=== PATIENT | female | born 1955 | race Caucasian/White ===

== ENCOUNTER → 2016-08-08 | Outpatient (CLI) | payer OTHER ==
[~2016-08-08] MED LIST: /ATOR40TA PO; /IPRAINH IN; /PANT40TA OR; ALBU17IN INH; ALBUTEROL INH; ALLE180T33 PO; AMBI10TA OR; AMLO10TA PO; AMLO10TA2 PO; ARNU1INH3 INH; ATOR40TA PO; ATRO0.063 IN; BACT800T OR; CETI10TA PO; CIPR500S PO; CIPR500T89 PO; CLAR10CA3 PO; CLAR5CHW OR; COMBAER6 INH; CYMB1CAP5 PO; CYMB60CA3 PO; DEPA500T2 OR; DIAZ10TA2 PO; DIOV320T PO; DIOV40TA PO; DIOV80TA3 PO; DITR5TAB PO; DULO1CAP2 PO; DULO1CAP3 PO; DULO20CA OR; DUO PO; ESTR1TD TD; FENO145T PO; FLAG500T PO; FLUT22IN INH; FOLI1TAB2 PO; FURO40TA2 PO; GABA300C3 PO; GABA600T PO; GABA600T3 OR; GABA800T PO; GEMF600T PO; GEOD40CA OR; HALO05TA PO; HYDR50TA8 OR; IBUP600T26 PO; INVA1INJ IV; IPRAINH INH; IPRASOL4 INH; LASI20TA PO; LASI40TA OR; LIDO5TD TD; LIPI20TA OR; LIPI20TA PO; LISI-538 PO; LISI40TAB PO; METO50TA2 PO; NEUR300C PO; NICO14DI20 TD; OMEP40CA2 PO; PAXI40TA OR; PRIL40CA PO; PROT1TAB2 PO; ROBA500T PO; TEARGEN OU; THIA100T PO; TOPI200T OR; TRAM50TA2 OR; TRAM50TA2 PO; TRAZ100T OR; TRAZ100T2 PO; TRAZ100T4 PO; ULTR37.52 PO; ULTR50TA PO; VALS80CA OR; VITA100037 PO; VITA100041 PO; VITA100066 PO; VITA100T86 PO; VITA400C2 PO; VITA50003 PO; VITAD1000T PO; VITAMIN D50000 UNT OR; ZOMI5TAB OR; [UNRECOGNIZED DRUG - CODE] PO; [UNRECOGNIZED DRUG - REMARK] PO
--- NOTE | 2016-08-08 08:23 | REP ---
Clinical: Cholelithiasis with upper abdominal pain. Technique: Real time perez scale ultrasound examination using curved array transducer. Findings: Liver and visualized pancreas are normal in contour, size, and echogenicity without focal hepatic or pancreatic lesions identified. Gallbladder demonstrates multiple gallstones along with sonographic Swan's sign, but no wall thickening or pericholecystic fluid. No biliary ductal dilatation is appreciated and the common bile duct measures 3.9 mm diameter. The right kidney is normal in reniform shape without hydronephrosis and measures 10.5 x 5.7 x 5.1 cm. Impression: Cholelithiasis with right upper quadrant pain cannot exclude acute cholecystitis versus biliary colic . Signed by Gerardo Rowe MD 08/08/2016 08:15 A
== END ==
LOC: M RAD 06:58
PROVIDERS: ATTEND Physician Assistant Medical
DX: R10.10 Upper abdominal pain, unspecified (principal); R11.2 Nausea with vomiting, unspecified; K80.80 Other cholelithiasis without obstruction

== ENCOUNTER → 2016-08-09 | Outpatient (CLI) | payer OTHER ==
[~2016-08-09] MED LIST changes: +E-Z-GAS II EFFERVESCENT PACKET (SODIUM BICARB./CITRIC ACID/SIMETHICONE) As Ordered ONE; +E-Z-HD 98% w/w 340GM SUSP BTL As Ordered ONE; +E-Z-PAQUE 96% w/w SUSP 176GM BTL As Ordered ONE
--- NOTE | 2016-08-09 16:59 | REP ---
UPPER GI AIR CONTRAST AND SMALL BOWEL FOLLOW-THROUGH: The procedure was performed under the direct supervision of Dr. Trevino. The images were reviewed with Dr. Trevino. The campus interviews intern film shows no organomegaly or pathological masses. The intestinal gas pattern is nonspecific. There are degenerative changes of the spine. Liquid barium and gas producing granules were given in the erect position as well as liquid barium in the prone oblique position in order to perform a double contrast upper GI examination. Additionally liquid barium was given at the end of the examination in order to perform a small bowel follow-through. The oral and pharyngeal stages of deglutition are unremarkable. During esophageal transport there are tertiary waves demonstrated. There is no esophagitis, stricture, mucosal ring, or hiatal hernia. Gastroesophageal reflux is not demonstrated on this examination. The stomach gaytan are normally outlined. The rugal folds are smooth and regular. There is no gastritis, neoplasm or ulcer disease. Within the third portion of the duodenum there are two large diverticula identified. The duodenum is otherwise unremarkable. The visualized portion of the proximal small bowel appears normal in course and caliber. The barium column was followed through the small bowel to the level of the terminal ileum. Small bowel transit time was approximately 1 hour. During fluoroscopy gentle palpation shows all loops are freely movable and pliable. There are no fixed or angulated loops. The small bowel mucosal pattern is normal in course and caliber. There is no transition to suggest a partial small bowel obstruction. Spot filming of terminal ileum shows it to be unremarkable. IMPRESSION: 1. Esophageal dysmotility. 2. There are two large diverticula seen in the third portion of the duodenum. 5 minutes and 37 seconds of fluoroscopy time was utilized for this procedure. Reviewed by JOEL Li 08/10/2016 08:30 AEdited and Signed by Asad Trevino MD 08/10/2016 02:56 P
== END ==
LOC: M RAD 08:12
PROVIDERS: ATTEND Physician Assistant Medical
DX: R10.10 Upper abdominal pain, unspecified (principal); R11.2 Nausea with vomiting, unspecified

== ENCOUNTER → 2016-08-22 | Outpatient (CLI) | payer OTHER ==
[~2016-08-22] MED LIST changes: -E-Z-GAS II EFFERVESCENT PACKET (SODIUM BICARB./CITRIC ACID/SIMETHICONE) As Ordered ONE; -E-Z-HD 98% w/w 340GM SUSP BTL As Ordered ONE; -E-Z-PAQUE 96% w/w SUSP 176GM BTL As Ordered ONE; +SUDA1TAB3 PO; -[UNRECOGNIZED DRUG - CODE] PO
[2016-08-22 11:31] LABS: ALBUMIN 3.6 GM/DL (3.2-5.2); ALBUMIN/GLOBULIN RATIO 1.03 (1.00-1.93); BILIRUBIN,TOTAL 0.6 MG/DL (0.2-1.0); CALCIUM LEVEL 9.2 MG/DL (8.5-10.1); CREATININE FOR GFR 1.92 MG/DL (0.55-1.02); GLOMERULAR FILTRATION RATE 28.5 (>51); MAGNESIUM LEVEL 1.8 MG/DL (1.8-2.4); PHOSPHORUS LEVEL 3.4 MG/DL (2.5-4.9); POTASSIUM SERUM 4.4 MEQ/L (3.5-5.1); TOTAL PROTEIN 7.1 GM/DL (6.4-8.2)
== END ==
LOC: M LAB 10:40
PROVIDERS: ATTEND Physician Assistant Medical
DX: E87.1 Hypo-osmolality and hyponatremia (principal)

== ENCOUNTER → 2016-08-25 | Outpatient (CLI) | payer OTHER ==
--- NOTE | 2016-08-25 12:48 | REP ---
Urinary tract sonogram: History: Kidney failure. Comparison: Comparison CT study July 13, 2015. Findings: Scanning at the level of the urinary bladder shows no abnormality. Renal cortical echogenicity pattern is normal bilaterally and contours are smooth. There is no evidence of hydronephrosis, cyst, mass, or calculus in either kidney. The right kidney measures 11.1 x 5.0 x 4.6 cm. Left renal dimensions are 11.6 x 3.8 x 4.9 cm. Impression: Normal urinary tract sonography. Signed by Asad Trevino MD 08/25/2016 12:38 P
== END ==
LOC: M RAD 10:32
PROVIDERS: ATTEND Physician Assistant Medical
DX: N19 Unspecified kidney failure (principal)

== ENCOUNTER 2016-12-20 05:44 | Day surgery (SDC) | payer OTHER ==
[~2016-12-20] VITALS: Ht 160 cm; Wt 65.8 kg
[2016-12-20] VITALS (7 sets, daily range): BP systolic 94–115; BP diastolic 52–63; O2SAT 96
[~2016-12-20 05:44] MED LIST changes: +GABA-282 PO; -GABA300C3 PO; +LAMI1CRE TOP
[2016-12-20] MEDS ORDERED: LR 1,000 ML IV SCH ×2 (06:00→12:00)
[2016-12-20] MEDS ORDERED: ROCURONIUM BROMIDE 50 MG/5 ML VIAL As Ordered ONE (07:11)
[2016-12-20] MEDS ORDERED: PROPOFOL 200 MG/20 ML VIAL As Ordered ONE (07:11)
[2016-12-20] MEDS ORDERED: fentaNYL 250 MCG/5 ML INJECTION (J3010) As Ordered ONE (07:11)
[2016-12-20] MEDS ORDERED: MIDAZOLAM INJ 2 MG/2 ML VIAL (J2250) As Ordered ONE (07:11)
[2016-12-20] MEDS ORDERED: LIDOCAINE 2% INJ 100 MG/5 ML SDV (FOR ANES.) As Ordered ONE (07:11)
[2016-12-20] MEDS ORDERED: BUPIVACAINE/EPIN 0.25% 30 ML VIAL As Ordered ONE (07:19)
--- NOTE | 2016-12-20 08:30 | ECGEPIP ---
Stationary ECG Study [facility] Test Date: 2016-12-20 Pat Name: KALA SOLIS Department: [facility] [place] Room: - Gender: F Contact Center Assistant: JACEK : 1955 Requested By: Duncan Garcia Order Number: [id number] Reading MD: Buddy Pickens Measurements Intervals [place] Rate: 76 P: 66 MO: 181 QRS: 64 QRSD: 86 T: 39 QT: 394 QTc: 444 Interpretive Statements Normal sinus rhythm P pulmonale Low voltages with somewhat prominent R wave in V2 and persistent S waves in V5 and V6 in keeping with body habitus versus pulmonary disease. Nonspecific ST/T-wave abnormalities more marked than 07/12/15 Clinical correlation advised Electronically Signed On 12-20-2016 8:29:37 EDT by Buddy Pickens
[2016-12-20] MEDS ORDERED: PHENYLephrine HCL 500 MCG/5 ML (100MCG/ML) SYRINGE (J2370) As Ordered ONE (10:33)
[2016-12-20] MEDS ORDERED: ePHEDrine SULFATE 25 MG/5 ML(5MG/ML) SYRINGE As Ordered ONE (10:33)
[2016-12-20] MEDS ORDERED: GLYCOPYRROLATE INJ 0.2 MG/ML 2 ML VIAL As Ordered ONE (10:52)
[2016-12-20] MEDS ORDERED: ONDANSETRON 4MG/2ML VIAL (J2405) As Ordered ONE (10:52)
[2016-12-20] MEDS ORDERED: NEOSTIGMINE 1MG/ML 5 ML SYRINGE (J2710) As Ordered ONE (10:52)
[2016-12-20] MEDS ORDERED: fentaNYL 100 MCG/2 ML INJECTION (J3010) As Ordered ONE (11:39)
[2016-12-20] MEDS: fentaNYL 100 MCG/2 ML INJECTION (J3010) IV PRN ×3 (11:40→12:08)
--- NOTE | 2016-12-20 11:43 | RO ---
DATE OF PROCEDURE: 12/20/2016 PREPROCEDURE DIAGNOSIS: Symptomatic gallstones with history of cholecystitis. POSTPROCEDURE DIAGNOSIS: Symptomatic gallstones with history of cholecystitis. PROCEDURE: Laparoscopic cholecystectomy. SURGEON: Duncan Carmona MD ANESTHESIA: General endotracheal anesthesia. ESTIMATED BLOOD LOSS: Minimal. FLUIDS: Crystalloid. PROCEDURE SUMMARY: The patient was brought to the operating room and was given general anesthesia. After adequate anesthesia was established, the patient was prepped and draped in the usual sterile fashion. Next, a supraumbilical incision was made with skin knife. Blunt dissection was carried down to fascia. Fascia was grasped with Ryan clamps, elevated and a Veress needle placed into the abdominal cavity and insufflated to 15 mm of pressure. A dilating 10 mm trocar was placed at this time and under direct visualization an epigastric, as well as two lateral trocars were placed. The gallbladder was seen and had numerous adhesions of the gallbladder to the omentum, which were taken down by hook cautery. There was some edema in the gallbladder wall as well and eventually the gallbladder was grasped, retracted superiorly. What was interesting was the neck of the gallbladder was rotated to the right so that the cystic artery was located directly anteriorly. After adequate retraction and the peritoneum was taken off laterally, as well as medially, a very large window behind the neck of the gallbladder was created. The gallbladder was relatively thin walled and kept on bulging down but eventually I was able to dissect this free so that the two structures were appreciated coming down and appeared to be the cystic artery, as well as cystic duct. At this point, what was apparent as well was a very large hepatic artery that was coming up to the gallbladder underneath where the cystic artery was coming off and this was pulsatile. My concern at this point was that there was some minimal oozing of the dissection of this area and I was concerned that any further dissection might avulse the artery and may require ligation/clipping of this major artery, which probably is the right hepatic. In any case, after getting the two structures as delicately moved as possible, the anterior at the 12 o'clock structure going up to the gallbladder appeared to be the cystic duct, although it is hard to tell because it went up higher on the gallbladder itself and this most likely was the cystic artery and this was clipped proximally, distally and transected. At this point, the area on the gallbladder itself and the artery was better visualized and was tight up against the posterior gallbladder with approximately 5-6 mm of separation from this up to the gallbladder wall. I clipped this proximally and distally and then transected this. The gallbladder then was removed from the gallbladder bed with electrocautery. Next, the gallbladder was placed in an EndoCatch bag. The right upper quadrant was copiously irrigated until clear. All of the trocars removed under direct visualization. #0 Vicryl was used to close the fascia at the umbilicus and all incisions were closed with #4-0 Vicryl. Steri-Strips and dry sterile dressing was applied. The patient was awakened, extubated, brought to recovery room awake, alert, hemodynamically stable. Sponge and needle counts correct times two.
[2016-12-20] MEDS ORDERED: MORPHINE 2 MG/ML 1ML SYRINGE IV PRN (12:00)
[2016-12-20] MEDS: LR 1,000 ML IV SCH ×2 (12:00→18:40)
[2016-12-20] MEDS ORDERED: ONDANSETRON 4MG/2ML VIAL (J2405) IV PRN ×2 (12:00)
[2016-12-20] MEDS: NORCO, ANEXSIA 5/325MG TABLET (HYDROcodone/ACETAMINOPHEN) PO PRN ×4 (12:37→23:09)
[2016-12-20] MEDS: METOPROLOL TART 50 MG TAB PO SCH (21:00)
[2016-12-20] MEDS ORDERED: diazePAM 10 MG TAB PO SCH (21:00)
[2016-12-20] MEDS ORDERED: ATORVASTATIN 20 MG TAB PO SCH (21:00)
[2016-12-20] MEDS: GABAPENTIN 300 MG CAP PO SCH (23:09)
[2016-12-20] MEDS: OMEPRAZOLE 20 MG CAP PO SCH (23:09)
[2016-12-21] MEDS: LR 1,000 ML IV SCH ×2 (01:05→08:00)
[2016-12-21 02:00] VITALS: BP 110/62
[2016-12-21] MEDS: NORCO, ANEXSIA 5/325MG TABLET (HYDROcodone/ACETAMINOPHEN) PO PRN ×2 (05:09→14:37)
[2016-12-21 06:00] VITALS: BP 128/59
[2016-12-21] MEDS: GABAPENTIN 300 MG CAP PO SCH (08:37)
[2016-12-21 08:38] VITALS: BP 107/62
[2016-12-21] MEDS: METOPROLOL TART 50 MG TAB PO SCH (08:38)
[2016-12-21] MEDS: OMEPRAZOLE 20 MG CAP PO SCH (08:39)
[2016-12-21] MEDS ORDERED: amLODIPine 10 MG TAB PO SCH (09:00)
[2016-12-21] MEDS ORDERED: DULoxetine 30 MG CAP (CYMBALTA) PO SCH (09:00)
[2016-12-21] MEDS ORDERED: FUROSEMIDE 20 MG TAB PO SCH (09:00)
[2016-12-21] MEDS ORDERED: LORATADINE 10 MG TAB PO SCH (09:00)
[2016-12-21] MEDS ORDERED: oxyBUTYnin *DITROPAN XL* 5 MG TABCR PO SCH (09:00)
[2016-12-21 11:04] VITALS: O2SAT 89
== END 2016-12-21 14:45 | disposition home or self-care (01) ==
LOC: M SDC 05:44 → M MS5PR 18:00 → M SDC 12-21 14:45
PROVIDERS: ATTEND Surgery
DX: K80.10 Calculus of gallbladder with chronic cholecystitis without obstruction (principal); M54.5 Low back pain; G89.29 Other chronic pain; N95.1 Menopausal and female climacteric states; N60.19 Diffuse cystic mastopathy of unspecified breast; I12.9 Hypertensive chronic kidney disease with stage 1 through stage 4 chronic kidney disease, or unspecified chronic kidney disease; K58.8 Other irritable bowel syndrome; E78.00 Pure hypercholesterolemia, unspecified; K57.32 Diverticulitis of large intestine without perforation or abscess without bleeding; K44.9 Diaphragmatic hernia without obstruction or gangrene; K63.5 Polyp of colon; F41.9 Anxiety disorder, unspecified; F32.9 Major depressive disorder, single episode, unspecified; F43.10 Post-traumatic stress disorder, unspecified; J43.8 Other emphysema; J45.909 Unspecified asthma, uncomplicated; K21.9 Gastro-esophageal reflux disease without esophagitis; R51 Headache; B95.62 Methicillin resistant Staphylococcus aureus infection as the cause of diseases classified elsewhere; R29.898 Other symptoms and signs involving the musculoskeletal system; M17.0 Bilateral primary osteoarthritis of knee; Z87.311 Personal history of (healed) other pathological fracture; B37.2 Candidiasis of skin and nail; N18.3 Chronic kidney disease, stage 3 (moderate); F17.290 Nicotine dependence, other tobacco product, uncomplicated; F12.90 Cannabis use, unspecified, uncomplicated; Z88.0 Allergy status to penicillin; Z88.1 Allergy status to other antibiotic agents; Z88.4 Allergy status to anesthetic agent; Z88.5 Allergy status to narcotic agent; Z88.6 Allergy status to analgesic agent; Z88.8 Allergy status to other drugs, medicaments and biological substances; Z79.899 Other long term (current) drug therapy; Z80.3 Family history of malignant neoplasm of breast; Z86.2 Personal history of diseases of the blood and blood-forming organs and certain disorders involving the immune mechanism; Z90.710 Acquired absence of both cervix and uterus

== ENCOUNTER → 2017-02-21 | Outpatient (CLI) | payer OTHER ==
[~2017-02-21] MED LIST changes: -ATOR40TA PO; +ATOR40TA75 PO; +CIPR-249 PO; -CIPR500T89 PO; +CRES40TA PO; +FENO48TA2 PO; -FOLI1TAB2 PO; +FOLI1TAB4 PO; +IBUP-1022 PO; -IBUP600T26 PO; -METO50TA2 PO; +METO50TA7 PO; +OXYB5TAB10 PO; +PRED10TA2 PO; -THIA100T PO; +THIA100T6 PO; +TRAZ-136 PO; -TRAZ100T4 PO; -ULTR37.52 PO; +ULTR37.54 PO; +VITA-182 PO; -VITA100037 PO; -VITA100041 PO; +VITA100067 PO; +VITA1CAP40 PO; -VITA400C2 PO; +VITA400C7 PO; -VITA50003 PO
[2017-02-21 12:38] LABS: BASO # 0.1 K/mm3 (0.0-0.2); BASO % 1.1 % (0.0-1.0); EOS # 0.2 K/mm3 (0.0-0.50); EOS % 2.5 % (0.0-3.0); LYMPH # 3.1 K/mm3 (1.5-4.5); LYMPH % 32.9 % (24.0-44.0); MEAN CORPUSCULAR HEMOGLOBIN 30.7 pg (27.0-33.0); MEAN CORPUSCULAR HGB CONC 32.9 g/dl (32.0-36.5); MEAN CORPUSCULAR VOLUME 93.3 fl (80.0-96.0); MONO # 0.7 K/mm3 (0.0-0.8); NEUTROPHILS # 5.1 K/mm3 (1.8-7.7); NEUTROPHILS % 55.3 % (36.0-66.0); RED CELL DISTRIBUTION WIDTH 13.2 % (11.5-14.5); WHITE BLOOD COUNT 9.2 K/mm3 (4.0-10.0)
[2017-02-21 13:21] LABS: ALBUMIN 3.6 GM/DL (3.2-5.2); ALBUMIN/GLOBULIN RATIO 0.97 (1.00-1.93); ALKALINE PHOSPHATASE 67 U/L (45-117); ALT/SGPT 16 U/L (12-78); ANION GAP 8 MEQ/L (8-16); AST/SGOT 11 U/L (15-37); BILIRUBIN,TOTAL 0.4 MG/DL (0.2-1.0); BLOOD UREA NITROGEN 12 MG/DL (7-18); CALCIUM LEVEL 9.3 MG/DL (8.8-10.2); CARBON DIOXIDE LEVEL 28 MEQ/L (21-32); CHLORIDE LEVEL 105 MEQ/L (98-107); CHOLESTEROL LEVEL 251 MG/DL (<200); CREATININE FOR GFR 0.94 MG/DL (0.55-1.02); GLOMERULAR FILTRATION RATE > 60.0 (>45); GLUCOSE, FASTING 102 MG/DL (80-110); POTASSIUM SERUM 4.1 MEQ/L (3.5-5.1); SODIUM LEVEL 141 MEQ/L (136-145); TOTAL PROTEIN 7.3 GM/DL (6.4-8.2); TRIGLYCERIDES LEVEL 251 MG/DL (<150)
== END ==
LOC: M LAB 11:58
PROVIDERS: ATTEND Physician Assistant Medical
DX: E78.2 Mixed hyperlipidemia (principal); R63.4 Abnormal weight loss; E55.9 Vitamin D deficiency, unspecified

== ENCOUNTER 2017-05-18 16:52 | Inpatient (IN) | payer OTHER ==
[~2017-05-18] VITALS: Ht 160 cm; Wt 62.0 kg
[~2017-05-18 16:52] MED LIST changes: -CRES40TA PO; -FENO48TA2 PO; -OXYB5TAB10 PO; -PRED10TA2 PO
[2017-05-18] MEDS ORDERED: NS 1,000 ML IV ONE (17:45)
[2017-05-18] MEDS ORDERED: CRES40TA PO (18:28)
[2017-05-18] MEDS ORDERED: PROT1TAB2 PO (18:28)
[2017-05-18] MEDS ORDERED: FENO48TA2 PO (18:28)
[2017-05-18] MEDS ORDERED: GABA-282 PO ×2 (18:28)
[2017-05-18] MEDS ORDERED: OXYB5TAB10 PO (18:28)
[2017-05-18 18:50] LABS: BASO % 0.2 % (0.0-1.0); EOS # 0.1 10^3/uL (0.0-0.50); EOS % 0.7 % (0.0-3.0); IMMATURE GRANULOCYTE % 1.4 % (0-0); LYMPH % 34.9 % (24.0-44.0); MEAN CORPUSCULAR HEMOGLOBIN 29.5 pg (27.0-33.0); MEAN CORPUSCULAR HGB CONC 33.2 g/dl (32.0-36.5); MEAN CORPUSCULAR VOLUME 88.9 fl (80.0-96.0); MONO # 1.2 10^3/uL (0.0-0.8); MONO % 14.1 % (0.0-5.0); NEUTROPHILS # 4.2 10^3/uL (1.8-7.7); NEUTROPHILS % 48.7 % (36.0-66.0); PLATELET COUNT, AUTOMATED 278 10^3/uL (150-450); RED CELL DISTRIBUTION WIDTH 13.2 % (11.5-14.5); VENOUS BASE EXCESS 0.1 (-2.0-2.0); VENOUS O2 SATURATION 75.8 % (60.0-80.0); VENOUS PARTIAL PRESSURE CO2 49.8 mmHg (38.0-50.0); VENOUS PARTIAL PRESSURE O2 41.4 mmHg (30.0-50.0); VENOUS STANDARD HCO3 24.1 MEQ/L; VENOUS TOTAL CO2 27.9 MEQ/L (24.0-28.0); WHITE BLOOD COUNT 8.7 10^3/uL (4.0-10.0)
[2017-05-18 18:52] LABS: INR 1.01
--- NOTE | 2017-05-18 18:55 | REP ---
CHEST, PA AND LATERAL: 05/18/2017. Comparison: 07/12/2015, 04/04/2015. Clinical history: Dyspnea. Findings: Lungs are well inflated without pleural effusion, lateral pleural thickening or definite infiltrate. Some minor basilar fibrotic changes are seen. The heart is not enlarged. Pulmonary arteries are mildly prominent centrally suggesting some degree of pulmonary artery hypertension. There is no pulmonary venous hypertension or edema. The aorta is mildly tortuous, but normal for age. Airway intact. Bony thorax shows no acute compression deformity with some old minor wedging lower thoracic vertebral body at about T12, similar to that seen on a rib series 07/14/2015. This is not acute. No free air under the diaphragm. Impression: 1. Some minor basilar fibrotic change with hyperinflation, COPD and pulmonary artery hypertension. No infiltrate, effusion, cardiomegaly or edema. Signed by Keenan Ascencio MD 05/18/2017 08:15 P
[2017-05-18 19:02] LABS: ALBUMIN 2.6 GM/DL (3.2-5.2); ALBUMIN/GLOBULIN RATIO 0.76 (1.00-1.93); ALKALINE PHOSPHATASE 70 U/L (45-117); ALT/SGPT 14 U/L (12-78); ANION GAP 8 MEQ/L (8-16); AST/SGOT 11 U/L (15-37); BILIRUBIN,DIRECT 0.2 MG/DL (0.0-0.2); BILIRUBIN,TOTAL 0.3 MG/DL (0.2-1.0); BLOOD UREA NITROGEN 5 MG/DL (7-18); CALCIUM LEVEL 7.6 MG/DL (8.8-10.2); CARBON DIOXIDE LEVEL 28 MEQ/L (21-32); CHLORIDE LEVEL 99 MEQ/L (98-107); CREATININE FOR GFR 0.81 MG/DL (0.55-1.02); GLOMERULAR FILTRATION RATE > 60.0 (>45); GLUCOSE, FASTING 111 MG/DL (80-110); POTASSIUM SERUM 3.5 MEQ/L (3.5-5.1); SODIUM LEVEL 135 MEQ/L (136-145)
[2017-05-18 20:34] LABS: T UPTAKE 34 % (30-39); THYROXINE (T4) 8.7 UG/DL (4.5-12.0)
[2017-05-18] MEDS: METOPROLOL TART 50 MG TAB PO SCH (21:00)
[2017-05-18] MEDS ORDERED: NS 1,500 ML IV SCH (21:53)
[2017-05-18] MEDS ORDERED: IPRATROPIUM 0.5MG/ALBUTEROL 2.5MG INH SOL UD 3ML (DUONEB)(J7620) INH PRN (22:00)
[2017-05-18] MEDS ORDERED: ONDANSETRON 4MG/2ML VIAL (J2405) IV PRN (22:00)
[2017-05-18 22:46] LABS: REASON FOR REVIEW COMPREHENSIVE REVIEW
[2017-05-18 22:51] LABS: PERCENT SATURATION 8.6 % (13.2-45.0)
[2017-05-18 23:12] LABS: ERYTHROCYTE SEDIMENTATION RATE 52 mm/hr (0-30)
--- NOTE | 2017-05-18 23:20 | REPUSA ---
CT of the chest without contrast Clinical statement: Shortness of breath. Technique: Multiple axial CT images were obtained with 5 mm cuts through the chest without administra tion of contrast. No comparison is available. Findings: There is no thoracic lymphadenopathy. The visualized portions of the thyroid gland is unrem arkable. There are no pericardial or pleural effusions. There is mild diffuse emphysematous changes. Small focal areas of infiltrate are seen in the right upper and left lower lobes. Limited imaging of the upper abdomen does not demonstrate any acute abnormalities. There are no suspicious osseous lesio ns. Impression: 1. No discrete infiltrate or fusion. Minimal interstitial changes in the right upper and left lower l obes likely represents scarring or atelectasis. 2. Mild emphysema.
--- NOTE | 2017-05-18 23:58 | HPEPDOC ---
General Date of Admission May 18, 2017 at 21:53 Other Providers PCP: Keisha Hill Attending Physician: RANDALL RIDER MD Chief Complaint The patient is a 62-year-old female admitted with a reason for visit of Weakness Generalized. Source: Patient History of Present Illness 62-year-old female with past medical history of hypertension, dyslipidemia, COPD , anxiety/depression, GERD, gastric ulcer disease, and irritable bowel syndrome presented to the ER with a chief complaint of progressive weakness and lethargy over the last 3 weeks. She states that her symptoms began with cold/flu like symptoms involving a cough productive of yellowish sputum, subjective fevers and chills. She also notes that her roommate at the time was also having similar symptoms. However, the patient states that her symptoms have not improved since. At baseline, the patient states that she walks with a rolling walker and cane. However, over the last few weeks the patient has had increased difficulty even transferring to a commode. Of note, the patient does state that she has had a 10 pound weight loss over the last 1 month. She also notices continued productive cough, which sometimes has a bloody production. She states that she continues to smoke 1 pack of tobacco per day which she has done for the past 30+ years. The patient also denies starting any new medications recently. She denies any other acute complaints of chest pain, palpitations, abdominal pain, dark colored stools, or any nausea/vomiting/diarrhea. Home Medications Scheduled Amlodipine Besylate (Norvasc) 10 Mg Tab, 10 MG PO DAILY, (Reported) Diazepam (Diazepam) 10 Mg Tab, 20 MG PO QHS, (Reported) Duloxetine Hcl (Cymbalta) 60 Mg Cap, 60 MG PO DAILY, (Reported) Duloxetine Hcl (Duloxetine HCl) 30 Mg Cap, 30 MG PO DAILY, (Reported) Ergocalciferol (Vitamin D) 50,000 Unit Cap, 50,000 UNIT PO QWEEK, (Reported) MONDAY Fenofibrate (Fenofibrate) 48 Mg Tab, 48 MG PO QHS, (Reported) Gabapentin (Gabapentin) 300 Mg Cap, 300 MG PO QAM, (Reported) Gabapentin (Gabapentin) 300 Mg Cap, 600 MG PO QHS, (Reported) Loratadine (Claritin) 10 Mg Cap, 10 MG PO QHS, (Reported) Metoprolol Tartrate (Metoprolol Tartrate) 50 Mg Tab, 50 MG PO BID, (Reported) Oxybutynin Chloride (Oxybutynin Chloride) 5 Mg Tab, 5 MG PO DAILY, (Reported) Pantoprazole Sodium Sesquihydr (Protonix) 40 Mg Tab, 40 MG PO BID, (Reported) Rosuvastatin Calcium (Crestor) 40 Mg Tab, 40 MG PO QHS, (Reported) Trazodone HCl (Trazodone HCl) 100 Mg Tab, 200 MG PO QHS, (Reported) Scheduled PRN Albuterol/Ipratropium (Combivent Respimat 20-100 Mcg/Act) 1 Aer Aer, 2 PUFF INH TIDP PRN for SHORTNESS OF BREATH, (Reported) Allergies Coded Allergies: Azithromycin (Verified Allergy, Intermediate, HIVES, 12/13/16) Nefazodone (Verified Allergy, Intermediate, HIVES, 08/29/16) Tuberculin Purified Protein Derivat (Verified Allergy, Intermediate, PT STATES EXTENSIVE ARM SWELLING AND REFUSES PPD, 10/29/12) Aspirin (Verified Adverse Reaction, Intermediate, HIVES, 10/29/12) Fluticasone (Unverified Adverse Reaction, Intermediate, 08/29/16) pt states she ended up severely sick and was hospitalized after taking it Salmeterol (Unverified Adverse Reaction, Intermediate, 08/29/16) pt states she ended up severely sick and was hospitalized after taking it Cephalosporins (Verified Adverse Reaction, Mild, VOMITING, 08/29/16) Codeine (Verified Adverse Reaction, Mild, N/V, 08/29/16) Penicillins (Verified Adverse Reaction, Mild, NAUSEA w/AUGMENTIN, 10/29/12) Penicillins Cross Reactors (Verified Adverse Reaction, Mild, NAUSEA w/ AUGMENTIN, 10/29/12) Propoxyphene (Verified Adverse Reaction, Mild, N/V, 08/29/16) Past Medical History Medical History As noted in HPI. Surgical History Hysterectomy, left knee surgery, cholecystectomy Family History Significant Family History: No pertinent family hx Social History * Smoker: other (smokes one pack of tobacco per day. For the last 30 years) Alcohol: Denies Drugs: denies Lives with a roommate. Ambulates with a rolling walker or cane. Is dependent on her roommate for activities of daily living. Review of Symptoms Other systems 10 point review of systems negative unless otherwise specified in HPI. Physical Examination General Exam: Positive: Alert, Cooperative, No Acute Distress ENT Exam: Positive: Atraumatic, Mucous membr. moist/pink Neck Exam: Negative: JVD Chest Exam: Positive: Clear to auscultation, Normal air movement Heart Exam: Positive: Rate Normal, Normal S1, Normal S2 Abdomen Exam: Positive: Soft, Negative: Tenderness Extremity Exam: Negative: Tenderness, Swelling Psych Exam: Positive: Oriented x 3 Vital Signs Vital Signs Date Time Temp Pulse Resp B/P (MAP) Pulse Ox O2 Delivery O2 Flow Rate FiO2 05/18/17 22:54 74 101/64 (76) 92 05/18/17 20:54 2.0 05/18/17 19:09 18 Room Air 05/18/17 17:13 99.9 Laboratory Data Labs 24H Laboratory Tests 2 05/18/17 17:37: Ethyl Alcohol Level < 0.003 05/18/17 17:39: Immature Granulocyte % (Auto) 1.4H, White Blood Count 8.7, Red Blood Count 3.86L , Hemoglobin 11.4L, Hematocrit 34.3L, Mean Corpuscular Volume 88.9, Mean Corpuscular Hemoglobin 29.5, Mean Corpuscular Hemoglobin Concent 33.2, Red Cell Distribution Width 13.2, Platelet Count 278, Neutrophils (%) (Auto) 48.7, Lymphocytes (%) (Auto) 34.9, Monocytes (%) (Auto) 14.1H, Eosinophils (%) (Auto) 0.7, Basophils (%) (Auto) 0.2, Neutrophils # (Auto) 4.2, Lymphocytes # (Auto) 3.0, Monocytes # (Auto) 1.2H, Eosinophils # (Auto) 0.1, Basophils # (Auto) 0.0, Immature Granulocyte # (Auto) 0.1H, Nucleated Red Blood Cells % (auto) 0.0, Prothrombin Time 13.4, Prothromb Time International Ratio 1.01, Activated Partial Thromboplast Time 32.7, Blood Gas Bicarbonate Standard 24.1, Venous Blood pH 7.342, Venous Blood Partial Pressure CO2 49.8, Venous Blood Partial Pressure O2 41.4, Venous Blood Total Carbon Dioxide 27.9, Venous Blood HCO3 26.4 , Venous Blood Oxygen Saturation 75.8, Venous Blood Base Excess 0.1, Anion Gap 8 , Glomerular Filtration Rate > 60.0, Estimated Mean Plasma Glucose 117H, Hemoglobin A1c 5.7, Lactic Acid Level 1.0, Calcium Level 7.6L, Aspartate Amino Transf (AST/SGOT) 11L, Alanine Aminotransferase (ALT/SGPT) 14, Alkaline Phosphatase 70, Total Bilirubin 0.3, Direct Bilirubin 0.2, Total Creatine Kinase 36, Creatine Kinase MB 1.0, Creatine Kinase MB Relative Index 2.77, Troponin I < 0.02, Total Protein 6.0L, Albumin 2.6L, Albumin/Globulin Ratio 0.76L, Lipase 129, Thyroid Stimulating Hormone (TSH) 0.784, Free Thyroxine Index 3.0, Thyroxine (T4) 8.7, Triiodothyronine (T3) Uptake 34 05/18/17 17:43: Differential Slide Review Report, Differential Pathologist's Review COMPREHENSIVE REVIEW, Peripheral Blood Smear Path Consult PERIPHERAL SMEAR, Erythrocyte Sedimentation Rate 52H 05/18/17 19:25: Urine Appearance CLEAR, Urine Color STRAW, Urine pH 7.0, Urine Specific [place] 1.001L, Urine Protein NEGATIVE, Urine Glucose (UA) NEGATIVE, Urine Ketones NEGATIVE, Urine Urobilinogen 0.2, Urine Bilirubin NEGATIVE, Urine Leukocyte Esterase NEGATIVE, Urine Blood NEGATIVE, Urine Nitrite NEGATIVE, Urine WBC (Auto ) 0, Urine RBC (Auto) 1, Urine Hyaline Casts (Auto) 0, Urine Bacteria (Auto) NEGATIVE, Urine Squamous Epithelial Cells 0, Urine Sperm (Auto) 05/18/17 22:33: Iron Level 16L, Total Iron Binding Capacity 185L, Transferrin % Saturation 8.6L , Ferritin 270H, C-Reactive Protein, Quantitative 1.81H CBC/BMP Laboratory Tests 05/18/17 17:39 Red Blood Count 3.86 L, Mean Corpuscular Volume 88.9, Mean Corpuscular Hemoglobin 29.5, Mean Corpuscular Hemoglobin Concent 33.2, Red Cell Distribution Width 13.2, Neutrophils (%) (Auto) 48.7, Lymphocytes (%) (Auto) 34.9, Monocytes (%) (Auto) 14.1 H, Eosinophils (%) (Auto) 0.7, Basophils (%) ( Auto) 0.2, Neutrophils # (Auto) 4.2, Lymphocytes # (Auto) 3.0, Monocytes # (Auto ) 1.2 H, Eosinophils # (Auto) 0.1, Basophils # (Auto) 0.0 Microbiology Microbiology 05/18/17 Blood Culture, Received Pending 05/18/17 Blood Culture, Received Pending Plan / VTE VTE Prophylaxis Ordered?: Yes Plan Plan Generalized Weakness/Fatigue No overt source of infectious etiology appreciated White blood cell count within normal limits, the patient has been afebrile here Chest x-ray with no infiltrate or effusions noted UA not suggestive of underlying UTI Blood cultures ordered We have ordered a respiratory panel given the patient's history of cold/flu like symptoms In addition, I have held the patient's sedative type of medications TSH, Ammonia levels wnl Physical therapy, occupational therapy ordered for functional optimization Decreased Appetite with 10lb Weight Loss over the last 1 month We will order a CT scan of the chest given the patient's clinical presentation, and history of tobacco use with concern for possible underlying malignancy Of note the patient has had a screening colonoscopy done in February 2015 which was only significant for hyperplastic polyps, diverticular disease, and small internal hemorrhoids. An EGD from December 2015 was also reviewed and did not reveal any acute findings. Screening mammogram from October 2015 negative Normocytic anemia The patient has had a hemoglobin drop--Hgb here is 11.4 (Baseline 13-15 during previous admissions) Iron studies ordered Peripheral smear ordered The patient denies any overt source of blood loss Stool occult for blood ordered We will continue to monitor the patient's H&H levels Hypertension, stable Continue Norvasc, metoprolol COPD, stable Continue albuterol when necessary Dyslipidemia Continue statin, fenofibrate GERD Continue PPI Anxiety/depression, stable Continue Cymbalta History of irritable bowel syndrome, stable Follows with Dr. Payton as an outpatient DVT prophylaxis Lovenox subcutaneous The patient will be admitted under the service of Dr. Rider, who will begin to follow the patient on 05/19/17 at 7am. SHELLY COOL MD May 18, 2017 23:58
[2017-05-19] VITALS: BP 121/68
[2017-05-19] MEDS: PANTOPRAZOLE 40MG TAB (PROTONIX) PO SCH ×3 (01:13→21:03)
[2017-05-19] MEDS: FENOFIBRATE 48 MG TAB (TRICOR) PO SCH ×2 (01:14→21:03)
[2017-05-19] MEDS: ROSUVASTATIN 10 MG TAB (CRESTOR) PO SCH ×2 (01:14→21:02)
--- NOTE | 2017-05-19 07:12 | ECGEPIP ---
Stationary ECG Study [facility] - ED Test Date: 2017-05-18 Pat Name: KALA SOLIS Department: Room: [place] [address] Gender: F Research Hydrologist: alexia : 1955 Requested By: LD Roldan Order Number: [id number] Reading MD: Carlos Lee Measurements Intervals [place] Rate: 69 P: 60 AL: 181 QRS: 52 QRSD: 76 T: 39 QT: 389 QTc: 417 Interpretive Statements SINUS RHYTHM NONSPECIFIC T-WAVE ABNORMALITY SIMILAR TO 12/20/16 Electronically Signed On 05-19-2017 7:11:51 EDT by Carlos Lee
[2017-05-19 08:00] VITALS: BP 108/50
[2017-05-19] MEDS: amLODIPine 10 MG TAB PO SCH (08:39)
[2017-05-19] MEDS: DULoxetine 30 MG CAP (CYMBALTA) PO SCH (08:58)
[2017-05-19] MEDS: FERROUS SULFATE 325MG TAB PO SCH ×2 (08:58→21:04)
[2017-05-19] MEDS: oxyBUTYnin 5 MG TAB PO SCH (08:59)
[2017-05-19] MEDS: ENOXAPARIN 30 MG/0.3 ML SYR (J1650) SC SCH (08:59)
[2017-05-19] MEDS: METOPROLOL TART 50 MG TAB PO SCH ×2 (08:59→21:05)
[2017-05-19] MEDS ORDERED: DULoxetine 30 MG CAP (CYMBALTA) PO SCH (09:00)
[2017-05-19] MEDS: methylPREDNISolone INJ 125 MG/2 ML VIAL (J2930) IV SCH ×2 (09:06→17:40)
[2017-05-19] MEDS: IPRATROPIUM 0.5MG/ALBUTEROL 2.5MG INH SOL UD 3ML (DUONEB)(J7620) NEB SCH ×3 (09:19→19:36)
[2017-05-19 09:37] LABS: ALBUMIN 2.6 GM/DL (3.2-5.2); ALBUMIN/GLOBULIN RATIO 0.74 (1.00-1.93); ALKALINE PHOSPHATASE 74 U/L (45-117); ALT/SGPT 15 U/L (12-78); ANION GAP 7 MEQ/L (8-16); AST/SGOT 12 U/L (15-37); BILIRUBIN,TOTAL 0.3 MG/DL (0.2-1.0); BLOOD UREA NITROGEN 3 MG/DL (7-18); CALCIUM LEVEL 8.2 MG/DL (8.8-10.2); CARBON DIOXIDE LEVEL 28 MEQ/L (21-32); CHLORIDE LEVEL 107 MEQ/L (98-107); CREATININE FOR GFR 0.59 MG/DL (0.55-1.02); GLOMERULAR FILTRATION RATE > 60.0 (>45); GLUCOSE, FASTING 97 MG/DL (80-110); MAGNESIUM LEVEL 1.6 MG/DL (1.8-2.4); POTASSIUM SERUM 3.3 MEQ/L (3.5-5.1); SODIUM LEVEL 142 MEQ/L (136-145); TOTAL PROTEIN 6.1 GM/DL (6.4-8.2)
[2017-05-19] MEDS: GABAPENTIN 300 MG CAP PO SCH ×2 (10:54→21:02)
[2017-05-19] MEDS: MULTIVITAMINS/MINERALS THERAP 1 TAB PO SCH (10:54)
[2017-05-19] MEDS: THIAMINE 100 MG TAB PO SCH (10:54)
[2017-05-19] MEDS: FOLIC ACID 1 MG TAB PO SCH (10:54)
[2017-05-19] MEDS ORDERED: POTASSIUM CHLORIDE 10 MEQ SR TABLET PO ONE (11:00)
[2017-05-19] MEDS ORDERED: MAG SULF 1GM/100ML (MAG RUN) 1 GM in APPROPRIATE DILUENT 1 EA IV ONE (11:00)
[2017-05-19 11:55] LABS: FOLATE 18.8 NG/ML (>5.4)
--- NOTE | 2017-05-19 13:41 | IPN ---
DATE: 05/19/2017 The patient is seen and examined. No acute events. Was admitted overnight with coughing, generalized weakness, with upper respiratory infection symptoms for the past 2 weeks that is progressively worsening. Cough is productive of yellowish sputum. Subjective fever. The patient continued to have a cough with generalized weakness. Denies any chest pain, pressure or discomfort. VITAL SIGNS: Temperature 98.4, pulse 75, respirations 16, blood pressure 108/50, pulse oximetry 92% on 1 liter nasal cannula. LABORATORY DATA: WBC 8.7, hemoglobin and hematocrit 11.4/34.3, platelets 278. Chemistry: Sodium 142, potassium 3.3, chloride 107, bicarbonate 28, BUN 3, creatinine 0.59. Magnesium 1.6. C-reactive protein 2.67. Respiratory panel positive for parainfluenza. PHYSICAL EXAMINATION : GENERAL: The patient is alert, follows command in no acute distress. HEENT: Normocephalic, atraumatic. PULMONARY: Bilateral expiratory wheeze. CARDIAC: Regular rate and rhythm. Normal S1, S2. ABDOMEN: Soft, nontender. Positive bowel sounds. EXTREMITIES: No clubbing, cyanosis or edema. ASSESSMENT AND PLAN: This is a 62-year-old female patient with underlying medical history of hypertension, dyslipidemia, chronic obstructive pulmonary disease (COPD), anxiety, depression, gastroesophageal reflux disease (GERD), gastric ulcer, irritable bowel syndrome, with recent upper respiratory infection. Admitted to [facility] with generalized fatigue and weakness and coughing. 1. Generalized fatigue and weakness secondary to viral infection. Supportive care. Continue to monitor. IV fluids have been given. 2. Acute COPD exacerbation secondary to parainfluenza virus. Solu-Medrol, nebulizer treatments, supportive care. Taper steroids as tolerated. 3. Decrease in appetite with weight loss, 10 pounds over the last month. CT scan of the chest appreciated. Colonoscopy done February 2015 and was significant for hyperplastic polyps and diverticular disease. EGD was done in December 2015. Mammogram was done in October 2015, which was negative. 4. Normocytic anemia. Followup hemoglobin and hematocrit. Baseline hemoglobin 13. Iron studies, iron supplementation, and aspirin ordered. 5. Peripheral smear. Followup as an outpatient. 6. Hypertension. Continue metoprolol and Norvasc. 7. Dyslipidemia. Continue home medications. 8. GERD, continue proton pump inhibitor. 9. Anxiety and depression. Continue current medications. 10. History of irritable bowel syndrome. The patient sees Dr. Payton as an outpatient. 11. Deep vein thrombosis (DVT) prophylaxis. Lovenox subcutaneously. DISPOSITION: Pending clinical improvement, supportive care.
[2017-05-19] MEDS: diazePAM 10 MG TAB PO SCH (21:03)
[2017-05-19] MEDS: traZODone 100 MG TAB PO SCH (21:03)
[2017-05-19] MEDS: LORATADINE 10 MG TAB PO SCH (21:03)
[2017-05-19] MEDS: ACETAMINOPHEN TAB 650MG DOSE (2X325MG) PO PRN (21:06)
[2017-05-19 22:00] VITALS: BP 122/72
[2017-05-20] MEDS: IPRATROPIUM 0.5MG/ALBUTEROL 2.5MG INH SOL UD 3ML (DUONEB)(J7620) NEB SCH ×4 (00:28→20:00)
[2017-05-20] MEDS: methylPREDNISolone INJ 125 MG/2 ML VIAL (J2930) IV SCH ×2 (01:59→09:58)
[2017-05-20 06:00] VITALS: BP 126/64
[2017-05-20 07:03] LABS: ALBUMIN 2.5 GM/DL (3.2-5.2); ALBUMIN/GLOBULIN RATIO 0.57 (1.00-1.93); ALKALINE PHOSPHATASE 77 U/L (45-117); ALT/SGPT 14 U/L (12-78); ANION GAP 5 MEQ/L (8-16); AST/SGOT 8 U/L (15-37); BILIRUBIN,TOTAL 0.2 MG/DL (0.2-1.0); BLOOD UREA NITROGEN 10 MG/DL (7-18); CALCIUM LEVEL 8.6 MG/DL (8.8-10.2); CARBON DIOXIDE LEVEL 29 MEQ/L (21-32); CHLORIDE LEVEL 106 MEQ/L (98-107); CREATININE FOR GFR 0.67 MG/DL (0.55-1.02); GLOMERULAR FILTRATION RATE > 60.0 (>45); GLUCOSE, FASTING 158 MG/DL (80-110); MAGNESIUM LEVEL 2.1 MG/DL (1.8-2.4); POTASSIUM SERUM 4.1 MEQ/L (3.5-5.1); SODIUM LEVEL 140 MEQ/L (136-145); TOTAL PROTEIN 6.9 GM/DL (6.4-8.2)
[2017-05-20] MEDS: DULoxetine 30 MG CAP (CYMBALTA) PO SCH (09:58)
[2017-05-20] MEDS: ENOXAPARIN 30 MG/0.3 ML SYR (J1650) SC SCH (09:58)
[2017-05-20] MEDS: MULTIVITAMINS/MINERALS THERAP 1 TAB PO SCH (09:58)
[2017-05-20] MEDS: amLODIPine 10 MG TAB PO SCH (09:59)
[2017-05-20] MEDS: METOPROLOL TART 50 MG TAB PO SCH ×2 (09:59→21:01)
[2017-05-20] MEDS: THIAMINE 100 MG TAB PO SCH (09:59)
[2017-05-20] MEDS: oxyBUTYnin 5 MG TAB PO SCH (09:59)
[2017-05-20] MEDS: GABAPENTIN 300 MG CAP PO SCH ×2 (09:59→21:00)
[2017-05-20] MEDS: FERROUS SULFATE 325MG TAB PO SCH ×2 (09:59→20:59)
[2017-05-20] MEDS: FOLIC ACID 1 MG TAB PO SCH (09:59)
[2017-05-20] MEDS: PANTOPRAZOLE 40MG TAB (PROTONIX) PO SCH ×2 (09:59→20:59)
[2017-05-20 14:00] VITALS: BP 118/58
--- NOTE | 2017-05-20 14:19 | IPN ---
DATE OF SERVICE: 05/20/2017 Patient continues to have cough, but seems to be feeling much better. Denies any chest pain, pressure, or discomfort, fevers or chills. VITAL SIGNS: Temperature 97.2, pulse 60, respirations 20, blood pressure 126/64, pulse oximetry 95% on 1 liter nasal cannula. LABORATORY: WBC 8.7, hemoglobin and hematocrit 11.4/34.3, platelets 278. Chemistry: Sodium 140, potassium 4.1, chloride 106, bicarbonate 29, BUN 10, creatinine 0.6. C-reactive protein 2.23. PHYSICAL EXAM: GENERAL: Patient alert, comfortable, in no acute distress. HEENT: Normocephalic, atraumatic. PULMONARY: Bilateral expiratory wheeze. CARDIAC: Regular rate and rhythm. Normal S1, S2. ABDOMEN: Soft, nontender. Positive bowel sounds. EXTREMITIES: No clubbing, cyanosis, or edema. ASSESSMENT AND PLAN: This is a 62-year-old female patient with underlying medical history of hypertension, dyslipidemia, chronic obstructive pulmonary disease (COPD), anxiety, depression, gastroesophageal reflux disease (GERD), gastric ulcer, irritable bowel syndrome, with recent upper respiratory tract infection, admitted to [facility] with generalized fatigue and weakness and coughing. PROBLEMS: 1. Generalized fatigue, weakness secondary to viral infection, parainfluenza virus. Supportive care. Continue to monitor. IV fluids have already been given. 2. Acute COPD exacerbation secondary to parainfluenza virus. Solu-Medrol, taper as tolerated. Supportive care. Nebulizer treatment. 3. Decreased oral intake and weight loss, 10 pounds over the last month. CT scan of the chest appreciated. Colonoscopy was done 02/2015 that was significant for hyperplastic polyps and diverticular disease. Esophagogastroduodenoscopy (EGD) was done 12/2015. Mammogram was done 10/2015 as well, which was negative. 4. Normocytic anemia. Followup hemoglobin and hematocrit. Baseline hemoglobin of 13. Iron studies and iron supplementation have been ordered. Followup peripheral smear. 5. Hypertension. Continue metoprolol and Norvasc. 6. Dyslipidemia. Continue home medication. 7. GERD. Continue proton pump inhibitor (PPI). 8. Anxiety/depression. Continue current medications. 9. History of irritable bowel syndrome. Patient sees Dr. Payton as outpatient. 10. Deep venous thrombosis (DVT) prophylaxis. Lovenox subcutaneously. 11. History of alcohol use. Vitamins as ordered. Monitor for withdrawal. DISPOSITION: Pending clinical improvement, supportive care, physical therapy.
[2017-05-20] MEDS: methylPREDNISolone INJ 40 MG/1 ML VIAL (J2920) IV SCH (17:32)
[2017-05-20 18:00] VITALS: BP 136/75
[2017-05-20] MEDS: ACETAMINOPHEN TAB 650MG DOSE (2X325MG) PO PRN (18:22)
[2017-05-20] MEDS: tiZANidine 4 MG TAB PO PRN (18:58)
[2017-05-20] MEDS: traZODone 100 MG TAB PO SCH (20:59)
[2017-05-20] MEDS: FENOFIBRATE 48 MG TAB (TRICOR) PO SCH (21:00)
[2017-05-20] MEDS: ROSUVASTATIN 10 MG TAB (CRESTOR) PO SCH (21:00)
[2017-05-20] MEDS: diazePAM 10 MG TAB PO SCH (21:00)
[2017-05-20] MEDS: LORATADINE 10 MG TAB PO SCH (21:00)
[2017-05-20 22:00] VITALS: BP 122/66
[2017-05-21] MEDS: methylPREDNISolone INJ 40 MG/1 ML VIAL (J2920) IV SCH (01:10)
[2017-05-21] MEDS: IPRATROPIUM 0.5MG/ALBUTEROL 2.5MG INH SOL UD 3ML (DUONEB)(J7620) NEB SCH ×4 (01:50→19:54)
[2017-05-21 06:00] VITALS: BP 120/56
[2017-05-21 06:30] LABS: MEAN CORPUSCULAR HEMOGLOBIN 29.2 pg (27.0-33.0); MEAN CORPUSCULAR HGB CONC 32.4 g/dl (32.0-36.5); MEAN CORPUSCULAR VOLUME 90.3 fl (80.0-96.0); PLATELET COUNT, AUTOMATED 354 10^3/uL (150-450); RED CELL DISTRIBUTION WIDTH 13.4 % (11.5-14.5); WHITE BLOOD COUNT 23.2 10^3/uL (4.0-10.0)
[2017-05-21 06:52] LABS: ALBUMIN 2.6 GM/DL (3.2-5.2); ALBUMIN/GLOBULIN RATIO 0.68 (1.00-1.93); ALKALINE PHOSPHATASE 83 U/L (45-117); ALT/SGPT 17 U/L (12-78); ANION GAP 6 MEQ/L (8-16); AST/SGOT 7 U/L (15-37); BILIRUBIN,TOTAL 0.1 MG/DL (0.2-1.0); BLOOD UREA NITROGEN 14 MG/DL (7-18); CARBON DIOXIDE LEVEL 28 MEQ/L (21-32); CHLORIDE LEVEL 110 MEQ/L (98-107); CREATININE FOR GFR 0.75 MG/DL (0.55-1.02); GLOMERULAR FILTRATION RATE > 60.0 (>45); GLUCOSE, FASTING 119 MG/DL (80-110); MAGNESIUM LEVEL 2.1 MG/DL (1.8-2.4); POTASSIUM SERUM 4.8 MEQ/L (3.5-5.1); SODIUM LEVEL 144 MEQ/L (136-145); TOTAL PROTEIN 6.4 GM/DL (6.4-8.2)
[2017-05-21 07:03] LABS: ERYTHROCYTE SEDIMENTATION RATE 41 mm/hr (0-30)
[2017-05-21] MEDS: ACETAMINOPHEN TAB 650MG DOSE (2X325MG) PO PRN (10:12)
[2017-05-21] MEDS: ENOXAPARIN 30 MG/0.3 ML SYR (J1650) SC SCH (10:12)
[2017-05-21] MEDS: amLODIPine 10 MG TAB PO SCH (10:13)
[2017-05-21] MEDS: MULTIVITAMINS/MINERALS THERAP 1 TAB PO SCH (10:13)
[2017-05-21] MEDS: FERROUS SULFATE 325MG TAB PO SCH ×2 (10:13→20:31)
[2017-05-21] MEDS: PANTOPRAZOLE 40MG TAB (PROTONIX) PO SCH ×2 (10:13→20:31)
[2017-05-21] MEDS: oxyBUTYnin 5 MG TAB PO SCH (10:13)
[2017-05-21] MEDS: GABAPENTIN 300 MG CAP PO SCH ×2 (10:13→20:30)
[2017-05-21] MEDS: DULoxetine 30 MG CAP (CYMBALTA) PO SCH (10:14)
[2017-05-21] MEDS: predniSONE 20 MG TAB PO SCH ×2 (10:14→20:30)
[2017-05-21] MEDS: FOLIC ACID 1 MG TAB PO SCH (10:15)
[2017-05-21] MEDS: METOPROLOL TART 50 MG TAB PO SCH ×2 (10:15→20:32)
[2017-05-21] MEDS: THIAMINE 100 MG TAB PO SCH (10:15)
--- NOTE | 2017-05-21 11:46 | IPNPDOC ---
Text Note Date of Service The patient was seen on 05/21/17. NOTE Subjective: Patient is a 62 year old female with a PMHx of HTN, DLP, COPD, IBS, Anxiety / Depression and Hx of Gastric Ulcers / GERD who presented to the ER with complaints of weakness and lethargy for 3 weeks. She noted SOB, productive cough, subjective fevers and chills. She was found to have a viral illness and a COPD exacerbation. Patient was seen and examined at the bedside. Currently she notes that her breathing has improved. She does note a cough that is still on going. Objective: Vitals (See below) General: Lying in bed, no acute distress, comfortable, AAOx3 HEENT: NC, AT CVS: RRR, +S1S2 Lungs: Fair air entry b/l, no significant wheezing appreciated Abdomen: Soft, ND, NT Extremities: - Edema, - Calf tenderness Assessment and plan: Generalized fatigue / weakness - likely 2/2 Acute viral illness - Clinically improving symptoms - CRP trending down - Has cleared physical therapy; back to home, safe in previous situation Acute COPD exacerbation - likely 2/2 acute viral illness - 2/2 Parainfluenza - Reports breathing has improved, cough persists - Physical does not reveal any signifcant wheezing - Will start Prednisone, Stop Methylprednisolone - c/w Duoneb Weight loss with decreased oral intake - Colonoscopy 02/2015; hyperplastic polyps and diverticular disease - EGD 12/2015 - Mammogram 10/2015; no reported abnormalities - CT chest 05/18: No lymphadenopathy, no nodules reported Normocytic anemia - Hg stable - Hx of WILLIAN; c/w Ferrous sulfate Leukocytosis - likely 2/2 corticosteroids - No fevers reported - Remains off antibiotics HTN - c/w Metoprolol and Amlodipine DLP - c/w Rosuvastatin and Fenofibrate Anxiety / Depression - c/w Tizanidine, Trazodone, Gabapentin and Duloxetine - c/w Diazepam QHS Hx of IBS - Follows with Dr. Payton as an outpatient Hx of Alcohol abuse - c/w MVI, Thiamine and Folate GERD - c/w Protonix DVT prophylaxis - c/w Lovenox VS,Fishbone, I+O VS, Fishbone, I+O Laboratory Tests 05/21/17 05:37 Red Blood Count 4.24, Mean Corpuscular Volume 90.3, Mean Corpuscular Hemoglobin 29.2, Mean Corpuscular Hemoglobin Concent 32.4, Red Cell Distribution Width 13.4 , Calcium Level 9.0, Aspartate Amino Transf (AST/SGOT) 7 L, Alanine Aminotransferase (ALT/SGPT) 17, Alkaline Phosphatase 83, Total Bilirubin 0.1 L, Total Protein 6.4, Albumin 2.6 L Vital Signs Date Time Temp Pulse Resp B/P (MAP) Pulse Ox O2 Delivery O2 Flow Rate FiO2 05/21/17 10:15 60 120/56 05/21/17 06:00 97.2 20 95 Nasal Cannula 1.0 ISIS HERNANDEZ MD May 21, 2017 11:44
[2017-05-21 14:00] VITALS: BP 105/57
[2017-05-21] MEDS: ROSUVASTATIN 10 MG TAB (CRESTOR) PO SCH (20:29)
[2017-05-21] MEDS: diazePAM 10 MG TAB PO SCH (20:30)
[2017-05-21] MEDS: traZODone 100 MG TAB PO SCH (20:30)
[2017-05-21] MEDS: FENOFIBRATE 48 MG TAB (TRICOR) PO SCH (20:31)
[2017-05-21] MEDS: tiZANidine 4 MG TAB PO PRN (20:31)
[2017-05-21] MEDS: LORATADINE 10 MG TAB PO SCH (20:31)
[2017-05-21 22:00] VITALS: BP 103/59
[2017-05-22] MEDS: IPRATROPIUM 0.5MG/ALBUTEROL 2.5MG INH SOL UD 3ML (DUONEB)(J7620) NEB SCH ×3 (02:00→13:47)
[2017-05-22 06:00] VITALS: BP 139/77
[2017-05-22 07:22] LABS: MEAN CORPUSCULAR HEMOGLOBIN 29.3 pg (27.0-33.0); MEAN CORPUSCULAR HGB CONC 32.9 g/dl (32.0-36.5); MEAN CORPUSCULAR VOLUME 89.1 fl (80.0-96.0); PLATELET COUNT, AUTOMATED 380 10^3/uL (150-450); RED CELL DISTRIBUTION WIDTH 13.2 % (11.5-14.5); WHITE BLOOD COUNT 17.7 10^3/uL (4.0-10.0)
[2017-05-22 07:38] LABS: ALBUMIN 2.7 GM/DL (3.2-5.2); ALBUMIN/GLOBULIN RATIO 0.68 (1.00-1.93); ALKALINE PHOSPHATASE 68 U/L (45-117); ALT/SGPT 17 U/L (12-78); ANION GAP 6 MEQ/L (8-16); AST/SGOT 7 U/L (15-37); BILIRUBIN,TOTAL 0.2 MG/DL (0.2-1.0); BLOOD UREA NITROGEN 16 MG/DL (7-18); CALCIUM LEVEL 9.2 MG/DL (8.8-10.2); CARBON DIOXIDE LEVEL 31 MEQ/L (21-32); CHLORIDE LEVEL 104 MEQ/L (98-107); CREATININE FOR GFR 0.75 MG/DL (0.55-1.02); GLOMERULAR FILTRATION RATE > 60.0 (>45); GLUCOSE, FASTING 132 MG/DL (80-110); MAGNESIUM LEVEL 2.1 MG/DL (1.8-2.4); POTASSIUM SERUM 4.1 MEQ/L (3.5-5.1); SODIUM LEVEL 141 MEQ/L (136-145); TOTAL PROTEIN 6.7 GM/DL (6.4-8.2)
[2017-05-22] MEDS: GABAPENTIN 300 MG CAP PO SCH (08:21)
[2017-05-22] MEDS: DULoxetine 30 MG CAP (CYMBALTA) PO SCH (08:21)
[2017-05-22] MEDS: amLODIPine 10 MG TAB PO SCH (08:22)
[2017-05-22] MEDS: MULTIVITAMINS/MINERALS THERAP 1 TAB PO SCH (08:22)
[2017-05-22] MEDS: predniSONE 20 MG TAB PO SCH (08:22)
[2017-05-22] MEDS: PANTOPRAZOLE 40MG TAB (PROTONIX) PO SCH (08:22)
[2017-05-22] MEDS: THIAMINE 100 MG TAB PO SCH (08:22)
[2017-05-22] MEDS: oxyBUTYnin 5 MG TAB PO SCH (08:22)
[2017-05-22] MEDS: ACETAMINOPHEN TAB 650MG DOSE (2X325MG) PO PRN (08:23)
[2017-05-22] MEDS: FERROUS SULFATE 325MG TAB PO SCH (08:23)
[2017-05-22] MEDS: FOLIC ACID 1 MG TAB PO SCH (08:23)
[2017-05-22] MEDS: ENOXAPARIN 30 MG/0.3 ML SYR (J1650) SC SCH (08:25)
[2017-05-22 08:28] VITALS: BP 139/77
[2017-05-22] MEDS: METOPROLOL TART 50 MG TAB PO SCH (08:28)
[2017-05-22] MEDS ORDERED: PRED10TA2 PO (10:50)
[2017-05-22] MEDS: tiZANidine 4 MG TAB PO PRN (11:54)
[2017-05-22 13:15] VITALS: BP 133/79
--- NOTE | 2017-05-22 16:59 | DSES ---
DATE OF ADMISSION: 05/18/2017 DATE OF DISCHARGE: 05/22/2017 ATTENDING PHYSICIAN: Bell Stewart MD and Holly Neves MD PRIMARY CARE PHYSICIAN: Keisha Hill REFERRING PHYSICIAN: None. CONSULTING PHYSICIAN: None. LATHE SCALPER OPERATOR: Sina Bright DO CONDITION ON DISCHARGE: Stable. FINAL DIAGNOSIS: Acute chronic obstructive pulmonary disease (COPD) exacerbation. PROCEDURES: None. HISTORY OF PRESENT ILLNESS: The patient is a 62-year-old female with a past medical history of hypertension, dyslipidemia, COPD, irritable bowel syndrome, anxiety, depression, and history of gastric ulcer/gastroesophageal reflux disease (GERD), who presented to the emergency room (ER) with complaints of weakness and lethargy for 3 weeks duration. She noted shortness of breath and productive cough as well as subjective fevers and chills. She was found to have a viral illness and a COPD exacerbation. HOSPITAL COURSE: 1. Generalized fatigue/weakness secondary to acute viral illness. Clinically improved throughout the hospital course. CRP has been trending down. She has cleared physical therapy and was safe for discharge home back to her previous situation. 2. Acute COPD exacerbation, likely secondary to acute viral illness secondary to parainfluenza. Reports breathing has improved. Cough has improved throughout the hospital course and resolved. Physical did not reveal any wheezing upon discharge. The patient was put on Solu-Medrol initially and was transitioned to prednisone orally and she has been given prednisone upon discharge on a tapering basis. 3. Weight loss and decreased oral intake. Colonoscopy on 02/2013, hyperplastic polyps and diverticular disease. EGD on 12/2015. Mammogram on 10/2015 with no reported abnormalities. CT chest on 05/18/2017, of this year revealed no lymphadenopathy, no nodules were reported. 4. Normocytic anemia. Hemoglobin remains stable. History of iron deficiency anemia on ferrous sulfate. 5. Leukocytosis likely secondary to corticosteroids. No fevers reported. Remains off antibiotics. 6. Hypertension. Continue with metoprolol and amlodipine. 7. Dyslipidemia. Continue with rosuvastatin and fenofibrate. 8. Anxiety and depression. Continue with tizanidine, trazodone, gabapentin, and duloxetine. Continue with diazepam nightly. 9. History of irritable bowel syndrome. Follows with Dr. Payton as an outpatient. 10. History of alcohol abuse. Continue with multivitamins, thiamine, and folate. 11. GERD. Continue with Protonix. 12. Deep venous thrombosis (DVT) prophylaxis. Continue with Lovenox. DISCHARGE MEDICATIONS: The patient has been discharged home with the following medication list: - prednisone to be taken on a tapering basis - Combivent two puffs inhaled three times a day as needed for shortness of breath - amlodipine 10 mg by mouth daily - diazepam 20 mg by mouth nightly - duloxetine 60 mg by mouth daily - duloxetine 30 mg by mouth daily - ergocalciferol 50,000 units by mouth weekly - fenofibrate 48 mg by mouth nightly - gabapentin 300 mg by mouth every morning - gabapentin 600 mg by mouth nightly - loratadine 10 mg by mouth nightly - metoprolol tartrate 50 mg by mouth twice a day - oxybutynin 5 mg by mouth daily - Protonix 40 mg by mouth twice a day - rosuvastatin 40 mg by mouth nightly - trazodone 200 mg by mouth nightly DISCHARGE INSTRUCTIONS: Patient has been advised to followup with her primary care provider within the next 7 days. She has been advised to followup with pulmonary within the next 2 weeks. She has been advised to remain complaint with treatment plan and medications and to return to the emergency room if she experiences any problems. TIME SPENT ON DISCHARGE: Greater than 35 minutes.
== END 2017-05-22 15:00 | disposition home or self-care (01) | DRG 723 ==
LOC: M ED 16:52 → M ED INP 21:53 → M MS5PR 05-19 13:45
PROVIDERS: ADMIT Internal Medicine; ATTEND Hospitalist
DX: B34.8 Other viral infections of unspecified site (principal); J44.1 Chronic obstructive pulmonary disease with (acute) exacerbation; I10 Essential (primary) hypertension; J06.9 Acute upper respiratory infection, unspecified; E78.5 Hyperlipidemia, unspecified; F41.9 Anxiety disorder, unspecified; F32.9 Major depressive disorder, single episode, unspecified; K21.9 Gastro-esophageal reflux disease without esophagitis; D64.9 Anemia, unspecified; F17.210 Nicotine dependence, cigarettes, uncomplicated; Z79.899 Other long term (current) drug therapy; Z88.1 Allergy status to other antibiotic agents; Z88.8 Allergy status to other drugs, medicaments and biological substances; Z88.6 Allergy status to analgesic agent; Z88.5 Allergy status to narcotic agent; Z88.0 Allergy status to penicillin; Z88.7 Allergy status to serum and vaccine; Z90.710 Acquired absence of both cervix and uterus; Z90.49 Acquired absence of other specified parts of digestive tract

== ENCOUNTER 2017-07-04 09:17 | Inpatient (IN) | payer OTHER ==
[~2017-07-04] VITALS: Ht 160 cm; Wt 59.1 kg
[~2017-07-04 09:17] MED LIST changes: +CRES40TA PO; +FENO48TA2 PO; +OXYB5TAB10 PO; +PRED10TA2 PO
[2017-07-04 10:00] LABS: BASO # 0.1 10^3/uL (0.0-0.2); BASO % 0.3 % (0.0-1.0); IMMATURE GRANULOCYTE % 1.3 % (0-0); LYMPH # 2.2 10^3/uL (1.5-4.5); MEAN CORPUSCULAR HEMOGLOBIN 28.8 pg (27.0-33.0); MEAN CORPUSCULAR HGB CONC 33.9 g/dl (32.0-36.5); MEAN CORPUSCULAR VOLUME 84.7 fl (80.0-96.0); MONO % 13.3 % (0.0-5.0); NEUTROPHILS # 18.3 10^3/uL (1.8-7.7); NEUTROPHILS % 76.1 % (36.0-66.0); PLATELET COUNT, AUTOMATED 373 10^3/uL (150-450); RED CELL DISTRIBUTION WIDTH 15.2 % (11.5-14.5)
--- NOTE | 2017-07-04 10:19 | REP ---
Chest two views HISTORY: Cough Comparison: 05/18/2017 Patchy density is present in the right lower lobe consistent with an infiltrate. A minimal increase in interstitial markings is present in the lower lobes consistent with chronic interstitial fibrosis. The heart is normal in size. The pulmonary vasculature is normal in appearance. There is an old compression fracture of a lower thoracic vertebral body. IMPRESSION: 1. Right lower lobe infiltrate. 2. Chronic interstitial fibrosis. Signed by Jack Chow MD 07/04/2017 10:11 A
[2017-07-04 10:21] LABS: ALBUMIN 2.7 GM/DL (3.2-5.2); ALBUMIN/GLOBULIN RATIO 0.61 (1.00-1.93); BILIRUBIN,DIRECT 0.6 MG/DL (0.0-0.2); BILIRUBIN,TOTAL 0.9 MG/DL (0.2-1.0); TOTAL PROTEIN 7.1 GM/DL (6.4-8.2)
[2017-07-04 10:35] LABS: MONO # 3.2 10^3/uL (0.0-0.8); POSITIVE DIFF POS FLAG
[2017-07-04] MEDS ORDERED: ACETAMINOPHEN 325 MG TAB PO ONE (11:45)
[2017-07-04] MEDS ORDERED: LevoFLOXacin IV 500 MG in APPROPRIATE DILUENT 1 EA IV ONE (12:00)
[2017-07-04 12:11] LABS: CREATININE FOR GFR 1.18 MG/DL (0.55-1.02); GLOMERULAR FILTRATION RATE 49.7 (>45); POTASSIUM SERUM 2.9 MEQ/L (3.5-5.1)
[2017-07-04 12:12] LABS: CALCIUM LEVEL 8.8 MG/DL (8.8-10.2)
--- NOTE | 2017-07-04 12:29 | HPEPDOC ---
[facility] Medical History & Physical Date of Admission Jul 04, 2017 History and Physical ATTENDING: PCP: Yuli MANLEY CC: SOB HPI: 62yoF with a past medical history significant for COPD, tobacco use who states she has had a 1 week h/o SOB and cough productive of yellow sputum. Temp up to 102 at home. Feeling weak and fatigued. Some nausea, no vomiting. decreased appetite. Drinking fluids. Rt sided posterior chest pain. Pt states her roommate has been ill also. Denies any MULLINS, palpitations, abdominal pain, V/D or changes in bowel or bladder habits. Upon presentation to the hospital the patient was found to have CAP, thus the hospitalist team was consulted. PMHx: HTN HLD COPD COPD exacerbation 05/16 anxiety depression GERD PUD IBS Tobacco use h/o anemia, peripheral smear 05/16 c/w anemia of chronic disease. OAB allergic rhinitis PSHX: hysterectomy knee surgery cholecystectomy SOCHX: Resides in: Lives with roommate Tobacco use: 1 ppd x 30 years ETOH:denies Illicit Drugs: Denies Advanced directives: none FAMHX: Mother: Lung Ca Father: renal failure Siblings: 1 brother bone Ca. 1 brother lung Ca. Children: 2 Alive, well Unexpected deaths due to medical reasons: None. ROS: As noted in HPI, otherwise 11pt ROS of systems reviewed and unremarkable. PE: GEN: 62yoF, appears stated age. Well-nourished, well developed. No acute distress. Alert and oriented x 3. Pleasant, interactive. HEENT: Normocephalic, atraumatic. Pupils are equal, round, and reactive to light. Extraocular movements are intact. No nystagmus appreciated. Sclera are nonicteric. Conjunctiva without injection. Nose midline. Nasal turbinates without bogginess. EACs both patent BL. TMs both visualized and perez with good cone of light, no bulging or erythema. No facial asymmetry. Moist mucous membranes. Dentition fair. Pharynx pink and moist, no cobblestoning. Neck supple , trachea midline. No lymphadenopathy or thyromegaly appreciated. CHEST: Regular rate and rhythm, +S1, +S2 LUNGS: Clear to auscultation bilaterally. No wheezes, rales, or rhonchi. Breathing appears symmetric and easy. Patient is speaking in full sentences. No accessory muscle use. ABD: Round, soft, non-tender, non-distended. +Bowel sounds throughout. No rebound or guarding. No costovertebral angle tenderness. EXT: Pulses 2+ bilaterally dorsalis pedis and radial. No lower extremity edema appreciated. SKIN: Oliver, dry, warm. Capillary refill <2sec. No rashes. NEURO: Alert and oriented x 3. Cranial nerves III-XII are intact. No focal deficits appreciated. CXR: 1. Right lower lobe infiltrate. 2. Chronic interstitial fibrosis EKG: SR, NSST abn, 93 bpm. BLOOD CULTURES: x 2 pending ABG Item Value Date Time Blood Gas Bicarbonate Standard 24.1 MEQ/L 05/18/171738 Venous Blood pH 7.342 UNITS 05/18/171738 Venous Blood Partial Pressure CO2 49.8 mmHg 05/18/171738 Venous Blood Partial Pressure O2 41.4 mmHg 05/18/171738 Venous Blood HCO3 26.4 MEQ/L 05/18/171738 Venous Blood Total Carbon Dioxide 27.9 MEQ/L 05/18/171738 Venous Blood Oxygen Saturation 75.8 % 05/18/171738 Venous Blood Base Excess 0.1 05/18/171738 A&P: 62yoF with a past medical history significant for COPD, tobacco use who states she has had a 1 week h/o SOB and cough productive of yellow sputum. Temp up to 102 at home. Feeling weak and fatigued. Some nausea, no vomiting. decreased appetite. Drinking fluids. Rt sided posterior chest pain. Pt states her roommate has been ill also. 1. The patient will be admitted to /S for at least [address] Collins's service. Pt is discussed with Dr Acosta. 2. CAP/Acute on chronic respiratory failure. BC x 2 pending. Sputum cx pending. Respiratory panel pending. Supplemental O2 as needed, Duonebs, IV Levaquin renally dosed currently. Adjust further pending labs. Recheck LA at 4 pm. 3. COPD. Duonebs. 4. HTN. BP 98/57 Metoprolol with hold parameters. Hold Norvasc. S/P 1 liter IVF in ED, cont at 75cc/hr. 5. HLD. Cont Crestor/Tricor. 6. Anxiety/depression. Cont Cymbalta. 7. OAB. Oxybutinin. 8. allergic rhinitis. Claritin. 9. GERD. Protonix. 10. Hypokalemia/Hyponatremia. S/P po supplement in ED, recheck BMP at 4 PM. 11. Nausea. IV Zofran prn. 12. H/O Anemia of chronic disease. Monitor CBC. DVT prophylaxis. Lovenox renally dosed. The patient is a Full code Attending Note: I have independently examined this patient and all aspects of the exam and treatment decisions have been discussed. A member of the hospitalist staff will continue to follow this patient through discharge. Vital Signs Vital Signs Date Time Temp Pulse Resp B/P (MAP) Pulse Ox O2 Delivery O2 Flow Rate FiO2 07/04/17 11:56 86 07/04/17 11:41 115/76 (89) 91 07/04/17 09:50 Venturi Mask 12.0 35 07/04/17 09:30 101.2 22 Laboratory Data Labs 24H Laboratory Tests 2 07/04/17 09:51: Immature Granulocyte % (Auto) 1.3H, White Blood Count 24.0H, Red Blood Count 3.93L, Hemoglobin 11.3L, Hematocrit 33.3L, Mean Corpuscular Volume 84.7, Mean Corpuscular Hemoglobin 28.8, Mean Corpuscular Hemoglobin Concent 33.9, Red Cell Distribution Width 15.2H, Platelet Count 373, Neutrophils (%) (Auto) 76.1H, Lymphocytes (%) (Auto) 9.0L, Monocytes (%) (Auto) 13.3H, Eosinophils (%) (Auto) 0.0, Basophils (%) (Auto) 0.3, Neutrophils # (Auto) 18.3H, Lymphocytes # (Auto) 2.2, Monocytes # (Auto) 3.2H, Eosinophils # (Auto) 0.0, Basophils # (Auto) 0.1, Immature Granulocyte # (Auto) 0.3H, Nucleated Red Blood Cells % (auto) 0.0, Anion Gap 10, Glomerular Filtration Rate 49.7, Lactic Acid Level 3.0*H, Blood Urea Nitrogen 7, Creatinine 1.18H, Sodium Level 133L, Potassium Level 2.9*L, Chloride Level 97L, Carbon Dioxide Level 26, Calcium Level 8.8, Aspartate Amino Transf (AST/SGOT) 29, Alanine Aminotransferase (ALT/SGPT) 28, Alkaline Phosphatase 100, Total Bilirubin 0.9, Direct Bilirubin 0.6H, IL-Byk-J-Type Natriuretic Peptide 255H, Total Protein 7.1, Albumin 2.7L, Albumin/Globulin Ratio 0.61L CBC/BMP Laboratory Tests 07/04/17 09:51 Red Blood Count 3.93 L, Mean Corpuscular Volume 84.7, Mean Corpuscular Hemoglobin 28.8, Mean Corpuscular Hemoglobin Concent 33.9, Red Cell Distribution Width 15.2 H, Neutrophils (%) (Auto) 76.1 H, Lymphocytes (%) (Auto ) 9.0 L, Monocytes (%) (Auto) 13.3 H, Eosinophils (%) (Auto) 0.0, Basophils (%) (Auto) 0.3, Neutrophils # (Auto) 18.3 H, Lymphocytes # (Auto) 2.2, Monocytes # ( Auto) 3.2 H, Eosinophils # (Auto) 0.0, Basophils # (Auto) 0.1, Calcium Level 8.8 Microbiology Microbiology 07/04/17 Blood Culture, Received Pending 07/04/17 Blood Culture, Received Pending Home Medications Scheduled (Arnuity Ellipta) 100 Mcg/Act Inh, 100 MCG INH DAILY Amlodipine Besylate (Norvasc) 10 Mg Tab, 10 MG PO DAILY Diazepam (Diazepam) 10 Mg Tab, 20 MG PO QHS Duloxetine Hcl (Cymbalta) 60 Mg Cap, 60 MG PO DAILY Duloxetine Hcl (Duloxetine HCl) 30 Mg Cap, 30 MG PO DAILY Ergocalciferol (Vitamin D) 50,000 Unit Cap, 50,000 UNIT PO QWEEK MONDAY Fenofibrate (Fenofibrate) 48 Mg Tab, 48 MG PO QHS Gabapentin (Gabapentin) 300 Mg Cap, 300 MG PO QAM Gabapentin (Gabapentin) 300 Mg Cap, 600 MG PO QHS Loratadine (Claritin) 10 Mg Cap, 10 MG PO QHS Metoprolol Tartrate (Metoprolol Tartrate) 50 Mg Tab, 50 MG PO BID Oxybutynin Chloride (Oxybutynin Chloride) 5 Mg Tab, 5 MG PO DAILY Pantoprazole Sodium Sesquihydr (Protonix) 40 Mg Tab, 40 MG PO BID Rosuvastatin Calcium (Crestor) 40 Mg Tab, 40 MG PO QHS Trazodone HCl (Trazodone HCl) 100 Mg Tab, 200 MG PO QHS Scheduled PRN Albuterol Sulfate (Albuterol Sulfate) 2.5 Mg/3 Ml Nebu, 2.5 MG INH Q4H PRN for SHORTNESS OF BREATH Albuterol Sulfate (Ventolin Hfa) 108 Mcg/Act Aer, 2 PUFFS INH QID PRN for SHORTNESS OF BREATH Allergies Coded Allergies: Aspirin (Verified Allergy, Intermediate, HIVES, 07/06/17) Azithromycin (Verified Allergy, Intermediate, HIVES, 07/04/17) Nefazodone (Verified Allergy, Intermediate, HIVES, 07/04/17) Tuberculin Purified Protein Derivat (Verified Allergy, Intermediate, PT STATES EXTENSIVE ARM SWELLING AND REFUSES PPD, 07/04/17) Fluticasone (Verified Adverse Reaction, Intermediate, pt states she ended up severely sick and was hospitalized, 07/04/17) Salmeterol (Verified Adverse Reaction, Intermediate, pt states she ended up severely sick and was hospitalized, 07/04/17) Cephalosporins (Verified Adverse Reaction, Mild, VOMITING, 07/04/17) Codeine (Verified Adverse Reaction, Mild, N/V, 07/04/17) Penicillins (Verified Adverse Reaction, Mild, NAUSEA w/AUGMENTIN, 07/04/17) Penicillins Cross Reactors (Verified Adverse Reaction, Mild, NAUSEA w/ AUGMENTIN, 07/04/17) Propoxyphene (Verified Adverse Reaction, Mild, N/V, 07/04/17) Luz Valles Jul 04, 2017 12:29 HI ACOSTA DO Jul 07, 2017 15:32
[2017-07-04] MEDS ORDERED: POTASSIUM CHLORIDE 10 MEQ SR TABLET PO ONE (12:30)
--- NOTE | 2017-07-04 12:34 | ECGEPIP ---
Stationary ECG Study [facility] - ED Test Date: 2017-07-04 Pat Name: KALA SOLIS Department: Room: - Gender: F Director Patient Financial Services: kim : 1955 Requested By: ALEXANDER Santana Order Number: [id number] Reading MD: Harika Riley Measurements Intervals [place] Rate: 93 P: 66 FL: 162 QRS: 63 QRSD: 87 T: 64 QT: 358 QTc: 447 Interpretive Statements SINUS RHYTHM NONSPECIFIC T-WAVE ABNORMALITY INCREASED RATE 05/18/17 Electronically Signed On 07-04-2017 12:34:32 EST by Harika Riley
[2017-07-04] MEDS ORDERED: VENTAER INH (12:42)
[2017-07-04] MEDS ORDERED: ALBU83IN INH (12:42)
[2017-07-04] MEDS ORDERED: ARNU1INH INH (12:42)
[2017-07-04] MEDS ORDERED: ONDANSETRON 4MG/2ML VIAL (J2405) IV PRN (13:15)
[2017-07-04] MEDS ORDERED: IPRATROPIUM 0.5MG/ALBUTEROL 2.5MG INH SOL UD 3ML (DUONEB)(J7620) NEB PRN (13:30)
[2017-07-04] MEDS ORDERED: NS 1,000 ML IV ONE (13:30)
[2017-07-04] MEDS: IPRATROPIUM 0.5MG/ALBUTEROL 2.5MG INH SOL UD 3ML (DUONEB)(J7620) NEB SCH ×2 (13:37→19:21)
[2017-07-04 13:48] LABS: ABG BASE EXCESS 1.6 (-2.0-2.0); ABG HCO3 25.5 MEQ/L (22.0-26.0); ABG PARTIAL PRESSURE CO2 37.4 mmHg (35.0-45.0); ABG PARTIAL PRESSURE O2 63.4 mmHg (75.0-100.0); ABG STANDARD HCO3 25.8 MEQ/L (22.0-26.0); ABG TOTAL CO2 26.7 MEQ/L (23.0-31.0); ABG pH (ARTERIAL) 7.452 UNITS (7.350-7.450)
[2017-07-04] MEDS: NS 1,000 ML IV SCH (14:31)
[2017-07-04 16:38] LABS: ANION GAP 10 MEQ/L (8-16); BLOOD UREA NITROGEN 8 MG/DL (7-18); CALCIUM LEVEL 7.9 MG/DL (8.8-10.2); CARBON DIOXIDE LEVEL 27 MEQ/L (21-32); CHLORIDE LEVEL 100 MEQ/L (98-107); CREATININE FOR GFR 0.97 MG/DL (0.55-1.02); GLOMERULAR FILTRATION RATE > 60.0 (>45); GLUCOSE, FASTING 153 MG/DL (80-110); POTASSIUM SERUM 3.2 MEQ/L (3.5-5.1); SODIUM LEVEL 137 MEQ/L (136-145)
[2017-07-04] MEDS: ENOXAPARIN 30 MG/0.3 ML SYR (J1650) SC SCH (18:17)
[2017-07-04 19:21] VITALS: O2SAT 93
[2017-07-04] MEDS: METOPROLOL TART 50 MG TAB PO SCH (21:00)
[2017-07-04] MEDS: GABAPENTIN 300 MG CAP PO SCH (21:39)
[2017-07-04] MEDS: LORATADINE 10 MG TAB PO SCH (21:40)
[2017-07-04] MEDS: PANTOPRAZOLE 40MG TAB (PROTONIX) PO SCH (21:40)
[2017-07-04] MEDS: FENOFIBRATE 48 MG TAB (TRICOR) PO SCH (21:41)
[2017-07-04] MEDS: ROSUVASTATIN 10 MG TAB (CRESTOR) PO SCH (21:41)
[2017-07-05] MEDS: IPRATROPIUM 0.5MG/ALBUTEROL 2.5MG INH SOL UD 3ML (DUONEB)(J7620) NEB SCH ×4 (01:01→20:56)
[2017-07-05] MEDS: NS 1,000 ML IV SCH (02:26)
[2017-07-05 07:25] LABS: BASO # 0.1 10^3/uL (0.0-0.2); BASO % 0.3 % (0.0-1.0); EOS % 0.2 % (0.0-3.0); IMMATURE GRANULOCYTE % 1.8 % (0-0); LYMPH # 1.9 10^3/uL (1.5-4.5); LYMPH % 11.7 % (24.0-44.0); MEAN CORPUSCULAR HEMOGLOBIN 28.4 pg (27.0-33.0); MEAN CORPUSCULAR HGB CONC 32.7 g/dl (32.0-36.5); MEAN CORPUSCULAR VOLUME 86.9 fl (80.0-96.0); MONO # 1.9 10^3/uL (0.0-0.8); MONO % 11.4 % (0.0-5.0); NEUTROPHILS # 12.4 10^3/uL (1.8-7.7); NEUTROPHILS % 74.6 % (36.0-66.0); PLATELET COUNT, AUTOMATED 326 10^3/uL (150-450); WHITE BLOOD COUNT 16.6 10^3/uL (4.0-10.0)
[2017-07-05 07:33] LABS: ALBUMIN/GLOBULIN RATIO 0.47 (1.00-1.93); ALKALINE PHOSPHATASE 99 U/L (45-117); ALT/SGPT 20 U/L (12-78); ANION GAP 8 MEQ/L (8-16); AST/SGOT 25 U/L (7-37); BILIRUBIN,TOTAL 0.3 MG/DL (0.2-1.0); BLOOD UREA NITROGEN 8 MG/DL (7-18); CALCIUM LEVEL 8.4 MG/DL (8.8-10.2); CARBON DIOXIDE LEVEL 26 MEQ/L (21-32); CHLORIDE LEVEL 106 MEQ/L (98-107); CREATININE FOR GFR 0.78 MG/DL (0.55-1.02); GLOMERULAR FILTRATION RATE > 60.0 (>45); GLUCOSE, FASTING 140 MG/DL (80-110); POTASSIUM SERUM 3.1 MEQ/L (3.5-5.1); SODIUM LEVEL 140 MEQ/L (136-145); TOTAL PROTEIN 6.3 GM/DL (6.4-8.2)
[2017-07-05] MEDS: ACETAMINOPHEN TAB 650MG DOSE (2X325MG) PO PRN (08:50)
[2017-07-05] MEDS: GABAPENTIN 300 MG CAP PO SCH ×2 (08:50→20:32)
[2017-07-05] MEDS: METOPROLOL TART 50 MG TAB PO SCH (08:50)
[2017-07-05] MEDS: PANTOPRAZOLE 40MG TAB (PROTONIX) PO SCH ×2 (08:51→20:32)
[2017-07-05] MEDS: DULoxetine 30 MG CAP (CYMBALTA) PO SCH (08:51)
[2017-07-05] MEDS ORDERED: DULoxetine 30 MG CAP (CYMBALTA) PO SCH (09:00)
[2017-07-05] MEDS: oxyBUTYnin 5 MG TAB PO SCH (10:21)
[2017-07-05] MEDS ORDERED: ALBUTEROL SULFATE 2.5 MG/0.5 ML INH NEB SOLN NEB PRN (12:15)
--- NOTE | 2017-07-05 12:37 | IPNPDOC ---
Subjective Date Seen The patient was seen on 07/05/17. Subjective Chief Complaint/HPI The patient is a 62-year-old female admitted with a reason for visit of Acute And Chronic Respiratory Failure With Hypoxia. Events since last encounter Continues to feel unwell, continues to have SOB and cough with sputum production. Had low grade fever this am. No nausea or vomiting or abdominal pain Objective Physical Examination General Exam: Positive: Alert, Cooperative, No Acute Distress Eye Exam: Positive: PERRLA, Conjunctiva & lids normal, EOMI, Negative: Sclera icteric ENT Exam: Positive: Atraumatic, Mucous membr. moist/pink, Pharynx Normal Neck Exam: Positive: Supple, Negative: JVD, thyromegaly Chest Exam: Positive: Normal air movement, Rales Heart Exam: Positive: Rate Normal, Regular Rhythm, Normal S1, Normal S2, Negative: Murmurs, Rubs Abdomen Exam: Positive: Normal bowel sounds, Soft, Negative: Tenderness, Hepatospenomegaly Extremity Exam: Positive: Normal pulses, Negative: Clubbing, Cyanosis, Edema Skin Exam: Positive: Nl turgor and temperature, Negative: Rash, Breakdown Assessment /Plan Problems (1) Pneumonia Status: Acute Problem Text: will continue with levofloxacin (2) Sepsis Status: Acute Problem Text: due to pneumonia (3) Acute respiratory failure with hypoxia Status: Acute Problem Text: Due to pneumonia and possibly also has COPD exacerbation. will continue with oxygen supplementation (4) Hypertension Status: Chronic Problem Text: At present with soft bps. due to sepsis was hypotensive on admission. Metoprolol dose reduced and will put hold parameters. (5) COPD (chronic obstructive pulmonary disease) Status: Chronic Problem Text: With acute exacerbation due to pneumonia. will continue with nebulizations with albuterol, ipratropium and budesonide. (6) Hyperlipidemia Status: Chronic (7) Restless leg Status: Chronic (8) Depression Status: Chronic Problem Text: Anxiety and depression will continue with valium (9) IBS (irritable bowel syndrome) Status: Chronic Plan/VTE VTE Prophylaxis Ordered?: Yes VS, I&O, 24H, Fishbone Vital Signs/I&O Vital Signs Date Time Temp Pulse Resp B/P (MAP) Pulse Ox O2 Delivery O2 Flow Rate FiO2 07/05/17 09:30 98.3 07/05/17 08:50 100 07/05/17 08:40 16 07/05/17 08:16 94 Nasal Cannula 4.0 07/04/17 09:50 35 Laboratory Data 24H LABS Laboratory Tests 2 07/04/17 13:35: Blood Gas Bicarbonate Standard 25.8, Arterial Blood pH 7.452H, Arterial Blood Partial Pressure CO2 37.4, Arterial Blood Partial Pressure O2 63.4L, Arterial Blood Total CO2 26.7, Arterial Blood HCO3 25.5, Arterial Blood Base Excess 1.6, Arterial Blood Oxygen Saturation 92.4L 07/04/17 16:13: Anion Gap 10, Glomerular Filtration Rate > 60.0, Lactic Acid Level 1.8, Blood Urea Nitrogen 8, Creatinine 0.97, Sodium Level 137, Potassium Level 3.2L, Chloride Level 100, Carbon Dioxide Level 27, Calcium Level 7.9L 07/05/17 06:52: Anion Gap 8, Glomerular Filtration Rate > 60.0, Blood Urea Nitrogen 8, Creatinine 0.78, Sodium Level 140, Potassium Level 3.1L, Chloride Level 106, Carbon Dioxide Level 26, Calcium Level 8.4L, Immature Granulocyte % (Auto) 1.8H , White Blood Count 16.6H, Red Blood Count 3.52L, Hemoglobin 10.0L, Hematocrit 30.6L, Mean Corpuscular Volume 86.9, Mean Corpuscular Hemoglobin 28.4, Mean Corpuscular Hemoglobin Concent 32.7, Red Cell Distribution Width 16.0H, Platelet Count 326, Neutrophils (%) (Auto) 74.6H, Lymphocytes (%) (Auto) 11.7L, Monocytes (%) (Auto) 11.4H, Eosinophils (%) (Auto) 0.2, Basophils (%) (Auto) 0.3 , Neutrophils # (Auto) 12.4H, Lymphocytes # (Auto) 1.9, Monocytes # (Auto) 1.9H , Eosinophils # (Auto) 0.0, Basophils # (Auto) 0.1, Immature Granulocyte # (Auto ) 0.3H, Nucleated Red Blood Cells % (auto) 0.0, Aspartate Amino Transf (AST/SGOT ) 25, Alanine Aminotransferase (ALT/SGPT) 20, Alkaline Phosphatase 99, Total Bilirubin 0.3#, Total Protein 6.3L, Albumin 2.0#L, Albumin/Globulin Ratio 0.47L CBC/BMP Laboratory Tests 07/04/17 16:13 Calcium Level 7.9 L 07/05/17 06:52 Calcium Level 8.4 L, Red Blood Count 3.52 L, Mean Corpuscular Volume 86.9, Mean Corpuscular Hemoglobin 28.4, Mean Corpuscular Hemoglobin Concent 32.7, Red Cell Distribution Width 16.0 H, Neutrophils (%) (Auto) 74.6 H, Lymphocytes (%) (Auto ) 11.7 L, Monocytes (%) (Auto) 11.4 H, Eosinophils (%) (Auto) 0.2, Basophils (% ) (Auto) 0.3, Neutrophils # (Auto) 12.4 H, Lymphocytes # (Auto) 1.9, Monocytes # (Auto) 1.9 H, Eosinophils # (Auto) 0.0, Basophils # (Auto) 0.1, Aspartate Amino Transf (AST/SGOT) 25, Alanine Aminotransferase (ALT/SGPT) 20, Alkaline Phosphatase 99, Total Bilirubin 0.3 #, Total Protein 6.3 L, Albumin 2.0 #L Microbiology Microbiology 07/04/17 Blood Culture - Preliminary, Resulted No growth after 24 hours . All specim... 07/04/17 Blood Culture - Preliminary, Resulted No growth after 24 hours . All specim... 07/04/17 Gram Stain - Final, Resulted 07/04/17 Sputum Culture, Resulted Pending 07/04/17 Respiratory Virus Panel (PCR) (EFRAIN) - Final, Complete SOL WILSON MD Jul 05, 2017 12:36
[2017-07-05 16:35] VITALS: BP 129/62
[2017-07-05] MEDS: ENOXAPARIN 30 MG/0.3 ML SYR (J1650) SC SCH (17:43)
[2017-07-05] MEDS: ROSUVASTATIN 10 MG TAB (CRESTOR) PO SCH (20:31)
[2017-07-05] MEDS: METOPROLOL TART 25 MG TABLET PO SCH (20:33)
[2017-07-05] MEDS: LORATADINE 10 MG TAB PO SCH (20:42)
[2017-07-05] MEDS: diazePAM 10 MG TAB PO SCH (20:42)
[2017-07-05] MEDS: FENOFIBRATE 48 MG TAB (TRICOR) PO SCH (20:42)
[2017-07-05] MEDS: BUDESONIDE 0.5 MG/2 ML INHALATION SUSPENSION INH SCH (20:56)
[2017-07-05 22:00] VITALS: BP 106/52
[2017-07-06] MEDS: IPRATROPIUM 0.5MG/ALBUTEROL 2.5MG INH SOL UD 3ML (DUONEB)(J7620) NEB SCH ×4 (02:00→21:13)
[2017-07-06 06:00] VITALS: BP 105/58
[2017-07-06 07:35] LABS: BASO % 0.3 % (0.0-1.0); EOS # 0.1 10^3/uL (0.0-0.50); EOS % 0.6 % (0.0-3.0); IMMATURE GRANULOCYTE % 3.3 % (0-0); LYMPH # 1.9 10^3/uL (1.5-4.5); MEAN CORPUSCULAR HEMOGLOBIN 28.7 pg (27.0-33.0); MEAN CORPUSCULAR HGB CONC 33.9 g/dl (32.0-36.5); MEAN CORPUSCULAR VOLUME 84.5 fl (80.0-96.0); MONO # 1.8 10^3/uL (0.0-0.8); MONO % 14.6 % (0.0-5.0); NEUTROPHILS # 7.8 10^3/uL (1.8-7.7); NEUTROPHILS % 65.2 % (36.0-66.0); PLATELET COUNT, AUTOMATED 336 10^3/uL (150-450); RED CELL DISTRIBUTION WIDTH 16.1 % (11.5-14.5)
[2017-07-06] MEDS: BUDESONIDE 0.5 MG/2 ML INHALATION SUSPENSION INH SCH ×2 (07:46→21:13)
[2017-07-06 08:14] LABS: ALBUMIN 1.8 GM/DL (3.2-5.2); ALBUMIN/GLOBULIN RATIO 0.42 (1.00-1.93); ALKALINE PHOSPHATASE 83 U/L (45-117); ALT/SGPT 21 U/L (12-78); ANION GAP 9 MEQ/L (8-16); AST/SGOT 21 U/L (7-37); BILIRUBIN,TOTAL 0.4 MG/DL (0.2-1.0); BLOOD UREA NITROGEN 5 MG/DL (7-18); CALCIUM LEVEL 8.5 MG/DL (8.8-10.2); CARBON DIOXIDE LEVEL 28 MEQ/L (21-32); CHLORIDE LEVEL 104 MEQ/L (98-107); CREATININE FOR GFR 0.66 MG/DL (0.55-1.02); GLOMERULAR FILTRATION RATE > 60.0 (>45); GLUCOSE, FASTING 92 MG/DL (80-110); POTASSIUM SERUM 3.3 MEQ/L (3.5-5.1); SODIUM LEVEL 141 MEQ/L (136-145); TOTAL PROTEIN 6.1 GM/DL (6.4-8.2)
[2017-07-06] MEDS: DULoxetine 30 MG CAP (CYMBALTA) PO SCH (09:29)
[2017-07-06] MEDS: oxyBUTYnin 5 MG TAB PO SCH (09:30)
[2017-07-06] MEDS: PANTOPRAZOLE 40MG TAB (PROTONIX) PO SCH ×2 (09:30→20:22)
[2017-07-06] MEDS: METOPROLOL TART 25 MG TABLET PO SCH ×2 (09:30→20:23)
[2017-07-06] MEDS: GABAPENTIN 300 MG CAP PO SCH ×2 (09:30→20:23)
[2017-07-06] MEDS ORDERED: LevoFLOXacin IV 750 MG in APPROPRIATE DILUENT 1 EA IV SCH (12:00)
--- NOTE | 2017-07-06 12:31 | IPNPDOC ---
Subjective Date Seen The patient was seen on 07/06/17. Subjective Chief Complaint/HPI The patient is a 62-year-old female admitted with a reason for visit of Acute And Chronic Respiratory Failure With Hypoxia. Events since last encounter Says does not feel good yet, continues to have chest pain while coughing at the right lower chest on the back , still with large amounts of phlegm production. No fever or chills, no nausea or vomiting or diarrhea, no abdominal pain. Objective Physical Examination General Exam: Positive: Alert, Cooperative, No Acute Distress Eye Exam: Positive: PERRLA, Conjunctiva & lids normal, EOMI, Negative: Sclera icteric ENT Exam: Positive: Atraumatic, Mucous membr. moist/pink, Pharynx Normal Neck Exam: Positive: Supple, Negative: JVD, thyromegaly Chest Exam: Positive: Normal air movement, Rales (at the right base) Heart Exam: Positive: Rate Normal, Regular Rhythm, Normal S1, Normal S2, Negative: Murmurs, Rubs Abdomen Exam: Positive: Normal bowel sounds, Soft, Negative: Tenderness, Hepatospenomegaly Extremity Exam: Positive: Normal pulses, Negative: Clubbing, Cyanosis, Edema Skin Exam: Positive: Nl turgor and temperature, Negative: Rash, Breakdown Assessment /Plan Problems (1) Pneumonia Status: Acute Problem Text: will continue with levofloxacin (2) Sepsis Status: Acute Problem Text: due to pneumonia (3) Acute respiratory failure with hypoxia Status: Acute Problem Text: Due to pneumonia and possibly also has COPD exacerbation. will continue with oxygen supplementation (4) Hypertension Status: Chronic Problem Text: At present with soft bps. due to sepsis was hypotensive on admission. Metoprolol dose reduced and will put hold parameters. (5) COPD (chronic obstructive pulmonary disease) Status: Chronic Problem Text: With acute exacerbation due to pneumonia. will continue with nebulizations with albuterol, ipratropium and budesonide. (6) Hyperlipidemia Status: Chronic (7) Restless leg Status: Chronic (8) Depression Status: Chronic Problem Text: Anxiety and depression will continue with valium (9) IBS (irritable bowel syndrome) Status: Chronic Plan/VTE VTE Prophylaxis Ordered?: Yes VS, I&O, 24H, Fishbone Vital Signs/I&O Vital Signs Date Time Temp Pulse Resp B/P (MAP) Pulse Ox O2 Delivery O2 Flow Rate FiO2 12/7/17 09:30 65 100/58 07/06/17 06:00 98.9 20 92 Nasal Cannula 4.0 07/04/17 09:50 35 I&O- Last 24 Hours up to 6 AM 07/07/17 06:00 Intake Total 150 ml Balance 150 ml Laboratory Data 24H LABS Laboratory Tests 2 07/06/17 07:19: Immature Granulocyte % (Auto) 3.3H, White Blood Count 12.0H, Red Blood Count 3.35L, Hemoglobin 9.6L, Hematocrit 28.3L, Mean Corpuscular Volume 84.5, Mean Corpuscular Hemoglobin 28.7, Mean Corpuscular Hemoglobin Concent 33.9, Red Cell Distribution Width 16.1H, Platelet Count 336, Neutrophils (%) (Auto) 65.2, Lymphocytes (%) (Auto) 16.0L, Monocytes (%) (Auto) 14.6H, Eosinophils (%) (Auto ) 0.6, Basophils (%) (Auto) 0.3, Neutrophils # (Auto) 7.8H, Lymphocytes # (Auto ) 1.9, Monocytes # (Auto) 1.8H, Eosinophils # (Auto) 0.1, Basophils # (Auto) 0.0 , Immature Granulocyte # (Auto) 0.4H, Nucleated Red Blood Cells % (auto) 0.0, Anion Gap 9, Glomerular Filtration Rate > 60.0, Blood Urea Nitrogen 5L, Creatinine 0.66, Sodium Level 141, Potassium Level 3.3L, Chloride Level 104, Carbon Dioxide Level 28, Calcium Level 8.5L, Aspartate Amino Transf (AST/SGOT) 21, Alanine Aminotransferase (ALT/SGPT) 21, Alkaline Phosphatase 83, Total Bilirubin 0.4, Total Protein 6.1L, Albumin 1.8L, Albumin/Globulin Ratio 0.42L CBC/BMP Laboratory Tests 07/06/17 07:19 Red Blood Count 3.35 L, Mean Corpuscular Volume 84.5, Mean Corpuscular Hemoglobin 28.7, Mean Corpuscular Hemoglobin Concent 33.9, Red Cell Distribution Width 16.1 H, Neutrophils (%) (Auto) 65.2, Lymphocytes (%) (Auto) 16.0 L, Monocytes (%) (Auto) 14.6 H, Eosinophils (%) (Auto) 0.6, Basophils (%) ( Auto) 0.3, Neutrophils # (Auto) 7.8 H, Lymphocytes # (Auto) 1.9, Monocytes # ( Auto) 1.8 H, Eosinophils # (Auto) 0.1, Basophils # (Auto) 0.0, Calcium Level 8.5 L, Aspartate Amino Transf (AST/SGOT) 21, Alanine Aminotransferase (ALT/SGPT ) 21, Alkaline Phosphatase 83, Total Bilirubin 0.4, Total Protein 6.1 L, Albumin 1.8 L Microbiology Microbiology 07/04/17 Blood Culture - Preliminary, Resulted No Growth after 48 hours. All Specime... 07/04/17 Blood Culture - Preliminary, Resulted No Growth after 48 hours. All Specime... 07/04/17 Gram Stain - Final, Resulted 07/04/17 Sputum Culture, Resulted Pending 07/04/17 Respiratory Virus Panel (PCR) ([facility]) - Final, Complete SOL WILSON MD Jul 06, 2017 12:31
[2017-07-06 14:00] VITALS: BP 121/59
[2017-07-06] MEDS: POTASSIUM CHLORIDE 10 MEQ SR TABLET PO SCH (14:20)
[2017-07-06] MEDS: KETOROLAC 30 MG/ML VIAL (J1885) IV PRN (14:50)
--- NOTE | 2017-07-06 16:20 | REP ---
LEFT UPPER EXTREMITY DOPPLER VENOUS ULTRASOUND: 07/06/2017. Clinical history: IV associated phlebitis upper extremity. Evaluate for DVT. Findings: Deep venous system from the base of the neck to the antecubital fossa was studied. Color flow, duplex Doppler interrogation, augmentation techniques and compression where able are performed. The left subclavian and jugular veins show color filling their entire course. There is respiratory variation and augmented flow noted. The axillary vein also is fully compressible has color filling in limited respiration and augmented flow. The brachial veins in the upper arm were also without thrombus and show full compressibility. Basilic vein was unremarkable and the mid and proximal cephalic vein intact, however, the distal cephalic vein shows nonocclusive clot just above the IV site. Impression: 1. There is superficial thrombophlebitis in the cephalic vein just above the level of IV insertion. This is part of the superficial system and not a DVT therefore representing superficial thrombophlebitis. 2. No evidence of deep venous thrombosis in the left upper extremity. Signed by Keenan Ascencio MD 07/06/2017 08:44 P
[2017-07-06] MEDS: ENOXAPARIN 30 MG/0.3 ML SYR (J1650) SC SCH (17:11)
[2017-07-06] MEDS: ROSUVASTATIN 10 MG TAB (CRESTOR) PO SCH (20:22)
[2017-07-06] MEDS: LORATADINE 10 MG TAB PO SCH (20:23)
[2017-07-06] MEDS: diazePAM 10 MG TAB PO SCH (21:00)
[2017-07-06] MEDS: FENOFIBRATE 48 MG TAB (TRICOR) PO SCH (21:00)
[2017-07-06 22:00] VITALS: BP 109/56
[2017-07-07] MEDS: IPRATROPIUM 0.5MG/ALBUTEROL 2.5MG INH SOL UD 3ML (DUONEB)(J7620) NEB SCH ×4 (01:27→19:36)
[2017-07-07 05:54] LABS: BASO # 0.1 10^3/uL (0.0-0.2); BASO % 0.3 % (0.0-1.0); EOS # 0.2 10^3/uL (0.0-0.50); EOS % 1.3 % (0.0-3.0); IMMATURE GRANULOCYTE % 4.3 % (0-0); LYMPH # 3.6 10^3/uL (1.5-4.5); LYMPH % 24.6 % (24.0-44.0); MEAN CORPUSCULAR HEMOGLOBIN 28.7 pg (27.0-33.0); MEAN CORPUSCULAR HGB CONC 33.9 g/dl (32.0-36.5); MEAN CORPUSCULAR VOLUME 84.6 fl (80.0-96.0); MONO # 1.9 10^3/uL (0.0-0.8); MONO % 12.8 % (0.0-5.0); NEUTROPHILS # 8.3 10^3/uL (1.8-7.7); NEUTROPHILS % 56.7 % (36.0-66.0); PLATELET COUNT, AUTOMATED 411 10^3/uL (150-450); RED CELL DISTRIBUTION WIDTH 16.1 % (11.5-14.5); WHITE BLOOD COUNT 14.6 10^3/uL (4.0-10.0)
[2017-07-07 06:00] VITALS: BP 122/61
[2017-07-07 06:23] LABS: ALBUMIN 1.9 GM/DL (3.2-5.2); ALBUMIN/GLOBULIN RATIO 0.41 (1.00-1.93); ALKALINE PHOSPHATASE 81 U/L (45-117); ALT/SGPT 26 U/L (12-78); ANION GAP 5 MEQ/L (8-16); AST/SGOT 34 U/L (7-37); BILIRUBIN,TOTAL 0.5 MG/DL (0.2-1.0); BLOOD UREA NITROGEN 7 MG/DL (7-18); CALCIUM LEVEL 9.1 MG/DL (8.8-10.2); CARBON DIOXIDE LEVEL 30 MEQ/L (21-32); CHLORIDE LEVEL 101 MEQ/L (98-107); CREATININE FOR GFR 0.74 MG/DL (0.55-1.02); GLOMERULAR FILTRATION RATE > 60.0 (>45); GLUCOSE, FASTING 90 MG/DL (80-110); POTASSIUM SERUM 3.8 MEQ/L (3.5-5.1); SODIUM LEVEL 136 MEQ/L (136-145); TOTAL PROTEIN 6.5 GM/DL (6.4-8.2)
[2017-07-07] MEDS: POTASSIUM CHLORIDE 10 MEQ SR TABLET PO SCH (08:13)
[2017-07-07] MEDS: DULoxetine 30 MG CAP (CYMBALTA) PO SCH (08:14)
[2017-07-07] MEDS: PANTOPRAZOLE 40MG TAB (PROTONIX) PO SCH ×2 (08:14→21:41)
[2017-07-07] MEDS: GABAPENTIN 300 MG CAP PO SCH ×2 (08:14→21:40)
[2017-07-07] MEDS: oxyBUTYnin 5 MG TAB PO SCH (08:14)
[2017-07-07] MEDS: METOPROLOL TART 25 MG TABLET PO SCH ×2 (08:16→21:40)
[2017-07-07] MEDS: BUDESONIDE 0.5 MG/2 ML INHALATION SUSPENSION INH SCH ×2 (08:43→19:36)
[2017-07-07] MEDS: LevoFLOXacin 500 MG TABLET PO SCH (10:03)
[2017-07-07] MEDS: KETOROLAC 30 MG/ML VIAL (J1885) IV PRN (11:06)
--- NOTE | 2017-07-07 11:25 | IPNPDOC ---
Subjective Date Seen The patient was seen on 07/07/17. Subjective Chief Complaint/HPI The patient is a 62-year-old female admitted with a reason for visit of Acute And Chronic Respiratory Failure With Hypoxia. Events since last encounter Feeling much better, chest pain much better, cough is much better. SOb is also much better. Patient was off oxygen in the afternoon yesterday however had desaturated overnight so had to be put back on oxygen. No nausea or vomiting or diarrhea. Objective Physical Examination General Exam: Positive: Alert, Cooperative, No Acute Distress Eye Exam: Positive: PERRLA, Conjunctiva & lids normal, EOMI, Negative: Sclera icteric ENT Exam: Positive: Atraumatic, Mucous membr. moist/pink, Pharynx Normal Neck Exam: Positive: Supple, Negative: JVD, thyromegaly Chest Exam: Positive: Normal air movement, Rales (at the right base) Heart Exam: Positive: Rate Normal, Regular Rhythm, Normal S1, Normal S2, Negative: Murmurs, Rubs Abdomen Exam: Positive: Normal bowel sounds, Soft, Negative: Tenderness, Hepatospenomegaly Extremity Exam: Positive: Normal pulses, Negative: Clubbing, Cyanosis, Edema Skin Exam: Positive: Nl turgor and temperature, Negative: Rash, Breakdown Assessment /Plan Problems (1) Pneumonia Status: Acute Problem Text: will continue with levofloxacin (2) Sepsis Status: Resolved Problem Text: due to pneumonia (3) Acute respiratory failure with hypoxia Status: Acute Response to Treatment: Improving Problem Text: Due to pneumonia and possibly also has COPD exacerbation. will continue with oxygen supplementation (4) Hypertension Status: Chronic Problem Text: At present with soft bps. due to sepsis was hypotensive on admission. Metoprolol dose reduced and will put hold parameters. (5) COPD (chronic obstructive pulmonary disease) Status: Chronic Problem Text: With acute exacerbation due to pneumonia. will continue with nebulizations with albuterol, ipratropium and budesonide. (6) Hyperlipidemia Status: Chronic (7) Restless leg Status: Chronic (8) Depression Status: Chronic Problem Text: Anxiety and depression will continue with valium (9) IBS (irritable bowel syndrome) Status: Chronic Plan/VTE VTE Prophylaxis Ordered?: Yes VS, I&O, 24H, Fishbone Vital Signs/I&O Vital Signs Date Time Temp Pulse Resp B/P (MAP) Pulse Ox O2 Delivery O2 Flow Rate FiO2 07/07/17 08:44 Nasal Cannula 4.0 07/07/17 08:16 94 140/76 07/07/17 06:00 98.7 20 97 07/04/17 09:50 35 Laboratory Data 24H LABS Laboratory Tests 2 07/07/17 05:47: Immature Granulocyte % (Auto) 4.3H, White Blood Count 14.6H, Red Blood Count 3.38L, Hemoglobin 9.7L, Hematocrit 28.6L, Mean Corpuscular Volume 84.6, Mean Corpuscular Hemoglobin 28.7, Mean Corpuscular Hemoglobin Concent 33.9, Red Cell Distribution Width 16.1H, Platelet Count 411, Neutrophils (%) (Auto) 56.7, Lymphocytes (%) (Auto) 24.6, Monocytes (%) (Auto) 12.8H, Eosinophils (%) (Auto) 1.3, Basophils (%) (Auto) 0.3, Neutrophils # (Auto) 8.3H, Lymphocytes # (Auto) 3.6, Monocytes # (Auto) 1.9H, Eosinophils # (Auto) 0.2, Basophils # (Auto) 0.1, Immature Granulocyte # (Auto) 0.6H, Nucleated Red Blood Cells % (auto) 0.0, Anion Gap 5L, Glomerular Filtration Rate > 60.0, Blood Urea Nitrogen 7, Creatinine 0.74, Sodium Level 136, Potassium Level 3.8, Chloride Level 101, Carbon Dioxide Level 30, Calcium Level 9.1, Aspartate Amino Transf (AST/SGOT) 34 , Alanine Aminotransferase (ALT/SGPT) 26, Alkaline Phosphatase 81, Total Bilirubin 0.5, Total Protein 6.5, Albumin 1.9L, Albumin/Globulin Ratio 0.41L CBC/BMP Laboratory Tests 07/07/17 05:47 Red Blood Count 3.38 L, Mean Corpuscular Volume 84.6, Mean Corpuscular Hemoglobin 28.7, Mean Corpuscular Hemoglobin Concent 33.9, Red Cell Distribution Width 16.1 H, Neutrophils (%) (Auto) 56.7, Lymphocytes (%) (Auto) 24.6, Monocytes (%) (Auto) 12.8 H, Eosinophils (%) (Auto) 1.3, Basophils (%) ( Auto) 0.3, Neutrophils # (Auto) 8.3 H, Lymphocytes # (Auto) 3.6, Monocytes # ( Auto) 1.9 H, Eosinophils # (Auto) 0.2, Basophils # (Auto) 0.1, Calcium Level 9.1 , Aspartate Amino Transf (AST/SGOT) 34, Alanine Aminotransferase (ALT/SGPT) 26, Alkaline Phosphatase 81, Total Bilirubin 0.5, Total Protein 6.5, Albumin 1.9 L Microbiology Microbiology 07/04/17 Blood Culture - Preliminary, Resulted No Growth after 48 hours. All Specime... 07/04/17 Blood Culture - Preliminary, Resulted No Growth after 72 hours. All specime... 07/04/17 Gram Stain - Final, Resulted 07/04/17 Sputum Culture, Resulted Pending 07/04/17 Respiratory Virus Panel (PCR) ([facility]) - Final, Complete SOL WILSON MD Jul 07, 2017 11:25
[2017-07-07 14:00] VITALS: BP 107/64
[2017-07-07] MEDS: ACETAMINOPHEN TAB 650MG DOSE (2X325MG) PO PRN (16:23)
[2017-07-07] MEDS: ENOXAPARIN 30 MG/0.3 ML SYR (J1650) SC SCH (17:54)
[2017-07-07] MEDS: diazePAM 10 MG TAB PO SCH (21:39)
[2017-07-07] MEDS: ROSUVASTATIN 10 MG TAB (CRESTOR) PO SCH (21:40)
[2017-07-07] MEDS: FENOFIBRATE 48 MG TAB (TRICOR) PO SCH (21:41)
[2017-07-07] MEDS: LORATADINE 10 MG TAB PO SCH (21:41)
[2017-07-07 22:00] VITALS: BP 125/66
[2017-07-08] MEDS: IPRATROPIUM 0.5MG/ALBUTEROL 2.5MG INH SOL UD 3ML (DUONEB)(J7620) NEB SCH ×2 (01:25→08:17)
[2017-07-08] MEDS: LevoFLOXacin 500 MG TABLET PO SCH (05:30)
[2017-07-08 06:00] VITALS: BP 134/73
[2017-07-08 06:01] LABS: MEAN CORPUSCULAR HEMOGLOBIN 28.5 pg (27.0-33.0); MEAN CORPUSCULAR VOLUME 83.8 fl (80.0-96.0); PLATELET COUNT, AUTOMATED 440 10^3/uL (150-450); RED CELL DISTRIBUTION WIDTH 16.1 % (11.5-14.5); WHITE BLOOD COUNT 12.4 10^3/uL (4.0-10.0)
[2017-07-08 06:02] LABS: ADD MANUAL DIFFER YES; DIFF SLIDE NUMBER 22; POS COUNT POS FLAG; POSITIVE MORPH POS FLAG
[2017-07-08 06:24] LABS: ALBUMIN/GLOBULIN RATIO 0.43 (1.00-1.93); ALKALINE PHOSPHATASE 89 U/L (45-117); ALT/SGPT 29 U/L (12-78); ANION GAP 9 MEQ/L (8-16); AST/SGOT 33 U/L (7-37); BILIRUBIN,TOTAL 0.3 MG/DL (0.2-1.0); BLOOD UREA NITROGEN 9 MG/DL (7-18); CALCIUM LEVEL 9.1 MG/DL (8.8-10.2); CARBON DIOXIDE LEVEL 25 MEQ/L (21-32); CHLORIDE LEVEL 101 MEQ/L (98-107); CREATININE FOR GFR 0.78 MG/DL (0.55-1.02); GLOMERULAR FILTRATION RATE > 60.0 (>45); GLUCOSE, FASTING 109 MG/DL (80-110); POTASSIUM SERUM 4.2 MEQ/L (3.5-5.1); SODIUM LEVEL 135 MEQ/L (136-145); TOTAL PROTEIN 6.7 GM/DL (6.4-8.2)
[2017-07-08 06:31] LABS: EOSINOPHILS 4 % (0-5)
[2017-07-08 06:34] LABS: ANISOCYTOSIS 1+; TOXIC GRANULATION 1+
[2017-07-08] MEDS: BUDESONIDE 0.5 MG/2 ML INHALATION SUSPENSION INH SCH (08:17)
[2017-07-08] MEDS ORDERED: LEVA1TAB2 PO (08:25)
[2017-07-08] MEDS: GABAPENTIN 300 MG CAP PO SCH (08:42)
[2017-07-08] MEDS: PANTOPRAZOLE 40MG TAB (PROTONIX) PO SCH (08:42)
[2017-07-08 08:43] VITALS: BP 134/73
[2017-07-08] MEDS: DULoxetine 30 MG CAP (CYMBALTA) PO SCH (08:43)
[2017-07-08] MEDS: POTASSIUM CHLORIDE 10 MEQ SR TABLET PO SCH (08:43)
[2017-07-08] MEDS: METOPROLOL TART 25 MG TABLET PO SCH (08:43)
[2017-07-08] MEDS: oxyBUTYnin 5 MG TAB PO SCH (08:43)
--- NOTE | 2017-07-19 12:19 | DSES ---
DATE OF ADMISSION: 07/04/2017 DATE OF DISCHARGE: 07/08/2017 PRIMARY CARE PROVIDER: Keisha Hill NP DISCHARGE DIAGNOSES: Community acquire pneumonia. Sepsis due to pneumonia, resolved. Acute respiratory failure with hypoxia. Chronic obstructive pulmonary disease (COPD) exacerbation. Hypertension. Hyperlipidemia. Restless leg syndrome. Depression. Irritable bowel syndrome. Allergic rhinitis. Chronic anemia. Gastroesophageal reflux disease. History of peptic ulcer disease. Chronic back pain. History of alcohol abuse. History multiple compression fracture and old rib fractures. DISCHARGE MEDICATIONS: - levofloxacin 500 mg daily for 5 days - albuterol sulfate 2.5 mg nebulized solution, 1 every 4 hours as needed shortness of breath - albuterol sulfate MDI two puff inhalation four times a day as needed shortness of breath - Arnuity Ellipta 100 mcg inhalation daily - diazepam 20 mg at bedtime - Cymbalta 90 mg by mouth daily - alfacalcidol 50,000 units per week - fenofibrate 48 mg by mouth at bedtime - gabapentin 300 mg by mouth in the morning and 600 mg at bedtime. -loratadine 10 mg at bedtime - metoprolol tartrate 50 mg by mouth twice a day - oxybutynin 5 mg by mouth daily - pantoprazole 40 mg by mouth twice a day - Crestor 40 mg at bedtime. - trazodone 200 mg at bedtime HOSPITAL COURSE: This is a 62-year-old female presented to the hospital with complaints of increasing shortness of breath with increasing cough productive of yellow sputum, worsening over the past 1 week. The patient also had a spike of fever 102 at home. Was very weak and fatigued. Presently the patient is a smoker as well as he has a history of alcohol abuse. The patient was found to have right-sided lower lobe pneumonia. There was positive sick contact. The patient was diagnosed with community acquired pneumonia and started on levofloxacin. The patient responded well to treatment. Initially, the patient was hypoxic requiring oxygen supplementation as well as patient had mild COPD exacerbation. With antibiotics and aggressive management of his COPD the patient's symptoms improved. The patient was successfully weaned off oxygen. The patient's sepsis resolved on the day of discharge. She did not have any complaints. Her vitals were stable, was not requiring any oxygen. She was functionally at her baseline. PHYSICAL EXAMINATION: VITAL SIGNS: Temperature 98.5, pulse 84, respiratory rate 18, blood pressure 134/73, pulse oximetry 90% in room air. GENERAL: The patient is awake, alert, oriented times three, sitting up in bed in no acute distress. HEENT: Normocephalic, atraumatic. Moist mucous membranes. Anicteric eyes. CHEST: Mild diffuse crackles on the right. Otherwise, clear to auscultation. CARDIAC: S1, S2 regular. No rub, murmur, or gallop. ABDOMEN: Soft, nontender. Bowel sounds present. EXTREMITIES: No edema. LABORATORY DATA: WBC 12.4, hemoglobin 10, platelet 414. Sodium 135, potassium 4.2, chloride 101, bicarbonate 25, BUN 9, creatinine 0.7. Liver function tests are normal. Calcium 9.1, glucose 109. DISPOSITION: The patient is discharged home in stable condition. DISCHARGE INSTRUCTIONS: The patient to followup with primary provider in 1-2 weeks' time. Activity as tolerated. Diet as tolerated. The patient instructed to hold her amlodipine till seen by primary care provider as well as instructed to hold her trazodone while she is on the antibiotics.
== END 2017-07-08 09:26 | disposition home or self-care (01) | DRG 720 ==
LOC: M ED 09:17 → EDBD 09:17 → M ED INP 12:25 → M MSPAV 07-05 16:30
PROVIDERS: ADMIT Hospitalist; ATTEND Internal Medicine Nephrology
DX: A41.9 Sepsis, unspecified organism (principal); J96.21 Acute and chronic respiratory failure with hypoxia; J18.9 Pneumonia, unspecified organism; J84.10 Pulmonary fibrosis, unspecified; J44.1 Chronic obstructive pulmonary disease with (acute) exacerbation; E87.1 Hypo-osmolality and hyponatremia; K21.9 Gastro-esophageal reflux disease without esophagitis; D64.9 Anemia, unspecified; F32.9 Major depressive disorder, single episode, unspecified; E78.5 Hyperlipidemia, unspecified; I10 Essential (primary) hypertension; G25.81 Restless legs syndrome; K58.9 Irritable bowel syndrome, unspecified; M54.5 Low back pain; F10.10 Alcohol abuse, uncomplicated; Z79.899 Other long term (current) drug therapy; F41.9 Anxiety disorder, unspecified; E87.6 Hypokalemia; R65.20 Severe sepsis without septic shock

== ENCOUNTER 2017-08-25 08:52 | Day surgery (SDC) | payer OTHER ==
[2017-08-25] MEDS ORDERED: NS 1,000 ML IV (09:30)
[2017-08-25] MEDS ORDERED: fentaNYL 100 MCG/2 ML INJECTION (J3010) As Ordered (10:44)
[2017-08-25] MEDS ORDERED: PROPOFOL 200 MG/20 ML VIAL As Ordered (10:47)
[2017-08-25] MEDS ORDERED: LIDOCAINE 2% INJ 100 MG/5 ML SDV (FOR ANES.) As Ordered (10:47)
== END 2017-08-25 11:45 | disposition home or self-care (01) ==
LOC: M OPP 08:52
DX: R10.13 Epigastric pain (principal); I12.9 Hypertensive chronic kidney disease with stage 1 through stage 4 chronic kidney disease, or unspecified chronic kidney disease; E78.5 Hyperlipidemia, unspecified; K58.9 Irritable bowel syndrome, unspecified; K57.30 Diverticulosis of large intestine without perforation or abscess without bleeding; K44.9 Diaphragmatic hernia without obstruction or gangrene; K21.9 Gastro-esophageal reflux disease without esophagitis; F17.210 Nicotine dependence, cigarettes, uncomplicated; F41.9 Anxiety disorder, unspecified; F32.9 Major depressive disorder, single episode, unspecified; G43.909 Migraine, unspecified, not intractable, without status migrainosus; N18.3 Chronic kidney disease, stage 3 (moderate); F43.12 Post-traumatic stress disorder, chronic; M17.9 Osteoarthritis of knee, unspecified; R06.83 Snoring; Z79.82 Long term (current) use of aspirin; Z79.899 Other long term (current) drug therapy; Z88.1 Allergy status to other antibiotic agents; Z88.0 Allergy status to penicillin; Z88.5 Allergy status to narcotic agent; Z88.8 Allergy status to other drugs, medicaments and biological substances; Z86.2 Personal history of diseases of the blood and blood-forming organs and certain disorders involving the immune mechanism; Z86.14 Personal history of Methicillin resistant Staphylococcus aureus infection; Z90.722 Acquired absence of ovaries, bilateral; Z90.49 Acquired absence of other specified parts of digestive tract; Z80.9 Family history of malignant neoplasm, unspecified
CPT/HCPCS: 43249

== ENCOUNTER 2017-12-07 22:34 | Observation (INO) | payer OTHER ==
[2017-12-07] MEDS ORDERED: IPRATROPIUM 0.5MG/ALBUTEROL 2.5MG INH SOL UD 3ML (DUONEB)(J7620) NEB (23:00)
[2017-12-07 23:07] LABS: HEMATOCRIT 41.7 % (36.0-47.0); HEMOGLOBIN 13.8 g/dl (12.0-15.5); MEAN CORPUSCULAR HEMOGLOBIN 29.3 pg (27.0-33.0); MEAN CORPUSCULAR HGB CONC 33.1 g/dl (32.0-36.5); MEAN CORPUSCULAR VOLUME 88.5 fl (80.0-96.0); PLATELET COUNT, AUTOMATED 325 10^3/uL (150-450); RED BLOOD COUNT 4.71 10^6/uL (4.00-5.40); RED CELL DISTRIBUTION WIDTH 14.7 % (11.5-14.5)
[2017-12-07] MEDS: methylPREDNISolone INJ 125 MG/2 ML VIAL (J2930) IV (23:08)
[2017-12-07 23:18] LABS: ABG HCO3 26.7 MEQ/L (22.0-26.0); ABG O2 SATURATION 93.4 % (95.0-99.0); ABG PARTIAL PRESSURE CO2 51.6 mmHg (35.0-45.0); ABG STANDARD HCO3 24.4 MEQ/L (22.0-26.0); ABG TOTAL CO2 28.2 MEQ/L (23.0-31.0); ABG pH (ARTERIAL) 7.331 UNITS (7.350-7.450)
[2017-12-07 23:19] LABS: WHITE BLOOD COUNT 12.7 10^3/uL (4.0-10.0)
[2017-12-07 23:20] LABS: ADD MANUAL DIFFER YES; DIFF SLIDE NUMBER 356; POSITIVE DIFF POS FLAG; POSITIVE MORPH POS FLAG
[2017-12-07 23:31] LABS: ANION GAP 7 MEQ/L (8-16); BLOOD UREA NITROGEN 12 MG/DL (7-18); CALCIUM LEVEL 8.8 MG/DL (8.8-10.2); CARBON DIOXIDE LEVEL 29 MEQ/L (21-32); CHLORIDE LEVEL 109 MEQ/L (98-107); CPK CREATINE PHOSPHOKINASE 53 U/L (26-192); CREATININE FOR GFR 0.75 MG/DL (0.55-1.30); ETHYL ALCOHOL (ETHANOL) 0.142 % (0.000-0.010); GLOMERULAR FILTRATION RATE > 60.0 (>45); GLUCOSE, FASTING 90 MG/DL (70-100); SODIUM LEVEL 145 MEQ/L (136-145); TROPONIN I < 0.02 NG/ML (< 0.10)
[2017-12-07 23:36] LABS: ATYPICAL LYMPH 7 % (0-5); EOSINOPHILS 2 % (0-5); LYMPHOCYTES 44 % (16-52); MONOCYTES 6 % (0-8); NEUTROPHILS 41 % (35-75)
[2017-12-07 23:37] LABS: CK-MB VALUE MASS < 1.0 NG/ML (<3.6); MB/CK RELATIVE INDEX 1.88 (< OR =4); NT-PRO BNP 79 PG/ML (<125); PLATELET ESTIMATE NORMAL (NORMAL)
[2017-12-08] MEDS ORDERED: ISOVUE-370 76% 100ML VIAL (Q9967) As Ordered (00:29)
[2017-12-08] MEDS ORDERED: IPRATROPIUM 0.5MG/ALBUTEROL 2.5MG INH SOL UD 3ML (DUONEB)(J7620) NEB (02:15)
[2017-12-08] MEDS: ACETAMINOPHEN TAB 650MG DOSE (2X325MG) PO ×3 (05:41→20:31)
[2017-12-08 06:19] LABS: HEMATOCRIT 42.9 % (36.0-47.0); HEMOGLOBIN 14.1 g/dl (12.0-15.5); MEAN CORPUSCULAR HEMOGLOBIN 29.3 pg (27.0-33.0); MEAN CORPUSCULAR HGB CONC 32.9 g/dl (32.0-36.5); MEAN CORPUSCULAR VOLUME 89.2 fl (80.0-96.0); PLATELET COUNT, AUTOMATED 295 10^3/uL (150-450); RED BLOOD COUNT 4.81 10^6/uL (4.00-5.40); RED CELL DISTRIBUTION WIDTH 14.6 % (11.5-14.5); WHITE BLOOD COUNT 8.6 10^3/uL (4.0-10.0)
[2017-12-08 06:36] LABS: ANION GAP 6 MEQ/L (8-16); BLOOD UREA NITROGEN 12 MG/DL (7-18); CALCIUM LEVEL 8.7 MG/DL (8.8-10.2); CARBON DIOXIDE LEVEL 27 MEQ/L (21-32); CHLORIDE LEVEL 108 MEQ/L (98-107); CREATININE FOR GFR 0.74 MG/DL (0.55-1.30); GLOMERULAR FILTRATION RATE > 60.0 (>45); GLUCOSE, FASTING 149 MG/DL (70-100); POTASSIUM SERUM 3.9 MEQ/L (3.5-5.1); SODIUM LEVEL 141 MEQ/L (136-145)
[2017-12-08] MEDS: IPRATROPIUM 0.5MG/ALBUTEROL 2.5MG INH SOL UD 3ML (DUONEB)(J7620) NEB ×3 (07:24→19:17)
[2017-12-08] MEDS: methylPREDNISolone INJ 125 MG/2 ML VIAL (J2930) IV (09:13)
[2017-12-08] MEDS: ENOXAPARIN 40 MG/0.4 ML SYRINGE (J1650) SC (09:13)
[2017-12-08] MEDS: predniSONE 20 MG TAB PO (11:36)
[2017-12-09 00:18] LABS: KETONE, URINE AUTO RFX NEGATIVE (NEGATIVE); LEUKOCYTE ESTERASE UR AUTO RFX NEGATIVE (NEGATIVE); NITRITE, URINE AUTO RFX NEGATIVE (NEGATIVE); RBC, URINE AUTO RFX 1 /HPF (0-3); SPECIFIC GRAVITY UR AUTO RFX 1.012 (1.002-1.035); SQUAM EPITHELIAL CELL UR AURFX 1 /HPF (0-6); WBC, URINE AUTO RFX 1 /HPF (0-3)
[2017-12-09] MEDS: IPRATROPIUM 0.5MG/ALBUTEROL 2.5MG INH SOL UD 3ML (DUONEB)(J7620) NEB ×2 (02:00→07:41)
[2017-12-09 06:23] LABS: HEMATOCRIT 40.1 % (36.0-47.0); HEMOGLOBIN 13.4 g/dl (12.0-15.5); MEAN CORPUSCULAR HEMOGLOBIN 29.1 pg (27.0-33.0); MEAN CORPUSCULAR HGB CONC 33.4 g/dl (32.0-36.5); PLATELET COUNT, AUTOMATED 349 10^3/uL (150-450); RED BLOOD COUNT 4.61 10^6/uL (4.00-5.40); RED CELL DISTRIBUTION WIDTH 14.8 % (11.5-14.5); WHITE BLOOD COUNT 24.5 10^3/uL (4.0-10.0)
[2017-12-09 06:40] LABS: ANION GAP 9 MEQ/L (8-16); BLOOD UREA NITROGEN 14 MG/DL (7-18); CALCIUM LEVEL 8.9 MG/DL (8.8-10.2); CARBON DIOXIDE LEVEL 25 MEQ/L (21-32); CHLORIDE LEVEL 109 MEQ/L (98-107); GLOMERULAR FILTRATION RATE > 60.0 (>45); GLUCOSE, FASTING 115 MG/DL (70-100); POTASSIUM SERUM 3.9 MEQ/L (3.5-5.1); SODIUM LEVEL 143 MEQ/L (136-145)
[2017-12-09] MEDS: ENOXAPARIN 40 MG/0.4 ML SYRINGE (J1650) SC (08:49)
[2017-12-09] MEDS: DULoxetine 30 MG CAP (CYMBALTA) PO ×3 (09:00→12:58)
[2017-12-09] MEDS: oxyBUTYnin *DITROPAN XL* 5 MG TABCR PO (09:00)
[2017-12-09] MEDS: GABAPENTIN 300 MG CAP PO (12:58)
[2017-12-09] MEDS: PANTOPRAZOLE 40MG TAB (PROTONIX) PO (12:59)
[2017-12-09] MEDS: oxyBUTYnin 5 MG TAB PO (12:59)
== END 2017-12-09 14:27 | disposition home or self-care (01) ==
LOC: M ED 22:34 → M ED INP 22:35 → M MSPAV 12-08 04:48
DX: J44.1 Chronic obstructive pulmonary disease with (acute) exacerbation (principal); D72.829 Elevated white blood cell count, unspecified; F10.120 Alcohol abuse with intoxication, uncomplicated; S22.080A Wedge compression fracture of T11-T12 vertebra, initial encounter for closed fracture; X58.XXXA Exposure to other specified factors, initial encounter; Y92.89 Other specified places as the place of occurrence of the external cause; I10 Essential (primary) hypertension; E78.5 Hyperlipidemia, unspecified; F41.9 Anxiety disorder, unspecified; F32.9 Major depressive disorder, single episode, unspecified; K21.9 Gastro-esophageal reflux disease without esophagitis; K27.9 Peptic ulcer, site unspecified, unspecified as acute or chronic, without hemorrhage or perforation; K58.9 Irritable bowel syndrome, unspecified; F17.210 Nicotine dependence, cigarettes, uncomplicated; N32.81 Overactive bladder; J30.9 Allergic rhinitis, unspecified; Z79.899 Other long term (current) drug therapy; Z79.52 Long term (current) use of systemic steroids; Z88.0 Allergy status to penicillin; Z88.6 Allergy status to analgesic agent; Z88.1 Allergy status to other antibiotic agents; Z88.7 Allergy status to serum and vaccine; Z88.5 Allergy status to narcotic agent; Z88.8 Allergy status to other drugs, medicaments and biological substances
CPT/HCPCS: Q9967

== ENCOUNTER → 2018-02-27 | Outpatient (REF) | payer OTHER ==
[2018-02-27 15:30] LABS: HEMATOCRIT 49.9 % (36.0-47.0); HEMOGLOBIN 16.2 g/dl (12.0-15.5); MEAN CORPUSCULAR HEMOGLOBIN 29.9 pg (27.0-33.0); MEAN CORPUSCULAR HGB CONC 32.5 g/dl (32.0-36.5); MEAN CORPUSCULAR VOLUME 92.1 fl (80.0-96.0); PLATELET COUNT, AUTOMATED 417 10^3/uL (150-450); RED BLOOD COUNT 5.42 10^6/uL (4.00-5.40); RED CELL DISTRIBUTION WIDTH 13.8 % (11.5-14.5)
[2018-02-27 15:36] LABS: ADD MANUAL DIFFER YES; DIFF SLIDE NUMBER 270; POSITIVE DIFF POS FLAG; WHITE BLOOD COUNT 13.2 10^3/uL (4.0-10.0)
[2018-02-27 15:51] LABS: ALBUMIN 4.2 GM/DL (3.2-5.2); ALBUMIN/GLOBULIN RATIO 1.17 (1.00-1.93); ALKALINE PHOSPHATASE 55 U/L (45-117); ALT/SGPT 18 U/L (12-78); ANION GAP 11 MEQ/L (8-16); AST/SGOT 14 U/L (7-37); BILIRUBIN,TOTAL 0.4 MG/DL (0.2-1.0); BLOOD UREA NITROGEN 14 MG/DL (7-18); CARBON DIOXIDE LEVEL 27 MEQ/L (21-32); CHLORIDE LEVEL 104 MEQ/L (98-107); CREATININE FOR GFR 1.05 MG/DL (0.55-1.30); GLOMERULAR FILTRATION RATE 56.7 (>45); GLUCOSE, FASTING 82 MG/DL (70-100); MAGNESIUM LEVEL 1.5 MG/DL (1.8-2.4); POTASSIUM SERUM 3.7 MEQ/L (3.5-5.1); SODIUM LEVEL 142 MEQ/L (136-145); TOTAL PROTEIN 7.8 GM/DL (6.4-8.2)
[2018-02-27 15:57] LABS: TOTAL 25(OH) VITAMIN D 132.4 NG/ML (30.0-100.0)
[2018-02-27 16:11] LABS: BANDS 1 % (< 11); LYMPHOCYTES 47 % (16-52); MONOCYTES 9 % (0-8); NEUTROPHILS 43 % (35-75)
[2018-02-27 16:18] LABS: PLATELET ESTIMATE NORMAL (NORMAL)
== END ==
LOC: M SFHCPLAZ 14:25
DX: I10 Essential (primary) hypertension (principal); S22.000A Wedge compression fracture of unspecified thoracic vertebra, initial encounter for closed fracture; W18.30XA Fall on same level, unspecified, initial encounter; Y92.009 Unspecified place in unspecified non-institutional (private) residence as the place of occurrence of the external cause
CPT/HCPCS: 83735

== ENCOUNTER → 2018-03-12 | Outpatient (CLI) | payer OTHER | LOC: M WHC 08:57 | DX: S22.000A Wedge compression fracture of unspecified thoracic vertebra, initial encounter for closed fracture (principal); Y92.89 Other specified places as the place of occurrence of the external cause; Y93.89 Activity, other specified; Y99.8 Other external cause status; X58.XXXA Exposure to other specified factors, initial encounter | CPT/HCPCS: 77080 ==

== ENCOUNTER → 2018-03-21 | Outpatient (CLI) | payer OTHER | LOC: M RAD 12:40 | DX: I10 Essential (primary) hypertension (principal) | CPT/HCPCS: 71046 ==

== ENCOUNTER → 2018-03-23 | Outpatient (REF) | payer OTHER, MEDICAID ==
[2018-03-23 13:35] LABS: APPEARANCE, URINE CLEAR (CLEAR); BACTERIA, URINE AUTO NEGATIVE (NEGATIVE); BILIRUBIN, URINE AUTO NEGATIVE (NEGATIVE); BLOOD, URINE BLOOD NEGATIVE (NEGATIVE); COLOR, URINE YELLOW (YELLOW); GLUCOSE, URINE (UA) AUTO NEGATIVE (NEGATIVE); KETONE, URINE AUTO NEGATIVE (NEGATIVE); LEUKOCYTE ESTERASE, URINE AUTO NEGATIVE (NEGATIVE); MUCUS, URINE SMALL (NEGATIVE); NITRITE, URINE AUTO NEGATIVE (NEGATIVE); PROTEIN, URINE AUTO NEGATIVE (NEGATIVE); RBC, URINE AUTO 2 /HPF (0-3); SPECIFIC GRAVITY URINE AUTO 1.012 (1.002-1.035); SQUAMOUS EPITHELIAL CELL UR AU 1 /HPF (0-6); UROBILINOGEN, URINE AUTO 0.2 mg/dL (0.0-2.0); WBC, URINE AUTO 2 /HPF (0-3)
== END ==
LOC: M SFHCPLAZ 11:58
DX: N39.44 Nocturnal enuresis (principal)

== ENCOUNTER → 2018-05-04 | Outpatient (CLI) | payer OTHER | LOC: M RAD 15:02 | DX: M54.6 Pain in thoracic spine (principal) | CPT/HCPCS: 72070 ==

== ENCOUNTER → 2018-05-04 | Outpatient (CLI) | payer OTHER, MEDICAID | LOC: M PAIN 13:15 | DX: M79.10 Myalgia, unspecified site (principal); J44.9 Chronic obstructive pulmonary disease, unspecified; I10 Essential (primary) hypertension; E78.5 Hyperlipidemia, unspecified; F41.9 Anxiety disorder, unspecified; F32.9 Major depressive disorder, single episode, unspecified; K21.9 Gastro-esophageal reflux disease without esophagitis; F17.210 Nicotine dependence, cigarettes, uncomplicated; N32.81 Overactive bladder; J30.9 Allergic rhinitis, unspecified; F10.10 Alcohol abuse, uncomplicated; Z79.899 Other long term (current) drug therapy; F12.10 Cannabis abuse, uncomplicated; Z88.5 Allergy status to narcotic agent; Z88.6 Allergy status to analgesic agent; Z88.0 Allergy status to penicillin; Z88.1 Allergy status to other antibiotic agents; Z88.8 Allergy status to other drugs, medicaments and biological substances | CPT/HCPCS: G0463 ==

== ENCOUNTER → 2018-09-04 | Outpatient (REF) | payer OTHER ==
[~2018-09-04] MED LIST changes: +ALBU83IN INH; +AMLO-140 PO; -AMLO10TA2 PO; +AMLO10TA5 PO; +ARNU1INH INH; -FENO145T PO; +FENO145T13 PO; +FOLI1TAB11 PO; -FOLI1TAB4 PO; -GABA-282 PO; +GABA-843 PO; -GABA600T PO; +GABA600T4 PO; -GABA800T PO; +GABA800T4 PO; -GEMF600T PO; +GEMF600T5 PO; +IPRA0.00 INH; -IPRASOL4 INH; -LASI20TA PO; +LASI20TA3 PO; +LEVA1TAB2 PO; +PATIENT COMMENT; -THIA100T6 PO; +THIA100T7 PO; +TIZA4CAP PO; -TRAZ-136 PO; +TRAZ-163 PO; +VENTAER INH; -VITA1CAP40 PO; +VITA50005 PO
== END ==
LOC: M SFHCPLAZ 11:51
PROVIDERS: ATTEND Nurse Practitioner Family
DX: E78.2 Mixed hyperlipidemia (principal); M85.80 Other specified disorders of bone density and structure, unspecified site; K21.9 Gastro-esophageal reflux disease without esophagitis; Z53.9 Procedure and treatment not carried out, unspecified reason

== ENCOUNTER → 2018-09-17 | Outpatient (CLI) | payer OTHER ==
--- NOTE | 2018-09-17 11:20 | PFTRPT ---
Height: 62.00 Inches Weight: 134.00 Lbs BSA: 1.61 Diagnosis: J44.9 DATE OF PROCEDURE: 09/17/2018 ORDERED BY: Paige Bowen Spirometry: Pre and post bronchodilator study of excellent technical quality. Forced vital capacity normal. FEV1 out of proportion. Obstructive index is, therefore, reduced. Flow Volume Loop: Expiratory limb of the flow volume loop does suggest an obstructive impairment. No significant bronchodilator response is identified. Lung Volumes: Total lung capacity elevated. Residual volume consistent with air trapping. Diffusing Capacity: Diffusing capacity is significantly reduced and does not correct for alveolar volume. Hemoglobin: No hemoglobin available for correction. Airway Mechanics: Airway resistance and conductance are normal. IMPRESSION: Mild obstructive ventilatory impairment with significant diffusing capacity impairment and underlying air trapping. Please correlate clinically. MTDD
[2018-09-17 11:46] LABS: ALBUMIN 3.8 GM/DL (3.2-5.2); ALT/SGPT 16 U/L (12-78); BILIRUBIN,TOTAL 0.4 MG/DL (0.2-1.0); BLOOD UREA NITROGEN 10 MG/DL (7-18); CALCIUM LEVEL 8.6 MG/DL (8.8-10.2); CARBON DIOXIDE LEVEL 28 MEQ/L (21-32); CHLORIDE LEVEL 109 MEQ/L (98-107); CHOLESTEROL LEVEL 118 MG/DL (<200); CREATININE FOR GFR 0.99 MG/DL (0.55-1.30); FREE T4 1.12 NG/DL (0.76-1.46); GLOMERULAR FILTRATION RATE > 60.0 (>45); GLUCOSE, FASTING 98 MG/DL (70-100); HDL CHOLESTEROL 50 MG/DL (>40); LDL CHOLESTEROL 50 MG/DL (<100); MAGNESIUM LEVEL 1.9 MG/DL (1.8-2.4); NON-HDL-C 68 MG/DL; POTASSIUM SERUM 3.7 MEQ/L (3.5-5.1); SODIUM LEVEL 143 MEQ/L (136-145); TOTAL PROTEIN 6.8 GM/DL (6.4-8.2); TRIGLYCERIDES LEVEL 90 MG/DL (<150)
[2018-09-17 11:50] LABS: TOTAL 25(OH) VITAMIN D 58.6 NG/ML (30.0-100.0)
== END ==
LOC: M CARPUL 10:30 → M LAB 10:30
PROVIDERS: ATTEND Nurse Practitioner Family
DX: J44.9 Chronic obstructive pulmonary disease, unspecified (principal)

== ENCOUNTER → 2018-10-26 | Outpatient (CLI) | payer OTHER ==
[~2018-10-26] MED LIST changes: -/ATOR40TA PO; -/IPRAINH IN; -/PANT40TA OR; +CYMB1CAP4 OR; -DULO20CA OR; +HALO0.5H PO; -HALO05TA PO; +LIPI1TAB2 PO; +LISI40TA52 PO; -LISI40TAB PO; +PROT1TAB2 OR
--- NOTE | 2018-11-08 01:47 | ECWPNPC ---
PATIENT NAME: KALA SOLIS : 1955 GENDER: FEMALE VISIT DATE: 10/26/2018 DISCHARGE DATE: 10/26/18 1229 VISIT LOCKED DATE TIME: PHYSICIAN: FANI ATKINSON MD RESOURCE: FANI ATKINSON MD REASON FOR APPOINTMENT 1. BACK PAIN HISTORY OF PRESENT ILLNESS HISTORY OF PRESENT ILLNESS: PAIN THE PATIENT DESCRIBES THE PAIN... 63 YEAR OLD FEMALE PATIENT WITH A HISTORY OF CHRONIC NECK AND THORACIC PAIN. THE PATIENT DESCRIBES THE PAIN ACHING, BURNING, SORE, TENDER, SHARP, STABBING, SHOOTING, AND CONTINUOUS WITH A PAIN SCORE OF 5-10/10 DEPENDING ON PHYSICAL ACTIVITY. THE PATIENT SAYS THAT SHE HAS DIFFICULTY DOING DAILY ACTIVITIES SUCH COOKING, CLEANING, AND GROCERY SHOPPING DUE TO THIS PAIN. PATIENT DENIES UNEXPLAINABLE WEIGHT LOSS, FEVER, CHILLS, NEW CHANGES ON HER URINARY OR BOWEL CONTROL. FALL RISK SCREENING: SCREENING :NO FALLS REPORTED IN THE LAST YEAR CURRENT MEDICATIONS TAKING GABAPENTIN 300 MG CAPSULE 1 CAP ORALLY 3 TIMES A DAY TAKING DULOXETINE HCL 30 MG CAPSULE DELAYED RELEASE PARTICLES 1 CAP ORALLY DAILY IN THE MORNING TAKING TRAZODONE HCL 100 MG TABLET 2 TABLETS ORALLY DAILY AT BEDTIME TAKING DIAZEPAM 10 MG TABLET (SCHEDULE IV DRUG) TAKE TWO TABLETS BY MOUTH EVERY NIGHT (MAX DAILY DOSE 20MG) ORAL BEFORE BEDTIME TAKING DULOXETINE HCL 60 MG CAPSULE DELAYED RELEASE PARTICLES 1 CAPSULE ORALLY ONCE A DAY IN THE MORNING TAKING PREVAIL ADJ UNDERWEAR SM/MED - MISCELLANEOUS DIRECTED DX: N39.44 BEFORE BEDTIME TAKING TIZANIDINE HCL 4 MG TABLET 1 TAB ORALLY 3 TIMES A DAY NEEDED TAKING ACETAMINOPHEN 500 MG TABLET 2 TABS NEEDED ORALLY EVERY 8 HRS FOR PAIN TAKING AMLODIPINE BESYLATE 10 MG TABLET 1 TAB ORALLY DAILY TAKING LORATADINE 10 MG TABLET 1 TAB ORALLY DAILY AT BEDTIME TAKING OXYBUTYNIN CHLORIDE 5 MG TABLET 1 TAB ORALLY DAILY TAKING IPRATROPIUM-ALBUTEROL 0.5-2.5 (3) MG/3ML SOLUTION 3 ML INHALATION VIA NEB EVERY 6 HRS TAKING ALBUTEROL SULFATE HFA 108 (90 BASE) MCG/ACT AEROSOL SOLUTION 2 PUFFS NEEDED INHALATION EVERY 6 HRS TAKING ALENDRONATE SODIUM 70 MG TABLET 1 TABLET ORALLY ONCE A WEEK DIRECTED TAKING VITAMIN D 1000 UNIT TABLET 1 TABLET ORALLY ONCE A DAY WITH MEAL TAKING ATORVASTATIN CALCIUM 80 MG TABLET 1 TABLET ORALLY ONCE A DAY TAKING PANTOPRAZOLE SODIUM 40 MG TABLET DELAYED RELEASE 1 TAB ORALLY TWICE A DAY TAKING FENOFIBRATE 54 MG TABLET 1 TABLET WITH FOOD ORALLY ONCE A DAY DISCONTINUED TUMS 500 MG TABLET CHEWABLE 1 TABLET ORALLY ONCE A DAY MEDICATION LIST REVIEWED AND RECONCILED WITH THE PATIENT PAST MEDICAL HISTORY COPD ETOH/SUBSTANCE ABUSE HTN HYPERLIPIDEMIA ANXIETY/DEPRESSION - OUTPATIENT PSYCH GERD, H/O GASTRIC ULCER NICOTINE DEPENDANCE OVERACTIVE BLADDER ALLERGIC RHINITIS COMPRESSION FRACTURE T11 (ON CTA) OSTEOPENIA OF HIPS DEXA 03/17, FRAX RISK 19% MAJOR, 5.5% HIP ALLERGIES CODEINE SULFATE: HIVES ASPIRIN: NAUSEA/VOMITING PROPOXYPHENE: NAUSEA/VOMITING TUBERCULIN PPD: PATIENT STATES EXTENSIVE ARM SWELLING AND REFUSES PPD FLUTICASONE PROPIONATE HFA: PATIENT STATES SHE ENDED UP SEVERELY SICK AND WAS HOSPITALIZED AZITHROMYCIN: HIVES SALMETEROL XINAFOATE: PATIENT STATES SHE ENDED UP SEVERELY SICK AND WAS HOSPITALIZED NEFAZODONE HCL: HIVES PENICILLIN (FOR ALLERGIES USE ONLY): VOMITING PENICILLINS CROSS REACTORS: NAUSEA WITH AUGMENTIN CEPHALOSPORINS: NAUSEA WITH AUGMENTIN ALL PAIN MEDS EXCEPT VICODIN AND MORPHINE: NAUSEA/VOMITING NAPROXEN: VOMITING SURGICAL HISTORY HYSTERECTOMY 2004 LEFT KNEE SURGERY (5 DIFFERENT SURGERIES) AGE 19 AND UP ENDOSCOPY WITH REPAIR DR. SAMUEL 2017 EGD - REINDL 07/14, 01/12, 08/17 FAMILY HISTORY FATHER: 82 YRS, RENAL FAILURE MOTHER: 74 YRS, LUNG CA, DIAGNOSED WITH CANCER SIBLINGS: , 1 BOTHER - LUNG CA, 1 BR CANCER, 1 BR - ALIVE, LEUKEMIA 1 BROTHER(S) . 1 SON(S) , 1 DAUGHTER(S) - HEALTHY. 2 BROTHERS FROM CANCERBROTHER IN REMISSION FROM LEUKEMIA. SOCIAL HISTORY GENERAL: TOBACCO USE ARE YOU A:CURRENT SMOKER ARE YOU INTERESTED IN QUITTING?THINKING ABOUT QUITTING PREVIOUS QUIT ATTEMPTS?YES, MORE THAN 6 MONTHS AGO. COUNSELED THE PATIENT ON SMOKING CESSATION, EDUCATION [id number]/29/2019 HOW MANY CIGARETTES A DAY DO YOU SMOKE?11-20 HOW SOON AFTER YOU WAKE UP DO YOU SMOKE YOUR FIRST CIGARETTE?WITHIN 5 MIN HOW OFTEN DO YOU SMOKE CIGARETTES?EVERY DAY PATIENT COUNSELED ON THE DANGERS OF TOBACCO USE AND URGED TO QUIT:10/26/2018 SMOKING CESSATION INFORMATION GIVEN09/25/2018 ALCOHOL SCREENING DID YOU HAVE A DRINK CONTAINING ALCOHOL IN THE PAST YEAR?YES HOW OFTEN DID YOU HAVE SIX OR MORE DRINKS ON ONE OCCASION IN THE PAST YEAR?NEVER (0 POINTS) HOW MANY DRINKS DID YOU HAVE ON A TYPICAL DAY WHEN YOU WERE DRINKING IN THE PAST YEAR?1 OR 2 (0 POINTS) HOW OFTEN DID YOU HAVE A DRINK CONTAINING ALCOHOL IN THE PAST YEAR?TWO TO FOUR TIMES A MONTH (2 POINTS) POINTS2 INTERPRETATIONNEGATIVE RECREATIONAL DRUG USE DRUG USE?YES MARIJUANA CAFFEINE CAFFEINE USE?NO SEXUAL HX HAD SEX IN THE LAST 12 MONTHS (VAGINAL, ORAL, OR ANAL)?NO LMP:HYSTER HAVE YOU EVER HAD AN STD?NO HIV / HEP-C SCREENING HIV TEST OFFERED TO PATIENT:YES DATE OFFERED:02/27/2018 TEST ACCEPTED:NO NEGATIVE IN PAST HEP-C TEST OFFERED TO PATIENT:YES DATE OFFERED:02/27/2018 TEST ACCEPTED:NO REASON:OTHER (DOCUMENT IN NOTE) WAS NEGATIVE IN PAST BROCHURE PROVIDED TO PATIENTNO SCIENTOLOGIST [id number] NONE LANGUAGE LANGUAGES SPOKEN:MAORI EDUCATION LEVEL OF EDUCATION:HIGH SCHOOL LEARNING BARRIERS / SPECIAL NEEDS CHANGE FROM LAST VISIT?NO BARRIERS TO LEARNING?NO HEARING IMPAIRED?NO VISION IMPAIRED?YES COGNITIVELY IMPAIRED?NO :CORRECTIVE LENSES READINESS TO LEARN?YES LEARNING PREFERENCES?NO LEARNING CAPABILITIES PRESENT?YES EMOTIONAL BARRIERS?NO SPECIAL DEVICES?YES :CANE, WALKER CHESS INSTRUCTOR NEEDED?NO DOMESTIC VIOLENCE DO YOU FEEL SAFE IN YOUR ENVIRONMENT?NO ROOMMATE WHO HAS SCHIZOPHRENIA TRIED TO KILL HER WITH A WOODEN STICK BUT ONLY TOUCHED HER EAR AND SHE CALLED POLICE FOR THE ROOMMATE. OCCUPATION: DISABLED. DIET: REGULAR. EXERCISE: NO REGULAR EXERCISE. MARITAL STATUS: SINGLE, .. OTHERS AT HOME: NONE. NEW PATIENT PAIN DIARY PATIENT DESCRIBES PAIN :HAVE IT ALL THE TIME FROM 0-10, WHAT LEVEL IS YOUR PAIN TODAY?10 PRECIPITATING FACTORS MOVING OR PICKING UP ITEMS, EVERYTHING TRIGGERS PAIN ALLEVIATING FACTORS VICODIN IMPACT ON FUNCTION REDUCED FUNCTION, PAIN STAYS THE SAME, INTERFERES WITH SLEEP ANY NEW PATTERNS OF PAIN OR NUMBNESS? YES HAVE YOU FALLEN IN THE LAST 6 MONTHS? YES, FREQUENTLY DO YOU USE ANY TYPE OF TOBACCO (SMOKE, SMOKELESS, CHEW, ETC.) YES ARE YOU ABUSED, NEGLECTED, OR IN AN UNSAFE ENVIRONMENT? NO INTENSITY SCALE REVIEWED YES PAIN CLINIC PFS, CLERGY, PUBLIC HEALTH REFERRALS WAS THE PROVIDER NOTIFIED OF ANY PERTINENT INFO?NO HAS THE PATIENT BEEN EDUCATED REGARDING HIS/HER PLAN OF CARE?YES HAS THE PATIENT BEEN EDUCATED REGARDING PAIN, THE RISK FOR PAIN, THE IMPORTANCE OF EFFECTIVE PAIN MANAGEMENT, AND THE PAIN ASSESSMENT PROCESS?YES ADVANCE DIRECTIVE ADVANCE DIRECTIVE DISCUSSED WITH PATIENT:YES PT DECLINES INFORMATION AT THIS TIME HOSPITALIZATION/MAJOR DIAGNOSTIC PROCEDURE COPD EXACERBATION, ETOH INTOXICATION 12/15 PNEUMONIA 07/16 COPD EXACERBATION 05/16 SEPSIS ARF 07/14 REVIEW OF SYSTEMS REVIEWED BY: PROVIDER: FANI ATKINSON MD . CONSTITUTIONAL: ANY CHANGE IN YOUR MEDICAL CONDITION? NO . CHILLS NO . FEVER NO . INFECTION: DO YOU HAVE NEW INFECTIONS? YES, HAD THE FLU 2 WEEKS AGO . DO YOU HAVE HISTORY OF MRSA? YES . MUSCULOSKELETAL: ANY NEW PATTERNS OF PAIN OR NUMBNESS? YES, ACROSS THE NECK . GASTROENTEROLOGY: ANY NEW CHANGE IN BOWEL CONTROL? NO . GENITOURINARY: ANY NEW CHANGE IN BLADDER CONTROL? YES . IS THERE A CHANCE YOU COULD BE ? NO . HEMATOLOGY/LYMPH: DO YOU TAKE ANY BLOOD THINNERS? (FOR EXAMPLE- COUMADIN, PLAVIX, AGGRENOX, PLATEL, PRADAXA, OR XARELTO) NO . WHEN WAS YOUR LAST DOSE? DATE: TIME: . NEUROLOGY: HAVE YOU FALLEN IN THE PAST 12 MONTHS? YES . ANY NEW EXTREMITY NUMBNESS OR WEAKNESS? YES . CARDIOLOGY: DO YOU HAVE A PACEMAKER OR DEFIBRILLATOR? NO . RESPIRATORY: HAVE YOU BEEN SICK IN THE PAST WEEK? NO . FEVER NO . FLU LIKE SYMPTOMS? NO . COUGH NO . INTEGUMENTARY: DO YOU HAVE ANY RASHES OR OPEN SORES? NO . ALLERGIC/IMMUNO: ARE YOU ALLERGIC TO IV DYE? NO . ANY NEW ALLERGIES? NO . PSYCHIATRIC: DO YOU HAVE THOUGHTS OF HURTING YOURSELF OR SOMEONE ELSE? NO . ARE YOU ABUSED, NEGLECTED, OR IN AN UNSAFE ENVIRONMENT? NO . ENDOCRINOLOGY: ARE YOU DIABETIC? NO . OTHER: DO YOU NEED ANY PRESCRIPTIONS? NO . IF YES, PLEASE LIST: ____ . ANY NEW PROBLEMS WITH YOUR MEDICATIONS? NO . WHEN DID YOU LAST EAT? ____ . WHEN DID YOU LAST DRINK? ____ . WHAT DID YOU LAST DRINK? ____ . NAME OF PERSON DRIVING YOU HOME? ____ . DO YOU HAVE ANY OTHER QUESTIONS OR CONCERNS NO . VITAL SIGNS WT 124.4 LBS, HT 5'3", BMI 22.03 INDEX, BP 142/73 MM HG, HR 95 /MIN, RR 18 /MIN, TEMP 98.4 F, OXYGEN SAT % 92%, SAFE IN ENV? (Y/N) YES, NA INITIALS LA 11:35, REVIEWED BY: VD. EXAMINATION GENERAL EXAMINATION: PATIENT IS ALERT O X 3 AND COOPERATIVE. PRESENCE OF TRIGGER POINTS AND BANDS OF TISSUE WITH RESTRICTION OF MOVEMENT OF THE NECK AND BACK. ASSESSMENTS MYALGIA, OTHER SITE - M79.18 (PRIMARY) TREATMENT MYALGIA, OTHER SITE CLINICAL NOTES: WE DISCUSSED SEVERAL ISSUES WITH MRS. SOLIS'S PAIN MANAGEMENT CASE. DUE TO THE TRIGGER POINTS, BANDS OF TISSUE, AND RESTRICTION OF MOVEMENT, I WOULD LIKE TO MOVE FORWARD WITH TRIGGER POINT INJECTIONS AT THIS TIME. WE DISCUSSED THE BENEFITS, RISKS, AND ALTERNATIVES OF THE INJECTION AND THE PATIENT WOULD LIKE TO PROCEED. THE PATIENT WILL FOLLOW UP 3 WEEKS AFTER THE INJECTION. INSTRUCTIONS WERE GIVEN, QUESTIONS WERE ANSWERED, PATIENT REPORTS UNDERSTANDING AND AGREES WITH THE PLAN. I, REN SALAS, DOCUMENTED THE ABOVE INFORMATION ACTING A SCRIBE FOR DR. ATKINSON. I HAVE REVIEWED THE ABOVE DOCUMENT, WRITTEN BY REN SALAS SCRIBE AND I VERIFY THAT IT IS ACCURATE. . PROCEDURE CODES FA211 ESTABILISHED PATIENT [facility] FACILITY CHARGE G8427 CURRENT MEDS W/DOSAGES DOCUMENTED G8730 PAIN ASSESS POS TOOL F/U PLAN DOC DISPOSITION & COMMUNICATION FOLLOW UP 3 WEEKS ELECTRONICALLY SIGNED BY FANI ATKINSON MD, MD ON 11/07/2018 AT 12:37 PM EDT DISCLAIMER : THIS IS A VISIT SUMMARY EXTRACTED FROM THE [employer] CHART. IT IS NOT A COPY OF THE [employer] PROGRESS NOTE. [facility]
== END ==
LOC: M PAIN 12:00
PROVIDERS: ATTEND Anesthesiology
DX: M79.18 Myalgia, other site (principal); J44.9 Chronic obstructive pulmonary disease, unspecified; F10.10 Alcohol abuse, uncomplicated; I10 Essential (primary) hypertension; E78.5 Hyperlipidemia, unspecified; F41.9 Anxiety disorder, unspecified; F32.9 Major depressive disorder, single episode, unspecified; K21.9 Gastro-esophageal reflux disease without esophagitis; N32.81 Overactive bladder; J30.9 Allergic rhinitis, unspecified; M85.851 Other specified disorders of bone density and structure, right thigh; M85.852 Other specified disorders of bone density and structure, left thigh; F17.210 Nicotine dependence, cigarettes, uncomplicated; Z88.5 Allergy status to narcotic agent; Z88.6 Allergy status to analgesic agent; Z88.0 Allergy status to penicillin; Z88.1 Allergy status to other antibiotic agents; Z88.8 Allergy status to other drugs, medicaments and biological substances; Z79.899 Other long term (current) drug therapy; Z86.14 Personal history of Methicillin resistant Staphylococcus aureus infection

== ENCOUNTER → 2019-01-02 | Outpatient (CLI) | payer OTHER ==
[~2019-01-02] MED LIST changes: +BUPIVACAINE HCL 0.25% 10 ML VIAL As Ordered ONE; +BUPIVACAINE HCL 0.25% 30 ML VIAL As Ordered ONE; +TRIAMCINOLONE ACETONIDE SUSP 40 MG/ML VIAL (J3301) As Ordered ONE; +oxyCODONE 5MG TAB As Ordered ONE
--- NOTE | 2019-01-05 01:45 | ECWPNPC ---
PATIENT NAME: KALA SOLIS : 1955 GENDER: FEMALE VISIT DATE: 01/02/2019 DISCHARGE DATE: 01/02/19 125 VISIT LOCKED DATE TIME: PHYSICIAN: FANI ATKINSON MD RESOURCE: FANI ATKINSON MD REASON FOR APPOINTMENT 1. TPI CURRENT MEDICATIONS TAKING TIZANIDINE HCL 4 MG TABLET 1 TAB ORALLY 3 TIMES A DAY NEEDED, NOTES: 01-01-192099 TAKING GABAPENTIN 300 MG CAPSULE 1 CAP ORALLY 3 TIMES A DAY, NOTES: 01-02-19699 TAKING DULOXETINE HCL 30 MG CAPSULE DELAYED RELEASE PARTICLES 1 CAP ORALLY DAILY IN THE MORNING, NOTES: 01-02-19699 TAKING TRAZODONE HCL 100 MG TABLET 2 TABLETS ORALLY DAILY AT BEDTIME, NOTES: 01-01-192099 TAKING DIAZEPAM 10 MG TABLET (SCHEDULE IV DRUG) TAKE TWO TABLETS BY MOUTH EVERY NIGHT (MAX DAILY DOSE 20MG) ORAL BEFORE BEDTIME, NOTES: 01-01-192099 TAKING DULOXETINE HCL 60 MG CAPSULE DELAYED RELEASE PARTICLES 1 CAPSULE ORALLY ONCE A DAY IN THE MORNING, NOTES: 01-02-19599 TAKING ACETAMINOPHEN 500 MG TABLET 2 TABS NEEDED ORALLY EVERY 8 HRS FOR PAIN, NOTES: NOT LATELY TAKING OXYBUTYNIN CHLORIDE 5 MG TABLET 1 TAB ORALLY DAILY, NOTES: 01-02-19599 TAKING IPRATROPIUM-ALBUTEROL 0.5-2.5 (3) MG/3ML SOLUTION 3 ML INHALATION VIA NEB EVERY 6 HRS, NOTES: 01-02-19599 TAKING ALBUTEROL SULFATE HFA 108 (90 BASE) MCG/ACT AEROSOL SOLUTION 2 PUFFS NEEDED INHALATION EVERY 6 HRS, NOTES: 01-02-19699 TAKING ALENDRONATE SODIUM 70 MG TABLET 1 TABLET ORALLY ONCE A WEEK DIRECTED, NOTES: 01-02-19599 TAKING VITAMIN D 1000 UNIT TABLET 1 TABLET ORALLY ONCE A DAY WITH MEAL, NOTES: 01-02-19599 TAKING ATORVASTATIN CALCIUM 80 MG TABLET 1 TABLET ORALLY ONCE A DAY, NOTES: 01-01-192099 TAKING PANTOPRAZOLE SODIUM 40 MG TABLET DELAYED RELEASE 1 TAB ORALLY TWICE A DAY, NOTES: 01-02-19699 TAKING FENOFIBRATE 54 MG TABLET 1 TABLET WITH FOOD ORALLY ONCE A DAY, NOTES: 01-02-19699 TAKING AMLODIPINE BESYLATE 10 MG TABLET 1 TAB ORALLY DAILY, NOTES: 01-01-19 2100 TAKING LORATADINE 10 MG TABLET 1 TAB ORALLY DAILY AT BEDTIME, NOTES: 01-02-19 0600 UNKNOWN PREVAIL ADJ UNDERWEAR SM/MED - MISCELLANEOUS DIRECTED DX: N39.44 BEFORE BEDTIME MEDICATION LIST REVIEWED AND RECONCILED WITH THE PATIENT PAST MEDICAL HISTORY COPD ETOH/SUBSTANCE ABUSE HTN HYPERLIPIDEMIA ANXIETY/DEPRESSION - OUTPATIENT PSYCH GERD, H/O GASTRIC ULCER NICOTINE DEPENDANCE OVERACTIVE BLADDER ALLERGIC RHINITIS COMPRESSION FRACTURE T11 (ON CTA) OSTEOPENIA OF HIPS DEXA 03/17, FRAX RISK 19% MAJOR, 5.5% HIP ALLERGIES CODEINE SULFATE: HIVES ASPIRIN: NAUSEA/VOMITING PROPOXYPHENE: NAUSEA/VOMITING TUBERCULIN PPD: PATIENT STATES EXTENSIVE ARM SWELLING AND REFUSES PPD FLUTICASONE PROPIONATE HFA: PATIENT STATES SHE ENDED UP SEVERELY SICK AND WAS HOSPITALIZED AZITHROMYCIN: HIVES SALMETEROL XINAFOATE: PATIENT STATES SHE ENDED UP SEVERELY SICK AND WAS HOSPITALIZED NEFAZODONE HCL: HIVES PENICILLIN (FOR ALLERGIES USE ONLY): VOMITING PENICILLINS CROSS REACTORS: NAUSEA WITH AUGMENTIN CEPHALOSPORINS: NAUSEA WITH AUGMENTIN ALL PAIN MEDS EXCEPT VICODIN AND MORPHINE: NAUSEA/VOMITING NAPROXEN: VOMITING SURGICAL HISTORY NO SURGICAL HISTORY DOCUMENTED. FAMILY HISTORY FATHER: 82 YRS, RENAL FAILURE MOTHER: 74 YRS, LUNG CA, DIAGNOSED WITH CANCER SIBLINGS: , 1 BOTHER - LUNG CA, 1 BR CANCER, 1 BR - ALIVE, LEUKEMIA 1 BROTHER(S) . 1 SON(S) , 1 DAUGHTER(S) - HEALTHY. 2 BROTHERS FROM CANCERBROTHER IN REMISSION FROM LEUKEMIA. HOSPITALIZATION/MAJOR DIAGNOSTIC PROCEDURE NO HOSPITALIZATION HISTORY. VITAL SIGNS WT 132.0 LBS, HT 5'3", BMI 23.38 INDEX, BP 138/83 MM HG, HR 90 /MIN, RR 18 /MIN, TEMP 97.5 F, OXYGEN SAT % 95, NA INITIALS MP 1051. ASSESSMENTS MYALGIA, OTHER SITE - M79.18 (PRIMARY) PROCEDURES PN TRIGGER POINT INJECTION WITH STEROIDS PRE PROCEDURE DIAGNOSIS 1. MYALGIA 2. PAIN AT BILATERAL THORACIC AREA POST PROCEDURE DIAGNOSIS 1. MYALGIA 2. PAIN AT BILATERAL THORACIC AREA PROCEDURE TRIGGER POINT INJECTION AT BILATERAL THORACIC AREA SURGEON DR. FANI ATKINSON MARINE ENGINEERING TEACHER NONE ANESTHESIA LOCAL PRE PROCEDURE NOTE THE PATIENT HAS A HISTORY OF CHRONIC PAIN AT THE RIGHT AND LEFT THORACIC AREA. I EVALUATE THE PATIENT AND REVIEWED THE CHART. THERE IS EVIDENCE OF BANDS OF TISSUE WITH RESTRICTION OF MOVEMENT AND PRESENCE OF TRIGGER POINT AT THE AFFECTED AREA. I WENT OVER THE RISKS, ALTERNATIVES, AND BENEFITS ASSOCIATED WITH THIS PROCEDURE. THE PATIENT WOULD LIKE TO PROCEED AND GIVE CONSENT TO PERFORMED THE PROCEDURE. THE PATIENT DENIES UNEXPLAINABLE WEIGHT LOSS, FEVER, CHILLS, OR NEW CHANGES IN URINARY OR BOWEL CONTROL DESCRIPTION OF PROCEDURE THE PATIENT WAS BROUGHT TO THE PROCEDURE ROOM AND PLACED IN THE SITTING POSITION. THE AREA WAS CLEANED WITH ALCOHOL. THE PROCEDURE WAS DONE USING ASEPTIC STERILE TECHNIQUE. I CHECKED LATERALITY AND THE LEVEL WHERE THE PROCEDURE WAS GOING TO BE PERFORMED WITH THE PATIENT AND THE SUPPORTING STAFF AT THE MOMENT OF THE TIME OUT IN THE PROCEDURE ROOM. USING A 25-GAUGE NEEDLE, TRIGGER POINTS WERE INJECTED AT THE RIGHT AND LEFT THORACIC AREA WITH A TOTAL OF 40 ML OF BUPIVACAINE 0.25% AND KENALOG 40 MG. THERE WAS NO EVIDENCE OF BLOOD, PARESTHESIA OR CEREBROSPINAL FLUID DURING THE PROCEDURE. THE PATIENT WAS SENT TO THE RECOVERY ROOM. THE PATIENT WAS MOVING THE EXTREMITIES AND DOING WELL. THERE WAS NO COMPLICATION DURING THE PROCEDURE POST PROCEDURE NOTE THE PATIENT WILL BE SEEN IN A FOLLOW UP IN THE NEXT FEW WEEKS. INSTRUCTIONS WERE GIVEN, QUESTIONS WERE ANSWERED, AND THE PATIENT EXPRESSED UNDERSTANDING AND AGREES WITH THE PLAN. I, REN SALAS, DOCUMENTED THE ABOVE INFORMATION ACTING A SCRIBE FOR DR. ATKINSON. I HAVE REVIEWED THE ABOVE DOCUMENT, WRITTEN BY REN BARNETT AND I VERIFY THAT IT IS ACCURATE. PROCEDURE CODES 50035 INJ TRIGGER POINT / MUSC DISPOSITION & COMMUNICATION FOLLOW UP 3 WEEKS ELECTRONICALLY SIGNED BY FANI ATKINSON MD, MD ON 01/04/2019 AT 05:15 PM EDT DISCLAIMER : THIS IS A VISIT SUMMARY EXTRACTED FROM THE [employer] CHART. IT IS NOT A COPY OF THE [employer] PROGRESS NOTE. [facility]
== END ==
LOC: M PAIN 10:45
PROVIDERS: ATTEND Anesthesiology
DX: M79.18 Myalgia, other site (principal); J44.9 Chronic obstructive pulmonary disease, unspecified; F17.200 Nicotine dependence, unspecified, uncomplicated; F10.10 Alcohol abuse, uncomplicated; I10 Essential (primary) hypertension; E78.5 Hyperlipidemia, unspecified; F41.9 Anxiety disorder, unspecified; F32.9 Major depressive disorder, single episode, unspecified; K21.9 Gastro-esophageal reflux disease without esophagitis; N32.81 Overactive bladder; J30.9 Allergic rhinitis, unspecified; Z79.899 Other long term (current) drug therapy; Z88.5 Allergy status to narcotic agent; Z88.6 Allergy status to analgesic agent; Z88.0 Allergy status to penicillin; Z88.1 Allergy status to other antibiotic agents; Z88.8 Allergy status to other drugs, medicaments and biological substances; Z88.2 Allergy status to sulfonamides
CPT/HCPCS: 20552; J3301

== ENCOUNTER → 2019-02-11 | Outpatient (CLI) | payer OTHER ==
[~2019-02-11] MED LIST changes: -BUPIVACAINE HCL 0.25% 10 ML VIAL As Ordered ONE; -BUPIVACAINE HCL 0.25% 30 ML VIAL As Ordered ONE; -DULO1CAP2 PO; -DULO1CAP3 PO; +DULO1CAP5 PO; +DULO1CAP6 PO; -TRIAMCINOLONE ACETONIDE SUSP 40 MG/ML VIAL (J3301) As Ordered ONE; -oxyCODONE 5MG TAB As Ordered ONE
== END ==
LOC: M PAIN 15:45
PROVIDERS: ATTEND Anesthesiology
DX: M79.18 Myalgia, other site (principal); Z53.21 Procedure and treatment not carried out due to patient leaving prior to being seen by health care provider

== ENCOUNTER → 2019-02-26 | Outpatient (REF) | payer OTHER ==
[2019-02-26 14:33] LABS: APPEARANCE, URINE CLEAR (CLEAR); BACTERIA, URINE AUTO 3+ (NEGATIVE); BILIRUBIN, URINE AUTO NEGATIVE (NEGATIVE); BLOOD, URINE BLOOD NEGATIVE (NEGATIVE); COLOR, URINE YELLOW (YELLOW); GLUCOSE, URINE (UA) AUTO NEGATIVE (NEGATIVE); KETONE, URINE AUTO NEGATIVE (NEGATIVE); LEUKOCYTE ESTERASE, URINE AUTO 3+ (NEGATIVE); MUCUS, URINE SMALL (NEGATIVE); NITRITE, URINE AUTO NEGATIVE (NEGATIVE); PROTEIN, URINE AUTO NEGATIVE (NEGATIVE); RBC, URINE AUTO 1 /HPF (0-3); SPECIFIC GRAVITY URINE AUTO 1.011 (1.002-1.035); SQUAMOUS EPITHELIAL CELL UR AU 0 /HPF (0-6); UROBILINOGEN, URINE AUTO 0.2 mg/dL (0.0-2.0); WBC, URINE AUTO 29 /HPF (0-3)
== END ==
LOC: M SMT 13:23
PROVIDERS: ATTEND Nurse Practitioner Family
DX: R32 Unspecified urinary incontinence (principal)

== ENCOUNTER → 2019-03-05 | Outpatient (CLI) | payer OTHER ==
--- NOTE | 2019-03-06 23:23 | ECWPNPC ---
PATIENT NAME: KALA SOLIS : 1955 GENDER: FEMALE VISIT DATE: 03/05/2019 DISCHARGE DATE: 03/05/19 1509 VISIT LOCKED DATE TIME: PHYSICIAN: MUKESH PANDEY RESOURCE: MUKESH PANDEY REASON FOR APPOINTMENT 1. SEE TELEPHONE ENCOUNTER OF 02-27-19." HISTORY OF PRESENT ILLNESS HISTORY OF PRESENT ILLNESS: PAIN THE PATIENT DESCRIBES THE PAIN... 64 YEAR OLD FEMALE IN WITH COMPLAINTS OF INCREASED PAIN AND REQUESTING MEDICATION FOR THIS. SHE CURRENTLY RATES HER PAIN AT A 6/10 AND DESCRIBES IT ACHING, SHARP, BURNING, STABBING, SORE, SHOOTING, AND TENDER. SHE DENIES ANY RECENT INJURIES. FALL RISK SCREENING: SCREENING :NO FALLS REPORTED IN THE LAST YEAR CURRENT MEDICATIONS TAKING GABAPENTIN 300 MG CAPSULE 1 CAP ORALLY 3 TIMES A DAY TAKING DULOXETINE HCL 30 MG CAPSULE DELAYED RELEASE PARTICLES 1 CAP ORALLY DAILY IN THE MORNING TAKING TRAZODONE HCL 100 MG TABLET 2 TABLETS ORALLY DAILY AT BEDTIME TAKING DIAZEPAM 10 MG TABLET (SCHEDULE IV DRUG) TAKE TWO TABLETS BY MOUTH EVERY NIGHT (MAX DAILY DOSE 20MG) ORAL BEFORE BEDTIME TAKING DULOXETINE HCL 60 MG CAPSULE DELAYED RELEASE PARTICLES 1 CAPSULE ORALLY ONCE A DAY IN THE MORNING TAKING AMLODIPINE BESYLATE 10 MG TABLET 1 TAB ORALLY DAILY TAKING ALENDRONATE SODIUM 70 MG TABLET 1 TABLET ORALLY ONCE A WEEK DIRECTED TAKING VITAMIN D 1000 UNIT TABLET 1 TABLET ORALLY ONCE A DAY WITH MEAL TAKING TUMS 500 MG TABLET CHEWABLE 1 TABLET ORALLY ONCE A DAY TAKING IPRATROPIUM-ALBUTEROL 0.5-2.5 (3) MG/3ML SOLUTION 3 ML INHALATION VIA NEB EVERY 6 HRS TAKING PANTOPRAZOLE SODIUM 40 MG TABLET DELAYED RELEASE 1 TAB ORALLY TWICE A DAY TAKING ATORVASTATIN CALCIUM 80 MG TABLET 1 TABLET ORALLY ONCE A DAY TAKING FENOFIBRATE 54 MG TABLET 1 TABLET WITH FOOD ORALLY ONCE A DAY TAKING LORATADINE 10 MG TABLET 1 TAB ORALLY DAILY AT BEDTIME TAKING QVAR REDIHALER 40 MCG/ACT AEROSOL BREATH ACTIVATED 1 PUFF INHALATION TWICE DAILY, NOTES: TO REPLACE ARNUITY TAKING STRIVERDI RESPIMAT 2.5 MCG/ACT AEROSOL SOLUTION 2 PUFFS INHALATION ONCE A DAY TAKING ALBUTEROL SULFATE HFA 108 (90 BASE) MCG/ACT AEROSOL SOLUTION 2 PUFFS NEEDED INHALATION EVERY 6 HRS TAKING DETROL 2 MG TABLET 1 TABLET ORALLY TWICE A DAY TAKING ACETAMINOPHEN 500 MG TABLET 2 TABS NEEDED ORALLY EVERY 8 HRS FOR PAIN TAKING TIZANIDINE HCL 4 MG TABLET 1 TAB ORALLY 3 TIMES A DAY NEEDED TAKING MACROBID 100 MG CAPSULE 1 CAPSULE WITH FOOD ORALLY EVERY 12 HRS TAKING PREVAIL ADJ UNDERWEAR SM/MED - MISCELLANEOUS DIRECTED DX: N39.44 BEFORE BEDTIME NOT-TAKING LIDOCAINE HCL 4.12 % CREAM 1 APPLICATION TO AFFECTED AREAS ON MID, LOWER AND UPPER BACK NEEDED EXTERNALLY THREE TIMES DAILY NOT-TAKING AMLODIPINE BESYLATE 10 MG TABLET 1 TAB ORALLY DAILY MEDICATION LIST REVIEWED AND RECONCILED WITH THE PATIENT PAST MEDICAL HISTORY COPD ETOH/SUBSTANCE ABUSE HTN HYPERLIPIDEMIA ANXIETY/DEPRESSION - OUTPATIENT PSYCH GERD, H/O GASTRIC ULCER NICOTINE DEPENDANCE OVERACTIVE BLADDER ALLERGIC RHINITIS COMPRESSION FRACTURE T11 (ON CTA) OSTEOPENIA OF HIPS DEXA 03/17, FRAX RISK 19% MAJOR, 5.5% HIP ALLERGIES CODEINE SULFATE: HIVES ASPIRIN: NAUSEA/VOMITING PROPOXYPHENE: NAUSEA/VOMITING TUBERCULIN PPD: PATIENT STATES EXTENSIVE ARM SWELLING AND REFUSES PPD FLUTICASONE PROPIONATE HFA: PATIENT STATES SHE ENDED UP SEVERELY SICK AND WAS HOSPITALIZED AZITHROMYCIN: HIVES SALMETEROL XINAFOATE: PATIENT STATES SHE ENDED UP SEVERELY SICK AND WAS HOSPITALIZED NEFAZODONE HCL: HIVES PENICILLIN (FOR ALLERGIES USE ONLY): VOMITING PENICILLINS CROSS REACTORS: NAUSEA WITH AUGMENTIN CEPHALOSPORINS: NAUSEA WITH AUGMENTIN ALL PAIN MEDS EXCEPT VICODIN AND MORPHINE: NAUSEA/VOMITING NAPROXEN: VOMITING SURGICAL HISTORY 5 KNEE SURGERIES TOTAL HYSTERECTOMY 2003 GALL BLADDER THROAT WIDEN PHNAMONIA SEPTIC/BLADDER 2017 MERSA FRACTURED BACK FAMILY HISTORY FATHER: 82 YRS, RENAL FAILURE MOTHER: 74 YRS, LUNG CA, DIAGNOSED WITH CANCER SIBLINGS: , 1 BOTHER - LUNG CA, 1 BR CANCER, 1 BR - ALIVE, LEUKEMIA 1 BROTHER(S) . 1 SON(S) , 1 DAUGHTER(S) - HEALTHY. 2 BROTHERS FROM CANCERBROTHER IN REMISSION FROM LEUKEMIA. SOCIAL HISTORY GENERAL: TOBACCO USE ARE YOU A:CURRENT SMOKER ARE YOU INTERESTED IN QUITTING?THINKING ABOUT QUITTING PREVIOUS QUIT ATTEMPTS?YES, MORE THAN 6 MONTHS AGO. COUNSELED THE PATIENT ON SMOKING CESSATION, EDUCATION [id number]/06/2019 HOW MANY CIGARETTES A DAY DO YOU SMOKE?6-10 HOW SOON AFTER YOU WAKE UP DO YOU SMOKE YOUR FIRST CIGARETTE?WITHIN 5 MIN HOW OFTEN DO YOU SMOKE CIGARETTES?EVERY DAY PATIENT COUNSELED ON THE DANGERS OF TOBACCO USE AND URGED TO QUIT:03/05/2019 SMOKING CESSATION INFORMATION GIVEN02/27/2019 HIV / HEP-C SCREENING HIV TEST OFFERED TO PATIENT:YES DATE OFFERED:02/27/2018 TEST ACCEPTED:NO NEGATIVE IN PAST HEP-C TEST OFFERED TO PATIENT:YES DATE OFFERED:02/27/2018 TEST ACCEPTED:NO REASON:OTHER (DOCUMENT IN NOTE) WAS NEGATIVE IN PAST BROCHURE PROVIDED TO PATIENTNO OTHERS AT HOME: NONE. EDUCATION LEVEL OF EDUCATION:HIGH SCHOOL DIET: REGULAR. LANGUAGE LANGUAGES SPOKEN:ALBANIAN DOMESTIC VIOLENCE DO YOU FEEL SAFE IN YOUR ENVIRONMENT?NO ROOMMATE WHO HAS SCHIZOPHRENIA TRIED TO KILL HER WITH A WOODEN STICK BUT ONLY TOUCHED HER EAR AND SHE CALLED POLICE FOR THE ROOMMATE. NEW PATIENT PAIN DIARY PATIENT DESCRIBES PAIN :HAVE IT ALL THE TIME FROM 0-10, WHAT LEVEL IS YOUR PAIN TODAY?10 PRECIPITATING FACTORS MOVING OR PICKING UP ITEMS, EVERYTHING TRIGGERS PAIN ALLEVIATING FACTORS VICODIN IMPACT ON FUNCTION REDUCED FUNCTION, PAIN STAYS THE SAME, INTERFERES WITH SLEEP ANY NEW PATTERNS OF PAIN OR NUMBNESS? YES HAVE YOU FALLEN IN THE LAST 6 MONTHS? YES, FREQUENTLY DO YOU USE ANY TYPE OF TOBACCO (SMOKE, SMOKELESS, CHEW, ETC.) YES ARE YOU ABUSED, NEGLECTED, OR IN AN UNSAFE ENVIRONMENT? NO INTENSITY SCALE REVIEWED YES RECREATIONAL DRUG USE DRUG USE?YES MARIJUANA EXERCISE: NO REGULAR EXERCISE. LEARNING BARRIERS / SPECIAL NEEDS CHANGE FROM LAST VISIT?NO BARRIERS TO LEARNING?NO HEARING IMPAIRED?NO VISION IMPAIRED?YES COGNITIVELY IMPAIRED?NO :CORRECTIVE LENSES READINESS TO LEARN?YES LEARNING PREFERENCES?NO LEARNING CAPABILITIES PRESENT?YES EMOTIONAL BARRIERS?NO SPECIAL DEVICES?YES :CANE, WALKER [employer] LECTURER NEEDED?NO PAIN CLINIC PFS, CLERGY, PUBLIC HEALTH REFERRALS WAS THE PROVIDER NOTIFIED OF ANY PERTINENT INFO?YES HAS THE PATIENT BEEN EDUCATED REGARDING HIS/HER PLAN OF CARE?YES HAS THE PATIENT BEEN EDUCATED REGARDING PAIN, THE RISK FOR PAIN, THE IMPORTANCE OF EFFECTIVE PAIN MANAGEMENT, AND THE PAIN ASSESSMENT PROCESS?YES LATEX QUESTIONNAIRE LATEX ALLERGY : HAVE YOU EVER DEVELOPED ANY TYPE OF REACTION AFTER HANDLING LATEX PRODUCTS SUCH RUBBER GLOVES, CONDOMS, DIAPHRAGMS, BALLOONS, SOCKS, OR UNDERWEAR?NO LATEX ALLERGY : HAVE YOU EVER DEVELOPED ANY TYPE OF REACTION DURING OR AFTER DENTAL APPOINTMENT, VAGINAL/RECTAL EXAMINATION, SURGICAL PROCEDURE, OR ANY OTHER EXPOSURE?NO DATE ASKED : 01/03/2019 LATEX RISK : HAVE YOU EVER HAD ANY DIFFICULTY BREATHING OR HIVES AFTER EATING OR HANDLING ANY FRUITS, OR VEGETABLES; SUCH KIWI, BANANAS, STONE FRUITS, OR CHESTNUTSNO LATEX RISK : DO YOU HAVE A PREVIOUS PERSONAL HISTORY OF MORE THAN NINE SURGERIES, SPINA BIFIDA, OR REPEATED CATHERIZATIONS? NO LATEX RISK : ARE YOU FREQUENTLY EXPOSED TO LATEX PRODUCTS IN YOUR OCCUPATION?NO CAFFEINE CAFFEINE USE?NO ADVANCE DIRECTIVE ADVANCE DIRECTIVE DISCUSSED WITH PATIENT:YES PT DECLINES INFORMATION AT THIS TIME CAODAISM [id number] NONE MARITAL STATUS: SINGLE, .. ALCOHOL SCREENING DID YOU HAVE A DRINK CONTAINING ALCOHOL IN THE PAST YEAR?YES HOW OFTEN DID YOU HAVE SIX OR MORE DRINKS ON ONE OCCASION IN THE PAST YEAR?NEVER (0 POINTS) HOW MANY DRINKS DID YOU HAVE ON A TYPICAL DAY WHEN YOU WERE DRINKING IN THE PAST YEAR?1 OR 2 (0 POINTS) HOW OFTEN DID YOU HAVE A DRINK CONTAINING ALCOHOL IN THE PAST YEAR?TWO TO FOUR TIMES A MONTH (2 POINTS) POINTS2 INTERPRETATIONNEGATIVE OCCUPATION: DISABLED. SEXUAL HX HAD SEX IN THE LAST 12 MONTHS (VAGINAL, ORAL, OR ANAL)?NO LMP:HYSTER HAVE YOU EVER HAD AN STD?NO REVIEWED WITH PATIENT 03/05/19 [id number] NLJ. HOSPITALIZATION/MAJOR DIAGNOSTIC PROCEDURE SEPTIC REVIEW OF SYSTEMS REVIEWED BY: PROVIDER: MOHSEN STRAUSS . CONSTITUTIONAL: ANY CHANGE IN YOUR MEDICAL CONDITION? YES- BLADDER INFECTION- HAS BEEN ON AN ANTIBIOTIC, CAN'T REMEBERTHE NAME STATES SHE HAS 2 MORE DAYS, STATES UROLOGIST PERSCRIBED MED . CHILLS NO . FEVER NO . INFECTION: DO YOU HAVE NEW INFECTIONS? YES- BLADDER INFECTION . DO YOU HAVE HISTORY OF MRSA? NO . MUSCULOSKELETAL: ANY NEW PATTERNS OF PAIN OR NUMBNESS? YES- STATES SHE HAS MID BACK PAIN AND LOWER BACK PAIN, STATES TYLENOL DOES NOT HELP PAIN . GASTROENTEROLOGY: ANY NEW CHANGE IN BOWEL CONTROL? NO . GENITOURINARY: ANY NEW CHANGE IN BLADDER CONTROL? YES- STATES SHE HAS URGENCY AND FREQUENCY . IS THERE A CHANCE YOU COULD BE ? NO . HEMATOLOGY/LYMPH: DO YOU TAKE ANY BLOOD THINNERS? (FOR EXAMPLE- COUMADIN, PLAVIX, AGGRENOX, PLATEL, PRADAXA, OR XARELTO) NO . WHEN WAS YOUR LAST DOSE? DATE: TIME: . NEUROLOGY: HAVE YOU FALLEN IN THE PAST 12 MONTHS? NO . ANY NEW EXTREMITY NUMBNESS OR WEAKNESS? YES- STATES PAIN IN BILATERAL ARMS, WITH NUMBNESS AND TINGLING, STATES SHE HAS "CRAMPS IN BOTH LEGS" . CARDIOLOGY: DO YOU HAVE A PACEMAKER OR DEFIBRILLATOR? NO . RESPIRATORY: HAVE YOU BEEN SICK IN THE PAST WEEK? NO . FEVER NO . FLU LIKE SYMPTOMS? NO . COUGH NO . INTEGUMENTARY: DO YOU HAVE ANY RASHES OR OPEN SORES? NO . ALLERGIC/IMMUNO: ARE YOU ALLERGIC TO IV DYE? NO . ANY NEW ALLERGIES? NO . PSYCHIATRIC: DO YOU HAVE THOUGHTS OF HURTING YOURSELF OR SOMEONE ELSE? NO . ARE YOU ABUSED, NEGLECTED, OR IN AN UNSAFE ENVIRONMENT? NO . ENDOCRINOLOGY: ARE YOU DIABETIC? NO . OTHER: DO YOU NEED ANY PRESCRIPTIONS? YES- STATES SHE NEEDS SOMETHING FOR PAIN-STATES PAIN IS TOLERABLE WHILE LYING DOWN, STATES SHE HAS HAS ACHING, BURNING, THROBBING, SHARP, STABBING PAIN IN LID AND LOWER BACK . IF YES, PLEASE LIST: ____ . ANY NEW PROBLEMS WITH YOUR MEDICATIONS? YES-STATES TYLENOL DOES NOT WORK FOR PAIN . WHEN DID YOU LAST EAT? ____ . WHEN DID YOU LAST DRINK? ____ . WHAT DID YOU LAST DRINK? ____ . NAME OF PERSON DRIVING YOU HOME? ____ . DO YOU HAVE ANY OTHER QUESTIONS OR CONCERNS NO . VITAL SIGNS WT 134 LBS, HT 5'3", BMI 23.73 INDEX, BP 121/71 MM HG, HR 77 /MIN, RR 18 /MIN, TEMP 98.1 F, OXYGEN SAT % 97%, SAFE IN ENV? (Y/N) YES, REVIEWED BY: AMAN. EXAMINATION GENERAL EXAMINATION: GENERALNO ACUTE DISTRESS, WELL NOURISHED AND HYDRATED. PSYCHAPPROPRIATE MOOD AND AFFECT . LUNGS:CLEAR TO AUSCULTATION BILATERALLY, NO WHEEZES, RHONCHI, RALES. HEART:NO MURMURS, REGULAR RATE AND RHYTHM. TREATMENT OTHERS CLINICAL NOTES: 64 YEAR OLD FEMALE IN WITH COMPLAINTS OF INCREASED PAIN. GIVEN PRESENTING SYMPTOMS AND RESULTS OF PHYSICAL EXAM RECOMMENDED INCREASING GABAPENTIN AND SWITCHING TO FLEXERIL. 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 PATIENT HAS EXPRESSED UNDERSTANDING OF AND WAS IN AGREEMENT WITH TREATMENT PLAN. GIVEN TIME TO ASK QUESTIONS AND EXPRESS CONCERNS. , ISTOP REGISTRY REVIEWED AND DEMONSTRATES COMPLLIANCE. (REF #[id number] ) BRINGS IN MEDICATIONS WHICH IS APPROPRIATE FOR WHAT WAS DISPENSED. RECENT URINE TOXICOLOGY REVIEWED. NO UNAUTHORIZED MEDICATIONS. NO ILLICIT SUBSTANCES AND PRESCRIBED MEDICATIONS WERE PRESENT. PROCEDURE CODES FA211 ESTABILISHED PATIENT [facility] CHARGE DISPOSITION & COMMUNICATION ELECTRONICALLY SIGNED BY ROSANNA BUSH ON 03/06/2019 AT 11:52 AM EDT DISCLAIMER : THIS IS A VISIT SUMMARY EXTRACTED FROM THE [employer]ICAL[employer] CHART. IT IS NOT A COPY OF THE [employer]KS PROGRESS NOTE. REJI
== END ==
LOC: M PAIN 14:15
PROVIDERS: ATTEND Family Medicine
DX: M79.18 Myalgia, other site (principal); R52 Pain, unspecified; Z79.899 Other long term (current) drug therapy; F17.210 Nicotine dependence, cigarettes, uncomplicated; Z88.5 Allergy status to narcotic agent; Z88.0 Allergy status to penicillin; Z88.6 Allergy status to analgesic agent; Z88.8 Allergy status to other drugs, medicaments and biological substances

== ENCOUNTER → 2019-04-04 | Outpatient (REF) | payer OTHER ==
[~2019-04-04] MED LIST changes: +ACET1TAB55 PO; +ALEN70TA74 PO; +ATOR80TA59 PO; -FENO145T13 PO; +FENO145T7 PO; -FENO48TA2 PO; +FENO48TA7 PO; +FENO54TA2 PO; +LORA-674 PO; -OMEP40CA2 PO; +OMEP40CA97 PO; +OXYCO5TA PO; +QVAR40AE12 INH; +STRI1AER2 INH; +TIZA4TAB4 PO; +TOLT2TAB12 PO; -TRAZ-163 PO; +TRAZ-257 PO; +XARE10TA PO; +[UNRECOGNIZED DRUG - CODE] PO
[2019-04-04 14:02] LABS: ALBUMIN 3.5 GM/DL (3.2-5.2); ALT/SGPT 15 U/L (12-78); BILIRUBIN,TOTAL 0.5 MG/DL (0.2-1.0); BLOOD UREA NITROGEN 13 MG/DL (7-18); CALCIUM LEVEL 9.4 MG/DL (8.8-10.2); CARBON DIOXIDE LEVEL 28 MEQ/L (21-32); CHLORIDE LEVEL 104 MEQ/L (98-107); CREATININE FOR GFR 0.81 MG/DL (0.55-1.30); GLOMERULAR FILTRATION RATE > 60.0 (>45); GLUCOSE, FASTING 125 MG/DL (70-100); POTASSIUM SERUM 4.1 MEQ/L (3.5-5.1); SODIUM LEVEL 139 MEQ/L (136-145); TOTAL 25(OH) VITAMIN D 49.8 NG/ML (30.0-100.0); TOTAL PROTEIN 6.7 GM/DL (6.4-8.2)
[2019-04-04 16:32] LABS: CREATININE, URINE 89.7 MG/DL; MAU/CREAT RATIO 8.9 MCG/MG (0.0-30.0)
== END ==
LOC: M SFHCPLAZ 10:30
PROVIDERS: ATTEND Nurse Practitioner Family
DX: I10 Essential (primary) hypertension (principal); R32 Unspecified urinary incontinence; M85.80 Other specified disorders of bone density and structure, unspecified site

== ENCOUNTER 2019-06-01 10:36 | Inpatient (IN) | payer OTHER ==
[~2019-06-01] VITALS: Ht 157.5 cm; Wt 56.8 kg
[~2019-06-01 10:36] MED LIST changes: -ACET1TAB55 PO; -ALEN70TA74 PO; -ATOR80TA59 PO; +FENO145T13 PO; -FENO145T7 PO; +FENO48TA13 PO; -FENO48TA7 PO; -FENO54TA2 PO; -LORA-674 PO; -OXYCO5TA PO; -QVAR40AE12 INH; -STRI1AER2 INH; -TIZA4TAB4 PO; -TOLT2TAB12 PO; +TRAZ-163 PO; -TRAZ-257 PO; -XARE10TA PO; -[UNRECOGNIZED DRUG - CODE] PO
[2019-06-01] MEDS ORDERED: TOLT2TAB12 PO (10:55)
--- NOTE | 2019-06-01 11:30 | REP ---
Clinical: Trauma. Technique: AP and cross-table lateral views of the right hip. Findings: Acute femoral neck fracture noted. Age-related degenerative changes. Impression: Acute femoral neck fracture. Electronically Signed by Gerardo Rowe MD 06/01/2019 11:22 A
--- NOTE | 2019-06-01 11:33 | REP ---
Clinical: Preoperative assessment . Comparison: 03/21/2018 . Findings: The mediastinum and cardiac silhouette are stable and within normal limits for portable technique. The lung edmondson are clear without acute consolidation, effusion, or pneumothorax. Skeletal structures are intact. Impression: No acute cardiopulmonary process appreciated. Electronically Signed by Gerardo Rowe MD 06/01/2019 11:24 A
--- NOTE | 2019-06-01 11:35 | REP ---
Clinical: Trauma. Technique: AP, lateral, bilateral oblique views of the right ankle. Findings: Age-related osteopenia and degenerative changes. Swelling. No obvious acute fracture although subtle nondisplaced injury at the lateral malleolus/distal fibula cannot be excluded. Impression: Swelling and degenerative changes. As above. Electronically Signed by Gerardo Rowe MD 06/01/2019 11:27 A
[2019-06-01] MEDS: MORPHINE 2 MG/ML 1ML VIAL (J2270) IV PRN ×2 (11:51→13:18)
[2019-06-01 11:57] LABS: HEMATOCRIT 40.3 % (36.0-47.0); HEMOGLOBIN 13.4 g/dl (12.0-15.5); MEAN CORPUSCULAR HGB CONC 33.3 g/dl (32.0-36.5); MEAN CORPUSCULAR VOLUME 90.4 fl (80.0-96.0); PLATELET COUNT, AUTOMATED 344 10^3/uL (150-450); RED BLOOD COUNT 4.46 10^6/uL (4.00-5.40); WHITE BLOOD COUNT 15.2 10^3/uL (4.0-10.0)
[2019-06-01 12:09] LABS: INR 1.01; PARTIAL THROMBOPLASTIN TIME 26.8 SECONDS (25.0-38.4)
[2019-06-01 12:33] LABS: BLOOD UREA NITROGEN 10 MG/DL (7-18); CALCIUM LEVEL 9.1 MG/DL (8.8-10.2); CARBON DIOXIDE LEVEL 29 MEQ/L (21-32); CHLORIDE LEVEL 104 MEQ/L (98-107); CK-MB VALUE MASS < 1.0 NG/ML (<3.6); CPK CREATINE PHOSPHOKINASE 102 U/L (26-192); CREATININE FOR GFR 0.79 MG/DL (0.55-1.30); ETHYL ALCOHOL (ETHANOL) < 0.003 % (0.000-0.010); GLOMERULAR FILTRATION RATE > 60.0 (>45); GLUCOSE, FASTING 110 MG/DL (70-100); MB/CK RELATIVE INDEX 0.98 (< OR =4); SODIUM LEVEL 138 MEQ/L (136-145); TROPONIN I < 0.02 NG/ML (< 0.10)
--- NOTE | 2019-06-01 12:58 | REP ---
Clinical: Trauma. Fall. . Comparison: 04/04/2015 . Findings: The ventricles, sulci, and cisterns are normal in position and appearance. Owen-white differentiation is maintained. No acute intracranial hemorrhage, mass/mass effect, pathology or trauma/injury. No evidence for acute infarction. No extra-axial fluid collection. Calvarium is intact. Paranasal sinuses and mastoid air cells are clear. Impression: Normal noncontrast head CT. No evidence for acute intracranial pathology or trauma/injury. Electronically Signed by Gerardo Rowe MD 06/01/2019 12:49 P
--- NOTE | 2019-06-01 13:00 | REP ---
Clinical: Trauma. Fall. Technique: Axial noncontrast images from the skull base to the thoracic inlet with coronal and sagittal re-formations. Findings: Generalized multilevel degenerative changes most pronounced at C5-6 where osteophytosis with endplate sclerosis and disc space narrowing is identified. Alignment is maintained. No acute fracture / compression injury or subluxation identified. Spinal canal is patent. Posterior elements and spinous processes are intact. Paravertebral soft tissues are normal. Impression: Generalized degenerative changes with focal moderate disc disease at C5-6. No acute fracture / compression injury or subluxation. Electronically Signed by Gerardo Rowe MD 06/01/2019 12:51 P
[2019-06-01] MEDS ORDERED: QVAR40AE12 INH (13:02)
[2019-06-01] MEDS ORDERED: STRI1AER2 INH (13:02)
[2019-06-01] MEDS ORDERED: FENO54TA2 PO (13:02)
[2019-06-01] MEDS ORDERED: AMLO10TA5 PO (13:02)
[2019-06-01] MEDS ORDERED: [UNRECOGNIZED DRUG - CODE] PO (13:02)
[2019-06-01] MEDS ORDERED: GABA-843 PO (13:02)
[2019-06-01] MEDS ORDERED: ATOR80TA59 PO (13:02)
[2019-06-01] MEDS ORDERED: OXYB5TAB10 PO (13:02)
[2019-06-01] MEDS ORDERED: TIZA4TAB4 PO (13:02)
[2019-06-01] MEDS ORDERED: LORA-674 PO (13:02)
[2019-06-01] MEDS ORDERED: ALEN70TA74 PO (13:02)
--- NOTE | 2019-06-01 13:13 | REP ---
Clinical: Trauma. Technique: AP and cross-table lateral views of the mid to lower femur. Findings: No acute fracture dislocation. Impression: No acute fracture or dislocation to the visualized femur and knee. Electronically Signed by Gerardo Rowe MD 06/01/2019 01:06 P
[2019-06-01] MEDS ORDERED: ONDANSETRON 4MG/2ML VIAL (J2405) IV PRN (14:45)
[2019-06-01] MEDS: ENOXAPARIN 40 MG/0.4 ML SYRINGE (J1650) SC SCH (14:45)
[2019-06-01] MEDS ORDERED: ALBUTEROL SULFATE 2.5 MG/0.5 ML INH NEB SOLN INH PRN (14:45)
[2019-06-01] MEDS: GABAPENTIN 300 MG CAP PO SCH ×2 (16:00→20:35)
--- NOTE | 2019-06-01 16:19 | REP ---
Clinical: Hip fracture. Technique: Axial noncontrast images through the pelvis with coronal and sagittal re-formations. Findings: There is a impacted fracture at the confluence of the right femoral head/neck region. Underlying age-related osteopenia and degenerative changes are appreciated. No further acute fracture or dislocation identified. Surrounding musculoskeletal structures demonstrate age-related changes and surrounding subtle soft tissue injury without hematoma. Normal intrapelvic contents including visualized bowel, bladder (Cullen catheter and gas) and evidence of prior hysterectomy noted. Impression: Subtle acute fracture at the confluence of the right femoral head/neck. Electronically Signed by Gerardo Rowe MD 06/01/2019 04:11 P
[2019-06-01] MEDS ORDERED: CLINDAMYCIN 600 MG in IV 1 EA IV ONE (18:00)
--- NOTE | 2019-06-01 18:09 | HPEPDOC ---
General Date of Admission Jun 01, 2019 at 14:10 Date of Service: Jun 01, 2019 Primary Care Physician: PRISCILA NEWTON NP Chief Complaint The patient is a 64-year-old female admitted with a reason for visit of Copd,Rt Hip Fx. Source: Patient, Old records Exam Limitations: No limitations Timing/Duration: This morning Severity: Severe History of Present Illness This is a 64-year-old female who sustained a fall in her home. She states she "landed hard." She was unable to get up from the floor. She had pain to her hip and her right ankle. Patient states she tripped over a magazine rack when she got up to go to the bathroom. She did not hit her head or lose consciousness. She did not have any preceding dizziness, lightheadedness, or palpitations. Upon evaluation in the emergency room, she is found to have an acute right femoral neck fracture. Her risk factor for fractures is that she does have known osteopenia. Of additional interest, patient had just been seen in follow-up regarding a left ear skin abscess. This is felt to be due to MRSA. It was treated and drained. Home Medications Scheduled Alendronate Sodium (Alendronate Sodium) 70 Mg Tablet, 70 MG PO QWEEK, (Reported) MONDAYS Amlodipine Besylate (Amlodipine Besylate) 10 Mg Tablet, 10 MG PO DAILY, (Reported) Atorvastatin Calcium (Atorvastatin Calcium) 80 Mg Tablet, 80 MG PO DAILY, (Reported) Beclomethasone Dipropionate (Qvar Redihaler) 40 Mcg/Act Hfa.aeroba, 2 PUFF INH BID, (Reported) Calcium Carbonate (Antacid) 200 Mg Tab.chew, 500 MG PO DAILY, (Reported) Diazepam (Diazepam) 10 Mg Tab, 20 MG PO QHS, (Reported) Duloxetine Hcl (Cymbalta) 60 Mg Cap, 60 MG PO DAILY, (Reported) TAKES WITH 30MG FOR 90MG TOTAL Duloxetine Hcl (Duloxetine HCl) 30 Mg Cap, 30 MG PO DAILY, (Reported) TAKES WITH 60MG FOR 90MG TOTAL Fenofibrate (Fenofibrate) 54 Mg Tablet, 54 MG PO DAILY, (Reported) Gabapentin (Gabapentin) 300 Mg Capsule, 300 MG PO TID, (Reported) Loratadine (Loratadine) 10 Mg Tablet, 10 MG PO QHS, (Reported) Olodaterol HCl (Striverdi Respimat) 4 Gm Mist.inhal, 2 PUFFS INH DAILY, (Reported) Oxybutynin Chloride (Oxybutynin Chloride) 5 Mg Tablet, 5 MG PO DAILY, (Reported) Tolterodine Tartrate (Tolterodine Tartrate) 2 Mg Tablet, 2 MG PO BID, (Reported) Trazodone HCl (Trazodone HCl) 100 Mg Tab, 200 MG PO QHS, (Reported) Scheduled PRN Albuterol Sulf (Albuterol Sulfate) 2.5 Mg/3 Ml Nebu, 2.5 MG INH Q4H PRN for SHORTNESS OF BREATH, (Reported) Albuterol Sulfate (Ventolin Hfa) 108 Mcg/Act Aer, 2 PUFFS INH QID PRN for SHORTNESS OF BREATH, (Reported) Tizanidine HCl (Tizanidine HCl) 4 Mg Tablet, 4 MG PO TID PRN for MUSCLE SPASMS, (Reported) Allergies Coded Allergies: fluticasone (Verified Allergy, Severe, respiratory distress , 06/01/19) salmeterol (Verified Allergy, Severe, respiratory distress , 06/01/19) aspirin (Verified Allergy, Intermediate, hives, 06/01/19) azithromycin (Verified Allergy, Intermediate, Hives , 06/01/19) nefazodone (Verified Allergy, Intermediate, hives , 06/01/19) tuberculin, purified protein deriva (Verified Adverse Reaction, Intermediate, Arm Swelling, 06/01/19) Cephalosporins (Verified Adverse Reaction, Mild, Vomiting, 06/01/19) Penicillins (Verified Adverse Reaction, Mild, N/V, 06/01/19) codeine (Verified Adverse Reaction, Mild, N/V, 06/01/19) propoxyphene (Verified Adverse Reaction, Mild, N/V, 06/01/19) Past Medical History Medical History Past medical history is remarkable for COPD for which she is not on home O2, recent ear abscess, prior infection with MRSA, hypertension, dyslipidemia, prior sepsis,Urinary incontinence due to overactive bladder, gastroesophageal reflux disease, osteopenia, depression with anxiety features, T11 compression fracture Surgical History Surgical history per patient includes multiple surgeries to her left knee inclusive of cadaver ACL repair Family History Significant Family History: Cancer (there is strong family history of multiple types of cancer inclusive of solid tumors and leukemias.), Renal disease Social History * Smoker: current smoker (the patient smokes about 15 cigarettes a day. She rolls her own. She does not want to make use of a nicotine patch during this hospital stay.) Alcohol: occationally (patient describes herself as an occasional drinker. She's had difficulty in the past and has been in alcohol rehabilitation programs.) Drugs: marijuana Psychosocial History: No pertinent psych hx The patient is classified as disabled; she used to work in a long term. A-FIB/CHADSVASC A-FIB History Current/History of A-Fib/PAF?: No Current PO Anticoag Therapy: No Review of Systems Other systems 10 system review is otherwise negative except as stated in the brief presentation Physical Examination General Exam: Positive: Alert, Cooperative, Moderate Distress, Other (patient appears older than stated age of 64) Eye Exam: Positive: Conjunctiva & lids normal, Other Eye Symptoms (mild scleral injection) ENT Exam: Positive: Tongue Midline, Other ENT (oral mucosa is dry, teeth are dry, she has poor dentition) Neck Exam: Positive: Supple; Negative: JVD, thyromegaly Chest Exam: Positive: Clear to auscultation, Normal air movement, Other (no cough currently) Heart Exam: Positive: Rate Normal, Regular Rhythm, Normal S1, Normal S2; Negative: Murmurs, Rubs Abdomen Exam: Positive: Normal bowel sounds, Soft; Negative: Tenderness, Hepatospenomegaly Extremity Exam: Positive: Normal pulses (pedal pulses are otherwise palpable), Other (the right lower extremity has internal rotation at the hip with some visible joint deformity and extension of the foot. She has remarkable tender swelling to her ankle as well) Skin Exam: Positive: Other skin issue (patient still has some resolving swelli ng and erythema to her left external ear) Neuro Exam: Positive: Normal Speech, Cranial Nerves 3-12 NL Psych Exam: Positive: Mental status NL, Oriented x 3 Vital Signs Vital Signs Date Time Temp Pulse Resp B/P (MAP) Pulse Ox O2 Delivery O2 Flow Rate FiO2 06/01/19 15:30 89 132/71 (91) 92 06/01/19 13:28 16 06/01/19 10:49 98.6 Room Air Laboratory Data Labs 24H Laboratory Tests 2 06/01/19 11:47: Nucleated Red Blood Cells % (auto) 0.0, Prothrombin Time 13.0, Prothromb Time International Ratio 1.01, Activated Partial Thromboplast Time 26.8, Anion Gap 5L, Glomerular Filtration Rate > 60.0, Calcium Level 9.1, Total Creatine Kinase 102, Creatine Kinase MB < 1.0, Creatine Kinase MB Relative Index 0.98, Troponin I < 0.02, Ethyl Alcohol Level < 0.003 CBC/BMP Laboratory Tests 06/01/19 11:47 Assessment/Plan 1. Right femoral neck fracture. This is due to fall injury. Her risk for fracture. It is due to her underlying osteopenia. Plans are for her to go to the operating room tomorrow for repair. Patient does have underlying COPD that is non-oxygen dependent; patient should receive perioperative nebulization treatments. Otherwise, she does not have remarkable cardiopulmonary risks surgery and is medically cleared. 2. COPD The patient is an active smoker. She foregoes nicotine patch, although smoking cessation has been discussed with her. Again, she will need scheduled nebulization treatments during this hospital stay. 3. Right ankle. This appears to be an apparent ankle sprain; imaging does not show discrete fracture. Ice and compression are recommended. 4. Other medical management. Patient has been continued on her Norvasc and antilipid agent for her hypertension and dyslipidemia. Plan / VTE VTE Prophylaxis Ordered?: Yes (Lovenox, which can be held for surgery.) Plan Diet: Make NPO (after midnight) Activity: Bedrest (with mobilization after surgery) Therapy: PT (postoperative), OT Anticipated Discharge: Home With Services (home with services versus short-term stay in senior care.) JERSEY KNAPP MD Jun 01, 2019 18:09
[2019-06-01] MEDS: IPRATROPIUM 0.5MG/ALBUTEROL 2.5MG INH SOL UD 3ML (DUONEB)(J7620) NEB SCH (19:51)
[2019-06-01] MEDS: traZODone 100 MG TAB PO SCH (20:34)
[2019-06-01] MEDS: TOLTERODINE (DETROL) 2 MG TAB PO SCH (20:34)
[2019-06-01] MEDS: DOCUSATE SODIUM 100 MG CAP PO SCH (20:35)
[2019-06-01] MEDS: LORATADINE 10 MG TAB PO SCH (20:35)
[2019-06-01] MEDS: diazePAM 5 MG TAB PO SCH (20:35)
[2019-06-01 22:00] VITALS: BP 119/74
[2019-06-02] VITALS (10 sets, daily range): BP systolic 107–125; BP diastolic 58–78; O2SAT 97
[2019-06-02] MEDS: IPRATROPIUM 0.5MG/ALBUTEROL 2.5MG INH SOL UD 3ML (DUONEB)(J7620) NEB SCH ×4 (02:00→19:31)
[2019-06-02] MEDS: ACETAMINOPHEN TAB 650MG DOSE (2X325MG) PO PRN ×2 (05:17→14:04)
[2019-06-02 06:21] LABS: MEAN CORPUSCULAR HEMOGLOBIN 30.4 pg (27.0-33.0); MEAN CORPUSCULAR HGB CONC 33.3 g/dl (32.0-36.5); MEAN CORPUSCULAR VOLUME 91.1 fl (80.0-96.0); PLATELET COUNT, AUTOMATED 323 10^3/uL (150-450); RED BLOOD COUNT 3.95 10^6/uL (4.00-5.40); WHITE BLOOD COUNT 11.4 10^3/uL (4.0-10.0)
[2019-06-02 06:33] LABS: INR 1.02; PROTHROMBIN TIME 13.2 SECONDS (11.8-14.0)
[2019-06-02 06:47] LABS: BLOOD UREA NITROGEN 9 MG/DL (7-18); CALCIUM LEVEL 8.6 MG/DL (8.8-10.2); CARBON DIOXIDE LEVEL 29 MEQ/L (21-32); CHLORIDE LEVEL 106 MEQ/L (98-107); CREATININE FOR GFR 0.64 MG/DL (0.55-1.30); GLOMERULAR FILTRATION RATE > 60.0 (>45); GLUCOSE, FASTING 88 MG/DL (70-100); POTASSIUM SERUM 3.1 MEQ/L (3.5-5.1); SODIUM LEVEL 141 MEQ/L (136-145)
--- NOTE | 2019-06-02 07:09 | CR ---
DATE OF CONSULTATION: 06/01/2019 CHIEF COMPLAINT: Right hip pain. HISTORY OF PRESENT ILLNESS: This is a 64-year-old female status post mechanical fall in her house. She was unable to get up and had pain in her hip and right ankle. The patient was found to have a valgus impacted femoral neck fracture upon arrival in the emergency room (ER). She has a recent history of methicillin-resistant Staphylococcus aureus (MRSA) and a left ear skin abscess. PAST MEDICAL HISTORY: 1. Chronic obstructive pulmonary disease (COPD) on home oxygen. 2. Recent ear abscess with prior infection with MRSA. 3. Hypertension. 4. Dyslipidemia. 5. History of sepsis. 6. Urinary incontinence. 7. Gastroesophageal reflux disease (GERD). 8. Osteopenia. 9. Depression. 10. T11 compression fracture. HOME MEDICATIONS: - alendronate - amlodipine - atorvastatin - Qvar - calcium carbonate - diazepam - Cymbalta - duloxetine - fenofibrate - gabapentin - loratadine - oxybutynin - tolterodine - trazodone ALLERGIES: Are many, please refer to the patient's medical chart. SOCIAL HISTORY: The patient smokes about 15 cigarettes a day. She occasionally drinks. She does have a history of being in an alcohol rehabilitation program. She uses marijuana. She is classified as disabled. She used to work in a f[employer]. PHYSICAL EXAMINATION: GENERAL: Alert and oriented, in no acute distress. CARDIOVASCULAR: Regular rate and rhythm. ABDOMEN: Soft, nontender. EXTREMITIES: The patient has tenderness about her right hip. Skin is intact. Intact dorsiflexion, plantar flexion, inversion, eversion. Normal sensation to light touch in the superficial peroneal, deep peroneal, tibial distribution. The foot is warm and well perfused. LABORATORY STUDIES: Shows white count of 15.2, hematocrit 40.3, potassium of 4, sodium of 138, creatinine 0.79. IMAGING: Radiographs and CT scan are reviewed. valgus impacted femoral neck fracture. PLAN: Plan would be for closed reduction and percutaneous pinning (CRPP) of the hip. I have warned the patient that if at some point her fracture has displaced since the time of her imaging she could potentially need a hemiarthroplasty. However, given her younger age, we will attempt to pin this first. She has been medically optimized by the medical service. She is currently nothing by mouth.
[2019-06-02] MEDS ORDERED: CLINDAMYCIN 600 MG/50 ML PREMIX BAG As Ordered ONE (07:15)
[2019-06-02] MEDS ORDERED: CLINDAMYCIN 900 MG/50 ML PREMIX BAG As Ordered ONE (07:18)
[2019-06-02] MEDS ORDERED: fentaNYL 100 MCG/2 ML INJECTION (J3010) As Ordered ONE (07:30)
[2019-06-02] MEDS ORDERED: ONDANSETRON 4MG/2ML VIAL (J2405) As Ordered ONE (07:30)
[2019-06-02] MEDS ORDERED: PROPOFOL 200 MG/20 ML VIAL As Ordered ONE (07:30)
[2019-06-02] MEDS ORDERED: CLINDAMYCIN 900 MG in IV 1 EA IV ONE (07:30)
[2019-06-02] MEDS ORDERED: LIDOCAINE 2% INJ 100 MG/5 ML SDV (FOR ANES.) As Ordered ONE (07:30)
[2019-06-02] MEDS ORDERED: MIDAZOLAM INJ 2 MG/2 ML VIAL (J2250) As Ordered ONE (07:30)
[2019-06-02] MEDS ORDERED: KETAMINE HCL 200 MG/20 ML VIAL As Ordered ONE (07:31)
[2019-06-02] MEDS ORDERED: EPINEPHrine INJ 1 MG/ML 1ML AMP As Ordered ONE (07:38)
[2019-06-02] MEDS ORDERED: ACETAMINOPHEN 1000MG 100ML IV BTL (OFIRMEV) (J0131 PER 10MG) As Ordered ONE (08:26)
[2019-06-02] MEDS ORDERED: PHENYLEPHRINE INJ 10MG/ML VIAL (J2370) As Ordered ONE (08:32)
[2019-06-02] MEDS ORDERED: ePHEDrine SULFATE 25 MG/5 ML(5MG/ML) SYRINGE As Ordered ONE (08:38)
[2019-06-02] MEDS ORDERED: PHENYLephrine HCL 500 MCG/5 ML (100MCG/ML) SYRINGE (J2370) As Ordered ONE (08:38)
[2019-06-02] MEDS ORDERED: DULoxetine 30 MG CAP (CYMBALTA) PO SCH (09:00)
[2019-06-02] MEDS: ENOXAPARIN 40 MG/0.4 ML SYRINGE (J1650) SC SCH (09:00)
--- NOTE | 2019-06-02 09:53 | REP ---
Clinical: Status post open reduction and fixation. Technique: Intraoperative fluoroscopic imaging using portable C-arm technique. Findings: Three compression screws identified through the femoral neck to the head in satisfactory position. Total fluoroscopic time 4 minutes 30 seconds (62.11 mGy). Impression: Status post open reduction and fixation. Electronically Signed by Gerardo Rowe MD 06/02/2019 09:44 A
[2019-06-02] MEDS ORDERED: ONDANSETRON 4MG/2ML VIAL (J2405) IV PRN (10:15)
[2019-06-02] MEDS ORDERED: PERCOCET 5MG/325MG TAB PO PRN (10:15)
[2019-06-02] MEDS ORDERED: HYDROMORPHONE HCL 0.5 MG/ 0.5 ML SYRINGE (J1170 PER 1) IV PRN (10:15)
[2019-06-02] MEDS ORDERED: LR 1,000 ML IV SCH (10:15)
[2019-06-02] MEDS ORDERED: fentaNYL 100 MCG/2 ML INJECTION (J3010) IV PRN (10:15)
[2019-06-02] MEDS ORDERED: ACETAMINOPHEN TAB 650MG DOSE (2X325MG) PO PRN (10:30)
[2019-06-02] MEDS ORDERED: FLEET ENEMA PR PRN (10:30)
[2019-06-02] MEDS ORDERED: MORPHINE 2 MG/ML 1ML VIAL (J2270) IV PRN (10:45)
[2019-06-02] MEDS: TOLTERODINE (DETROL) 2 MG TAB PO SCH ×2 (11:04→21:43)
[2019-06-02] MEDS: ATORVASTATIN 20 MG TAB PO SCH (11:04)
[2019-06-02] MEDS: DULoxetine 30 MG CAP (CYMBALTA) PO SCH (11:06)
[2019-06-02] MEDS: oxyCODONE 5MG TAB PO PRN ×2 (11:06→16:35)
[2019-06-02] MEDS: oxyBUTYnin 5 MG TAB PO SCH (11:06)
[2019-06-02] MEDS: DOCUSATE SODIUM 100 MG CAP PO SCH ×2 (11:07→21:43)
[2019-06-02] MEDS: CALCIUM CARBONATE 500 MG CHEW U/D PO SCH (11:07)
[2019-06-02] MEDS: amLODIPine 10 MG TAB PO SCH (11:07)
[2019-06-02] MEDS: FENOFIBRATE 48 MG TAB (TRICOR) PO SCH (11:07)
[2019-06-02] MEDS: GABAPENTIN 300 MG CAP PO SCH ×3 (11:07→21:44)
[2019-06-02] MEDS: LR 1,000 ML IV SCH (11:08)
--- NOTE | 2019-06-02 11:47 | ECGEPIP ---
[facility] - ED Test Date: 2019-06-01 Pat Name: KALA SOLIS Department: Room: - Gender: Female Tableau Lead: MULU : 1955 Requested By: RINA Delacruz Order Number: [id number] Reading MD: Harika Riley Measurements Intervals [place] Rate: 77 P: 74 GA: 179 QRS: 64 QRSD: 86 T: 64 QT: 384 QTc: 436 Interpretive Statements SINUS RHYTHM LOW VOLTAGE LIMB NSTTW abnormalities SIMILAR 12/07/17 Electronically Signed on 06-02-2019 11:47:08 EST by Harika Riley
--- NOTE | 2019-06-02 16:15 | IPNPDOC ---
Text Note Date of Service The patient was seen on 06/02/19. NOTE SUBJECTIVE: Ms. Leggett was admitted with a right femoral neck fracture sustained in a fall. She has undergone open reduction and internal fixation with 3 compression screws. She is fairly comfortable. OBJECTIVE: See vital signs below Physical exam: HENT: Neck is supple with no adenopathy or thyromegaly, oral mucosa is still dry, she has poor dentition. Cardiovascular: Regular rate and rhythm with a normal S1 and S2. Respiratory: Clear to auscultation with normal air movement Abdomen: Soft, nontender, nondistended. Extremities: Directed attention to the right hip shows that the prior visible joint deformity is resolved and there is a small dressing at the repair site. She continues with tender swelling to her right ankle. Serial compression devices are in place. ASSESSMENT/PLAN: 1. Right femoral neck fracture. Patient has undergone repair with placement of three compression screws. She has not yet been up and ambulatory. She will likely start working with physical therapy tomorrow. Pain control is reasonable. DVT prophylaxis is with serial compression devices for now. 2. COPD. The patient is an active smoker. She is craving a cigarette but still refuses nicotine patch. She is otherwise not having acute exacerbation during this hospital stay. She is not oxygen dependent. She continues with scheduled nebulization treatments. VS,Fishbone, I+O VS, Fishbone, I+O Laboratory Tests 06/02/19 05:39 Vital Signs Date Time Temp Pulse Resp B/P (MAP) Pulse Ox O2 Delivery O2 Flow Rate FiO2 06/02/19 14:15 18 Nasal Cannula 06/02/19 14:00 99.4 89 114/76 (89) 2 06/02/19 14:00 2.0 I&O- Last 24 Hours up to 6 AM 06/02/19 06:00 Intake Total 0 ml Output Total 1100 ml Balance -1100 ml JERSEY KNAPP MD Jun 02, 2019 16:15
[2019-06-02] MEDS: CLINDAMYCIN 900 MG in IV 1 EA IV SCH (16:36)
[2019-06-02] MEDS: diazePAM 5 MG TAB PO SCH (21:43)
[2019-06-02] MEDS: traZODone 100 MG TAB PO SCH (21:43)
[2019-06-02] MEDS: LORATADINE 10 MG TAB PO SCH (21:44)
[2019-06-03] MEDS: CLINDAMYCIN 900 MG in IV 1 EA IV SCH ×3 (00:18→15:52)
[2019-06-03] MEDS: LR 1,000 ML IV SCH (00:18)
[2019-06-03] MEDS: IPRATROPIUM 0.5MG/ALBUTEROL 2.5MG INH SOL UD 3ML (DUONEB)(J7620) NEB SCH ×4 (02:00→19:38)
[2019-06-03] MEDS: oxyCODONE 5MG TAB PO PRN ×4 (03:14→21:37)
[2019-06-03 06:00] VITALS: BP 117/68
[2019-06-03 06:12] LABS: HEMATOCRIT 34.1 % (36.0-47.0); HEMOGLOBIN 10.7 g/dl (12.0-15.5); MEAN CORPUSCULAR HEMOGLOBIN 29.5 pg (27.0-33.0); MEAN CORPUSCULAR HGB CONC 31.4 g/dl (32.0-36.5); MEAN CORPUSCULAR VOLUME 93.9 fl (80.0-96.0); PLATELET COUNT, AUTOMATED 299 10^3/uL (150-450); RED BLOOD COUNT 3.63 10^6/uL (4.00-5.40); WHITE BLOOD COUNT 9.6 10^3/uL (4.0-10.0)
[2019-06-03 06:21] LABS: INR 1.03; PROTHROMBIN TIME 13.2 SECONDS (11.8-14.0)
[2019-06-03 06:39] LABS: BLOOD UREA NITROGEN 11 MG/DL (7-18); CALCIUM LEVEL 8.2 MG/DL (8.8-10.2); CARBON DIOXIDE LEVEL 30 MEQ/L (21-32); CHLORIDE LEVEL 106 MEQ/L (98-107); GLOMERULAR FILTRATION RATE > 60.0 (>45); GLUCOSE, FASTING 114 MG/DL (70-100); POTASSIUM SERUM 3.6 MEQ/L (3.5-5.1); SODIUM LEVEL 141 MEQ/L (136-145)
[2019-06-03 07:41] VITALS: O2SAT 94
[2019-06-03] MEDS: GABAPENTIN 300 MG CAP PO SCH ×3 (09:23→21:34)
[2019-06-03] MEDS: DULoxetine 30 MG CAP (CYMBALTA) PO SCH (09:23)
[2019-06-03] MEDS: amLODIPine 10 MG TAB PO SCH (09:23)
[2019-06-03] MEDS: CALCIUM CARBONATE 500 MG CHEW U/D PO SCH (09:23)
[2019-06-03] MEDS: MIRALAX *UNIT DOSE* 17GM PACKET PO SCH (09:24)
[2019-06-03] MEDS: ATORVASTATIN 20 MG TAB PO SCH (09:24)
[2019-06-03] MEDS: FENOFIBRATE 48 MG TAB (TRICOR) PO SCH (09:24)
[2019-06-03] MEDS: DOCUSATE SODIUM 100 MG CAP PO SCH ×2 (09:24→21:34)
[2019-06-03] MEDS: oxyBUTYnin 5 MG TAB PO SCH (09:24)
[2019-06-03] MEDS: TOLTERODINE (DETROL) 2 MG TAB PO SCH ×2 (09:24→21:34)
--- NOTE | 2019-06-03 10:08 | REP ---
RIGHT HIP: Two views. HISTORY: Followup right hip fracture. Comparison right hip radiographs June 01, 2019. FINDINGS: Three metallic screws are seen in place across a femoral neck transfixing the subcapital fracture. Lateral skin stu are noted. Soft tissue emphysema is noted. Electronically Signed by Asad Trevino MD 06/03/2019 12:36 P
[2019-06-03 10:34] VITALS: BP 111/65
--- NOTE | 2019-06-03 11:27 | RO ---
DATE OF PROCEDURE: 06/02/2019 PREOPERATIVE DIAGNOSIS: Right minimally displaced femoral neck fracture. POSTOPERATIVE DIAGNOSIS: Right minimally displaced femoral neck fracture. PROCEDURE: Right hip closed reduction and percutaneous pinning. SURGEON: Digna Ramirez MD HOSPITAL PLAN ADMINISTRATOR: None. ANESTHESIA: Spinal. ESTIMATED BLOOD LOSS: 25 mL. IMPLANTS: Synthes 6.5 mm partially threaded screws times three. COMPLICATIONS: None. CONDITION: Stable to recovery. INDICATIONS: Yuli Kidd is a 64-year-old female status post mechanical fall. She sustained a minimally displaced femoral neck fracture. Risks and benefits of surgery were discussed with her in detail and included but are not limited to infection, damage to nerves and blood vessels, continued pain and stiffness, need for additional procedures. Informed consent was obtained. DESCRIPTION OF PROCEDURE: The patient was met in the preoperative holding area where her right lower extremity was marked as the correct operative site. She was taken to the operating room where she underwent spinal anesthesia. She was then transferred to the fracture table and legs were placed in the scissoring position. An official time out was held where the correct patient, operative site and procedure were verified. Radiographs were performed using C-arm and fracture was found to have maintained alignment. She was prepped and draped in the normal sterile fashion. We then again repeated an official time out. She had received antibiotics within 60 minutes prior to incision. At this point, a small incision was made over the lateral aspect of the hip. Using the threaded guidewires, three pins were inserted across the fracture in standard fashion with an inferior pin and both anterior and posterior superior pins. X-rays were performed on AP and lateral views and pin placement was found to be satisfactory. The lateral cortex was then drilled and appropriate length screws were placed. There was good bite on all screws. Final x-rays were performed and screw alignment was found to be satisfactory. The fracture was in good position as well. The screws did not penetrate the femoral head. Copious irrigation was performed. The fascia was closed laterally with #0 Vicryl and subcutaneous tissues were closed using a #2-0 Vicryl. The skin was closed with stu. Sterile dressing was applied. The patient was then transferred to hospital bed. She was taken out of the operating room in stable condition. PLAN: The patient will be weight bearing as tolerated on the right lower extremity. She will receive 24 hours of IV antibiotics. She will be on Xarelto for deep vein thrombosis (DVT) prophylaxis. She will return to the medical service.
[2019-06-03 14:08] VITALS: BP 106/65
[2019-06-03] MEDS: RIVAROXABAN 10 MG TAB (XARELTO) PO SCH (18:24)
[2019-06-03] MEDS: traZODone 100 MG TAB PO SCH (21:34)
[2019-06-03] MEDS: diazePAM 5 MG TAB PO SCH (21:34)
[2019-06-03] MEDS: LORATADINE 10 MG TAB PO SCH (21:34)
[2019-06-03 22:00] VITALS: BP 124/74
[2019-06-03 22:04] VITALS: O2SAT 97
--- NOTE | 2019-06-03 22:28 | IPNPDOC ---
Text Note Date of Service The patient was seen on 06/03/19. NOTE UBJECTIVE: Ms. Leggett is postop day #1 from repair of a right femoral neck fracture sustained in a fall. She has undergone open reduction and internal fixation with 3 compression screws. She has not yet been ambulatory today. OBJECTIVE: See vital signs below Physical exam: HENT: Neck is supple with no adenopathy or thyromegaly, oral mucosa is still dry, she has poor dentition. Cardiovascular: Regular rate and rhythm with a normal S1 and S2. Respiratory: Clear to auscultation with normal air movement Abdomen: Soft, nontender, nondistended. Extremities: Directed attention to the right hip shows that the prior visible joint deformity is resolved and there is a small dressing at the repair site. She continues with tender swelling to her right ankle. Serial compression devices are in place. ASSESSMENT/PLAN: 1. Right femoral neck fracture. Patient has undergone repair with placement of three compression screws. She has not yet been up and ambulatory. She will likely start working with physical therapy today. Pain control is reasonable. DVT prophylaxis is with serial compression devices for now. 2. COPD. The patient is an active smoker. She is craving a cigarette but still refuses nicotine patch. She is otherwise not having acute exacerbation during this hospital stay. She is not oxygen dependent. She continues with scheduled nebulization treatments. VS,Fishbone, I+O VS, Fishbone, I+O Laboratory Tests 06/03/19 05:33 Vital Signs Date Time Temp Pulse Resp B/P (MAP) Pulse Ox O2 Delivery O2 Flow Rate FiO2 06/03/19 22:04 97 Nasal Cannula 2.0 06/03/19 22:00 98.4 92 18 124/74 (91) I&O- Last 24 Hours up to 6 AM 06/03/19 06:00 Intake Total 2430 ml Output Total 1050 ml Balance 1380 ml JERSEY KNAPP MD Jun 03, 2019 22:28
[2019-06-04] MEDS: IPRATROPIUM 0.5MG/ALBUTEROL 2.5MG INH SOL UD 3ML (DUONEB)(J7620) NEB SCH ×4 (02:00→19:51)
[2019-06-04 06:00] VITALS: BP 101/62
[2019-06-04 08:07] LABS: INR 1.37; PROTHROMBIN TIME 16.6 SECONDS (11.8-14.0)
[2019-06-04] MEDS: DULoxetine 30 MG CAP (CYMBALTA) PO SCH (09:11)
[2019-06-04] MEDS: ATORVASTATIN 20 MG TAB PO SCH (09:11)
[2019-06-04] MEDS: CALCIUM CARBONATE 500 MG CHEW U/D PO SCH (09:11)
[2019-06-04] MEDS: oxyCODONE 5MG TAB PO PRN ×2 (09:12→20:18)
[2019-06-04] MEDS: TOLTERODINE (DETROL) 2 MG TAB PO SCH ×2 (09:13→20:19)
[2019-06-04] MEDS: DOCUSATE SODIUM 100 MG CAP PO SCH ×2 (09:14→20:19)
[2019-06-04] MEDS: oxyBUTYnin 5 MG TAB PO SCH (09:14)
[2019-06-04] MEDS: FENOFIBRATE 48 MG TAB (TRICOR) PO SCH (09:14)
[2019-06-04] MEDS: GABAPENTIN 300 MG CAP PO SCH ×3 (09:14→20:19)
[2019-06-04] MEDS: MIRALAX *UNIT DOSE* 17GM PACKET PO SCH (09:15)
[2019-06-04] MEDS: amLODIPine 10 MG TAB PO SCH (09:15)
[2019-06-04 11:13] VITALS: O2SAT 96
[2019-06-04 14:00] VITALS: BP 119/73
[2019-06-04] MEDS: RIVAROXABAN 10 MG TAB (XARELTO) PO SCH (16:55)
[2019-06-04] MEDS: LORATADINE 10 MG TAB PO SCH (20:18)
[2019-06-04] MEDS: traZODone 100 MG TAB PO SCH (20:18)
[2019-06-04] MEDS: diazePAM 5 MG TAB PO SCH (20:18)
--- NOTE | 2019-06-04 20:26 | IPNPDOC ---
Text Note Date of Service The patient was seen on 06/04/19. NOTE Subjective: She complains of lower back pain and chronic cough. No any acute events overnight. Postoperative day 2 OBJECTIVE: See vital signs below Physical exam: HEENT: PERRLA, EOMI, no JVD Cardiovascular: Regular rate and rhythm with a normal S1 and S2. Respiratory: Diminished lung sounds bilaterally with mild rhonchi Abdomen: Soft, nontender, nondistended. Extremities: small dressing at the repair site intact Patient is 64 years old female with past medical history of COPD presented hospital with right femoral neck fracture, right hip repair with 3 compression screws was done on 06/02/19 Right femoral neck fracture Continue pain management, it seems appropriate PT/OT COPD The patient is an active smoker. She is craving a cigarette but still refuses nicotine patch. She is otherwise not having acute exacerbation during this hospital stay. She is not oxygen dependent. She continues with scheduled nebulization treatments. VS,Fishbone, I+O VS, Fishbone, I+O Vital Signs Date Time Temp Pulse Resp B/P (MAP) Pulse Ox O2 Delivery O2 Flow Rate FiO2 06/04/19 14:00 98.8 92 20 119/73 (88) 94 Nasal Cannula 2.0 I&O- Last 24 Hours up to 6 AM 06/04/19 06:00 Intake Total 1940 ml Output Total 2325 ml Balance -385 ml KAYLA SOLIS DO Jun 04, 2019 20:26
[2019-06-04 22:00] VITALS: BP 119/71
[2019-06-05] MEDS: IPRATROPIUM 0.5MG/ALBUTEROL 2.5MG INH SOL UD 3ML (DUONEB)(J7620) NEB SCH ×4 (02:00→20:18)
[2019-06-05] MEDS: oxyCODONE 5MG TAB PO PRN ×3 (02:15→16:28)
[2019-06-05 06:00] VITALS: BP 123/73
[2019-06-05 08:03] LABS: HEMATOCRIT 34.8 % (36.0-47.0); HEMOGLOBIN 11.3 g/dl (12.0-15.5); MEAN CORPUSCULAR HEMOGLOBIN 29.9 pg (27.0-33.0); MEAN CORPUSCULAR HGB CONC 32.5 g/dl (32.0-36.5); MEAN CORPUSCULAR VOLUME 92.1 fl (80.0-96.0); PLATELET COUNT, AUTOMATED 432 10^3/uL (150-450); RED BLOOD COUNT 3.78 10^6/uL (4.00-5.40); WHITE BLOOD COUNT 11.4 10^3/uL (4.0-10.0)
[2019-06-05 08:28] LABS: INR 1.2; PROTHROMBIN TIME 14.9 SECONDS (11.8-14.0)
[2019-06-05 08:37] LABS: BLOOD UREA NITROGEN 8 MG/DL (7-18); CALCIUM LEVEL 9.4 MG/DL (8.8-10.2); CARBON DIOXIDE LEVEL 32 MEQ/L (21-32); CHLORIDE LEVEL 104 MEQ/L (98-107); CREATININE FOR GFR 0.59 MG/DL (0.55-1.30); GLOMERULAR FILTRATION RATE > 60.0 (>45); GLUCOSE, FASTING 105 MG/DL (70-100); SODIUM LEVEL 139 MEQ/L (136-145)
[2019-06-05] MEDS: amLODIPine 10 MG TAB PO SCH (08:59)
[2019-06-05] MEDS: DULoxetine 30 MG CAP (CYMBALTA) PO SCH (08:59)
[2019-06-05] MEDS: CALCIUM CARBONATE 500 MG CHEW U/D PO SCH (08:59)
[2019-06-05] MEDS: FENOFIBRATE 48 MG TAB (TRICOR) PO SCH (08:59)
[2019-06-05] MEDS: TOLTERODINE (DETROL) 2 MG TAB PO SCH ×2 (08:59→20:14)
[2019-06-05] MEDS: tiZANidine 4 MG TAB PO PRN ×2 (09:00→16:28)
[2019-06-05] MEDS: oxyBUTYnin 5 MG TAB PO SCH (09:00)
[2019-06-05] MEDS: MIRALAX *UNIT DOSE* 17GM PACKET PO SCH (09:00)
[2019-06-05] MEDS: ATORVASTATIN 20 MG TAB PO SCH (09:00)
[2019-06-05] MEDS: GABAPENTIN 300 MG CAP PO SCH ×3 (09:00→20:13)
[2019-06-05] MEDS: DOCUSATE SODIUM 100 MG CAP PO SCH ×2 (09:00→20:14)
[2019-06-05 09:40] VITALS: O2SAT 96
[2019-06-05] MEDS ORDERED: XARE10TA PO ×2 (13:24→13:29)
[2019-06-05] MEDS ORDERED: ACET1TAB55 PO (13:24)
[2019-06-05 14:00] VITALS: BP_SYST 100; BP_SYST 89; BP_DIAS 59; BP_DIAS 62
[2019-06-05] MEDS: ACETAMINOPHEN 500 MG TAB PO SCH ×2 (14:00→22:34)
--- NOTE | 2019-06-05 16:23 | DS.PDOC ---
Discharge Summary General Date of Admission Jun 01, 2019 at 14:10 Date of Discharge 06/05/19 Discharge Summary PROCEDURES PERFORMED DURING STAY: Right femoral neck repair ADMITTING DIAGNOSES: Right femoral neck fracture. COPD Right ankle. hypertension dyslipidemia DISCHARGE DIAGNOSES: Right femoral neck fracture. COPD Right ankle hypertension dyslipidemia COMPLICATIONS/CHIEF COMPLAINT: Copd,Rt Hip Fx. HISTORY OF PRESENT ILLNESS: This is a 64-year-old female who sustained a fall in her home. She states she "landed hard." She was unable to get up from the floor. She had pain to her hip and her right ankle. Patient states she tripped over a magazine rack when she got up to go to the bathroom. She did not hit her head or lose consciousness. She did not have any preceding dizziness, lightheadedness, or palpitations. Upon evaluation in the emergency room, she is found to have an acute right femoral neck fracture. Her risk factor for fractures is that she does have known osteopenia. HOSPITAL COURSE: During hospital stay the following issue addressed Right femoral neck fracture right hip repair with 3 compression screws was done on 06/02/19. Patient tolerates procedure well Continue pain management, it seems appropriate Patient received anticoagulation per orthopedic surgeon recommendation and she needs to continue anticoagulation in the outpatient settings PT/OT COPD The patient is an active smoker. She is craving a cigarette but still refuses nicotine patch. She is otherwise not having acute exacerbation during this hospital stay. She is not oxygen dependent. She continues with scheduled nebulization treatments. Hypertension/hyperlipidemia Patient received home cardioprotective medication DISCHARGE MEDICATIONS: Please see below. ALLERGIES: Please see below. PHYSICAL EXAMINATION ON DISCHARGE: VITAL SIGNS: Please see below HEENT: PERRLA, EOMI, no JVD Cardiovascular: Regular rate and rhythm with a normal S1 and S2. Respiratory: Diminished lung sounds bilaterally with mild rhonchi Abdomen: Soft, nontender, nondistended. Extremities: small dressing at the repair site intact Neuro: Nonfocal LABORATORY DATA: Please see below. IMAGING: Clinical: Hip fracture. Technique: Axial noncontrast images through the pelvis with coronal and sagittal re-formations. Findings: There is a impacted fracture at the confluence of the right femoral head/neck region. Underlying age-related osteopenia and degenerative changes are appreciated. No further acute fracture or dislocation identified. Surrounding musculoskeletal structures demonstrate age-related changes and surrounding subtle soft tissue injury without hematoma. Normal intrapelvic contents including visualized bowel, bladder (Cullen catheter and gas) and evidence of prior hysterectomy noted. Impression: Subtle acute fracture at the confluence of the right femoral head/neck. PROGNOSIS: Favorable ACTIVITY: As tolerated DIET: Cardiac DISCHARGE PLAN: ARU DISPOSITION: See above DISCHARGE INSTRUCTIONS: Continue anticoagulation as recommended per orthopedic team ITEMS TO FOLLOWUP ON ON OUTPATIENT: Follow-up with PCP and orthopedic surgeon. DISCHARGE CONDITION: Stable. TIME SPENT ON DISCHARGE: Greater than 20 minutes. Vital Signs/I&Os Vital Signs Date Time Temp Pulse Resp B/P (MAP) Pulse Ox O2 Delivery O2 Flow Rate FiO2 06/05/19 14:00 98.7 89 15 89/59 (69) 90 Nasal Cannula 2.0 I&O- Last 24 Hours up to 6 AM 06/05/19 06:00 Intake Total 1860 ml Output Total 1600 ml Balance 260 ml Laboratory Data Labs 24H Laboratory Tests 2 06/05/19 07:30: Nucleated Red Blood Cells % (auto) 0.0, Prothrombin Time 14.9H, Prothromb Time International Ratio 1.20, Anion Gap 3L, Glomerular Filtration Rate > 60.0, Calcium Level 9.4 CBC/BMP Laboratory Tests 06/05/19 07:30 Discharge Medications Scheduled Alendronate Sodium (Alendronate Sodium) 70 Mg Tablet, 70 MG PO QWEEK, (Reported) MONDAYS Amlodipine Besylate (Amlodipine Besylate) 10 Mg Tablet, 10 MG PO DAILY, (Reported) Atorvastatin Calcium (Atorvastatin Calcium) 80 Mg Tablet, 80 MG PO DAILY, (Reported) Beclomethasone Dipropionate (Qvar Redihaler) 40 Mcg/Act Hfa.aeroba, 2 PUFF INH BID, (Reported) Calcium Carbonate (Antacid) 200 Mg Tab.chew, 500 MG PO DAILY, (Reported) Diazepam (Diazepam) 10 Mg Tab, 20 MG PO QHS, (Reported) Duloxetine Hcl (Cymbalta) 60 Mg Cap, 60 MG PO DAILY, (Reported) TAKES WITH 30MG FOR 90MG TOTAL Duloxetine Hcl (Duloxetine HCl) 30 Mg Cap, 30 MG PO DAILY, (Reported) TAKES WITH 60MG FOR 90MG TOTAL Fenofibrate (Fenofibrate) 54 Mg Tablet, 54 MG PO DAILY, (Reported) Gabapentin (Gabapentin) 300 Mg Capsule, 300 MG PO TID, (Reported) Loratadine (Loratadine) 10 Mg Tablet, 10 MG PO QHS, (Reported) Olodaterol HCl (Striverdi Respimat) 4 Gm Mist.inhal, 2 PUFFS INH DAILY, (Reported) Oxybutynin Chloride (Oxybutynin Chloride) 5 Mg Tablet, 5 MG PO DAILY, (Reported) Rivaroxaban (Xarelto) 10 Mg Tablet, 10 MG PO DAILY@18 Tolterodine Tartrate (Tolterodine Tartrate) 2 Mg Tablet, 2 MG PO BID, (Reported) Trazodone HCl (Trazodone HCl) 100 Mg Tab, 200 MG PO QHS, (Reported) Scheduled PRN Albuterol Sulf (Albuterol Sulfate) 2.5 Mg/3 Ml Nebu, 2.5 MG INH Q4H PRN for SHORTNESS OF BREATH, (Reported) Albuterol Sulfate (Ventolin Hfa) 108 Mcg/Act Aer, 2 PUFFS INH QID PRN for SHORTNESS OF BREATH, (Reported) Tizanidine HCl (Tizanidine HCl) 4 Mg Tablet, 4 MG PO TID PRN for MUSCLE SPASMS, (Reported) Allergies Coded Allergies: fluticasone (Verified Allergy, Severe, respiratory distress , 06/01/19) salmeterol (Verified Allergy, Severe, respiratory distress , 06/01/19) aspirin (Verified Allergy, Intermediate, hives, 06/01/19) azithromycin (Verified Allergy, Intermediate, Hives , 06/01/19) nefazodone (Verified Allergy, Intermediate, hives , 06/01/19) tuberculin, purified protein deriva (Verified Adverse Reaction, Intermediate, Arm Swelling, 06/01/19) Cephalosporins (Verified Adverse Reaction, Mild, Vomiting, 06/01/19) Penicillins (Verified Adverse Reaction, Mild, N/V, 06/01/19) codeine (Verified Adverse Reaction, Mild, N/V, 06/01/19) propoxyphene (Verified Adverse Reaction, Mild, N/V, 06/01/19) KAYLA SOLIS DO Jun 05, 2019 16:23
[2019-06-05] MEDS: RIVAROXABAN 10 MG TAB (XARELTO) PO SCH (18:41)
[2019-06-05 20:00] VITALS: BP 99/53
[2019-06-05] MEDS: diazePAM 5 MG TAB PO SCH (20:13)
[2019-06-05] MEDS: LORATADINE 10 MG TAB PO SCH (20:14)
[2019-06-05] MEDS: traZODone 100 MG TAB PO SCH (20:14)
[2019-06-05 20:17] VITALS: O2SAT 93
[2019-06-06] MEDS: IPRATROPIUM 0.5MG/ALBUTEROL 2.5MG INH SOL UD 3ML (DUONEB)(J7620) NEB SCH ×4 (01:52→20:00)
[2019-06-06] MEDS: ACETAMINOPHEN 500 MG TAB PO SCH ×3 (05:30→21:26)
[2019-06-06 06:00] VITALS: BP 113/74
[2019-06-06 07:34] LABS: INR 1.56; PROTHROMBIN TIME 18.4 SECONDS (11.8-14.0)
[2019-06-06] MEDS: FENOFIBRATE 48 MG TAB (TRICOR) PO SCH (09:34)
[2019-06-06] MEDS: CALCIUM CARBONATE 500 MG CHEW U/D PO SCH (09:34)
[2019-06-06] MEDS: amLODIPine 10 MG TAB PO SCH (09:34)
[2019-06-06] MEDS: MIRALAX *UNIT DOSE* 17GM PACKET PO SCH (09:35)
[2019-06-06] MEDS: TOLTERODINE (DETROL) 2 MG TAB PO SCH ×2 (09:35→21:25)
[2019-06-06] MEDS: DOCUSATE SODIUM 100 MG CAP PO SCH ×2 (09:35→21:25)
[2019-06-06] MEDS: ATORVASTATIN 20 MG TAB PO SCH (09:35)
[2019-06-06] MEDS: GABAPENTIN 300 MG CAP PO SCH ×3 (09:35→21:25)
[2019-06-06] MEDS: DULoxetine 30 MG CAP (CYMBALTA) PO SCH (09:35)
[2019-06-06] MEDS: oxyBUTYnin 5 MG TAB PO SCH (09:35)
[2019-06-06 09:40] VITALS: O2SAT 94
[2019-06-06 14:20] VITALS: BP 115/77
[2019-06-06] MEDS: oxyCODONE 5MG TAB PO PRN ×2 (15:08→21:48)
[2019-06-06] MEDS: RIVAROXABAN 10 MG TAB (XARELTO) PO SCH (17:45)
[2019-06-06] MEDS: tiZANidine 4 MG TAB PO PRN (18:44)
[2019-06-06 21:00] VITALS: O2SAT 92
[2019-06-06] MEDS: diazePAM 5 MG TAB PO SCH (21:25)
[2019-06-06] MEDS: traZODone 100 MG TAB PO SCH (21:25)
[2019-06-06] MEDS: LORATADINE 10 MG TAB PO SCH (21:25)
[2019-06-06 21:45] VITALS: BP 104/70
[2019-06-06 22:00] VITALS: BP 107/62
[2019-06-07] MEDS: IPRATROPIUM 0.5MG/ALBUTEROL 2.5MG INH SOL UD 3ML (DUONEB)(J7620) NEB SCH ×4 (01:10→20:00)
[2019-06-07] MEDS: ACETAMINOPHEN 500 MG TAB PO SCH ×3 (05:23→20:43)
[2019-06-07] MEDS: oxyCODONE 5MG TAB PO PRN ×4 (05:23→21:24)
[2019-06-07 06:00] VITALS: BP 126/78
[2019-06-07 06:18] LABS: INR 1.23; PROTHROMBIN TIME 15.3 SECONDS (11.8-14.0)
[2019-06-07] MEDS: MIRALAX *UNIT DOSE* 17GM PACKET PO SCH (08:19)
[2019-06-07] MEDS: DOCUSATE SODIUM 100 MG CAP PO SCH ×2 (08:19→21:22)
[2019-06-07] MEDS: oxyBUTYnin 5 MG TAB PO SCH (08:19)
[2019-06-07] MEDS: amLODIPine 10 MG TAB PO SCH (08:19)
[2019-06-07] MEDS: ATORVASTATIN 20 MG TAB PO SCH (08:19)
[2019-06-07] MEDS: GABAPENTIN 300 MG CAP PO SCH ×3 (08:19→21:23)
[2019-06-07] MEDS: TOLTERODINE (DETROL) 2 MG TAB PO SCH ×2 (08:19→21:23)
[2019-06-07] MEDS: CALCIUM CARBONATE 500 MG CHEW U/D PO SCH (08:19)
[2019-06-07] MEDS: FENOFIBRATE 48 MG TAB (TRICOR) PO SCH (08:19)
[2019-06-07] MEDS: DULoxetine 30 MG CAP (CYMBALTA) PO SCH (08:19)
[2019-06-07 14:00] VITALS: BP 122/76
[2019-06-07] MEDS: RIVAROXABAN 10 MG TAB (XARELTO) PO SCH (17:12)
[2019-06-07] MEDS: LORATADINE 10 MG TAB PO SCH (21:22)
[2019-06-07] MEDS: diazePAM 5 MG TAB PO SCH (21:23)
[2019-06-07] MEDS: traZODone 100 MG TAB PO SCH (21:23)
[2019-06-08] MEDS: IPRATROPIUM 0.5MG/ALBUTEROL 2.5MG INH SOL UD 3ML (DUONEB)(J7620) NEB SCH ×3 (02:00→14:00)
[2019-06-08] MEDS: ACETAMINOPHEN 500 MG TAB PO SCH ×2 (05:24→14:00)
[2019-06-08 06:00] VITALS: BP 103/64
[2019-06-08 07:59] LABS: INR 1.11
[2019-06-08] MEDS: FENOFIBRATE 48 MG TAB (TRICOR) PO SCH (09:24)
[2019-06-08] MEDS: GABAPENTIN 300 MG CAP PO SCH (09:24)
[2019-06-08 09:25] VITALS: BP 113/74
[2019-06-08] MEDS: amLODIPine 10 MG TAB PO SCH (09:25)
[2019-06-08] MEDS: CALCIUM CARBONATE 500 MG CHEW U/D PO SCH (09:25)
[2019-06-08] MEDS: DULoxetine 30 MG CAP (CYMBALTA) PO SCH (09:25)
[2019-06-08] MEDS: DOCUSATE SODIUM 100 MG CAP PO SCH (09:25)
[2019-06-08] MEDS: MIRALAX *UNIT DOSE* 17GM PACKET PO SCH (09:25)
[2019-06-08] MEDS: TOLTERODINE (DETROL) 2 MG TAB PO SCH (09:25)
[2019-06-08] MEDS: oxyBUTYnin 5 MG TAB PO SCH (09:25)
[2019-06-08] MEDS: ATORVASTATIN 20 MG TAB PO SCH (09:25)
[2019-06-08] MEDS: oxyCODONE 5MG TAB PO PRN ×2 (09:34→14:07)
[2019-06-08] MEDS ORDERED: OXYCO5TA PO (13:49)
== END 2019-06-08 14:30 | disposition home or self-care (01) | DRG 308 ==
LOC: EDBD 10:36 → M ED 10:36 → EEVIPCON 14:10 → M ED INP 14:10 → M MS5PR 16:00
PROVIDERS: ADMIT Internal Medicine; ATTEND Internal Medicine
PROC: 0QS604Z Reposition Right Upper Femur with Internal Fixation Device, Open Approach (ICD-10-PCS; principal; 2019-06-02 08:00)
DX: S72.001A Fracture of unspecified part of neck of right femur, initial encounter for closed fracture (principal); J44.9 Chronic obstructive pulmonary disease, unspecified; I10 Essential (primary) hypertension; E78.5 Hyperlipidemia, unspecified; W18.30XA Fall on same level, unspecified, initial encounter; Y92.009 Unspecified place in unspecified non-institutional (private) residence as the place of occurrence of the external cause; F17.200 Nicotine dependence, unspecified, uncomplicated; Z79.899 Other long term (current) drug therapy; Z88.6 Allergy status to analgesic agent; Z88.8 Allergy status to other drugs, medicaments and biological substances; Z88.0 Allergy status to penicillin; Z88.5 Allergy status to narcotic agent; K21.9 Gastro-esophageal reflux disease without esophagitis; F32.9 Major depressive disorder, single episode, unspecified; F41.9 Anxiety disorder, unspecified; F17.210 Nicotine dependence, cigarettes, uncomplicated

== ENCOUNTER → 2019-08-05 | Outpatient (REF) | payer OTHER ==
[~2019-08-05] MED LIST changes: +ACET1TAB55 PO; +ALEN70TA74 PO; +ATOR80TA59 PO; +FENO54TA2 PO; +LORA-674 PO; +OXYCO5TA PO; +QVAR40AE12 INH; +STRI1AER2 INH; +TIZA4TAB4 PO; +TOLT2TAB12 PO; +XARE10TA PO; +[UNRECOGNIZED DRUG - CODE] PO
[2019-08-05 13:53] LABS: ALBUMIN 3.6 GM/DL (3.2-5.2); ALT/SGPT 13 U/L (12-78); BILIRUBIN,TOTAL 0.3 MG/DL (0.2-1.0); BLOOD UREA NITROGEN 8 MG/DL (7-18); CALCIUM LEVEL 9.4 MG/DL (8.8-10.2); CARBON DIOXIDE LEVEL 28 MEQ/L (21-32); CHLORIDE LEVEL 105 MEQ/L (98-107); CHOLESTEROL LEVEL 115 MG/DL (<200); CHOLESTEROL RISK RATIO 2.613 (<5); CREATININE FOR GFR 0.82 MG/DL (0.55-1.30); GLOMERULAR FILTRATION RATE > 60.0 (>45); GLUCOSE, FASTING 91 MG/DL (70-100); HDL CHOLESTEROL 44 MG/DL (>40); LDL CHOLESTEROL 54 MG/DL (<100); NON-HDL-C 71 MG/DL; POTASSIUM SERUM 4.2 MEQ/L (3.5-5.1); SODIUM LEVEL 140 MEQ/L (136-145); TRIGLYCERIDES LEVEL 83 MG/DL (<150)
[2019-08-05 13:55] LABS: TOTAL 25(OH) VITAMIN D 53.6 NG/ML (30.0-100.0)
[2019-08-05 14:16] LABS: MALB URINE SIEMENS 9.2 MG/L; MAU/CREAT RATIO 4.8 MCG/MG (0.0-30.0)
[2019-08-05 14:17] LABS: HEMOGLOBIN A1c 5.3 %
== END ==
LOC: M SFHCPLAZ 10:56
PROVIDERS: ATTEND Nurse Practitioner Family
DX: R73.01 Impaired fasting glucose (principal); E78.2 Mixed hyperlipidemia; I10 Essential (primary) hypertension; M85.80 Other specified disorders of bone density and structure, unspecified site

== ENCOUNTER 2019-09-17 10:42 | Inpatient (IN) | payer MEDICAID, OTHER ==
[~2019-09-17] VITALS: Ht 157.5 cm; Wt 59.3 kg
[~2019-09-17 10:42] MED LIST changes: -FENO145T13 PO; +FENO145T7 PO; -FENO48TA13 PO; +FENO48TA7 PO; -TRAZ-163 PO; +TRAZ-257 PO
[2019-09-17] MEDS ORDERED: CYCL10TA PO (11:55)
[2019-09-17 12:23] LABS: AMPHETAMINES LEVEL URINE NEGATIVE (NEGATIVE); BARBITURATES URINE NEGATIVE (NEGATIVE); BENZODIAZEPINES URINE POSITIVE (NEGATIVE); CANNABINOIDS URINE POSITIVE (NEGATIVE); COCAINE METABOLITE URINE NEGATIVE (NEGATIVE); METHADONE URINE NEGATIVE (NEGATIVE); OPIATES URINE NEGATIVE (NEGATIVE); PHENCYCLIDINE URINE NEGATIVE (NEGATIVE)
--- NOTE | 2019-09-17 12:47 | REP ---
Clinical: Altered mental status . Comparison: 06/01/2019 . Findings: The ventricles, sulci, and cisterns are normal in position and appearance. Owen-white differentiation is maintained. No acute intracranial hemorrhage, mass/mass effect, pathology or trauma/injury. No evidence for acute infarction. No extra-axial fluid collection. Calvarium is intact. Paranasal sinuses and mastoid air cells are clear. Impression: Normal noncontrast head CT. No evidence for acute intracranial pathology or trauma/injury. Electronically Signed by Gerardo Rowe MD 09/17/2019 12:38 P
--- NOTE | 2019-09-17 12:48 | REP ---
Clinical: Altered mental status . Comparison: 06/01/2019 . Technique: PA and lateral. Findings: The mediastinum and cardiac silhouette are normal. The lung edmondson are clear and without acute consolidation, effusion, or pneumothorax. The skeletal structures are intact and normal. Impression: 1. No acute cardiopulmonary process. Electronically Signed by Gerardo Rowe MD 09/17/2019 12:40 P
[2019-09-17 12:55] LABS: HEMATOCRIT 41.9 % (36.0-47.0); HEMOGLOBIN 13.8 g/dl (12.0-15.5); MEAN CORPUSCULAR HEMOGLOBIN 28.8 pg (27.0-33.0); MEAN CORPUSCULAR HGB CONC 32.9 g/dl (32.0-36.5); MEAN CORPUSCULAR VOLUME 87.5 fl (80.0-96.0); PLATELET COUNT, AUTOMATED 441 10^3/uL (150-450); RED BLOOD COUNT 4.79 10^6/uL (4.00-5.40)
[2019-09-17 13:37] LABS: ACETAMINOPHEN LEVEL < 2.0 UG/ML (10.0-30.0); ALBUMIN 4.3 GM/DL (3.2-5.2); ALT/SGPT 19 U/L (12-78); BILIRUBIN,DIRECT 0.2 MG/DL (0.0-0.2); BILIRUBIN,TOTAL 0.4 MG/DL (0.2-1.0); BLOOD UREA NITROGEN 9 MG/DL (7-18); CALCIUM LEVEL 9.8 MG/DL (8.8-10.2); CARBON DIOXIDE LEVEL 28 MEQ/L (21-32); CHLORIDE LEVEL 102 MEQ/L (98-107); CREATININE FOR GFR 0.78 MG/DL (0.55-1.30); ETHYL ALCOHOL (ETHANOL) < 0.003 % (0.000-0.010); GLOMERULAR FILTRATION RATE > 60.0 (>45); GLUCOSE, FASTING 99 MG/DL (70-100); POTASSIUM SERUM 3.6 MEQ/L (3.5-5.1); SALICYLATE LEVEL < 1.7 MG/DL (5.0-30.0); SODIUM LEVEL 137 MEQ/L (136-145); TOTAL PROTEIN 7.9 GM/DL (6.4-8.2)
[2019-09-17] MEDS ORDERED: NICO21DI31 TD (16:34)
[2019-09-17] MEDS ORDERED: PANT-23 PO (16:34)
[2019-09-17] MEDS ORDERED: ACET-683 PO (16:34)
[2019-09-17] MEDS ORDERED: MOM 30ML SUSPENSION UDC PO PRN (17:30)
[2019-09-17] MEDS ORDERED: ALBUTEROL 90 MCG/ACT 8GM HFA INHALER INH PRN (17:30)
[2019-09-17] MEDS ORDERED: MAALOX 30 ML SUSP *UDC PO PRN (17:30)
--- NOTE | 2019-09-17 20:24 | ECGEPIP ---
[facility] - ED Test Date: 2019-09-17 Pat Name: KALA SOLIS Department: Room: - Gender: Female Taxi Proprietor: WISAM : 1955 Requested By: RINA Delacruz Order Number: [id number] Reading MD: Harika Riley Measurements Intervals [place] Rate: 90 P: 71 SD: 164 QRS: 63 QRSD: 78 T: 55 QT: 357 QTc: 438 Interpretive Statements SINUS RHYTHM NSTTW abnormalities INCREASED RATE 06/01/19 Electronically Signed on 09-17-2019 20:23:53 EST by Harika Riley
[2019-09-17] MEDS ORDERED: diazePAM 10 MG TAB PO SCH (21:00)
[2019-09-17] MEDS: ATORVASTATIN 20 MG TAB PO SCH (21:03)
[2019-09-17] MEDS: GABAPENTIN 300 MG CAP PO SCH (21:03)
[2019-09-17] MEDS: LORATADINE 10 MG TAB PO SCH (21:03)
[2019-09-17] MEDS: traZODone 50 MG TAB PO PRN (21:04)
[2019-09-17] MEDS: PANTOPRAZOLE 40MG TAB (PROTONIX) PO SCH (21:04)
[2019-09-17] MEDS: TOLTERODINE (DETROL) 2 MG TAB PO SCH (21:12)
[2019-09-17 21:22] VITALS: BP 160/80
[2019-09-18 05:47] VITALS: BP 131/74
[2019-09-18] MEDS ORDERED: DULoxetine 30 MG CAP (CYMBALTA) PO SCH (09:00)
[2019-09-18] MEDS ORDERED: NICOTINE 21MG/24HR 1 EA TRANSDERMAL TD SCH (09:00)
[2019-09-18] MEDS: amLODIPine 10 MG TAB PO SCH (09:26)
[2019-09-18] MEDS: GABAPENTIN 300 MG CAP PO SCH ×3 (09:26→22:04)
[2019-09-18] MEDS: DULoxetine 30 MG CAP (CYMBALTA) PO SCH (09:26)
[2019-09-18] MEDS: TOLTERODINE (DETROL) 2 MG TAB PO SCH ×2 (09:26→22:02)
[2019-09-18] MEDS: PANTOPRAZOLE 40MG TAB (PROTONIX) PO SCH ×2 (09:26→22:04)
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
[2019-09-18 16:00] VITALS: BP 102/59
--- NOTE | 2019-09-18 16:33 | HPEPDOC ---
General Date of Admission Sep 17, 2019 at 17:28 Date of Service: Sep 18, 2019 Chief Complaint The patient is a 64-year-old female admitted for hallucinations. History of Present Illness 64 year old female presents with hallucinations. Seen and examined at bedside, awake and appears in no acute distress. Only complaint if R knee pain, chronic, taking tylenol OTC at home. Denies fever/chills, n/v/d, abdominal pain, shortness of breath, urinary complaints. Home Medications Scheduled Alendronate Sodium (Alendronate Sodium) 70 Mg Tablet, 70 MG PO QWEEK, (Reported) MONDAYS Amlodipine Besylate (Amlodipine Besylate) 10 Mg Tablet, 10 MG PO DAILY, (Reported) Atorvastatin Calcium (Atorvastatin Calcium) 80 Mg Tablet, 80 MG PO QHS, (Reported) Beclomethasone Dipropionate (Qvar Redihaler) 40 Mcg/Act Hfa.aeroba, 2 PUFF INH BID, (Reported) Calcium Carbonate (Antacid) 200 Mg Tab.chew, 500 MG PO DAILY, (Reported) Diazepam (Diazepam) 10 Mg Tab, 15 MG PO QHS, (Reported) Duloxetine Hcl (Cymbalta) 60 Mg Cap, 60 MG PO DAILY, (Reported) TAKES WITH 30MG FOR 90MG TOTAL Duloxetine Hcl (Duloxetine HCl) 30 Mg Cap, 30 MG PO DAILY, (Reported) TAKES WITH 60MG FOR 90MG TOTAL Fenofibrate (Fenofibrate) 54 Mg Tablet, 54 MG PO QHS, (Reported) Gabapentin (Gabapentin) 300 Mg Capsule, 600 MG PO TID, (Reported) Loratadine (Loratadine) 10 Mg Tablet, 10 MG PO QHS, (Reported) Nicotine (Nicotine Patch) 21 Mg Patch.td24, 21 MG TD DAILY, (Reported) Olodaterol HCl (Striverdi Respimat) 4 Gm Mist.inhal, 2 PUFFS INH DAILY, (Reported) Pantoprazole Sodium (Pantoprazole Sodium) 40 Mg Tablet.dr, 40 MG PO BID, (Reported) Tolterodine Tartrate (Tolterodine Tartrate) 2 Mg Tablet, 2 MG PO BID, (Reported) Trazodone HCl (Trazodone HCl) 100 Mg Tab, 200 MG PO QHS, (Reported) Scheduled PRN Acetaminophen (Acetaminophen) 500 Mg Tablet, 1,000 MG PO Q8H PRN for PAIN, (Reported) Albuterol Sulf (Albuterol Sulfate) 2.5 Mg/3 Ml Nebu, 2.5 MG INH Q4H PRN for SHORTNESS OF BREATH, (Reported) Albuterol Sulfate (Ventolin Hfa) 108 Mcg/Act Aer, 2 PUFFS INH QID PRN for SHORTNESS OF BREATH, (Reported) Cyclobenzaprine HCl (Cyclobenzaprine HCl) 10 Mg Tablet, 10 MG PO TID PRN for SPASMS, (Reported) Allergies Coded Allergies: fluticasone (Verified Allergy, Severe, respiratory distress , 06/01/19) salmeterol (Verified Allergy, Severe, respiratory distress , 06/01/19) aspirin (Verified Allergy, Intermediate, hives, 06/01/19) azithromycin (Verified Allergy, Intermediate, Hives , 06/01/19) nefazodone (Verified Allergy, Intermediate, hives , 06/01/19) tuberculin, purified protein deriva (Verified Adverse Reaction, Intermediate, Arm Swelling, 06/01/19) Cephalosporins (Verified Adverse Reaction, Mild, Vomiting, 06/01/19) Penicillins (Verified Adverse Reaction, Mild, N/V, 06/01/19) codeine (Verified Adverse Reaction, Mild, N/V, 06/01/19) propoxyphene (Verified Adverse Reaction, Mild, N/V, 06/01/19) Past Medical History Medical History HTN, HLD, neuropathy Surgical History hysterectomy, cholecystectomy, L knee surgery Family History Significant Family History: No pertinent family hx Social History * Smoker: current smoker Alcohol: Denies Drugs: denies A-FIB/CHADSVASC A-FIB History Current/History of A-Fib/PAF?: No Current PO Anticoag Therapy: No Review of Systems Constitutional: Denies: Chills, Fever, Night Sweats Eyes: Denies: Pain, Vision change ENT: Denies: Head Aches, Ear Pain, Dysphagia Skin: Denies: Rash, Lesions, Breakdown Pulmonary: Denies: Dyspnea, Cough Cardiovascular: Denies: Chest Pain, Palpitations, Orthopnea, Paroxysmal Noc. Dyspnea, Lt Headedness Gastrointestinal: Denies: Nausea, Vomiting, Abdominal Pain, Diarrhea Genitourinary: Denies: Dysuria, Frequency, Incontinence, Retention Hematologic: Denies: Bruising, Bleeding Excessively Musculoskeletal: Denies: Neck Pain, Back Pain, Joint Pain, Muscle Pain, Spasms Neurological: Denies: Weakness, Numbness, Change in speech, Confusion Psych: Reports: Mood Normal; Denies: Depression, Memory Issues Physical Examination General Exam: Positive: Alert, No Acute Distress Eye Exam: Positive: PERRLA, Conjunctiva & lids normal, EOMI; Negative: Sclera icteric ENT Exam: Positive: Atraumatic, Mucous membr. moist/pink, Pharynx Normal Neck Exam: Positive: Supple; Negative: JVD, thyromegaly Chest Exam: Positive: Clear to auscultation, Normal air movement Heart Exam: Positive: Rate Normal, Regular Rhythm, Normal S1, Normal S2; Negative: Murmurs, Rubs Telemetry: Positive: No significant arrhythmia Abdomen Exam: Positive: Normal bowel sounds, Soft; Negative: Tenderness, Hepatospenomegaly Extremity Exam: Positive: Normal pulses; Negative: Clubbing, Cyanosis, Edema Skin Exam: Positive: Nl turgor and temperature; Negative: Breakdown, Lesion Neuro Exam: Positive: Normal Gait, Normal Speech, Cranial Nerves 3-12 NL, Reflexes 2+ Psych Exam: Positive: Mental status NL, Mood NL, Oriented x 3 Vital Signs Vital Signs Date Time Temp Pulse Resp B/P (MAP) Pulse Ox O2 Delivery O2 Flow Rate FiO2 09/18/19 16:00 97.7 89 16 102/59 (73) 09/17/19 21:22 96 Room Air Assessment/Plan 1. hypertension - patient states was on amlodipine but has been off for years. - monitor BP for now, within acceptable limits. 2. hyperlipidemia - continue atorvastatin. 3. hallucinations - management per psychiatry. 4. GERD - protonix. Alendronate Sodium (Alendronate Sodium) 70 Mg Tablet, 70 MG PO QWEEK, (Reported) MONDAYS Amlodipine Besylate (Amlodipine Besylate) 10 Mg Tablet, 10 MG PO DAILY, (Reported) Atorvastatin Calcium (Atorvastatin Calcium) 80 Mg Tablet, 80 MG PO QHS, (Reported) Beclomethasone Dipropionate (Qvar Redihaler) 40 Mcg/Act Hfa.aeroba, 2 PUFF INH BID, (Reported) Calcium Carbonate (Antacid) 200 Mg Tab.chew, 500 MG PO DAILY, (Reported) Diazepam (Diazepam) 10 Mg Tab, 15 MG PO QHS, (Reported) Duloxetine Hcl (Cymbalta) 60 Mg Cap, 60 MG PO DAILY, (Reported) TAKES WITH 30MG FOR 90MG TOTAL Duloxetine Hcl (Duloxetine HCl) 30 Mg Cap, 30 MG PO DAILY, (Reported) TAKES WITH 60MG FOR 90MG TOTAL Fenofibrate (Fenofibrate) 54 Mg Tablet, 54 MG PO QHS, (Reported) Gabapentin (Gabapentin) 300 Mg Capsule, 600 MG PO TID, (Reported) Loratadine (Loratadine) 10 Mg Tablet, 10 MG PO QHS, (Reported) Nicotine (Nicotine Patch) 21 Mg Patch.td24, 21 MG TD DAILY, (Reported) Olodaterol HCl (Striverdi Respimat) 4 Gm Mist.inhal, 2 PUFFS INH DAILY, ( Reported) Pantoprazole Sodium (Pantoprazole Sodium) 40 Mg Tablet.dr, 40 MG PO BID, (Reported) Tolterodine Tartrate (Tolterodine Tartrate) 2 Mg Tablet, 2 MG PO BID, (Reported) Trazodone HCl (Trazodone HCl) 100 Mg Tab, 200 MG PO QHS, (Reported) Plan / VTE VTE Prophylaxis Ordered?: No LILY HERNANDEZ MD Sep 18, 2019 16:33
[2019-09-18] MEDS ORDERED: ALBUTEROL SULFATE 2.5 MG/0.5 ML INH NEB SOLN INH PRN (17:15)
[2019-09-18] MEDS: CALCIUM CARBONATE 500 MG CHEW U/D PO SCH (17:15)
[2019-09-18] MEDS: CYCLOBENZAPRINE 10 MG TAB PO PRN (17:21)
[2019-09-18] MEDS: ACETAMINOPHEN 500 MG TAB PO PRN (17:26)
[2019-09-18] MEDS ORDERED: diazePAM 5 MG TAB PO SCH (21:00)
[2019-09-18] MEDS: LORATADINE 10 MG TAB PO SCH (22:03)
[2019-09-18] MEDS: ATORVASTATIN 20 MG TAB PO SCH (22:04)
[2019-09-18] MEDS: OLANZapine ORAL DISINTEGRATING TAB 5MG PO SCH (22:04)
[2019-09-19 06:30] VITALS: BP 105/65
[2019-09-19] MEDS: GABAPENTIN 300 MG CAP PO SCH ×3 (08:45→20:03)
[2019-09-19] MEDS: DULoxetine 30 MG CAP (CYMBALTA) PO SCH (08:45)
[2019-09-19] MEDS: TOLTERODINE (DETROL) 2 MG TAB PO SCH ×2 (08:45→20:03)
[2019-09-19] MEDS: amLODIPine 10 MG TAB PO SCH (08:46)
[2019-09-19] MEDS: PANTOPRAZOLE 40MG TAB (PROTONIX) PO SCH ×2 (08:46→20:03)
[2019-09-19] MEDS: CALCIUM CARBONATE 500 MG CHEW U/D PO SCH (08:46)
[2019-09-19] MEDS: CYCLOBENZAPRINE 10 MG TAB PO PRN ×3 (08:50→20:03)
[2019-09-19] MEDS: ACETAMINOPHEN 500 MG TAB PO PRN (08:50)
--- NOTE | 2019-09-19 09:16 | MHIPNPDOC ---
[facility] Progress Note Progress Note Inpatient Progress Note Yuli Kidd MRN: N/A Date of : N/A Date of Service: 09/19/2019 History of Present Illness The patient, a 64-year-old woman with a history of depression, presents semi- psychotic. Reportedly has been smoking some marijuana and believes people are out to get her with bizarre ideation. Difficult to interview today. She reports multiple delusions and difficulties, feeling that the nurses are out to get her, i.e. her landlord with various bizarre ideation. She has no real history in the psychiatric community. [facility] such as diazepam which she sees Dr. Clark show the only diagnosis was dysthymia. The patient appears quite psychotic and unable to engage in a reliable review of systems. Interval History Narrative: The patient is met with today. She reports feeling "much better." Paranoia is notably absent. Patient reports improved insight into the unusual thought she was having change. Affective: Patient reports improvement in her mood, her concentration, as well as her ability to socialize. Psychotic: The patient currently denies any psychotic symptoms and exhibits no paranoia. Anxiety: The patient reports none. Eating and sleeping behaviors: Within normal limits. Group Attendance: Attends groups frequently. Medication Side effects: See ROS below Behavioral problems/significant events overnight: None reported. Staff Report: Patient made significant progress and is benefiting greatly from care. Review Of Systems General: Denies fever or appetite changes Cardiovascular: Denies Chest pain or palpations GI: Denies Nausea, vomiting, or bowel changes Respiratory: Denies shortness of breath or cough Neuro: Denies dizziness, tremors Derm: Denies any rashes or pruritus : Denies any dysuria or urinary problems MSK: Denies any muscle tightness or stiffness HEENT: Denies any vision changes or headaches Psychotherapy None on this visit. Vital Signs Reviewed. Mental Status Examination General: Well dressed with good hygiene Speech: Spontaneous and fluid Thought processes: Linear and logical MSK: Smooth and coordinated gait, no signs of tremors or involuntary orofacial movements Thought content: Future orientated Abstract reasoning, and computation: Intact Description of associations: Intact Description of abnormal or psychotic thoughts: Denies any suicidal or homicidal ideation. Denies any auditory or visual hallucinations. Does not appear to be responding to internal stimuli. Does not appear to be endorsing any bizarre or paranoid ideation. Judgment: fair Insight: fair Orientation: Alert and orientated 3 Cognition: Grossly normal Recent and remote memory: Intact Attention span and concentration: Intact Fund of knowledge: Adequate Mood: "okay" Affect: Euthymic with a full range Diagnoses MDD with psychotic features. Cannabis use, unspecified. Tobacco use disorder, mild. Assessment and Plan MDD: Continue diazepam 5 mg nightly as well as Zyprexa 5 at night as well as Cymbalta 90, will discontinue diazepam on discharge. Discussed with outpatient provider after release was obtained. Cannabis use: Recommend outpatient treatment. Tobacco use disorder: Offered nicotine patch if needed. Disposition The patient will be observed for another evening and then discharged tomorrow if she continues to improve. Time Spent 15 minutes [id number]. Vital Signs Vital Signs Date Time Temp Pulse Resp B/P (MAP) Pulse Ox O2 Delivery O2 Flow Rate FiO2 09/19/19 08:46 62 132/62 09/19/19 06:30 97.7 16 09/17/19 21:22 96 Room Air Current Medications Current Medications Medications (Trade) Dose Ordered Sig/Jose Route PRN Reason Start Time Stop Time Status Last Admin Dose Admin Acetaminophen (Tylenol Tab) 1,000 mg Q8H PRN PO PAIN 09/18/19 17:15 09/19/19 08:50 Al Hydrox/Mg Hydrox/Simethicone (Mylanta) 30 ml Q4HP PRN PO HEARTBURN/INDIGESTION 09/17/19 17:30 Albuterol Sulfate (Proventil Neb) 2.5 mg RQ4H PRN INH SHORTNESS OF BREATH 09/18/19 17:15 Albuterol Sulfate (Proventil, Ventolin Hfa) 2 puff QIDP PRN INH SHORTNESS OF BREATH 09/17/19 17:30 Amlodipine Besylate (Norvasc) 10 mg DAILY PO 09/18/19 09:00 09/19/19 08:46 Atorvastatin Calcium (Lipitor) 80 mg QHS PO 09/17/19 21:00 09/18/19 22:04 Calcium Carbonate (Tums) 500 mg DAILY PO 09/18/19 09:00 09/19/19 08:46 Cyclobenzaprine HCl (Flexeril) 10 mg TID PRN PO SPASMS 09/18/19 17:15 09/19/19 08:50 Diazepam (Valium) 5 mg QHS PO 09/18/19 21:00 09/18/19 22:03 Diazepam (Valium) 10 mg QHS PO 09/17/19 21:00 09/18/19 10:31 DC 09/17/19 21:04 Duloxetine HCl (Cymbalta) 30 mg DAILY PO 09/18/19 09:00 09/17/19 17:54 DC Duloxetine HCl (Cymbalta) 90 mg DAILY PO 09/18/19 09:00 09/19/19 08:45 Gabapentin (Neurontin) 600 mg TID PO 09/17/19 21:00 09/19/19 08:45 Home Med (Med Rec Complete!) ASDIRECTED XX 09/17/19 16:45 09/17/19 16:45 DC Loratadine (Claritin) 10 mg QHS PO 09/17/19 21:00 09/18/19 22:03 Magnesium Hydroxide (Milk Of Magnesia) 30 ml DAILYPRN PRN PO CONSTIPATION 09/17/19 17:30 Nicotine (Nicoderm Cq 21mg) 21 patch DAILY TD 09/18/19 09:00 09/18/19 09:24 Olanzapine (ZyPREXA ZYDIS) 5 mg QHS PO 09/18/19 21:00 09/18/19 22:04 Pantoprazole Sodium (Protonix) 40 mg BID PO 09/17/19 21:00 09/19/19 08:46 Tolterodine Tartrate (Detrol) 2 mg BID PO 09/17/19 21:00 09/19/19 08:45 Trazodone HCl (Desyrel) 50 mg QHSP PRN PO INSOMNIA 09/17/19 17:30 09/17/19 21:04 Allergies Coded Allergies: fluticasone (Verified Allergy, Severe, respiratory distress , 06/01/19) salmeterol (Verified Allergy, Severe, respiratory distress , 06/01/19) aspirin (Verified Allergy, Intermediate, hives, 06/01/19) azithromycin (Verified Allergy, Intermediate, Hives , 06/01/19) nefazodone (Verified Allergy, Intermediate, hives , 06/01/19) tuberculin, purified protein deriva (Verified Adverse Reaction, Intermediate, Arm Swelling, 06/01/19) Cephalosporins (Verified Adverse Reaction, Mild, Vomiting, 06/01/19) Penicillins (Verified Adverse Reaction, Mild, N/V, 06/01/19) codeine (Verified Adverse Reaction, Mild, N/V, 06/01/19) propoxyphene (Verified Adverse Reaction, Mild, N/V, 06/01/19) LOBO MATTHEWS DO Sep 19, 2019 09:16
[2019-09-19] MEDS ORDERED: NICOTINE 21MG/24HR 1 EA TRANSDERMAL TD SCH (10:34)
[2019-09-19 16:00] VITALS: BP 117/58
[2019-09-19] MEDS: OLANZapine ORAL DISINTEGRATING TAB 5MG PO SCH (20:03)
[2019-09-19] MEDS: ATORVASTATIN 20 MG TAB PO SCH (20:03)
[2019-09-19] MEDS: LORATADINE 10 MG TAB PO SCH (20:03)
[2019-09-19] MEDS: traZODone 50 MG TAB PO PRN (23:17)
[2019-09-20 06:52] VITALS: BP 132/73
[2019-09-20] MEDS: DULoxetine 30 MG CAP (CYMBALTA) PO SCH (08:33)
[2019-09-20] MEDS: GABAPENTIN 300 MG CAP PO SCH (08:33)
[2019-09-20] MEDS: PANTOPRAZOLE 40MG TAB (PROTONIX) PO SCH (08:33)
[2019-09-20] MEDS: TOLTERODINE (DETROL) 2 MG TAB PO SCH (08:33)
[2019-09-20] MEDS: CALCIUM CARBONATE 500 MG CHEW U/D PO SCH (08:33)
[2019-09-20 08:35] VITALS: BP 132/76
[2019-09-20] MEDS: amLODIPine 10 MG TAB PO SCH (08:35)
[2019-09-20] MEDS: CYCLOBENZAPRINE 10 MG TAB PO PRN (08:37)
[2019-09-20] MEDS: ACETAMINOPHEN 500 MG TAB PO PRN (08:38)
--- NOTE | 2019-09-20 10:36 | MHDSPDOC ---
[facility] Discharge Summary Discharge Summary DATE OF ADMISSION: Sep 17, 2019 at 17:28 DATE OF DISCHARGE: 09/20/19 Discharge Yuli Kidd MRN: N/A Date of : N/A Date of Service: 09/20/2019 Diagnoses MDD with psychotic features. Cannabis use, unspecified. Tobacco use disorder, mild. History of Present Illness The patient, a 64-year-old woman with a history of depression, presents semi- psychotic. Reportedly has been smoking some marijuana and believes people are out to get her with bizarre ideation. Difficult to interview today. She reports multiple delusions and difficulties, feeling that the nurses are out to get her, i.e. her landlord with various bizarre ideation. She has no real history in the psychiatric community. [facility] such as diazepam which she sees Dr. Clark show the only diagnosis was dysthymia. The patient appears quite psychotic and unable to engage in a reliable review of systems. Consultants Involved Hospitalist/PCP screening Treatment and Progress On The Unit The patient was admitted to the inpatient mental health unit, continued on her diazepam and Cymbalta. She was started on Zyprexa 5 mg nightly for psychotic symptoms, she made rapid resolution of these symptoms, improving and becoming much more amenable. Her diazepam was tapered off while she was here. Her out patient psychiatrist reported that he was attempting to taper off this medication as it is not indicated in a woman her age. The patient did well on the unit, had no behavioral issues, attended groups well and reportedly made great improvements while here. Discharge Assessment 64-year-old woman with a history of depression, presents with mild psychotic symptoms, she has cannabis positive urine, however, it is unclear if it is MDD with psychotic features or if there is a substance induced component, however, she appears to tolerate the olanzapine well and resolution of her symptoms is precipitous. The patient at the time of discharge did not meet criteria for involuntary admission/extension due to having a normal mental status exam, fair insight into the situation, They are engaged in the discharge process, as well as being friendly and amenable in behavioral control and havent been engaging in any observed concerning behavior or ideation recently. They decline voluntary extension/admission at this time and must be discharged in good carlos, as Im unable to make a case for holding the patient against their will. They may have historical risk factors of admissions and other interactions with psychiatry however, those are not modifiable from a clinical perspective. The patient will need to be discharged in good carlos. Mental Status Examination General: Well dressed with good hygiene Speech: Spontaneous and fluid Thought processes: Linear and logical MSK: Smooth and coordinated gait, no signs of tremors or involuntary orofacial movements Thought content: Future orientated Abstract reasoning, and computation: Intact Description of associations: Intact Description of abnormal or psychotic thoughts: Denies any suicidal or homicidal ideation. Denies any auditory or visual hallucinations. Does not appear to be responding to internal stimuli. Does not appear to be endorsing any bizarre or paranoid ideation. Judgment: fair Insight: fair Orientation: Alert and orientated 3 Cognition: Grossly normal Recent and remote memory: Intact Attention span and concentration: Intact Fund of knowledge: Adequate Mood: "okay" Affect: Euthymic with a full range Follow Up The social work team worked during the predischarge meeting in order to evaluate for further issues of lethality address them fully before discharge. They worked on safety planning with the patient's family members in order to ensure that the patient will have a safe and effective discharge. Time Spent The amount of time spent in the coordination of care for this patient was approximately 60 minutes. Monday Vital Signs/I&Os Vital Signs Date Time Temp Pulse Resp B/P (MAP) Pulse Ox O2 Delivery O2 Flow Rate FiO2 09/20/19 08:35 70 132/76 09/20/19 06:52 97.7 16 09/17/19 21:22 96 Room Air Medications Scheduled Alendronate Sodium (Alendronate Sodium) 70 Mg Tablet, 70 MG PO QWEEK, (Reported) MONDAYS Amlodipine Besylate (Amlodipine Besylate) 10 Mg Tablet, 10 MG PO DAILY, (Reported) Atorvastatin Calcium (Atorvastatin Calcium) 80 Mg Tablet, 80 MG PO QHS, (Reported) Beclomethasone Dipropionate (Qvar Redihaler) 40 Mcg/Act Hfa.aeroba, 2 PUFF INH BID, (Reported) Calcium Carbonate (Antacid) 200 Mg Tab.chew, 500 MG PO DAILY, (Reported) Duloxetine Hcl (Cymbalta) 60 Mg Cap, 60 MG PO DAILY for mood for 7 Days, #7 TAKES WITH 30MG FOR 90MG TOTAL Duloxetine Hcl (Duloxetine HCl) 30 Mg Cap, 30 MG PO DAILY for mood for 7 Days, #7 TAKES WITH 60MG FOR 90MG TOTAL Fenofibrate (Fenofibrate) 54 Mg Tablet, 54 MG PO QHS, (Reported) Gabapentin (Gabapentin) 300 Mg Capsule, 600 MG PO TID, (Reported) Loratadine (Loratadine) 10 Mg Tablet, 10 MG PO QHS, (Reported) Nicotine (Nicotine Patch) 21 Mg Patch.td24, 21 MG TD DAILY, (Reported) Olanzapine (Olanzapine) 5 Mg Tablet, 1 TAB PO QPM for mood for 30 Days, #7 Olodaterol HCl (Striverdi Respimat) 4 Gm Mist.inhal, 2 PUFFS INH DAILY, (Reported) Pantoprazole Sodium (Pantoprazole Sodium) 40 Mg Tablet.dr, 40 MG PO BID, (Reported) Tolterodine Tartrate (Tolterodine Tartrate) 2 Mg Tablet, 2 MG PO BID, (Reported) Trazodone HCl (Trazodone HCl) 100 Mg Tab, 200 MG PO QHS, (Reported) Scheduled PRN Acetaminophen (Acetaminophen) 500 Mg Tablet, 1,000 MG PO Q8H PRN for PAIN, (Rep orted) Albuterol Sulf (Albuterol Sulfate) 2.5 Mg/3 Ml Nebu, 2.5 MG INH Q4H PRN for SHORTNESS OF BREATH, (Reported) Albuterol Sulfate (Ventolin Hfa) 108 Mcg/Act Aer, 2 PUFFS INH QID PRN for SHORTNESS OF BREATH, (Reported) Cyclobenzaprine HCl (Cyclobenzaprine HCl) 10 Mg Tablet, 10 MG PO TID PRN for S PASMS, (Reported) Allergies Coded Allergies: fluticasone (Verified Allergy, Severe, respiratory distress , 06/01/19) salmeterol (Verified Allergy, Severe, respiratory distress , 06/01/19) aspirin (Verified Allergy, Intermediate, hives, 06/01/19) azithromycin (Verified Allergy, Intermediate, Hives , 06/01/19) nefazodone (Verified Allergy, Intermediate, hives , 06/01/19) tuberculin, purified protein deriva (Verified Adverse Reaction, Intermediate, Arm Swelling, 06/01/19) Cephalosporins (Verified Adverse Reaction, Mild, Vomiting, 06/01/19) Penicillins (Verified Adverse Reaction, Mild, N/V, 06/01/19) codeine (Verified Adverse Reaction, Mild, N/V, 06/01/19) propoxyphene (Verified Adverse Reaction, Mild, N/V, 06/01/19) LOBO MATTHEWS DO Sep 20, 2019 10:35
[2019-09-20] MEDS ORDERED: DULO1CAP5 PO (10:38)
[2019-09-20] MEDS ORDERED: CYMB60CA3 PO (10:38)
[2019-09-20] MEDS ORDERED: OLAN5TAB PO (10:38)
== END 2019-09-20 13:10 | disposition home or self-care (01) | DRG 751 ==
LOC: M ED 10:42 → M ED INP 17:28 → M PSY 18:48
PROVIDERS: ADMIT Psychiatry & Neurology Psychiatry; ATTEND Psychiatry & Neurology Addiction Medicine
DX: F32.3 Major depressive disorder, single episode, severe with psychotic features (principal); F12.10 Cannabis abuse, uncomplicated; F17.200 Nicotine dependence, unspecified, uncomplicated; Z81.1 Family history of alcohol abuse and dependence; Z62.810 Personal history of physical and sexual abuse in childhood; J44.9 Chronic obstructive pulmonary disease, unspecified; M25.561 Pain in right knee; K21.9 Gastro-esophageal reflux disease without esophagitis; Z79.899 Other long term (current) drug therapy; Z88.0 Allergy status to penicillin; Z88.1 Allergy status to other antibiotic agents; Z88.5 Allergy status to narcotic agent; Z88.6 Allergy status to analgesic agent; Z88.8 Allergy status to other drugs, medicaments and biological substances; E78.5 Hyperlipidemia, unspecified; I10 Essential (primary) hypertension; G62.9 Polyneuropathy, unspecified

== ENCOUNTER 2019-11-14 10:40 | Emergency (ER) | payer MEDICAID, OTHER ==
[~2019-11-14 10:40] MED LIST changes: +ACET-683 PO; +CYCL-707 PO; +NICO21DI31 TD; +OLAN5TAB PO; +PANT-23 PO
[2019-11-14] MEDS ORDERED: DULO1CAP6 (11:01)
[2019-11-14] MEDS ORDERED: PANT40TA3 (11:01)
[2019-11-14] MEDS ORDERED: CALC500C15 (11:01)
[2019-11-14] MEDS ORDERED: traMADol 50 MG TAB PO ONE (12:00)
[2019-11-14] MEDS ORDERED: PRED20TA PO (12:18)
[2019-11-14] MEDS ORDERED: ULTR50TA8 PO (12:19)
[2019-11-14] MEDS ORDERED: predniSONE 20 MG TAB PO ONE (12:30)
[2019-11-14] MEDS ORDERED: METH1TAB40 PO (12:38)
[2019-11-14 12:40] VITALS: BP 133/84
== END 2019-11-14 12:41 | disposition home or self-care (01) ==
LOC: M ED 10:40 → EDBD 10:40 → M ED 12:41
DX: M62.838 Other muscle spasm (principal); M50.30 Other cervical disc degeneration, unspecified cervical region; F17.200 Nicotine dependence, unspecified, uncomplicated; G43.909 Migraine, unspecified, not intractable, without status migrainosus; G25.81 Restless legs syndrome; E78.00 Pure hypercholesterolemia, unspecified; I10 Essential (primary) hypertension; I95.9 Hypotension, unspecified; J45.909 Unspecified asthma, uncomplicated; J44.9 Chronic obstructive pulmonary disease, unspecified; K21.9 Gastro-esophageal reflux disease without esophagitis; K57.92 Diverticulitis of intestine, part unspecified, without perforation or abscess without bleeding; K58.9 Irritable bowel syndrome, unspecified; N17.9 Acute kidney failure, unspecified; M54.30 Sciatica, unspecified side; F41.9 Anxiety disorder, unspecified; F32.9 Major depressive disorder, single episode, unspecified; F43.10 Post-traumatic stress disorder, unspecified; Z87.09 Personal history of other diseases of the respiratory system; F10.10 Alcohol abuse, uncomplicated; F19.10 Other psychoactive substance abuse, uncomplicated; Z87.01 Personal history of pneumonia (recurrent); Z87.440 Personal history of urinary (tract) infections; Z86.2 Personal history of diseases of the blood and blood-forming organs and certain disorders involving the immune mechanism; Z95.0 Presence of cardiac pacemaker; Z86.14 Personal history of Methicillin resistant Staphylococcus aureus infection; Z79.899 Other long term (current) drug therapy; Z88.0 Allergy status to penicillin; Z88.1 Allergy status to other antibiotic agents; Z88.8 Allergy status to other drugs, medicaments and biological substances; Z88.5 Allergy status to narcotic agent

== ENCOUNTER → 2020-04-23 | Outpatient (CLI) | payer OTHER ==
[~2020-04-23] MED LIST changes: -AMLO10TA5 PO; +AMLO1TAB25 PO; +CALC500C15; +DULO1CAP6; +METH1TAB40 PO; +PANT40TA29; +PRED20TA PO; +ULTR50TA8 PO
[2020-04-23 16:52] LABS: HEMATOCRIT 43.6 % (36.0-47.0); HEMOGLOBIN 14.1 g/dl (12.0-15.5); MEAN CORPUSCULAR HEMOGLOBIN 30.7 pg (27.0-33.0); MEAN CORPUSCULAR HGB CONC 32.3 g/dl (32.0-36.5); MEAN CORPUSCULAR VOLUME 94.8 fl (80.0-96.0); PLATELET COUNT, AUTOMATED 420 10^3/uL (150-450); WHITE BLOOD COUNT 12.5 10^3/uL (4.0-10.0)
[2020-04-23 17:18] LABS: ALBUMIN 3.9 GM/DL (3.2-5.2); ALT/SGPT 20 U/L (12-78); AMYLASE 77 U/L (25-115); BILIRUBIN,TOTAL 0.5 MG/DL (0.2-1.0); BLOOD UREA NITROGEN 12 MG/DL (7-18); CALCIUM LEVEL 9.2 MG/DL (8.8-10.2); CARBON DIOXIDE LEVEL 27 MEQ/L (21-32); CHLORIDE LEVEL 105 MEQ/L (98-107); CREATININE FOR GFR 0.71 MG/DL (0.55-1.30); GLOMERULAR FILTRATION RATE > 60.0 (>45); GLUCOSE, FASTING 93 MG/DL (70-100); LIPASE 105 U/L (73-393); POTASSIUM SERUM 3.8 MEQ/L (3.5-5.1); SODIUM LEVEL 140 MEQ/L (136-145); TOTAL PROTEIN 7.1 GM/DL (6.4-8.2)
[2020-04-23 17:33] LABS: ANISOCYTOSIS 1+; ATYPICAL LYMPH 5 % (0-5); LYMPHOCYTES 56 % (16-44); MONOCYTES 9 % (0-5); NEUTROPHILS 30 % (28-66); PLATELET ESTIMATE INCREASED (NORMAL)
[2020-04-23 17:34] LABS: POIKILOCYTOSIS 1+
--- NOTE | 2020-04-30 10:03 | REPPI ---
ABDOMEN SERIES: 2-VIEWS HISTORY: Abdomen pain. FINDINGS: Supine and upright views demonstrate nonspecific loops of central abdominal small bowel on the right. Air and stool is seen in a nondistended colon. No evidence of obstruction. Psoas margins are intact. There is a surgical clip in the right upper quadrant and three metallic pins are noted in the right hip. There is some vascular calcification. IMPRESSION: No evidence of free air or obstruction. No significant air fluid level. Right upper quadrant clip. MTDD
== END ==
LOC: M PLAIMG 12:03 → M PLALAB 12:03
PROVIDERS: ATTEND Nurse Practitioner Family
DX: R10.12 Left upper quadrant pain (principal); I10 Essential (primary) hypertension

== ENCOUNTER → 2020-10-13 | Outpatient (CLI) | payer OTHER ==
[~2020-10-13] MED LIST changes: -ALEN70TA74 PO; +ALEN70TA82 PO; +GABA-282 PO; -GABA-843 PO; -LISI-538 PO; +LISI20TA33 PO; +METH-1164 PO; -METH1TAB40 PO; +NICO1DIS12 TD; -NICO21DI31 TD
[2020-10-13 14:03] LABS: BASO # 0.1 10^3/uL (0.0-0.2); BASO % 0.8 % (0.0-1.0); EOS # 0.1 10^3/uL (0.0-0.5); EOS % 1.1 % (0.0-3.0); HEMATOCRIT 43.2 % (36.0-47.0); HEMOGLOBIN 13.8 g/dl (12.0-15.5); LYMPH # 3.2 10^3/uL (1.5-5.0); LYMPH % 32.6 % (24.0-44.0); MEAN CORPUSCULAR HEMOGLOBIN 30.1 pg (27.0-33.0); MEAN CORPUSCULAR HGB CONC 31.9 g/dl (32.0-36.5); MEAN CORPUSCULAR VOLUME 94.1 fl (80.0-96.0); MONO # 0.9 10^3/uL (0.0-0.8); MONO % 8.9 % (2.0-8.0); NEUTROPHILS # 5.4 10^3/uL (1.5-8.5); NEUTROPHILS % 55.8 % (36.0-66.0); PLATELET COUNT, AUTOMATED 417 10^3/uL (150-450); RED BLOOD COUNT 4.59 10^6/uL (4.00-5.40); WHITE BLOOD COUNT 9.7 10^3/uL (4.0-10.0)
[2020-10-13 15:48] LABS: ALBUMIN 3.9 GM/DL (3.2-5.2); ALT/SGPT 18 U/L (12-78); AMYLASE 76 U/L (25-115); BILIRUBIN,TOTAL 0.3 MG/DL (0.2-1.0); BLOOD UREA NITROGEN 12 MG/DL (7-18); CALCIUM LEVEL 9.8 MG/DL (8.8-10.2); CARBON DIOXIDE LEVEL 30 MEQ/L (21-32); CHLORIDE LEVEL 105 MEQ/L (98-107); CREATININE FOR GFR 0.71 MG/DL (0.55-1.30); GLOMERULAR FILTRATION RATE > 60.0 (>45); GLUCOSE, FASTING 106 MG/DL (70-100); LIPASE 107 U/L (73-393); POTASSIUM SERUM 3.4 MEQ/L (3.5-5.1); SODIUM LEVEL 142 MEQ/L (136-145)
[2020-10-13 16:29] LABS: ALBUMIN 3.9 GM/DL (3.2-5.2); ALT/SGPT 19 U/L (12-78); BILIRUBIN,TOTAL 0.3 MG/DL (0.2-1.0); BLOOD UREA NITROGEN 13 MG/DL (7-18); CARBON DIOXIDE LEVEL 29 MEQ/L (21-32); CHLORIDE LEVEL 104 MEQ/L (98-107); CHOLESTEROL LEVEL 166 MG/DL (<200); CHOLESTEROL RISK RATIO 2.593 (<5); CREATININE FOR GFR 0.72 MG/DL (0.55-1.30); GLOMERULAR FILTRATION RATE > 60.0 (>45); GLUCOSE, FASTING 101 MG/DL (70-100); HDL CHOLESTEROL 64 MG/DL (>40); LDL CHOLESTEROL 77 MG/DL (<100); NON-HDL-C 102 MG/DL; POTASSIUM SERUM 3.6 MEQ/L (3.5-5.1); SODIUM LEVEL 141 MEQ/L (136-145); TRIGLYCERIDES LEVEL 124 MG/DL (<150)
[2020-10-13 16:35] LABS: TOTAL 25(OH) VITAMIN D 39.4 NG/ML (30.0-100.0)
== END ==
LOC: M PLALAB 10:53
PROVIDERS: ATTEND Physician Assistant Medical
DX: E78.2 Mixed hyperlipidemia (principal); I10 Essential (primary) hypertension; E55.9 Vitamin D deficiency, unspecified; K21.9 Gastro-esophageal reflux disease without esophagitis

== ENCOUNTER → 2020-10-28 | Outpatient (CLI) | payer OTHER ==
--- NOTE | 2020-10-28 09:11 | REP ---
INDICATION: EARLY SATIETY, LEFT UPPER QUAD PAIN, NAUSEA. COMPARISON: None. TECHNIQUE/RADIOTRACER AND DOSE: Following the intravenous administration of 1.06 mCi technetium 99 M sulfur colloid in 2 scrambled eggs and 6 oz of water, multiple images of the upper abdomen are performed in the anterior and posterior projections for 90 minutes. FINDINGS: The gastric activity is measured. At the end of 90 minutes 3% of the ingested activity has emptied from the stomach. The T1/2 is 1565 minutes which is markedly elevated. IMPRESSION: Markedly delayed gastric emptying. Only 3% of the ingested activity empties from the stomach in 90 minutes. <Electronically signed by Angelo Owen > 10/28/20 0982
== END ==
LOC: M RAD 06:18
PROVIDERS: ATTEND Physician Assistant Medical
DX: R68.81 Early satiety (principal); R11.0 Nausea; R10.12 Left upper quadrant pain
CPT/HCPCS: 78264; A9541

== ENCOUNTER → 2020-11-19 | Outpatient (CLI) | payer OTHER ==
[~2020-11-19] MED LIST changes: +ANTA PO; -DULO1CAP6; +DULO30CA9 PO; -PANT40TA29; +PANT40TA29 PO; +[UNRECOGNIZED DRUG - CODE] PO
== END ==
LOC: M LABSMTC 11:16
PROVIDERS: ATTEND Anesthesiology
DX: Z01.818 Encounter for other preprocedural examination (principal); Z20.828 Contact with and (suspected) exposure to other viral communicable diseases

== ENCOUNTER → 2021-02-17 | Outpatient (CLI) | payer OTHER ==
[~2021-02-17] MED LIST changes: +OLAN1TAB16 PO; -OLAN5TAB PO; +OMEP40CA4 PO; -OMEP40CA97 PO
[2021-02-17 14:24] LABS: HEMOGLOBIN A1c 5.1 %
[2021-02-17 14:40] LABS: ALBUMIN 3.9 GM/DL (3.2-5.2); ALT/SGPT 22 U/L (12-78); BILIRUBIN,TOTAL 0.4 MG/DL (0.2-1.0); BLOOD UREA NITROGEN 11 MG/DL (7-18); CALCIUM LEVEL 8.9 MG/DL (8.8-10.2); CARBON DIOXIDE LEVEL 28 MEQ/L (21-32); CHLORIDE LEVEL 105 MEQ/L (98-107); CREATININE FOR GFR 0.71 MG/DL (0.55-1.30); GLOMERULAR FILTRATION RATE > 60.0 (>45); GLUCOSE, FASTING 90 MG/DL (70-100); POTASSIUM SERUM 4.6 MEQ/L (3.5-5.1); SODIUM LEVEL 138 MEQ/L (136-145)
[2021-02-17 14:41] LABS: TOTAL 25(OH) VITAMIN D 36.4 NG/ML (30.0-100.0)
== END ==
LOC: M PLALAB 09:43
PROVIDERS: ATTEND Nurse Practitioner Family
DX: I10 Essential (primary) hypertension (principal); R73.01 Impaired fasting glucose; M25.473 Effusion, unspecified ankle; S22.000A Wedge compression fracture of unspecified thoracic vertebra, initial encounter for closed fracture; X58.XXXA Exposure to other specified factors, initial encounter; Y92.9 Unspecified place or not applicable

== ENCOUNTER → 2021-02-17 | Outpatient (CLI) | payer OTHER ==
[2021-02-17 14:29] LABS: HEMOGLOBIN A1c 5.1 %
[2021-02-17 14:38] LABS: FREE T4 1.04 NG/DL (0.76-1.46); THYROID STIMULATING HORMONE 1.28 uIU/ML (0.358-3.740)
== END ==
LOC: M PLALAB 09:41
PROVIDERS: ATTEND Physician Assistant Medical
DX: K31.84 Gastroparesis (principal)

== ENCOUNTER → 2021-03-30 | Outpatient (CLI) | payer OTHER ==
--- NOTE | 2021-03-30 09:46 | REP ---
INDICATION: NICOTINE DEPENDENCE COMPARISON: 12/08/2017, 05/18/2017 TECHNIQUE: Axial noncontrast images from the thoracic inlet to the upper abdomen using low-dose lung screening technique (LDCT). FINDINGS: There is a new 1.7 cm nodule with surrounding airspace disease and mild spiculation within the anterior right upper lobe (series 201; image 36). Remainder of the lung edmondson are well aerated and clear. Few mediastinal lymph nodes cannot be excluded. No effusion. No pneumothorax. Tracheobronchial tree is patent. IMPRESSION: Lung-RADS category 4 B lesion. Management recommendations include PET-CT along with tissue sampling. <Electronically signed by Gerardo Rowe > 03/30/21 0918
== END ==
LOC: M RAD 09:19
PROVIDERS: ATTEND Nurse Practitioner Family
DX: Z12.2 Encounter for screening for malignant neoplasm of respiratory organs (principal); F17.218 Nicotine dependence, cigarettes, with other nicotine-induced disorders; R91.1 Solitary pulmonary nodule

== ENCOUNTER → 2021-04-15 | Outpatient (CLI) | payer OTHER ==
[2021-04-15 16:20] LABS: PLATELET COUNT, AUTOMATED 486 10^3/uL (150-450)
[2021-04-15 16:33] LABS: INR 0.79; PROTHROMBIN TIME 11.4 SECONDS (12.7-14.5)
[2021-04-15 16:34] LABS: PARTIAL THROMBOPLASTIN TIME 27.3 SECONDS (25.9-37.0)
== END ==
LOC: M PLALAB 12:58
PROVIDERS: ATTEND Internal Medicine Pulmonary Disease
DX: R91.1 Solitary pulmonary nodule (principal)

== ENCOUNTER → 2021-05-06 | Outpatient (CLI) | payer OTHER ==
[~2021-05-06] MED LIST changes: +HOME MED LIST COMPLETE! XX SCH; +LIDOCAINE 1% MDV 20ML VIAL As Ordered ONE; +OYST1TAB PO; +SODIUM BICARBONATE 8.4% INJ 50MEQ 50 ML VIAL As Ordered ONE
--- NOTE | 2021-05-06 09:30 | REP ---
INDICATION: POST RIGHT LUNG BIOPSY, 1 VIEW, PA INSPIRATION. COMPARISON: Comparison chest x-ray is from September 17, 2019. TECHNIQUE: PA view in inspiration. Post biopsy chest x-ray. FINDINGS: There is no evidence of pneumothorax or hydrothorax. Pleural angles are sharp. Cardiomediastinal silhouette is unremarkable. A subtle density projects over the right perihilar region which is felt to represent the target of the CT guided biopsy. IMPRESSION: No complication is seen. <Electronically signed by Ernesto Trevino > 05/06/21 0980
[2021-05-06 11:28] VITALS: BP 139/77
--- NOTE | 2021-05-06 12:54 | REP ---
INDICATION: RUL LUNG NODULE. COMPARISON: None. TECHNIQUE: The procedure is performed by Suzi Ivey [facility], under the direct supervision of Dr. Trevino. The risks and benefits of the procedure were explained to the patient and informed consent was obtained both orally and written. Directly prior to the start of the procedure, a formal timeout was done in the exam room. The right upper lobe lung mass was localized using CT guidance. Skin was prepped and draped in the usual sterile fashion. Five ml of buffered lidocaine was used as a local anesthetic. FINDINGS: Using CT guidance a 19/20 gauge coaxial needle biopsy system was inserted and advanced into the nodule. Six core biopsy samples were obtained and sent to the lab. CT images obtained directly after the biopsy show no evidence of pneumothorax. After the appropriate amount of monitored convalescence the patient was discharged from the department. IMPRESSION: CT-guided right upper lobe lung biopsy. <Electronically signed by Suzi Ivey > 05/06/21 1202 <Electronically signed by Ernesto Trevino > 05/06/21 1089
== END ==
LOC: M IRPRO 08:03
PROVIDERS: ATTEND Internal Medicine Pulmonary Disease
DX: C34.91 Malignant neoplasm of unspecified part of right bronchus or lung (principal)

== ENCOUNTER → 2021-07-05 | Outpatient (CLI) | payer OTHER ==
[~2021-07-05] MED LIST changes: +CYMB60CA4 PO; -FENO48TA7 PO; +FENO48TA8 PO; -HOME MED LIST COMPLETE! XX SCH; -LIDOCAINE 1% MDV 20ML VIAL As Ordered ONE; -SODIUM BICARBONATE 8.4% INJ 50MEQ 50 ML VIAL As Ordered ONE
--- NOTE | 2021-07-06 18:43 | REP ---
INDICATION: STAGING RIGHT UPPER LOBE LUNG CANCER. COMPARISON: Low-dose CT chest, 03/30/2021. TECHNIQUE: Following the intravenous injection of 8.8 mCi of FDG and a standard uptake period, a noncontrast CT scan, followed by a PET scan were acquired along the length of the body from the base of the skull to the mid thighs. The noncontrast helical CT imaging was performed, without breath hold, for attenuation correction of PET images and anatomic correlation, but not for primary interpretation, as it is not a of standard diagnostic quality. Images were reviewed in the axial, coronal and sagittal planes. FINDINGS: Descending thoracic aorta blood pool activity level: Hepatic parenchymal soft tissue activity level: Head and neck: There is a normal distribution of FDG activity in the visualized brain parenchyma. There is calcific vascular disease of the intracranial portion of both internal carotid arteries. There is mucoperiosteal thickening of both maxillary sinuses. There is normal uptake within the soft tissues of the neck and glandular structures. There is no lymphadenopathy identified. Chest: There is upper lobe predominant centrilobular emphysema. There is an approximately 2.4 x 1.9 x 1.6 cm soft tissue density mass in the anterior segment of the upper lobe the right lung, demonstrating FDG activity, max SUV 2.4. There are no pleural effusions. The heart size is normal. There is a small pericardial effusion. There is calcific vascular disease of the thoracic aorta and coronary arteries. There is no adenopathy in the mediastinum, hilum or axilla by size criterion or metabolic activity. Abdomen and pelvis: There is a normal distribution of FDG activity within the gastrointestinal and genitourinary tract. No evidence of lymphadenopathy. There is calcific vascular disease of the abdominal aorta. The gallbladder surgically absent. There is moderate descending colonic and sigmoid diverticulosis without diverticulitis. Musculoskeletal: There are no suspicious hypermetabolic, osteolytic or osteo sclerotic lesions. There are 3 cancellous screws in the right femur proximally. IMPRESSION: 1. There is a mass in the upper lobe of the right lung demonstrating FDG activity most consistent with an inflammatory/infectious etiology. Tissue sampling may be necessary to exclude neoplasm. 2. There are no foci of abnormal FDG activity to suggest neoplastic disease. 3. Emphysema. 4. Other findings as noted. <Electronically signed by Simon Corea > 07/06/21 [id number]
== END ==
LOC: M PLARAD 08:53
PROVIDERS: ATTEND Internal Medicine Pulmonary Disease
DX: C34.11 Malignant neoplasm of upper lobe, right bronchus or lung (principal); R91.8 Other nonspecific abnormal finding of lung field; J43.9 Emphysema, unspecified
CPT/HCPCS: 78815; A9552

== ENCOUNTER 2021-10-11 11:57 | Outpatient (RCR) | payer OTHER ==
[~2021-10-11 11:57] MED LIST changes: +TIZA10TA PO; -TIZA4TAB4 PO; +ULTR1TAB PO; -ULTR37.54 PO
== END 2021-10-28 ==
LOC: M PT 11:57
PROVIDERS: ATTEND Family Medicine
DX: M25.551 Pain in right hip (principal)

== ENCOUNTER → 2021-10-15 | Outpatient (CLI) | payer OTHER ==
[~2021-10-15] MED LIST changes: +ISOVUE-370 76% 100ML VIAL As Ordered ONE
== END ==
LOC: M RAD 09:00
PROVIDERS: ATTEND Surgery
DX: C34.11 Malignant neoplasm of upper lobe, right bronchus or lung (principal); J47.9 Bronchiectasis, uncomplicated; J43.9 Emphysema, unspecified
CPT/HCPCS: 71260; Q9967

== ENCOUNTER 2022-01-25 02:17 | Emergency (ER) | payer OTHER ==
[~2022-01-25] VITALS: Ht 157.5 cm; Wt 63.6 kg
[~2022-01-25 02:17] MED LIST changes: +ALBU2.5V10 INH; -ALBU83IN INH; -ISOVUE-370 76% 100ML VIAL As Ordered ONE; +[UNRECOGNIZED DRUG - CODE] PO; -[UNRECOGNIZED DRUG - CODE] PO
[2022-01-25] MEDS ORDERED: IPRATROPIUM 0.5MG/ALBUTEROL 2.5MG INH SOL UD 3ML (DUONEB) NEB ONE (03:00)
[2022-01-25 03:19] LABS: BASO # 0.2 10^3/uL (0.0-0.2); BASO % 0.5 % (0.0-1.0); EOS # 0.1 10^3/uL (0.0-0.5); EOS % 0.1 % (0.0-3.0); HEMATOCRIT 33.5 % (36.0-47.0); HEMOGLOBIN 10.6 g/dl (12.0-15.5); LYMPH # 2.5 10^3/uL (1.5-5.0); LYMPH % 7.3 % (24.0-44.0); MEAN CORPUSCULAR HGB CONC 31.6 g/dl (32.0-36.5); MEAN CORPUSCULAR VOLUME 91.8 fl (80.0-96.0); MONO % 8.2 % (2.0-8.0); NEUTROPHILS # 27.5 10^3/uL (1.5-8.5); PLATELET COUNT, AUTOMATED 869 10^3/uL (150-450); RED BLOOD COUNT 3.65 10^6/uL (4.00-5.40)
[2022-01-25 03:41] LABS: BILIRUBIN,DIRECT 0.2 MG/DL (0.0-0.2); BILIRUBIN,TOTAL 0.4 MG/DL (0.2-1.0); CALCIUM LEVEL 7.2 MG/DL (8.8-10.2); CREATININE FOR GFR 1.06 MG/DL (0.55-1.30); GLOMERULAR FILTRATION RATE 55.6 (>45); POTASSIUM SERUM 3.6 MEQ/L (3.5-5.1); TOTAL PROTEIN 6.2 GM/DL (6.4-8.2)
[2022-01-25 03:47] LABS: RSV AMPLIFICATION NEGATIVE (NEGATIVE)
[2022-01-25 03:49] LABS: CK-MB VALUE MASS 1.3 NG/ML (<3.6); MB/CK RELATIVE INDEX 1.44 (< OR =4); MONO # 2.8 10^3/uL (0.0-0.8)
[2022-01-25 03:50] LABS: WHITE BLOOD COUNT 34.8 10^3/uL (4.0-10.0)
[2022-01-25] MEDS ORDERED: ISOVUE-370 76% 100ML VIAL As Ordered ONE (04:36)
[2022-01-25 04:57] LABS: CK-MB VALUE MASS < 1.0 NG/ML (<3.6); CPK CREATINE PHOSPHOKINASE 139 U/L (26-192); MB/CK RELATIVE INDEX 0.72 (< OR =4)
[2022-01-25] MEDS ORDERED: ONDANSETRON 4MG/2ML VIAL IV ONE (05:10)
[2022-01-25] MEDS ORDERED: IMIPENEM/CILASTATIN 500 MG in D5W MINI-BAG PLUS 100 ML IV ONE (07:00)
[2022-01-25] MEDS ORDERED: MORPHINE 4 MG/ML 1ML VIAL/SYRINGE IV PRN (07:50)
[2022-01-25] MEDS ORDERED: NS 1,000 ML IV SCH (09:55)
[2022-01-25 15:14] VITALS: BP 122/56
== END 2022-01-25 15:20 | disposition short-term general hospital (02) ==
LOC: M ED 02:17
DX: K52.9 Noninfective gastroenteritis and colitis, unspecified (principal); I10 Essential (primary) hypertension; J44.9 Chronic obstructive pulmonary disease, unspecified; E78.5 Hyperlipidemia, unspecified; Z90.2 Acquired absence of lung [part of]; J43.9 Emphysema, unspecified; S22.31XA Fracture of one rib, right side, initial encounter for closed fracture; S22.089A Unspecified fracture of T11-T12 vertebra, initial encounter for closed fracture; Z79.899 Other long term (current) drug therapy; Z88.8 Allergy status to other drugs, medicaments and biological substances; Z88.7 Allergy status to serum and vaccine; Z88.0 Allergy status to penicillin; Z88.1 Allergy status to other antibiotic agents; Z88.5 Allergy status to narcotic agent; Z88.6 Allergy status to analgesic agent
CPT/HCPCS: 71045; 71260; 74177; 80048; 80076; 81001; 82550; 82553; 83605; 83690; 85025; 87040; 87088; 87186; 87631; 93005; 93041; 94640; 96361; 96365; 96366; 96375; 99285; J0743; J2270; J2405; Q9967

== ENCOUNTER 2022-02-04 18:02 | Inpatient (IN) | payer MEDICARE, MEDICAID ==
[2022-02-04 18:52] LABS: HEMATOCRIT 25.1 % (36.0-47.0); HEMOGLOBIN 7.9 g/dl (12.0-15.5); MEAN CORPUSCULAR HEMOGLOBIN 28.3 pg (27.0-33.0); MEAN CORPUSCULAR HGB CONC 31.5 g/dl (32.0-36.5); PLATELET COUNT, AUTOMATED 585 10^3/uL (150-450); RED BLOOD COUNT 2.79 10^6/uL (4.00-5.40); WHITE BLOOD COUNT 11.3 10^3/uL (4.0-10.0)
[2022-02-04 19:11] LABS: BLOOD UREA NITROGEN 7 MG/DL (7-18); CALCIUM LEVEL 5.7 MG/DL (8.8-10.2); CARBON DIOXIDE LEVEL 22 MEQ/L (21-32); CHLORIDE LEVEL 111 MEQ/L (98-107); CREATININE FOR GFR 0.85 MG/DL (0.55-1.30); GLOMERULAR FILTRATION RATE > 60.0 (>45); GLUCOSE, FASTING 105 MG/DL (70-100); POTASSIUM SERUM 2.9 MEQ/L (3.5-5.1); SODIUM LEVEL 143 MEQ/L (136-145)
[2022-02-04] MEDS ORDERED: CALCIUM GLUCONATE 1,000 MG in D5W MINI-BAG PLUS 100 ML IV ONE (19:15)
[2022-02-04] MEDS ORDERED: POTASSIUM CHLORIDE 10MEQ SR TABLET PO ONE ×2 (19:15)
[2022-02-04] MEDS ORDERED: KCL 10MEQ/100ML SWI (KRUN) 10 MEQ in IV 1 EA IV ONE ×5 (19:15→19:45)
[2022-02-04] MEDS: NS 1,000 ML IV SCH (20:05)
[2022-02-04] MEDS ORDERED: ISOVUE-370 76% 100ML VIAL As Ordered ONE (20:08)
[2022-02-04 20:26] LABS: ALBUMIN 1.7 GM/DL (3.2-5.2); ALT/SGPT 10 U/L (12-78); BILIRUBIN,DIRECT < 0.1 MG/DL (0.0-0.2); BILIRUBIN,TOTAL 0.2 MG/DL (0.2-1.0); LIPASE 298 U/L (73-393); NT-PRO BNP 2530 PG/ML (<125); TOTAL PROTEIN 6.3 GM/DL (6.4-8.2)
[2022-02-04] MEDS ORDERED: PIPERACILLIN/TAZOBACTAM SOD 4.5 GM in D5W MINI-BAG PLUS 50 ML IV ONE (22:00)
[2022-02-04] MEDS ORDERED: ONDANSETRON 4MG 2ML VIAL IV ONE (22:00)
[2022-02-05] VITALS (12 sets, daily range): BP systolic 114–167; BP diastolic 70–88
[2022-02-05] MEDS ORDERED: MORPHINE 2 MG/ML 1ML VIAL IV ONE (01:00)
[2022-02-05] MEDS ORDERED: ALPRAZolam 0.5 MG TAB PO ONE (01:00)
[2022-02-05] MEDS ORDERED: ATORVASTATIN 20 MG TAB PO ONE (01:55)
[2022-02-05] MEDS ORDERED: traZODone 100 MG TAB PO ONE (01:55)
[2022-02-05] MEDS ORDERED: methocarbamoL 500 MG TAB PO ONE (01:55)
[2022-02-05] MEDS ORDERED: GABAPENTIN 300 MG CAP PO ONE (01:55)
[2022-02-05] MEDS ORDERED: FENOFIBRATE 48MG TABLET (TRICOR) PO ONE (02:13)
[2022-02-05] MEDS: PANTOPRAZOLE SODIUM 40 MG in D5W 50 ML IV SCH ×2 (02:24→07:00)
[2022-02-05] MEDS: MORPHINE 4 MG/ML 1ML VIAL/SYRINGE IV SCH ×3 (02:25→11:10)
[2022-02-05] MEDS: NS 1,000 ML IV SCH (05:52)
[2022-02-05] MEDS ORDERED: FUROSEMIDE 20MG/2ML VIAL (J1940) IV ONE (07:25)
[2022-02-05] MEDS ORDERED: PIPERACILLIN/TAZOBACTAM SOD 3.375 GM in D5W MINI-BAG PLUS 50 ML IV ONE (07:25)
[2022-02-05 08:20] LABS: HEMATOCRIT 26.9 % (36.0-47.0); HEMOGLOBIN 8.8 g/dl (12.0-15.5); MEAN CORPUSCULAR HEMOGLOBIN 29.1 pg (27.0-33.0); MEAN CORPUSCULAR HGB CONC 32.7 g/dl (32.0-36.5); MEAN CORPUSCULAR VOLUME 89.1 fl (80.0-96.0); RED BLOOD COUNT 3.02 10^6/uL (4.00-5.40); WHITE BLOOD COUNT 7.8 10^3/uL (4.0-10.0)
[2022-02-05 08:24] LABS: PLATELET COUNT, AUTOMATED 407 10^3/uL (150-450)
[2022-02-05 08:41] LABS: BASOPHILS 2 % (0-1); EOSINOPHILS 2 % (0-3); LYMPHOCYTES 25 % (16-44); MONOCYTES 7 % (0-5); MYELOCYTES 2 % (0-0); NEUTROPHILS 61 % (28-66)
[2022-02-05 08:42] LABS: PLATELET ESTIMATE INCREASED (NORMAL)
[2022-02-05 08:43] LABS: OVALOCYTES 1+
[2022-02-05 08:50] LABS: ALBUMIN 1.4 GM/DL (3.2-5.2); ALT/SGPT 8 U/L (12-78); BILIRUBIN,TOTAL 0.4 MG/DL (0.2-1.0); BLOOD UREA NITROGEN 6 MG/DL (7-18); CALCIUM LEVEL 5.8 MG/DL (8.8-10.2); CARBON DIOXIDE LEVEL 22 MEQ/L (21-32); CHLORIDE LEVEL 114 MEQ/L (98-107); CREATININE FOR GFR 0.75 MG/DL (0.55-1.30); GLOMERULAR FILTRATION RATE > 60.0 (>45); GLUCOSE, FASTING 81 MG/DL (70-100); GLUCOSE, FASTING 89 MG/DL (70-100); MAGNESIUM LEVEL 0.5 MG/DL (1.8-2.4); POTASSIUM SERUM 3.1 MEQ/L (3.5-5.1); POTASSIUM SERUM 3.4 MEQ/L (3.5-5.1); SODIUM LEVEL 144 MEQ/L (136-145); SODIUM LEVEL 146 MEQ/L (136-145); TOTAL PROTEIN 5.5 GM/DL (6.4-8.2)
[2022-02-05] MEDS ORDERED: PANTOPRAZOLE 40MG VIAL IV SCH (09:00)
[2022-02-05] MEDS ORDERED: KCL 10MEQ/100ML SWI (KRUN) 10 MEQ in IV 1 EA IV ONE (09:05)
[2022-02-05] MEDS ORDERED: MAG SULF 1GM/100ML (MAG RUN) 1 GM in IV 1 EA IV ONE ×2 (09:05→12:05)
[2022-02-05] MEDS ORDERED: CALCIUM GLUCONATE 1,000 MG in D5W MINI-BAG PLUS 100 ML IV ONE ×2 (12:05→20:00)
[2022-02-05] MEDS ORDERED: HOME MED LIST COMPLETE! XX SCH (13:55)
[2022-02-05] MEDS ORDERED: FOLI1TAB11 PO (13:55)
[2022-02-05] MEDS ORDERED: B-1100TA2 PO (13:55)
[2022-02-05] MEDS: KCL 20MEQ in NS 1000ML 1,000 ML IV SCH (14:54)
[2022-02-05] MEDS ORDERED: ALBUTEROL SULFATE 2.5 MG/0.5 ML INH NEB SOLN INH PRN (16:35)
[2022-02-05] MEDS: MORPHINE 4 MG/ML 1ML VIAL/SYRINGE IV PRN ×2 (16:57→21:50)
[2022-02-05 18:01] LABS: HEMATOCRIT 31.9 % (36.0-47.0); HEMOGLOBIN 10.6 g/dl (12.0-15.5); MEAN CORPUSCULAR HEMOGLOBIN 29.7 pg (27.0-33.0); MEAN CORPUSCULAR HGB CONC 33.2 g/dl (32.0-36.5); MEAN CORPUSCULAR VOLUME 89.4 fl (80.0-96.0); PLATELET COUNT, AUTOMATED 460 10^3/uL (150-450); RED BLOOD COUNT 3.57 10^6/uL (4.00-5.40); WHITE BLOOD COUNT 9.3 10^3/uL (4.0-10.0)
[2022-02-05 18:35] LABS: BLOOD UREA NITROGEN 5 MG/DL (7-18); CREATININE FOR GFR 0.79 MG/DL (0.55-1.30); GLUCOSE, FASTING 117 MG/DL (70-100)
[2022-02-05 18:36] LABS: CALCIUM LEVEL 5.9 MG/DL (8.8-10.2); CARBON DIOXIDE LEVEL 22 MEQ/L (21-32); CHLORIDE LEVEL 113 MEQ/L (98-107); GLOMERULAR FILTRATION RATE > 60.0 (>45); MAGNESIUM LEVEL 0.9 MG/DL (1.8-2.4); POTASSIUM SERUM 3.1 MEQ/L (3.5-5.1); SODIUM LEVEL 143 MEQ/L (136-145)
[2022-02-05] MEDS ORDERED: POTASSIUM CHLORIDE 10MEQ SR TABLET PO ONE (20:00)
[2022-02-05] MEDS: MAG SULF 1GM/100ML (MAG RUN) 1 GM in IV 1 EA IV SCH ×2 (20:46→21:51)
[2022-02-05] MEDS: GABAPENTIN 300 MG CAP PO SCH (20:47)
[2022-02-05] MEDS: traZODone 100 MG TAB PO SCH (20:47)
[2022-02-05] MEDS: TOLTERODINE (DETROL) 2 MG TAB PO SCH (20:48)
[2022-02-05] MEDS: PANTOPRAZOLE 40MG TAB (PROTONIX) PO SCH (20:48)
[2022-02-05] MEDS: methocarbamoL 500 MG TAB PO SCH (20:48)
[2022-02-05] MEDS: LORATADINE 10 MG TAB PO SCH (20:48)
[2022-02-05] MEDS: ATORVASTATIN 20 MG TAB PO SCH (20:49)
[2022-02-06] VITALS: BP 107/60
[2022-02-06] MEDS: KCL 10MEQ/100ML SWI (KRUN) 10 MEQ in IV 1 EA IV SCH ×4 (00:39→05:44)
[2022-02-06] MEDS: MORPHINE 4 MG/ML 1ML VIAL/SYRINGE IV PRN ×5 (02:40→21:35)
[2022-02-06 04:00] VITALS: BP 114/70
[2022-02-06] MEDS: KCL 20MEQ in NS 1000ML 1,000 ML IV SCH ×2 (05:44→08:00)
[2022-02-06 07:40] LABS: HEMATOCRIT 31.2 % (36.0-47.0); HEMOGLOBIN 10.2 g/dl (12.0-15.5); MEAN CORPUSCULAR HEMOGLOBIN 29.9 pg (27.0-33.0); MEAN CORPUSCULAR HGB CONC 32.7 g/dl (32.0-36.5); MEAN CORPUSCULAR VOLUME 91.5 fl (80.0-96.0); PLATELET COUNT, AUTOMATED 460 10^3/uL (150-450); RED BLOOD COUNT 3.41 10^6/uL (4.00-5.40); WHITE BLOOD COUNT 7.9 10^3/uL (4.0-10.0)
[2022-02-06 08:11] VITALS: BP 150/73
[2022-02-06 08:12] LABS: BLOOD UREA NITROGEN 4 MG/DL (7-18); CALCIUM LEVEL 6.4 MG/DL (8.8-10.2); CARBON DIOXIDE LEVEL 20 MEQ/L (21-32); CHLORIDE LEVEL 117 MEQ/L (98-107); CREATININE FOR GFR 0.59 MG/DL (0.55-1.30); GLOMERULAR FILTRATION RATE > 60.0 (>45); GLUCOSE, FASTING 71 MG/DL (70-100); MAGNESIUM LEVEL 1.7 MG/DL (1.8-2.4); PHOSPHORUS LEVEL 3.8 MG/DL (2.5-4.9); POTASSIUM SERUM 4.3 MEQ/L (3.5-5.1); SODIUM LEVEL 145 MEQ/L (136-145)
[2022-02-06] MEDS: DULoxetine 30MG CAPSULE (CYMBALTA) PO SCH (08:41)
[2022-02-06] MEDS: THIAMINE 100 MG TAB PO SCH (08:42)
[2022-02-06] MEDS: PANTOPRAZOLE 40MG TAB (PROTONIX) PO SCH ×2 (08:42→21:34)
[2022-02-06] MEDS: FOLIC ACID 1 MG TAB PO SCH (08:42)
[2022-02-06] MEDS: GABAPENTIN 300 MG CAP PO SCH ×2 (08:43→21:33)
[2022-02-06] MEDS: methocarbamoL 500 MG TAB PO SCH ×2 (08:43→21:34)
[2022-02-06] MEDS: TOLTERODINE (DETROL) 2 MG TAB PO SCH ×2 (08:44→21:33)
[2022-02-06] MEDS ORDERED: MAG SULF 1GM/100ML (MAG RUN) 1 GM in IV 1 EA IV ONE (08:50)
[2022-02-06 09:44] LABS: FERRITIN 737 NG/ML (8-252); IRON (FE) 24 UG/DL (50-170); TOTAL IRON BINDING CAPACITY 96 UG/DL (250-450)
[2022-02-06] MEDS ORDERED: CALCIUM GLUCONATE 1,000 MG in D5W MINI-BAG PLUS 100 ML IV ONE (10:00)
[2022-02-06] MEDS: OYSTER SHELL CALCIUM 500 MG TAB PO SCH (10:29)
[2022-02-06 11:52] VITALS: BP 128/70
[2022-02-06] MEDS: ACETAMINOPHEN 500 MG TAB PO PRN (15:27)
[2022-02-06 15:58] VITALS: BP 135/75
[2022-02-06] MEDS: LOMOTIL 2.5MG/0.025MG TABLET PO SCH ×2 (16:15→21:46)
[2022-02-06 18:13] LABS: HEMATOCRIT 34.2 % (36.0-47.0); HEMOGLOBIN 11.3 g/dl (12.0-15.5); MEAN CORPUSCULAR HEMOGLOBIN 30.1 pg (27.0-33.0); PLATELET COUNT, AUTOMATED 474 10^3/uL (150-450); RED BLOOD COUNT 3.76 10^6/uL (4.00-5.40); WHITE BLOOD COUNT 7.5 10^3/uL (4.0-10.0)
[2022-02-06 18:36] LABS: BLOOD UREA NITROGEN 4 MG/DL (7-18); CALCIUM LEVEL 6.7 MG/DL (8.8-10.2); CARBON DIOXIDE LEVEL 21 MEQ/L (21-32); CHLORIDE LEVEL 115 MEQ/L (98-107); CREATININE FOR GFR 0.64 MG/DL (0.55-1.30); GLOMERULAR FILTRATION RATE > 60.0 (>45); GLUCOSE, FASTING 104 MG/DL (70-100); MAGNESIUM LEVEL 1.7 MG/DL (1.8-2.4); POTASSIUM SERUM 3.6 MEQ/L (3.5-5.1); SODIUM LEVEL 143 MEQ/L (136-145)
[2022-02-06 20:00] VITALS: BP 133/67
[2022-02-06] MEDS: ATORVASTATIN 20 MG TAB PO SCH (21:33)
[2022-02-06] MEDS: traZODone 100 MG TAB PO SCH (21:33)
[2022-02-06] MEDS: LORATADINE 10 MG TAB PO SCH (21:34)
[2022-02-07] VITALS: BP 138/66
[2022-02-07] MEDS: ACETAMINOPHEN 500 MG TAB PO PRN (00:36)
[2022-02-07] MEDS: KCL 20MEQ in NS 1000ML 1,000 ML IV SCH (02:30)
[2022-02-07] MEDS: MORPHINE 4 MG/ML 1ML VIAL/SYRINGE IV PRN ×5 (02:38→21:43)
[2022-02-07 04:00] VITALS: BP 141/72
[2022-02-07 05:59] LABS: HEMATOCRIT 32.1 % (36.0-47.0); HEMOGLOBIN 10.2 g/dl (12.0-15.5); MEAN CORPUSCULAR HEMOGLOBIN 29.1 pg (27.0-33.0); MEAN CORPUSCULAR HGB CONC 31.8 g/dl (32.0-36.5); MEAN CORPUSCULAR VOLUME 91.7 fl (80.0-96.0); PLATELET COUNT, AUTOMATED 468 10^3/uL (150-450); WHITE BLOOD COUNT 9.4 10^3/uL (4.0-10.0)
[2022-02-07 06:19] LABS: BLOOD UREA NITROGEN 4 MG/DL (7-18); CALCIUM LEVEL 6.9 MG/DL (8.8-10.2); CARBON DIOXIDE LEVEL 20 MEQ/L (21-32); CHLORIDE LEVEL 116 MEQ/L (98-107); CREATININE FOR GFR 0.61 MG/DL (0.55-1.30); GLOMERULAR FILTRATION RATE > 60.0 (>45); GLUCOSE, FASTING 102 MG/DL (70-100); MAGNESIUM LEVEL 1.6 MG/DL (1.8-2.4); PHOSPHORUS LEVEL 3.1 MG/DL (2.5-4.9); POTASSIUM SERUM 4.2 MEQ/L (3.5-5.1); SODIUM LEVEL 144 MEQ/L (136-145)
[2022-02-07 08:00] VITALS: BP 153/86
[2022-02-07] MEDS: LOMOTIL 2.5MG/0.025MG TABLET PO SCH ×3 (08:26→20:19)
[2022-02-07] MEDS: TOLTERODINE (DETROL) 2 MG TAB PO SCH ×2 (08:26→20:18)
[2022-02-07] MEDS: DULoxetine 30MG CAPSULE (CYMBALTA) PO SCH (08:27)
[2022-02-07] MEDS: GABAPENTIN 300 MG CAP PO SCH ×2 (08:27→20:18)
[2022-02-07] MEDS: methocarbamoL 500 MG TAB PO SCH ×2 (08:27→20:18)
[2022-02-07] MEDS: OYSTER SHELL CALCIUM 500 MG TAB PO SCH (08:28)
[2022-02-07] MEDS: PANTOPRAZOLE 40MG TAB (PROTONIX) PO SCH ×2 (08:28→20:18)
[2022-02-07] MEDS: THIAMINE 100 MG TAB PO SCH ×2 (08:28→08:33)
[2022-02-07] MEDS: FOLIC ACID 1 MG TAB PO SCH (08:32)
[2022-02-07] MEDS: MAG SULF 1GM/100ML (MAG RUN) 1 GM in IV 1 EA IV SCH ×2 (10:10→12:03)
[2022-02-07 12:00] VITALS: BP 138/81
[2022-02-07 13:09] LABS: VITAMIN B12 LEVEL 240 PG/ML (247-911)
[2022-02-07 15:35] VITALS: BP 159/87
[2022-02-07] MEDS ORDERED: IPRATROPIUM 0.5MG/ALBUTEROL 2.5MG INH SOL UD 3ML (DUONEB) NEB PRN (17:55)
[2022-02-07] MEDS ORDERED: DIMETHICONE 2% OINTMENT(VANICREAM) 70GM TUBE TOP PRN (18:00)
[2022-02-07 18:34] LABS: HEMATOCRIT 35.5 % (36.0-47.0); HEMOGLOBIN 11.4 g/dl (12.0-15.5); MEAN CORPUSCULAR HGB CONC 32.1 g/dl (32.0-36.5); MEAN CORPUSCULAR VOLUME 93.4 fl (80.0-96.0); PLATELET COUNT, AUTOMATED 549 10^3/uL (150-450)
[2022-02-07 20:00] VITALS: BP 152/71
[2022-02-07] MEDS ORDERED: IPRATROPIUM 0.5MG/ALBUTEROL 2.5MG INH SOL UD 3ML (DUONEB) NEB SCH (20:00)
[2022-02-07] MEDS: traZODone 100 MG TAB PO SCH (20:18)
[2022-02-07] MEDS: ATORVASTATIN 20 MG TAB PO SCH (20:19)
[2022-02-07] MEDS: LORATADINE 10 MG TAB PO SCH (20:19)
[2022-02-07 22:53] LABS: BLOOD UREA NITROGEN 4 MG/DL (7-18); CALCIUM LEVEL 7.8 MG/DL (8.8-10.2); CARBON DIOXIDE LEVEL 22 MEQ/L (21-32); CHLORIDE LEVEL 112 MEQ/L (98-107); CREATININE FOR GFR 0.61 MG/DL (0.55-1.30); GLOMERULAR FILTRATION RATE > 60.0 (>45); GLUCOSE, FASTING 103 MG/DL (70-100); SODIUM LEVEL 139 MEQ/L (136-145)
[2022-02-08] VITALS: BP 143/73
[2022-02-08] MEDS: MORPHINE 4 MG/ML 1ML VIAL/SYRINGE IV PRN ×6 (02:26→23:37)
[2022-02-08 04:00] VITALS: BP 140/64
[2022-02-08 06:08] LABS: HEMATOCRIT 32.3 % (36.0-47.0); HEMOGLOBIN 10.4 g/dl (12.0-15.5); MEAN CORPUSCULAR HEMOGLOBIN 29.8 pg (27.0-33.0); MEAN CORPUSCULAR HGB CONC 32.2 g/dl (32.0-36.5); MEAN CORPUSCULAR VOLUME 92.6 fl (80.0-96.0); PLATELET COUNT, AUTOMATED 459 10^3/uL (150-450); RED BLOOD COUNT 3.49 10^6/uL (4.00-5.40); WHITE BLOOD COUNT 9.2 10^3/uL (4.0-10.0)
[2022-02-08 06:49] LABS: BLOOD UREA NITROGEN 3 MG/DL (7-18); CALCIUM LEVEL 8.1 MG/DL (8.8-10.2); CARBON DIOXIDE LEVEL 22 MEQ/L (21-32); CHLORIDE LEVEL 113 MEQ/L (98-107); CREATININE FOR GFR 0.56 MG/DL (0.55-1.30); GLOMERULAR FILTRATION RATE > 60.0 (>45); GLUCOSE, FASTING 80 MG/DL (70-100); MAGNESIUM LEVEL 1.8 MG/DL (1.8-2.4); PHOSPHORUS LEVEL 2.9 MG/DL (2.5-4.9); POTASSIUM SERUM 3.5 MEQ/L (3.5-5.1); SODIUM LEVEL 141 MEQ/L (136-145)
[2022-02-08 07:56] LABS: ALBUMIN 1.4 GM/DL (3.2-5.2); ALT/SGPT 6 U/L (12-78); BILIRUBIN,TOTAL 0.3 MG/DL (0.2-1.0); TOTAL PROTEIN 5.8 GM/DL (6.4-8.2)
[2022-02-08 08:00] VITALS: BP 190/110
[2022-02-08] MEDS: GABAPENTIN 300 MG CAP PO SCH ×2 (08:21→20:26)
[2022-02-08] MEDS: LOMOTIL 2.5MG/0.025MG TABLET PO SCH ×3 (08:21→20:27)
[2022-02-08] MEDS: OYSTER SHELL CALCIUM 500 MG TAB PO SCH (08:21)
[2022-02-08] MEDS: THIAMINE 100 MG TAB PO SCH (08:21)
[2022-02-08] MEDS: methocarbamoL 500 MG TAB PO SCH ×2 (08:22→20:26)
[2022-02-08] MEDS: PANTOPRAZOLE 40MG TAB (PROTONIX) PO SCH ×2 (08:22→20:26)
[2022-02-08] MEDS: TOLTERODINE (DETROL) 2 MG TAB PO SCH ×2 (08:22→20:26)
[2022-02-08] MEDS: DULoxetine 30MG CAPSULE (CYMBALTA) PO SCH (08:22)
[2022-02-08] MEDS: FOLIC ACID 1 MG TAB PO SCH (08:22)
[2022-02-08] MEDS: TORSEMIDE 20 MG TAB PO SCH ×2 (09:00→17:11)
[2022-02-08] MEDS: CYANOCOBALAMIN 1,000MCG/ML VIAL (J3420) IM SCH (11:00)
[2022-02-08] MEDS: MAG SULF 1GM/100ML (MAG RUN) 1 GM in IV 1 EA IV SCH ×2 (11:55→13:53)
[2022-02-08] MEDS ORDERED: POTASSIUM CHLORIDE 10MEQ SR TABLET PO ONE (12:00)
[2022-02-08 12:15] VITALS: BP 143/77
[2022-02-08] MEDS: HEPARIN SOD (PORCINE) 5000UNITS/ML 1ML VIAL/SYRINGE SQ SCH ×2 (13:53→21:35)
[2022-02-08 16:00] VITALS: BP 139/72
[2022-02-08 20:00] VITALS: BP 158/85
[2022-02-08] MEDS: traZODone 100 MG TAB PO SCH (20:26)
[2022-02-08] MEDS: LORATADINE 10 MG TAB PO SCH (20:26)
[2022-02-08] MEDS: ATORVASTATIN 20 MG TAB PO SCH (20:27)
[2022-02-09] VITALS: BP 139/75
[2022-02-09 04:00] VITALS: BP 150/75
[2022-02-09] MEDS: MORPHINE 4 MG/ML 1ML VIAL/SYRINGE IV PRN ×3 (04:01→13:03)
[2022-02-09] MEDS: HEPARIN SOD (PORCINE) 5000UNITS/ML 1ML VIAL/SYRINGE SQ SCH (05:01)
[2022-02-09 06:23] LABS: HEMATOCRIT 31.6 % (36.0-47.0); HEMOGLOBIN 10.1 g/dl (12.0-15.5); MEAN CORPUSCULAR HEMOGLOBIN 29.1 pg (27.0-33.0); MEAN CORPUSCULAR VOLUME 91.1 fl (80.0-96.0); PLATELET COUNT, AUTOMATED 468 10^3/uL (150-450); RED BLOOD COUNT 3.47 10^6/uL (4.00-5.40); WHITE BLOOD COUNT 9.5 10^3/uL (4.0-10.0)
[2022-02-09 06:45] LABS: BLOOD UREA NITROGEN 5 MG/DL (7-18); CALCIUM LEVEL 8.4 MG/DL (8.8-10.2); CARBON DIOXIDE LEVEL 26 MEQ/L (21-32); CHLORIDE LEVEL 110 MEQ/L (98-107); CREATININE FOR GFR 0.68 MG/DL (0.55-1.30); GLOMERULAR FILTRATION RATE > 60.0 (>45); GLUCOSE, FASTING 90 MG/DL (70-100); MAGNESIUM LEVEL 1.8 MG/DL (1.8-2.4); PHOSPHORUS LEVEL 3.5 MG/DL (2.5-4.9); POTASSIUM SERUM 3.7 MEQ/L (3.5-5.1); SODIUM LEVEL 140 MEQ/L (136-145)
[2022-02-09 08:00] VITALS: BP 140/70
[2022-02-09] MEDS: GABAPENTIN 300 MG CAP PO SCH (08:39)
[2022-02-09] MEDS: CYANOCOBALAMIN 1,000MCG/ML VIAL (J3420) IM SCH (08:39)
[2022-02-09] MEDS: OYSTER SHELL CALCIUM 500 MG TAB PO SCH (08:40)
[2022-02-09] MEDS: methocarbamoL 500 MG TAB PO SCH (08:40)
[2022-02-09] MEDS: TOLTERODINE (DETROL) 2 MG TAB PO SCH (08:40)
[2022-02-09] MEDS: THIAMINE 100 MG TAB PO SCH (08:40)
[2022-02-09] MEDS: TORSEMIDE 20 MG TAB PO SCH (08:41)
[2022-02-09] MEDS: PANTOPRAZOLE 40MG TAB (PROTONIX) PO SCH (08:41)
[2022-02-09] MEDS: DULoxetine 30MG CAPSULE (CYMBALTA) PO SCH (08:41)
[2022-02-09 08:42] VITALS: BP 140/70
[2022-02-09] MEDS: FOLIC ACID 1 MG TAB PO SCH (08:42)
[2022-02-09] MEDS: LOMOTIL 2.5MG/0.025MG TABLET PO SCH (08:52)
[2022-02-09] MEDS ORDERED: MAGNESIUM OXIDE 400MG TAB (MAG-OX) PO ONE (10:00)
[2022-02-09] MEDS ORDERED: B-12100020 PO (10:08)
[2022-02-09] MEDS ORDERED: TORS20TA2 PO (10:11)
[2022-02-09] MEDS ORDERED: DIPH2.5T15 PO ×3 (10:11→10:19)
[2022-02-09] MEDS ORDERED: OXYC-517 PO (10:17)
[2022-02-09] MEDS ORDERED: MORP15TA2 PO (10:47)
== END 2022-02-09 13:40 | disposition home health service (06) | DRG 812 ==
LOC: EDBD 18:02 → M ED 18:02 → M ED INP 02-05 14:29 → M PED 02-05 14:30 → M PCU 02-05 15:02
PROVIDERS: ADMIT Internal Medicine; ATTEND Internal Medicine
PROC: 30233N1 Transfusion of Nonautologous Red Blood Cells into Peripheral Vein, Percutaneous Approach (ICD-10-PCS; principal; 2022-02-05)
DX: D62 Acute posthemorrhagic anemia (principal); R18.8 Other ascites; E46 Unspecified protein-calorie malnutrition; E83.42 Hypomagnesemia; E87.6 Hypokalemia; E78.5 Hyperlipidemia, unspecified; Z93.2 Ileostomy status; F32.A Depression, unspecified; K21.9 Gastro-esophageal reflux disease without esophagitis; M81.0 Age-related osteoporosis without current pathological fracture; Z93.0 Tracheostomy status; R62.7 Adult failure to thrive; I10 Essential (primary) hypertension; E83.51 Hypocalcemia; J44.9 Chronic obstructive pulmonary disease, unspecified; Z85.118 Personal history of other malignant neoplasm of bronchus and lung; R29.6 Repeated falls; Z79.899 Other long term (current) drug therapy; Z88.7 Allergy status to serum and vaccine; Z88.0 Allergy status to penicillin; Z88.5 Allergy status to narcotic agent; Z88.8 Allergy status to other drugs, medicaments and biological substances; Z88.6 Allergy status to analgesic agent; F41.9 Anxiety disorder, unspecified; F17.200 Nicotine dependence, unspecified, uncomplicated

== ENCOUNTER → 2022-02-25 | Outpatient (REF) | payer OTHER ==
[~2022-02-25] MED LIST changes: +B-1100TA2 PO; +B-12100020 PO; +DIPH2.5T15 PO; +MORP15TA2 PO; +OXYC-517 PO; +TORS20TA2 PO
[2022-02-25 17:27] LABS: APPEARANCE, URINE HAZY (CLEAR); BACTERIA, URINE AUTO 1+ (NEGATIVE); BILIRUBIN, URINE AUTO NEGATIVE (NEGATIVE); BLOOD, URINE BLOOD 2+ (NEGATIVE); COLOR, URINE YELLOW (YELLOW); GLUCOSE, URINE (UA) AUTO NEGATIVE (NEGATIVE); KETONE, URINE AUTO NEGATIVE (NEGATIVE); LEUKOCYTE ESTERASE, URINE AUTO 1+ (NEGATIVE); NITRITE, URINE AUTO NEGATIVE (NEGATIVE); PROTEIN, URINE AUTO 1+ mg/dL (NEGATIVE); RBC, URINE AUTO 1 /HPF (0-3); SPECIFIC GRAVITY URINE AUTO 1.009 (1.002-1.035); SQUAMOUS EPITHELIAL CELL UR AU 3 /HPF (0-6); UROBILINOGEN, URINE AUTO 0.2 mg/dL (0.0-2.0); WBC, URINE AUTO 18 /HPF (0-3)
== END ==
LOC: M SHH 16:21
PROVIDERS: ATTEND Physician Assistant
DX: R30.0 Dysuria (principal)

== ENCOUNTER → 2022-03-02 | Outpatient (REF) | payer OTHER ==
[2022-03-02 15:14] LABS: BASO # 0.1 10^3/uL (0.0-0.2); BASO % 0.9 % (0.0-1.0); EOS # 0.2 10^3/uL (0.0-0.5); HEMATOCRIT 38.2 % (36.0-47.0); HEMOGLOBIN 11.8 g/dl (12.0-15.5); LYMPH # 2.8 10^3/uL (1.5-5.0); LYMPH % 29.8 % (24.0-44.0); MEAN CORPUSCULAR HEMOGLOBIN 29.4 pg (27.0-33.0); MEAN CORPUSCULAR HGB CONC 30.9 g/dl (32.0-36.5); MEAN CORPUSCULAR VOLUME 95.3 fl (80.0-96.0); MONO # 0.8 10^3/uL (0.0-0.8); MONO % 8.7 % (2.0-8.0); NEUTROPHILS # 5.4 10^3/uL (1.5-8.5); NEUTROPHILS % 56.6 % (36.0-66.0); PLATELET COUNT, AUTOMATED 477 10^3/uL (150-450); RED BLOOD COUNT 4.01 10^6/uL (4.00-5.40); WHITE BLOOD COUNT 9.5 10^3/uL (4.0-10.0)
[2022-03-02 18:30] LABS: ALBUMIN 2.7 GM/DL (3.2-5.2); ALT/SGPT 12 U/L (12-78); BILIRUBIN,TOTAL 0.2 MG/DL (0.2-1.0); BLOOD UREA NITROGEN 9 MG/DL (7-18); CARBON DIOXIDE LEVEL 23 MEQ/L (21-32); CHLORIDE LEVEL 109 MEQ/L (98-107); CREATININE FOR GFR 0.86 MG/DL (0.55-1.30); FERRITIN 440 NG/ML (8-252); GLOMERULAR FILTRATION RATE > 60.0 (>45); GLUCOSE, FASTING 98 MG/DL (70-100); IRON (FE) 44 UG/DL (50-170); MAGNESIUM LEVEL 0.7 MG/DL (1.8-2.4); SODIUM LEVEL 139 MEQ/L (136-145); TOTAL PROTEIN 6.9 GM/DL (6.4-8.2); VITAMIN B12 LEVEL 415 PG/ML (247-911)
== END ==
LOC: M LAB REF 14:32
PROVIDERS: ATTEND Physician Assistant
DX: D64.9 Anemia, unspecified (principal); E87.8 Other disorders of electrolyte and fluid balance, not elsewhere classified

== ENCOUNTER → 2022-03-15 | Outpatient (REF) | payer OTHER | LOC: M SHH 12:50 | PROVIDERS: ATTEND Physician Assistant | DX: E83.42 Hypomagnesemia (principal) ==

== ENCOUNTER 2022-03-24 17:53 | Emergency (ER) | payer OTHER | END 2022-03-24 19:13 | disposition left against medical advice (07) | LOC: M ED 17:53 → EDBD 17:53 → M ED 19:13 | DX: Z53.21 Procedure and treatment not carried out due to patient leaving prior to being seen by health care provider (principal) ==

== ENCOUNTER → 2022-05-19 | Outpatient (CLI) | payer MEDICARE, OTHER ==
[2022-05-19 16:11] LABS: CREATININE FOR GFR 1.08 MG/DL (0.55-1.30); GLOMERULAR FILTRATION RATE 54.2 (>45)
== END ==
LOC: M LAB 14:23
PROVIDERS: ATTEND Surgery
DX: Z01.810 Encounter for preprocedural cardiovascular examination (principal)

== ENCOUNTER → 2022-05-20 | Outpatient (CLI) | payer OTHER, MEDICARE ==
[~2022-05-20] MED LIST changes: +GASTROGRAFIN SOLUTION 30ML (Q9963) As Ordered ONE; +ISOVUE-370 76% 100ML VIAL As Ordered ONE
== END ==
LOC: M RAD 09:13
PROVIDERS: ATTEND Surgery
DX: K43.3 Parastomal hernia with obstruction, without gangrene (principal); J43.9 Emphysema, unspecified; J90 Pleural effusion, not elsewhere classified; Z90.49 Acquired absence of other specified parts of digestive tract; K57.30 Diverticulosis of large intestine without perforation or abscess without bleeding; M51.46 Schmorl's nodes, lumbar region; Z90.710 Acquired absence of both cervix and uterus
CPT/HCPCS: 74178; Q9963; Q9967

== ENCOUNTER → 2022-05-30 | Outpatient (CLI) | payer MEDICARE, OTHER ==
[~2022-05-30] MED LIST changes: +BUDE10.7; -GASTROGRAFIN SOLUTION 30ML (Q9963) As Ordered ONE; -ISOVUE-370 76% 100ML VIAL As Ordered ONE; +SOLI5TAB PO
== END ==
LOC: M LABSMTC 09:05
PROVIDERS: ATTEND Anesthesiology
DX: Z01.812 Encounter for preprocedural laboratory examination (principal); Z20.822 Contact with and (suspected) exposure to COVID-19

== ENCOUNTER → 2022-06-02 | Outpatient (CLI) | payer MEDICARE, OTHER ==
[~2022-06-02] MED LIST changes: -BUDE10.7; +BUDE10.7 PO; +MIRT-10 PO
[2022-06-02 13:48] LABS: INR 0.84; PROTHROMBIN TIME 11.7 SECONDS (12.5-14.5)
[2022-06-02 13:49] LABS: PARTIAL THROMBOPLASTIN TIME 27.6 SECONDS (24.8-34.2)
[2022-06-02 14:20] LABS: BASO # 0.1 10^3/uL (0.0-0.2); EOS # 0.2 10^3/uL (0.0-0.5); HEMATOCRIT 41.8 % (36.0-47.0); HEMOGLOBIN 12.7 g/dl (12.0-15.5); LYMPH # 2.1 10^3/uL (1.5-5.0); LYMPH % 23.8 % (24.0-44.0); MEAN CORPUSCULAR HEMOGLOBIN 28.5 pg (27.0-33.0); MEAN CORPUSCULAR HGB CONC 30.4 g/dl (32.0-36.5); MEAN CORPUSCULAR VOLUME 93.9 fl (80.0-96.0); MONO # 0.9 10^3/uL (0.0-0.8); MONO % 9.8 % (2.0-8.0); NEUTROPHILS # 5.4 10^3/uL (1.5-8.5); NEUTROPHILS % 61.2 % (36.0-66.0); PLATELET COUNT, AUTOMATED 414 10^3/uL (150-450); RED BLOOD COUNT 4.45 10^6/uL (4.00-5.40); WHITE BLOOD COUNT 8.8 10^3/uL (4.0-10.0)
[2022-06-02 15:34] LABS: ALBUMIN 3.4 GM/DL (3.2-5.2); ALT/SGPT 14 U/L (12-78); BILIRUBIN,TOTAL 0.3 MG/DL (0.2-1.0); BLOOD UREA NITROGEN 18 MG/DL (7-18); CALCIUM LEVEL 8.6 MG/DL (8.8-10.2); CARBON DIOXIDE LEVEL 24 MEQ/L (21-32); CHLORIDE LEVEL 111 MEQ/L (98-107); CHOLESTEROL LEVEL 121 MG/DL (<200); CREATININE FOR GFR 0.98 MG/DL (0.55-1.30); FREE T4 0.98 NG/DL (0.76-1.46); GLOMERULAR FILTRATION RATE > 60.0 (>45); GLUCOSE, FASTING 88 MG/DL (70-100); HDL CHOLESTEROL 63 MG/DL (>40); LDL CHOLESTEROL 44 MG/DL (<100); MAGNESIUM LEVEL 1.7 MG/DL (1.8-2.4); NON-HDL-C 58 MG/DL; NT-PRO BNP 139 PG/ML (<125); POTASSIUM SERUM 3.9 MEQ/L (3.5-5.1); SODIUM LEVEL 142 MEQ/L (136-145); TOTAL PROTEIN 6.8 GM/DL (6.4-8.2); TRIGLYCERIDES LEVEL 69 MG/DL (<150)
== END ==
LOC: M PLALAB 10:28
PROVIDERS: ATTEND Family Medicine
DX: I10 Essential (primary) hypertension (principal)

== ENCOUNTER 2022-06-03 09:09 | Inpatient (IN) | payer MEDICARE, OTHER ==
[~2022-06-03] VITALS: Ht 157.5 cm; Wt 60.3 kg
[2022-06-03] MEDS: SOLIFENACIN 5 MG TAB PO SCH (09:00)
[~2022-06-03 09:09] MED LIST changes: +CIPROFLOXACIN 400 MG in IV 1 EA IV ONE; -MIRT-10 PO; +metroNIDAZOLE 500 MG in IV 1 EA IV ONE
[2022-06-03] MEDS ORDERED: propofoL 200 MG/20 ML VIAL As Ordered ONE (09:33)
[2022-06-03] MEDS ORDERED: ROCURONIUM BROMIDE 50 MG/5 ML VIAL As Ordered ONE (09:33)
[2022-06-03] MEDS ORDERED: LIDOCAINE 2% 100MG/5ML SDV (FOR ANES.) As Ordered ONE (09:33)
[2022-06-03] MEDS ORDERED: fentaNYL 250 MCG/5 ML INJECTION As Ordered ONE (09:34)
[2022-06-03] MEDS ORDERED: MIDAZOLAM INJ 2MG/2ML VIAL (J2250 PER 1MG) As Ordered ONE (09:34)
[2022-06-03] MEDS ORDERED: LR 1,000 ML IV SCH ×2 (10:10→14:30)
[2022-06-03] MEDS ORDERED: MIRT-10 PO (10:33)
[2022-06-03] MEDS ORDERED: DESFLURANE 240 ML INHALANT As Ordered ONE (10:33)
[2022-06-03] MEDS ORDERED: HOME MED LIST COMPLETE! XX SCH (10:40)
[2022-06-03] MEDS ORDERED: BUPIVACAINE HCL 0.25% 10ML VIAL As Ordered ONE (13:31)
[2022-06-03] MEDS ORDERED: BUPIVACAINE LIPOSOME/PF 1.3% 20ML VIAL (13.3MG/ML)(EXPAREL) As Ordered ONE (13:31)
[2022-06-03] MEDS ORDERED: ACETAMINOPHEN 1000MG 100ML IV BTL (OFIRMEV) (J0131 PER 10MG) As Ordered ONE (13:46)
[2022-06-03] MEDS: IPRATROPIUM 0.5MG/ALBUTEROL 2.5MG INH SOL UD 3ML (DUONEB) NEB SCH ×2 (14:00→20:00)
[2022-06-03] MEDS ORDERED: fentaNYL 100 MCG/2 ML INJECTION IV PRN (14:30)
[2022-06-03] MEDS ORDERED: IPRATROPIUM 0.5MG/ALBUTEROL 2.5MG INH SOL UD 3ML (DUONEB) NEB PRN (14:30)
[2022-06-03] MEDS ORDERED: MORPHINE 2 MG/ML 1ML VIAL IV PRN (14:30)
[2022-06-03] MEDS ORDERED: ONDANSETRON 4MG 2ML VIAL IV PRN (14:30)
[2022-06-03] MEDS: HYDROMORPHONE HCL 0.5 MG/ 0.5 ML SYRINGE (J1170 PER 1) IV PRN ×4 (14:48→15:04)
[2022-06-03 15:37] VITALS: BP 152/89
[2022-06-03] MEDS: NS 1,000 ML IV SCH (15:46)
[2022-06-03] MEDS: oxyCODONE 5MG TAB PO PRN ×2 (15:47→16:28)
[2022-06-03 16:04] VITALS: BP 152/70
[2022-06-03 17:10] VITALS: BP 137/69
[2022-06-03 18:00] VITALS: BP 132/69
[2022-06-03 19:00] VITALS: BP 130/68
[2022-06-03] MEDS: MORPHINE 2 MG/ML 1ML VIAL IV PRN (19:49)
[2022-06-03 19:55] VITALS: BP 145/75
[2022-06-03] MEDS: ATORVASTATIN 20 MG TAB PO SCH (20:23)
[2022-06-03] MEDS: methocarbamoL 500 MG TAB PO SCH (20:23)
[2022-06-03] MEDS: metroNIDAZOLE 500 MG in IV 1 EA IV SCH (20:23)
[2022-06-03] MEDS: GABAPENTIN 300 MG CAP PO SCH (20:23)
[2022-06-03] MEDS: LORATADINE 10 MG TAB PO SCH (20:23)
[2022-06-03] MEDS: traZODone 100 MG TAB PO SCH (20:23)
[2022-06-03] MEDS: MIRTAZAPINE 7.5MG PER 1/2 TABLET PO SCH (20:23)
[2022-06-04] VITALS (7 sets, daily range): BP systolic 127–151; BP diastolic 75–79; O2SAT 94
[2022-06-04] MEDS: NS 1,000 ML IV SCH ×4 (00:52→22:30)
[2022-06-04] MEDS: CIPROFLOXACIN 400 MG in IV 1 EA IV SCH ×2 (00:52→12:49)
[2022-06-04] MEDS: MORPHINE 2 MG/ML 1ML VIAL IV PRN ×6 (00:53→22:21)
[2022-06-04] MEDS: IPRATROPIUM 0.5MG/ALBUTEROL 2.5MG INH SOL UD 3ML (DUONEB) NEB SCH ×4 (01:22→20:00)
[2022-06-04] MEDS: metroNIDAZOLE 500 MG in IV 1 EA IV SCH ×3 (05:08→20:47)
[2022-06-04 07:01] LABS: HEMATOCRIT 42.1 % (36.0-47.0); HEMOGLOBIN 13.1 g/dl (12.0-15.5); MEAN CORPUSCULAR HEMOGLOBIN 28.5 pg (27.0-33.0); MEAN CORPUSCULAR HGB CONC 31.1 g/dl (32.0-36.5); MEAN CORPUSCULAR VOLUME 91.5 fl (80.0-96.0); PLATELET COUNT, AUTOMATED 387 10^3/uL (150-450); WHITE BLOOD COUNT 14.8 10^3/uL (4.0-10.0)
[2022-06-04 07:29] LABS: BLOOD UREA NITROGEN 10 MG/DL (7-18); CALCIUM LEVEL 8.1 MG/DL (8.8-10.2); CARBON DIOXIDE LEVEL 24 MEQ/L (21-32); CHLORIDE LEVEL 108 MEQ/L (98-107); CREATININE FOR GFR 0.69 MG/DL (0.55-1.30); GLOMERULAR FILTRATION RATE > 60.0 (>45); GLUCOSE, FASTING 124 MG/DL (70-100); POTASSIUM SERUM 3.5 MEQ/L (3.5-5.1); SODIUM LEVEL 139 MEQ/L (136-145)
[2022-06-04] MEDS ORDERED: KETOROLAC 30 MG/ML 1ML VIAL IV PRN (07:45)
[2022-06-04] MEDS: DULoxetine 30MG CAPSULE (CYMBALTA) PO SCH (09:00)
[2022-06-04] MEDS: ONDANSETRON 4MG 2ML VIAL IV PRN ×2 (09:49→20:47)
[2022-06-04] MEDS: PANTOPRAZOLE 40MG VIAL IV SCH (09:49)
[2022-06-04] MEDS: GABAPENTIN 300 MG CAP PO SCH ×2 (10:20→20:47)
[2022-06-04] MEDS: methocarbamoL 500 MG TAB PO SCH ×2 (10:21→20:47)
[2022-06-04] MEDS: SOLIFENACIN 5 MG TAB PO SCH (10:21)
[2022-06-04] MEDS: ATORVASTATIN 20 MG TAB PO SCH (20:47)
[2022-06-04] MEDS: traZODone 100 MG TAB PO SCH (20:47)
[2022-06-04] MEDS: LORATADINE 10 MG TAB PO SCH (20:47)
[2022-06-04] MEDS: MIRTAZAPINE 7.5MG PER 1/2 TABLET PO SCH (21:00)
[2022-06-05] VITALS (7 sets, daily range): BP systolic 104–150; BP diastolic 62–76; O2SAT 89
[2022-06-05] MEDS: CIPROFLOXACIN 400 MG in IV 1 EA IV SCH ×3 (00:51→23:52)
[2022-06-05] MEDS: MORPHINE 4 MG/ML 1ML VIAL/SYRINGE IV PRN (01:25)
[2022-06-05] MEDS: metroNIDAZOLE 500 MG in IV 1 EA IV SCH ×3 (04:03→20:18)
[2022-06-05] MEDS: NS 1,000 ML IV SCH ×3 (04:04→23:53)
[2022-06-05 06:26] LABS: HEMATOCRIT 36.8 % (36.0-47.0); HEMOGLOBIN 11.5 g/dl (12.0-15.5); MEAN CORPUSCULAR HEMOGLOBIN 29.2 pg (27.0-33.0); MEAN CORPUSCULAR HGB CONC 31.3 g/dl (32.0-36.5); MEAN CORPUSCULAR VOLUME 93.4 fl (80.0-96.0); PLATELET COUNT, AUTOMATED 301 10^3/uL (150-450); RED BLOOD COUNT 3.94 10^6/uL (4.00-5.40); WHITE BLOOD COUNT 14.3 10^3/uL (4.0-10.0)
[2022-06-05] MEDS: MORPHINE 2 MG/ML 1ML VIAL IV PRN ×4 (06:43→20:20)
[2022-06-05 07:00] LABS: BLOOD UREA NITROGEN 8 MG/DL (7-18); CALCIUM LEVEL 7.6 MG/DL (8.8-10.2); CARBON DIOXIDE LEVEL 23 MEQ/L (21-32); CHLORIDE LEVEL 107 MEQ/L (98-107); CREATININE FOR GFR 0.68 MG/DL (0.55-1.30); GLOMERULAR FILTRATION RATE > 60.0 (>45); GLUCOSE, FASTING 106 MG/DL (70-100); POTASSIUM SERUM 3.1 MEQ/L (3.5-5.1); SODIUM LEVEL 138 MEQ/L (136-145)
[2022-06-05] MEDS: IPRATROPIUM 0.5MG/ALBUTEROL 2.5MG INH SOL UD 3ML (DUONEB) NEB SCH ×3 (08:00→20:50)
[2022-06-05] MEDS ORDERED: POTASSIUM CHLORIDE 10% LIQ 20 MEQ/15 ML UDC PO ONE (08:00)
[2022-06-05] MEDS ORDERED: POTASSIUM CHLORIDE 10MEQ SR TABLET PO SCH (09:00)
[2022-06-05] MEDS: SOLIFENACIN 5 MG TAB PO SCH (09:13)
[2022-06-05] MEDS: methocarbamoL 500 MG TAB PO SCH ×2 (09:13→20:19)
[2022-06-05] MEDS: GABAPENTIN 300 MG CAP PO SCH ×2 (09:13→20:18)
[2022-06-05] MEDS: ACETAMINOPHEN 500 MG TAB PO PRN ×2 (09:14→21:10)
[2022-06-05] MEDS: PANTOPRAZOLE 40MG VIAL IV SCH (09:14)
[2022-06-05] MEDS: ONDANSETRON 4MG 2ML VIAL IV PRN (09:14)
[2022-06-05] MEDS: DULoxetine 30MG CAPSULE (CYMBALTA) PO SCH (09:14)
[2022-06-05] MEDS: LORATADINE 10 MG TAB PO SCH (20:18)
[2022-06-05] MEDS: ATORVASTATIN 20 MG TAB PO SCH (20:18)
[2022-06-05] MEDS: MIRTAZAPINE 7.5MG PER 1/2 TABLET PO SCH (20:19)
[2022-06-05] MEDS: traZODone 100 MG TAB PO SCH (20:19)
[2022-06-06] MEDS: MORPHINE 4 MG/ML 1ML VIAL/SYRINGE IV PRN (00:40)
[2022-06-06] MEDS: IPRATROPIUM 0.5MG/ALBUTEROL 2.5MG INH SOL UD 3ML (DUONEB) NEB SCH ×3 (01:35→13:20)
[2022-06-06 02:00] VITALS: BP 108/52
[2022-06-06] MEDS: MORPHINE 2 MG/ML 1ML VIAL IV PRN ×3 (04:21→12:13)
[2022-06-06] MEDS: metroNIDAZOLE 500 MG in IV 1 EA IV SCH ×2 (04:25→13:27)
[2022-06-06 05:29] VITALS: BP 120/67
[2022-06-06 07:40] LABS: HEMATOCRIT 34.5 % (36.0-47.0); HEMOGLOBIN 10.8 g/dl (12.0-15.5); MEAN CORPUSCULAR HEMOGLOBIN 28.9 pg (27.0-33.0); MEAN CORPUSCULAR HGB CONC 31.3 g/dl (32.0-36.5); MEAN CORPUSCULAR VOLUME 92.2 fl (80.0-96.0); PLATELET COUNT, AUTOMATED 293 10^3/uL (150-450); RED BLOOD COUNT 3.74 10^6/uL (4.00-5.40); WHITE BLOOD COUNT 10.2 10^3/uL (4.0-10.0)
[2022-06-06 08:25] LABS: BLOOD UREA NITROGEN 6 MG/DL (7-18); CALCIUM LEVEL 7.4 MG/DL (8.8-10.2); CARBON DIOXIDE LEVEL 24 MEQ/L (21-32); CHLORIDE LEVEL 110 MEQ/L (98-107); CREATININE FOR GFR 0.68 MG/DL (0.55-1.30); GLOMERULAR FILTRATION RATE > 60.0 (>45); GLUCOSE, FASTING 118 MG/DL (70-100); POTASSIUM SERUM 3.2 MEQ/L (3.5-5.1); SODIUM LEVEL 140 MEQ/L (136-145)
[2022-06-06] MEDS: GABAPENTIN 300 MG CAP PO SCH (08:28)
[2022-06-06] MEDS: DULoxetine 30MG CAPSULE (CYMBALTA) PO SCH (08:29)
[2022-06-06 08:30] VITALS: BP 120/67
[2022-06-06] MEDS: SOLIFENACIN 5 MG TAB PO SCH (08:31)
[2022-06-06] MEDS: methocarbamoL 500 MG TAB PO SCH (08:31)
[2022-06-06] MEDS: PANTOPRAZOLE 40MG VIAL IV SCH (08:32)
[2022-06-06] MEDS ORDERED: POTASSIUM CHLORIDE 10MEQ SR TABLET PO ONE (09:00)
[2022-06-06] MEDS ORDERED: POTASSIUM CHLORIDE 10% LIQ 20 MEQ/15 ML UDC PO ONE (12:00)
[2022-06-06] MEDS: CIPROFLOXACIN 400 MG in IV 1 EA IV SCH (12:13)
[2022-06-06 14:00] VITALS: BP 156/96
== END 2022-06-06 15:15 | disposition home or self-care (01) | DRG 331 ==
LOC: M SDC 09:09 → M MS5PR 15:29 → M SDC 06-04 09:08 → M MS5PR 06-05 07:39
PROVIDERS: ADMIT Surgery; ATTEND Surgery
PROC: 0WQF0ZZ Repair Abdominal Wall, Open Approach (ICD-10-PCS; 2022-06-03)
PROC: 0DBF0ZZ Excision of Right Large Intestine, Open Approach (ICD-10-PCS; principal; 2022-06-03 12:15)
DX: K43.5 Parastomal hernia without obstruction or gangrene (principal); Z93.9 Artificial opening status, unspecified; E87.6 Hypokalemia

== ENCOUNTER → 2022-06-14 | Outpatient (REF) | payer MEDICARE, MEDICAID ==
[~2022-06-14] MED LIST changes: -CIPROFLOXACIN 400 MG in IV 1 EA IV ONE; +MIRT-10 PO; -metroNIDAZOLE 500 MG in IV 1 EA IV ONE
== END ==
LOC: M SFHCPLAZ 12:14
PROVIDERS: ATTEND Physician Assistant
DX: E83.51 Hypocalcemia (principal); Z53.9 Procedure and treatment not carried out, unspecified reason

== ENCOUNTER → 2022-07-21 | Outpatient (REF) | payer MEDICARE, MEDICAID | LOC: M SFHCPLAZ 14:35 | PROVIDERS: ATTEND Physician Assistant | DX: R05.1 Acute cough (principal) ==

== ENCOUNTER 2022-07-26 15:24 | Emergency (ER) | payer MEDICARE, MEDICAID ==
[~2022-07-26] VITALS: Ht 157.5 cm; Wt 59.1 kg
[2022-07-26 16:17] VITALS: BP 118/60
[2022-07-26 18:21] LABS: BASO % 0.5 % (0.0-1.0); EOS % 0.2 % (0.0-3.0); HEMATOCRIT 45.3 % (36.0-47.0); HEMOGLOBIN 14.6 g/dl (12.0-15.5); LYMPH # 2.3 10^3/uL (1.5-5.0); LYMPH % 28.2 % (24.0-44.0); MEAN CORPUSCULAR HEMOGLOBIN 28.7 pg (27.0-33.0); MEAN CORPUSCULAR HGB CONC 32.2 g/dl (32.0-36.5); MEAN CORPUSCULAR VOLUME 89.2 fl (80.0-96.0); MONO % 12.1 % (2.0-8.0); NEUTROPHILS # 4.7 10^3/uL (1.5-8.5); NEUTROPHILS % 57.3 % (36.0-66.0); PLATELET COUNT, AUTOMATED 429 10^3/uL (150-450); RED BLOOD COUNT 5.08 10^6/uL (4.00-5.40); WHITE BLOOD COUNT 8.2 10^3/uL (4.0-10.0)
[2022-07-26 19:01] LABS: ALBUMIN 3.1 G/DL (3.2-5.2); BILIRUBIN,DIRECT 0.2 MG/DL (<0.4); BILIRUBIN,TOTAL 0.2 MG/DL (0.3-1.2); CREATININE FOR GFR 1.03 MG/DL (0.55-1.30); GLOMERULAR FILTRATION RATE 57.3 (>45); POTASSIUM SERUM 3.7 MMOL/L (3.5-5.1)
[2022-07-26] MEDS ORDERED: MORPHINE 4 MG/ML 1ML VIAL IV ONE (20:40)
[2022-07-26] MEDS ORDERED: NS 1,000 ML IV ONE (20:40)
[2022-07-26] MEDS ORDERED: ONDANSETRON 4MG 2ML VIAL IV ONE (20:40)
[2022-07-26] MEDS ORDERED: ISOVUE-370 76% 100ML VIAL As Ordered ONE (20:41)
[2022-07-26] MEDS ORDERED: MONT10TA97 PO (21:19)
[2022-07-26] MEDS ORDERED: EAR6.5DR10 OTIC (21:19)
[2022-07-26] MEDS ORDERED: GABA600T4 PO (21:19)
[2022-07-26] MEDS ORDERED: BENZ-18 PO (21:19)
[2022-07-26] MEDS ORDERED: CALC600T86 PO (21:19)
[2022-07-26] MEDS ORDERED: HYDR-4571 PO (21:19)
[2022-07-26] MEDS ORDERED: DOXY100T27 PO (21:19)
[2022-07-26] MEDS ORDERED: HOME MED LIST COMPLETE! XX SCH (21:25)
[2022-07-26 22:01] LABS: RSV AMPLIFICATION NEGATIVE (NEGATIVE)
== END 2022-07-27 02:44 | disposition home or self-care (01) ==
LOC: EDBD 15:24 → M ED 15:24
DX: K94.19 Other complications of enterostomy (principal); K43.9 Ventral hernia without obstruction or gangrene; R11.2 Nausea with vomiting, unspecified; R19.7 Diarrhea, unspecified; I10 Essential (primary) hypertension; N17.9 Acute kidney failure, unspecified; G25.81 Restless legs syndrome; F43.10 Post-traumatic stress disorder, unspecified; F19.10 Other psychoactive substance abuse, uncomplicated; F17.200 Nicotine dependence, unspecified, uncomplicated; F10.10 Alcohol abuse, uncomplicated; Z79.899 Other long term (current) drug therapy; Z88.0 Allergy status to penicillin; Z88.1 Allergy status to other antibiotic agents; Z88.5 Allergy status to narcotic agent; Z88.6 Allergy status to analgesic agent; Z88.7 Allergy status to serum and vaccine; Z88.8 Allergy status to other drugs, medicaments and biological substances
CPT/HCPCS: 36415; 74177; 80048; 80076; 83605; 83690; 85025; 87507; 87631; 96374; 96375; 99284; J2270; J2405; Q9967

== ENCOUNTER → 2022-11-18 | Outpatient (CLI) | payer MEDICARE, MEDICAID ==
[~2022-11-18] MED LIST changes: +BENZ-18 PO; +CALC600T86 PO; +DOXY100T27 PO; +EAR6.5DR10 OTIC; +HYDR-4571 PO; +MONT10TA97 PO
== END ==
LOC: M PLAIMG 09:00 → M PLALAB 09:00
PROVIDERS: ATTEND Physician Assistant
DX: R05.1 Acute cough (principal)

== ENCOUNTER → 2023-09-18 | Outpatient (CLI) | payer MEDICARE ==
[~2023-09-18] MED LIST changes: +LORA-1041 PO; -LORA-674 PO; -OXYB5TAB10 PO; +OXYB5TAB14 PO
[2023-09-18 10:22] LABS: BASO # 0.1 10^3/uL (0.0-0.2); BASO % 1.3 % (0.0-1.0); EOS # 0.2 10^3/uL (0.0-0.5); EOS % 2.3 % (0.0-3.0); HEMOGLOBIN 13.4 g/dl (12.0-15.5); LYMPH # 2.6 10^3/uL (1.5-5.0); LYMPH % 30.1 % (24.0-44.0); MEAN CORPUSCULAR HEMOGLOBIN 29.6 pg (27.0-33.0); MEAN CORPUSCULAR HGB CONC 31.9 g/dl (32.0-36.5); MEAN CORPUSCULAR VOLUME 92.7 fl (80.0-96.0); MONO # 0.8 10^3/uL (0.0-0.8); MONO % 9.1 % (2.0-8.0); NEUTROPHILS # 4.9 10^3/uL (1.5-8.5); NEUTROPHILS % 55.5 % (36.0-66.0); PLATELET COUNT, AUTOMATED 396 10^3/uL (150-450); RED BLOOD COUNT 4.53 10^6/uL (4.00-5.40); WHITE BLOOD COUNT 8.8 10^3/uL (4.0-10.0)
[2023-09-18 10:45] LABS: HEMOGLOBIN A1c 5.2 % (4.0-6.0)
[2023-09-18 11:15] LABS: ALBUMIN 3.5 G/DL (3.2-5.2); ALKALINE PHOSPHATASE 45 U/L (46-116); ALT/SGPT < 9 U/L (7.0-40); AST/SGOT 11 U/L (<34); BILIRUBIN,TOTAL 0.2 MG/DL (0.3-1.2); BLOOD UREA NITROGEN 20 MG/DL (9-23); CALCIUM LEVEL 9.3 MG/DL (8.3-10.6); CARBON DIOXIDE LEVEL 29 MMOL/L (20-31); CHLORIDE LEVEL 105 MMOL/L (98-107); CHOLESTEROL LEVEL 172 MG/DL (<200); CHOLESTEROL RISK RATIO 2.78 (<5); FREE T4 1.18 NG/DL (0.89-1.76); GLOMERULAR FILTRATION RATE 52.9 (>45); GLUCOSE, FASTING 84 MG/DL (74-106); HDL CHOLESTEROL 61.8 MG/DL (>40); LDL CHOLESTEROL 84.6 MG/DL (<100); MAGNESIUM LEVEL 1.5 MG/DL (1.8-2.4); NON-HDL-C 110.2 MG/DL; POTASSIUM SERUM 4.4 MMOL/L (3.5-5.1); SODIUM LEVEL 138 MMOL/L (136-145); THYROID STIMULATING HORMONE 2.355 uIU/ML (0.55-4.78); TOTAL PROTEIN 6.6 G/DL (5.7-8.2); TRIGLYCERIDES LEVEL 128 MG/DL (<150); VITAMIN B12 LEVEL 1409 PG/ML (211-911)
== END ==
LOC: M LAB 09:27
PROVIDERS: ATTEND Physician Assistant
DX: E78.2 Mixed hyperlipidemia (principal); Z00.00 Encounter for general adult medical examination without abnormal findings; E55.9 Vitamin D deficiency, unspecified

== ENCOUNTER → 2023-09-19 | Outpatient (CLI) | payer MEDICAID, MEDICARE, OTHER ==
[~2023-09-19] MED LIST changes: +GASTROGRAFIN SOLUTION 30ML As Ordered ONE; +ISOVUE-370 76% 100ML VIAL As Ordered ONE
== END ==
LOC: M RAD 14:18
PROVIDERS: ATTEND Surgery
DX: K94.09 Other complications of colostomy (principal); K46.9 Unspecified abdominal hernia without obstruction or gangrene; K43.9 Ventral hernia without obstruction or gangrene; K76.0 Fatty (change of) liver, not elsewhere classified; K43.5 Parastomal hernia without obstruction or gangrene
CPT/HCPCS: 74160; Q9963; Q9967

== ENCOUNTER → 2023-11-09 | Outpatient (REF) | payer MEDICARE, MEDICAID ==
[~2023-11-09] MED LIST changes: +DIPH1TAB81 PO; -DIPH2.5T15 PO; -GASTROGRAFIN SOLUTION 30ML As Ordered ONE; -ISOVUE-370 76% 100ML VIAL As Ordered ONE
== END ==
LOC: M SFHCPLAZ 12:48
PROVIDERS: ATTEND Physician Assistant
DX: R32 Unspecified urinary incontinence (principal)

== ENCOUNTER → 2024-01-30 | Outpatient (CLI) | payer MEDICAID, MEDICARE, OTHER ==
[~2024-01-30] MED LIST changes: +LIQUID POLIBAR PLUS 105% w/v 750ML BTL As Ordered ONE
== END ==
LOC: M RAD 08:27
PROVIDERS: ATTEND Surgery
DX: Z90.49 Acquired absence of other specified parts of digestive tract (principal); Z93.2 Ileostomy status; K57.90 Diverticulosis of intestine, part unspecified, without perforation or abscess without bleeding

== ENCOUNTER 2024-05-09 17:28 | Inpatient (IN) | payer MEDICARE, MEDICAID ==
[~2024-05-09] VITALS: Ht 157.5 cm; Wt 64.6 kg
[~2024-05-09 17:28] MED LIST changes: +GABA-1172 PO; +GABA-1490 PO; +GABA-1635 PO; -GABA-282 PO; -GABA600T4 PO; -GABA800T4 PO; -LIQUID POLIBAR PLUS 105% w/v 750ML BTL As Ordered ONE
[2024-05-09 18:25] LABS: BASO # 0.1 10^3/uL (0.0-0.2); BASO % 0.7 % (0.0-1.0); EOS # 0.1 10^3/uL (0.0-0.5); EOS % 0.5 % (0.0-3.0); HEMATOCRIT 43.7 % (36.0-47.0); HEMOGLOBIN 14.7 g/dl (12.0-15.5); LYMPH # 2.1 10^3/uL (1.5-5.0); LYMPH % 17.2 % (24.0-44.0); MEAN CORPUSCULAR HGB CONC 33.6 g/dl (32.0-36.5); MEAN CORPUSCULAR VOLUME 86.2 fl (80.0-96.0); MONO # 1.5 10^3/uL (0.0-0.8); NEUTROPHILS # 8.3 10^3/uL (1.5-8.5); NEUTROPHILS % 68.3 % (36.0-66.0); PLATELET COUNT, AUTOMATED 523 10^3/uL (150-450); RED BLOOD COUNT 5.07 10^6/uL (4.00-5.40); WHITE BLOOD COUNT 12.1 10^3/uL (4.0-10.0)
[2024-05-09] MEDS: methylPREDNISolone 125MG 2ML VIAL IV ONE (18:26)
[2024-05-09 18:30] LABS: VENOUS BASE EXCESS 1.2 (-2.0-2.0); VENOUS HCO3 26.6 MMOL/L (23.0-27.0); VENOUS O2 SATURATION 97.4 % (60.0-80.0); VENOUS PARTIAL PRESSURE CO2 45.1 mmHg (38.0-50.0); VENOUS PH 7.389 UNITS (7.330-7.430); VENOUS STANDARD HCO3 25.5 MMOL/L
[2024-05-09] MEDS: IPRATROPIUM 0.5MG/ALBUTEROL 2.5MG INH SOL UD 3ML (DUONEB) NEB SCH (18:35)
[2024-05-09 18:40] LABS: INR 0.97; PROTHROMBIN TIME 12.6 SECONDS (12.5-14.5)
[2024-05-09 19:02] LABS: ALBUMIN 2.7 G/DL (3.2-5.2); ALKALINE PHOSPHATASE 39 U/L (46-116); ALT/SGPT 14 U/L (7.0-40); AST/SGOT 18 U/L (<34); BILIRUBIN,DIRECT 0.2 MG/DL (<0.4); BILIRUBIN,TOTAL 0.5 MG/DL (0.3-1.2); BLOOD UREA NITROGEN 6 MG/DL (9-23); CALCIUM LEVEL 9.1 MG/DL (8.3-10.6); CARBON DIOXIDE LEVEL 30 MMOL/L (20-31); CHLORIDE LEVEL 97 MMOL/L (98-107); CREATININE FOR GFR 0.72 MG/DL (0.55-1.30); GLOMERULAR FILTRATION RATE > 60.0 (>45); GLUCOSE, FASTING 106 MG/DL (74-106); POTASSIUM SERUM 3.7 MMOL/L (3.5-5.1); SODIUM LEVEL 133 MMOL/L (136-145); TOTAL PROTEIN 6.2 G/DL (5.7-8.2)
[2024-05-09 19:04] LABS: THYROXINE (T4) 8.8 UG/DL (4.5-10.9)
[2024-05-09] MEDS: LEVALBUTEROL 1.25MG 0.5ML CONCENTRATE NEB NEB ONE ×3 (20:22→20:56)
[2024-05-09] MEDS: NORCO, ANEXSIA 5/325MG TABLET (HYDROcodone/ACETAMINOPHEN) PO ONE (22:20)
[2024-05-09] MEDS ORDERED: MOM 30ML SUSPENSION UDC PO PRN (23:00)
[2024-05-09] MEDS ORDERED: ALBUTEROL SULFATE 2.5MG/0.5ML INH NEB SOLN NEB PRN (23:00)
[2024-05-09] MEDS ORDERED: CYAN100049 PO (23:41)
[2024-05-09] MEDS ORDERED: ONDA-83 PO (23:59)
[2024-05-10] MEDS: POLYTRIM OPTH DROPS 10ML OD SCH
[2024-05-10] MEDS ORDERED: GUAI400T40 PO (00:05)
[2024-05-10] MEDS ORDERED: ACET-897 PO (00:05)
[2024-05-10] MEDS ORDERED: HOME MED LIST COMPLETE! XX SCH (00:10)
[2024-05-10] MEDS: IPRATROPIUM 0.5MG/ALBUTEROL 2.5MG INH SOL UD 3ML (DUONEB) NEB SCH (02:00)
[2024-05-10] MEDS: methylPREDNISolone 125MG 2ML VIAL IV SCH (02:13)
[2024-05-10] MEDS: LEVALBUTEROL 1.25MG 0.5ML CONCENTRATE NEB NEB PRN (02:18)
[2024-05-10 06:23] LABS: HEMATOCRIT 43.8 % (36.0-47.0); HEMOGLOBIN 14.4 g/dl (12.0-15.5); MEAN CORPUSCULAR HEMOGLOBIN 28.8 pg (27.0-33.0); MEAN CORPUSCULAR HGB CONC 32.9 g/dl (32.0-36.5); MEAN CORPUSCULAR VOLUME 87.6 fl (80.0-96.0); PLATELET COUNT, AUTOMATED 464 10^3/uL (150-450); WHITE BLOOD COUNT 9.3 10^3/uL (4.0-10.0)
[2024-05-10 06:34] LABS: BLOOD UREA NITROGEN 7 MG/DL (9-23); CALCIUM LEVEL 8.8 MG/DL (8.3-10.6); CARBON DIOXIDE LEVEL 30 MMOL/L (20-31); CHLORIDE LEVEL 97 MMOL/L (98-107); CREATININE FOR GFR 0.73 MG/DL (0.55-1.30); GLOMERULAR FILTRATION RATE > 60.0 (>45); GLUCOSE, FASTING 171 MG/DL (74-106); POTASSIUM SERUM 4.1 MMOL/L (3.5-5.1); SODIUM LEVEL 132 MMOL/L (136-145)
[2024-05-10] MEDS ORDERED: [UNRECOGNIZED DRUG - MIXTURE] INH SCH (08:00)
[2024-05-10] MEDS: NICOTINE 21MG/24HR 1 EA TRANSDERMAL TD SCH (08:24)
[2024-05-10] MEDS: DULoxetine 30MG CAPSULE (CYMBALTA) PO SCH (08:25)
[2024-05-10] MEDS: ENOXAPARIN 40MG/0.4ML SYRINGE (J1650 PER 10MG) SC SCH (08:25)
[2024-05-10] MEDS: NORCO, ANEXSIA 5/325MG TABLET (HYDROcodone/ACETAMINOPHEN) PO SCH (08:26)
[2024-05-10] MEDS: CYANOCOBALAMIN 500 MCG TAB PO SCH (08:26)
[2024-05-10] MEDS: guaiFENesin 200 MG TAB PO SCH (08:27)
[2024-05-10] MEDS: PANTOPRAZOLE 40MG TAB (PROTONIX) PO SCH (08:27)
[2024-05-10] MEDS: ONDANSETRON 4MG TAB PO SCH (08:27)
[2024-05-10] MEDS: GABAPENTIN 300 MG CAP PO SCH (08:27)
[2024-05-10] MEDS: SOLIFENACIN 5 MG TAB PO SCH (08:49)
[2024-05-10] MEDS ORDERED: DULoxetine 30MG CAPSULE (CYMBALTA) PO SCH ×2 (09:00)
[2024-05-10] MEDS: DOXYCYCLINE HYCLATE 100MG TABLET PO SCH (13:24)
[2024-05-10] MEDS: TIOTROPIUM INHALER/CAPSULE (SPIRIVA) INH SCH (14:05)
[2024-05-10] MEDS: ACETAMINOPHEN 325 MG TAB PO PRN (17:08)
[2024-05-10] MEDS: methocarbamoL 500 MG TAB PO SCH (20:12)
[2024-05-10] MEDS: traZODone 100 MG TAB PO SCH (20:13)
[2024-05-10] MEDS: LORATADINE 10 MG TAB PO SCH (20:13)
[2024-05-10 20:19] VITALS: BP 153/80; TEMP 98.1; O2SAT 91
[2024-05-10] MEDS: SYMBICORT 160/4.5MCG INHALER 6GM INH SCH (20:38)
[2024-05-10] MEDS: FENOFIBRATE 48MG TABLET (TRICOR) PO SCH (21:00)
[2024-05-10] MEDS: NYSTATIN 100,000 UNITS/GM TOPICAL PWD 15GM TOP SCH (21:00)
[2024-05-11 00:01] VITALS: BP 146/76; TEMP 97.7; O2SAT 92
[2024-05-11 04:00] VITALS: BP 152/92; TEMP 98.2; O2SAT 95
[2024-05-11 07:15] LABS: HEMATOCRIT 43.4 % (36.0-47.0); HEMOGLOBIN 14.5 g/dl (12.0-15.5); MEAN CORPUSCULAR HEMOGLOBIN 29.2 pg (27.0-33.0); MEAN CORPUSCULAR HGB CONC 33.4 g/dl (32.0-36.5); MEAN CORPUSCULAR VOLUME 87.3 fl (80.0-96.0); PLATELET COUNT, AUTOMATED 461 10^3/uL (150-450); RED BLOOD COUNT 4.97 10^6/uL (4.00-5.40)
[2024-05-11 07:39] LABS: BLOOD UREA NITROGEN 12 MG/DL (9-23); CALCIUM LEVEL 9.1 MG/DL (8.3-10.6); CARBON DIOXIDE LEVEL 31 MMOL/L (20-31); CHLORIDE LEVEL 101 MMOL/L (98-107); CREATININE FOR GFR 0.72 MG/DL (0.55-1.30); GLOMERULAR FILTRATION RATE > 60.0 (>45); GLUCOSE, FASTING 152 MG/DL (74-106); POTASSIUM SERUM 4.3 MMOL/L (3.5-5.1); SODIUM LEVEL 137 MMOL/L (136-145)
[2024-05-11 08:00] VITALS: BP 152/92; TEMP 98.2; O2SAT 93
[2024-05-11] MEDS: TIOTROPIUM INHALER/CAPSULE (SPIRIVA) INH SCH (08:00)
[2024-05-11 11:54] VITALS: BP 167/98; TEMP 98.6; O2SAT 93
[2024-05-11] MEDS ORDERED: ISOVUE-370 76% 100ML VIAL As Ordered ONE (13:03)
[2024-05-11] MEDS ORDERED: NALOXONE INJ 0.4MG/1ML VIAL IV PRN (14:05)
[2024-05-11] MEDS: SODIUM CHLORIDE HYPERTONIC 3% 4ML NEB SOL INH SCH (14:15)
[2024-05-11] MEDS: guaiFENesin ER TABLET 600 MG TAB PO SCH (14:34)
[2024-05-11] MEDS: MORPHINE SULFATE ORAL SOLN 10 MG/5 ML UD PO PRN (14:34)
[2024-05-11 17:03] LABS: APPEARANCE, URINE CLEAR (CLEAR); BACTERIA, URINE AUTO NEGATIVE (NEGATIVE); BILIRUBIN, URINE AUTO NEGATIVE (NEGATIVE); BLOOD, URINE BLOOD NEGATIVE (NEGATIVE); COLOR, URINE YELLOW (YELLOW); GLUCOSE, URINE (UA) AUTO NEGATIVE (NEGATIVE); KETONE, URINE AUTO NEGATIVE (NEGATIVE); LEUKOCYTE ESTERASE, URINE AUTO NEGATIVE (NEGATIVE); MUCUS, URINE SMALL (NEGATIVE); NITRITE, URINE AUTO NEGATIVE (NEGATIVE); PROTEIN, URINE AUTO 2+ mg/dL (NEGATIVE); RBC, URINE AUTO 0 /HPF (0-3); SPECIFIC GRAVITY URINE AUTO 1.045 (1.002-1.035); SQUAMOUS EPITHELIAL CELL UR AU 0 /HPF (0-6); UROBILINOGEN, URINE AUTO 0.2 mg/dL (0.0-2.0); WBC, URINE AUTO 1 /HPF (0-3)
[2024-05-11 20:03] VITALS: BP 158/88; TEMP 97.7; O2SAT 94
[2024-05-12 00:01] VITALS: BP 152/82; TEMP 99.2; O2SAT 96
[2024-05-12 03:45] VITALS: BP 158/87; TEMP 97.7; O2SAT 95
[2024-05-12 08:00] VITALS: BP 161/97; TEMP 98.1; O2SAT 98
[2024-05-12 11:36] VITALS: BP 162/96; TEMP 97.2; O2SAT 92
[2024-05-12] MEDS ORDERED: KETOROLAC 30 MG/ML 1ML VIAL IV ONE (12:20)
[2024-05-12] MEDS: NORCO, ANEXSIA 5/325MG TABLET (HYDROcodone/ACETAMINOPHEN) PO ONE (12:29)
[2024-05-12] MEDS: ACETAMINOPHEN *IV* 1,000 MG in IV 1 EA IV ONE (13:02)
[2024-05-12] MEDS: LIDOCAINE 5% (LIDODERM) PATCH TD ONE (13:02)
[2024-05-12] MEDS: MORPHINE 10MG/0.5ML ORAL CONCENTRATE SOLUTION U/D PO ONE (13:03)
[2024-05-12 16:00] VITALS: BP 150/91; TEMP 98.1; O2SAT 98
[2024-05-12] MEDS: NORCO, ANEXSIA 5/325MG TABLET (HYDROcodone/ACETAMINOPHEN) PO PRN (16:11)
[2024-05-12] MEDS: GLYCOPYRROLATE INJ 0.2 MG/ML 2 ML VIAL NEB SCH (20:26)
[2024-05-12 21:27] VITALS: BP 165/95; O2SAT 93
[2024-05-13] VITALS (8 sets, daily range): BP systolic 123–171; BP diastolic 76–107; TEMP 97.5–97.9; O2SAT 90–95
[2024-05-13] MEDS: ALENDRONATE 35MG TABLET PO SCH (06:03)
[2024-05-13] MEDS: MORPHINE 10MG/0.5ML ORAL CONCENTRATE SOLUTION U/D PO ONE (08:15)
[2024-05-13 08:48] LABS: BLOOD UREA NITROGEN 17 MG/DL (9-23); CALCIUM LEVEL 9.3 MG/DL (8.3-10.6); CARBON DIOXIDE LEVEL 35 MMOL/L (20-31); CHLORIDE LEVEL 98 MMOL/L (98-107); CREATININE FOR GFR 0.79 MG/DL (0.55-1.30); GLOMERULAR FILTRATION RATE > 60.0 (>45); GLUCOSE, FASTING 116 MG/DL (74-106); POTASSIUM SERUM 4.7 MMOL/L (3.5-5.1); SODIUM LEVEL 136 MMOL/L (136-145)
[2024-05-13] MEDS: LIDOCAINE 5% (LIDODERM) PATCH TD SCH (09:33)
[2024-05-13] MEDS ORDERED: RIZATRIPTAN MLT 10 MG TAB PO PRN (17:55)
[2024-05-13] MEDS: ACETAMINOPHEN *IV* 1,000 MG in IV 1 EA IV ONE (18:21)
[2024-05-13] MEDS: LOSARTAN 25 MG TAB PO SCH (20:24)
[2024-05-13] MEDS ORDERED: LIDOCAINE 5% (LIDODERM) PATCH TD SCH (21:00)
[2024-05-14] VITALS (10 sets, daily range): BP systolic 140–198; BP diastolic 80–109; TEMP 97.9–98.4; O2SAT 90–95
[2024-05-14] MEDS: cloNIDine 0.1MG TABLET PO ONE (09:33)
[2024-05-14] MEDS: MORPHINE 10MG/0.5ML ORAL CONCENTRATE SOLUTION U/D PO ONE (09:33)
[2024-05-14] MEDS: methylPREDNISolone 125MG 2ML VIAL IV SCH (17:34)
[2024-05-14] MEDS: ARTIFICIAL TEARS DROPS 15ML BTL (VISINE DRY RELIEF) OU SCH (18:14)
[2024-05-15] VITALS (9 sets, daily range): BP systolic 124–202; BP diastolic 60–102; TEMP 97.9–98; O2SAT 93–97
[2024-05-15] MEDS: CIPROFLOXACIN 0.3% OPHTH SOLN 2.5ML OD SCH (06:00)
[2024-05-15] MEDS: predniSONE 20 MG TAB PO SCH (09:04)
[2024-05-15] MEDS: METOPROLOL TART 50 MG TAB PO ONE (09:05)
[2024-05-15] MEDS: OLOPATADINE 0.1% OPHTH SOL 5ML(PATANOL) OU SCH (09:08)
[2024-05-15] MEDS: atenoloL 25 MG TAB PO ONE (13:05)
[2024-05-15] MEDS: ACETAMINOPHEN 325 MG TAB PO PRN (15:23)
[2024-05-15] MEDS: cloNIDine 0.1MG TABLET PO ONE ×3 (16:56→20:21)
[2024-05-15] MEDS: FUROSEMIDE 40MG/4ML VIAL IV ONE (16:56)
[2024-05-15] MEDS: MORPHINE 10MG/0.5ML ORAL CONCENTRATE SOLUTION U/D PO ONE (18:50)
[2024-05-15] MEDS: ALPRAZolam 0.5 MG TAB PO ONE (18:51)
[2024-05-15] MEDS: **hydrALAZINE** 50 MG TAB PO SCH (20:20)
[2024-05-15] MEDS: NITROGLYCERIN 2% OINT 1 GM *U/D* PKT TOP ONE (21:55)
[2024-05-16 00:07] VITALS: BP 156/89; TEMP 97.7; O2SAT 94
[2024-05-16 05:57] VITALS: BP 156/85; TEMP 97.7; O2SAT 92
[2024-05-16] MEDS ORDERED: ALBU8.5H INH (07:21)
[2024-05-16] MEDS ORDERED: PRED20TA PO ×2 (07:21→07:28)
[2024-05-16] MEDS ORDERED: NICO21PAT TD (07:22)
[2024-05-16] MEDS ORDERED: ATEN50TA2 PO (07:22)
[2024-05-16] MEDS ORDERED: POLY2.5S OD (07:22)
[2024-05-16] MEDS ORDERED: PRED10TA2 PO (07:24)
[2024-05-16] MEDS ORDERED: DOXY100T27 PO (07:26)
[2024-05-16] MEDS: atenoloL 50 MG TAB PO SCH (09:03)
[2024-05-16 09:05] VITALS: BP 156/85
[2024-05-16] MEDS: POLYTRIM OPTH DROPS 10ML OD SCH (09:07)
== END 2024-05-16 12:30 | disposition home health service (06) | DRG 190 ==
LOC: M ED 17:28 → M ED INP 22:56 → M MS5PR 05-10 16:35
PROVIDERS: ADMIT Internal Medicine; ATTEND General Practice
DX: J44.1 Chronic obstructive pulmonary disease with (acute) exacerbation (principal); J96.01 Acute respiratory failure with hypoxia; F17.210 Nicotine dependence, cigarettes, uncomplicated; I10 Essential (primary) hypertension; E78.5 Hyperlipidemia, unspecified; F41.9 Anxiety disorder, unspecified; F32.A Depression, unspecified; K21.9 Gastro-esophageal reflux disease without esophagitis; N32.81 Overactive bladder; M85.851 Other specified disorders of bone density and structure, right thigh; M85.852 Other specified disorders of bone density and structure, left thigh; J40 Bronchitis, not specified as acute or chronic; H10.9 Unspecified conjunctivitis; J32.9 Chronic sinusitis, unspecified; Z88.0 Allergy status to penicillin; Z88.1 Allergy status to other antibiotic agents; Z88.5 Allergy status to narcotic agent; Z88.6 Allergy status to analgesic agent; Z88.7 Allergy status to serum and vaccine; Z88.8 Allergy status to other drugs, medicaments and biological substances; I16.0 Hypertensive urgency; Z71.6 Tobacco abuse counseling; Z85.118 Personal history of other malignant neoplasm of bronchus and lung; Z90.79 Acquired absence of other genital organ(s); Z90.2 Acquired absence of lung [part of]

== ENCOUNTER → 2024-05-30 | Outpatient (REF) | payer MEDICARE, MEDICAID ==
[~2024-05-30] MED LIST changes: +ACET-897 PO; +ALBU8.5H INH; +ATEN50TA2 PO; +CYAN100049 PO; +GUAI400T40 PO; +NICO21PAT TD; +ONDA-83 PO; +POLY2.5S OD
[2024-05-30 18:33] LABS: BASO # 0.1 10^3/uL (0.0-0.2); BASO % 0.4 % (0.0-1.0); EOS % 0.2 % (0.0-3.0); HEMATOCRIT 45.7 % (36.0-47.0); HEMOGLOBIN 14.4 g/dl (12.0-15.5); LYMPH # 0.8 10^3/uL (1.5-5.0); LYMPH % 5.2 % (24.0-44.0); MEAN CORPUSCULAR HEMOGLOBIN 28.8 pg (27.0-33.0); MEAN CORPUSCULAR HGB CONC 31.5 g/dl (32.0-36.5); MEAN CORPUSCULAR VOLUME 91.4 fl (80.0-96.0); MONO # 0.5 10^3/uL (0.0-0.8); MONO % 3.4 % (2.0-8.0); NEUTROPHILS # 13.2 10^3/uL (1.5-8.5); NEUTROPHILS % 88.3 % (36.0-66.0); PLATELET COUNT, AUTOMATED 391 10^3/uL (150-450); WHITE BLOOD COUNT 14.9 10^3/uL (4.0-10.0)
[2024-05-30 18:38] LABS: BLOOD UREA NITROGEN 17 MG/DL (9-23); CALCIUM LEVEL 9.6 MG/DL (8.3-10.6); CARBON DIOXIDE LEVEL 35 MMOL/L (20-31); CHLORIDE LEVEL 99 MMOL/L (98-107); CREATININE FOR GFR 0.93 MG/DL (0.55-1.30); GLOMERULAR FILTRATION RATE > 60.0 (>45); GLUCOSE, FASTING 105 MG/DL (74-106); MAGNESIUM LEVEL 1.2 MG/DL (1.8-2.4); POTASSIUM SERUM 4.1 MMOL/L (3.5-5.1); SODIUM LEVEL 136 MMOL/L (136-145)
== END ==
LOC: M SFHCPLAZ 13:54
PROVIDERS: ATTEND Physician Assistant
DX: J44.9 Chronic obstructive pulmonary disease, unspecified (principal); R60.9 Edema, unspecified

== ENCOUNTER 2024-06-24 12:22 | Inpatient (IN) | payer MEDICAID, MEDICARE, OTHER ==
[~2024-06-24] VITALS: Ht 157.5 cm; Wt 61.4 kg
[2024-06-24 13:07] LABS: BASO % 0.3 % (0.0-1.0); EOS % 0.3 % (0.0-3.0); HEMATOCRIT 40.6 % (36.0-47.0); HEMOGLOBIN 13.6 g/dl (12.0-15.5); LYMPH # 0.9 10^3/uL (1.5-5.0); LYMPH % 8.5 % (24.0-44.0); MEAN CORPUSCULAR HEMOGLOBIN 29.1 pg (27.0-33.0); MEAN CORPUSCULAR HGB CONC 33.5 g/dl (32.0-36.5); MEAN CORPUSCULAR VOLUME 86.9 fl (80.0-96.0); MONO # 1.1 10^3/uL (0.0-0.8); MONO % 10.6 % (2.0-8.0); NEUTROPHILS # 8.5 10^3/uL (1.5-8.5); PLATELET COUNT, AUTOMATED 385 10^3/uL (150-450); RED BLOOD COUNT 4.67 10^6/uL (4.00-5.40); WHITE BLOOD COUNT 10.7 10^3/uL (4.0-10.0)
[2024-06-24] MEDS: IPRATROPIUM 0.5MG/ALBUTEROL 2.5MG INH SOL UD 3ML (DUONEB) NEB PRN (13:07)
[2024-06-24 13:25] LABS: INR 0.9; PARTIAL THROMBOPLASTIN TIME 29.1 SECONDS (24.8-34.2); PROTHROMBIN TIME 12.4 SECONDS (12.5-14.5)
[2024-06-24 13:26] LABS: CK-MB VALUE MASS < 1.0 NG/ML (<3.6); CPK CREATINE PHOSPHOKINASE 51 U/L (34-145); MB/CK RELATIVE INDEX 1.96 (< OR =4)
[2024-06-24 13:31] LABS: THYROID STIMULATING HORMONE 1.607 uIU/ML (0.55-4.78); THYROXINE (T4) 12.3 UG/DL (4.5-10.9)
[2024-06-24 13:32] LABS: FREE T4 1.36 NG/DL (0.89-1.76)
[2024-06-24] MEDS: LEVALBUTEROL 1.25MG 0.5ML CONCENTRATE NEB NEB PRN (13:34)
[2024-06-24] MEDS: methylPREDNISolone 125MG 2ML VIAL IV ONE (13:38)
[2024-06-24 13:44] LABS: ALKALINE PHOSPHATASE 42 U/L (35-104); ALT/SGPT 14 U/L (7.0-40); AST/SGOT 21 U/L (<34); BILIRUBIN,DIRECT 0.1 MG/DL (<0.4); BILIRUBIN,TOTAL 0.2 MG/DL (0.3-1.2); BLOOD UREA NITROGEN < 5 MG/DL (9-23); CALCIUM LEVEL 8.5 MG/DL (8.3-10.6); CARBON DIOXIDE LEVEL 32 MMOL/L (20-31); CHLORIDE LEVEL 97 MMOL/L (98-107); CREATININE FOR GFR 0.56 MG/DL (0.55-1.30); GLOMERULAR FILTRATION RATE > 60.0 (>45); GLUCOSE, FASTING 99 MG/DL (74-106); POTASSIUM SERUM 3.4 MMOL/L (3.5-5.1); SODIUM LEVEL 135 MMOL/L (136-145); TOTAL PROTEIN 6.4 G/DL (5.7-8.2)
[2024-06-24 13:51] LABS: ABG BASE EXCESS 5.9 (-2.0-2.0); ABG O2 SATURATION 96.7 % (95.0-99.0); ABG PARTIAL PRESSURE CO2 46.9 mmHg (35.0-45.0); ABG PARTIAL PRESSURE O2 87.3 mmHg (75.0-100.0); ABG STANDARD HCO3 29.7 MMOL/L. (22.0-26.0); ABG TOTAL CO2 32.4 MMOL/L (23.0-31.0); ABG pH (ARTERIAL) 7.438 UNITS (7.350-7.450)
[2024-06-24 14:30] LABS: CK-MB VALUE MASS < 1.0 NG/ML (<3.6)
[2024-06-24 14:31] LABS: CPK CREATINE PHOSPHOKINASE 47 U/L (34-145); MB/CK RELATIVE INDEX 2.12 (< OR =4)
[2024-06-24] MEDS: POTASSIUM CHLORIDE 10MEQ SR TABLET PO ONE (14:59)
[2024-06-24] MEDS: FUROSEMIDE 40MG/4ML VIAL IV ONE (14:59)
[2024-06-24] MEDS ORDERED: MAALOX 30 ML SUSP *UDC PO PRN (15:25)
[2024-06-24] MEDS ORDERED: ACETAMINOPHEN 325 MG TAB PO PRN (15:25)
[2024-06-24] MEDS: IPRATROPIUM 0.5MG/ALBUTEROL 2.5MG INH SOL UD 3ML (DUONEB) NEB SCH (16:09)
[2024-06-24] MEDS ORDERED: LEVA45AE INH (16:36)
[2024-06-24] MEDS ORDERED: ATEN50TA2 PO (16:36)
[2024-06-24] MEDS ORDERED: ALPR0.5T3 PO (16:36)
[2024-06-24] MEDS ORDERED: HOME MED LIST COMPLETE! XX SCH (16:40)
[2024-06-24 17:27] VITALS: BP 148/80; TEMP 97; O2SAT 93
[2024-06-24] MEDS: SYMBICORT 160/4.5MCG INHALER 6GM INH SCH (19:47)
[2024-06-24] MEDS: DOXYCYCLINE HYCLATE 100 MG in DEXTROSE 5% (D5W) MINI-BAG PLU 100 ML IV SCH (20:19)
[2024-06-24] MEDS: traZODone 100 MG TAB PO SCH (20:19)
[2024-06-24] MEDS: DOCUSATE SODIUM 100MG CAPSULE PO SCH (20:19)
[2024-06-24] MEDS: methylPREDNISolone 40MG 1ML VIAL IV SCH (20:19)
[2024-06-24] MEDS: ANEXSIA, NORCO 7.5MG/325MG TABLET(HYDROCODONE/APAP) PO PRN (20:20)
[2024-06-24] MEDS: LORATADINE 10 MG TAB PO SCH (20:21)
[2024-06-24] MEDS: GABAPENTIN 300 MG CAP PO SCH (20:23)
[2024-06-24] MEDS: PANTOPRAZOLE 40MG TAB (PROTONIX) PO SCH (20:25)
[2024-06-24 20:30] VITALS: BP 146/82; TEMP 97.5; O2SAT 98
[2024-06-24] MEDS: ALPRAZolam 0.5 MG TAB PO PRN (20:43)
[2024-06-24] MEDS: methocarbamoL 500 MG TAB PO SCH (21:00)
[2024-06-25 04:20] VITALS: BP 103/60; TEMP 98.1; O2SAT 96
[2024-06-25 05:58] LABS: BASO % 0.2 % (0.0-1.0); EOS % 0.5 % (0.0-3.0); HEMATOCRIT 38.3 % (36.0-47.0); HEMOGLOBIN 12.4 g/dl (12.0-15.5); LYMPH # 0.4 10^3/uL (1.5-5.0); LYMPH % 6.8 % (24.0-44.0); MEAN CORPUSCULAR HEMOGLOBIN 28.5 pg (27.0-33.0); MEAN CORPUSCULAR HGB CONC 32.4 g/dl (32.0-36.5); MONO # 0.2 10^3/uL (0.0-0.8); MONO % 3.4 % (2.0-8.0); NEUTROPHILS # 5.1 10^3/uL (1.5-8.5); NEUTROPHILS % 87.2 % (36.0-66.0); PLATELET COUNT, AUTOMATED 379 10^3/uL (150-450); RED BLOOD COUNT 4.35 10^6/uL (4.00-5.40); WHITE BLOOD COUNT 5.9 10^3/uL (4.0-10.0)
[2024-06-25 06:33] LABS: CALCIUM LEVEL 7.8 MG/DL (8.3-10.6); CREATININE FOR GFR 1.07 MG/DL (0.55-1.30); GLOMERULAR FILTRATION RATE 54.5 (>45); POTASSIUM SERUM 3.4 MMOL/L (3.5-5.1)
[2024-06-25] MEDS: TIOTROPIUM INHALER/CAPSULE (SPIRIVA) INH SCH (07:48)
[2024-06-25 08:31] LABS: MAGNESIUM LEVEL 0.9 MG/DL (1.8-2.4)
[2024-06-25] MEDS ORDERED: POTASSIUM CHLORIDE 10% LIQ 20MEQ/15ML UDC PEG ONE (09:00)
[2024-06-25] MEDS ORDERED: DULoxetine 30MG CAPSULE (CYMBALTA) PO SCH (09:00)
[2024-06-25] MEDS: MAG SULF 1GM/100ML (MAG RUN) 1 GM in IV 1 EA IV SCH (09:14)
[2024-06-25] MEDS: ENOXAPARIN 40MG/0.4ML SYRINGE (J1650 PER 10MG) SC SCH (09:16)
[2024-06-25] MEDS: POTASSIUM CHLORIDE 10% LIQ 20MEQ/15ML UDC PO ONE (09:20)
[2024-06-25] MEDS: CYANOCOBALAMIN 500 MCG TAB PO SCH (09:22)
[2024-06-25] MEDS: FUROSEMIDE 40MG/4ML VIAL IV SCH (09:22)
[2024-06-25] MEDS: DULoxetine 30MG CAPSULE (CYMBALTA) PO SCH (09:23)
[2024-06-25] MEDS: atenoloL 50 MG TAB PO SCH (09:25)
[2024-06-25] MEDS: SOLIFENACIN 5 MG TAB PO SCH (09:36)
[2024-06-25 12:00] VITALS: BP 141/71; TEMP 97.7; O2SAT 93
[2024-06-25] MEDS: methylPREDNISolone 40MG 1ML VIAL IV SCH (17:36)
[2024-06-25 20:00] VITALS: BP 125/74; TEMP 97.9; O2SAT 96
[2024-06-25] MEDS: DOXYCYCLINE HYCLATE 100MG TABLET PO SCH (20:52)
[2024-06-26] VITALS: BP 101/54; TEMP 97.9; O2SAT 98
[2024-06-26 04:00] VITALS: BP 103/50; TEMP 97.9; O2SAT 98
[2024-06-26 06:52] LABS: BASO % 0.2 % (0.0-1.0); EOS # 0.1 10^3/uL (0.0-0.5); EOS % 0.7 % (0.0-3.0); HEMATOCRIT 35.1 % (36.0-47.0); HEMOGLOBIN 11.3 g/dl (12.0-15.5); LYMPH % 11.6 % (24.0-44.0); MEAN CORPUSCULAR HEMOGLOBIN 28.3 pg (27.0-33.0); MEAN CORPUSCULAR HGB CONC 32.2 g/dl (32.0-36.5); MONO # 0.6 10^3/uL (0.0-0.8); MONO % 6.8 % (2.0-8.0); NEUTROPHILS # 7.1 10^3/uL (1.5-8.5); PLATELET COUNT, AUTOMATED 432 10^3/uL (150-450); RED BLOOD COUNT 3.99 10^6/uL (4.00-5.40); WHITE BLOOD COUNT 8.9 10^3/uL (4.0-10.0)
[2024-06-26 07:20] LABS: BLOOD UREA NITROGEN 25 MG/DL (9-23); CARBON DIOXIDE LEVEL 30 MMOL/L (20-31); CHLORIDE LEVEL 101 MMOL/L (98-107); CREATININE FOR GFR 0.88 MG/DL (0.55-1.30); GLOMERULAR FILTRATION RATE > 60.0 (>45); GLUCOSE, FASTING 105 MG/DL (74-106); POTASSIUM SERUM 4.6 MMOL/L (3.5-5.1); SODIUM LEVEL 135 MMOL/L (136-145)
[2024-06-26 09:01] VITALS: BP 136/83
[2024-06-26 12:00] VITALS: BP 137/72; TEMP 98.1; O2SAT 91
[2024-06-26] MEDS: MAG SULF 1GM/100ML (MAG RUN) 1 GM in IV 1 EA IV SCH (12:51)
[2024-06-26] MEDS ORDERED: PRED10TA2 PO (16:20)
[2024-06-26] MEDS ORDERED: DOXY100T PO (16:20)
[2024-06-26] MEDS ORDERED: NICO1DIS12 TOP (16:21)
[2024-06-26] MEDS ORDERED: NICO2GUM42 MT (16:21)
== END 2024-06-26 17:32 | disposition home or self-care (01) | DRG 191 ==
LOC: EDBD 12:22 → M ED 12:22 → M ED INP 15:23 → M MSPAV 17:28
PROVIDERS: ADMIT Internal Medicine Nephrology; ATTEND Student in an Organized Health Care Education/Training Program
DX: J44.1 Chronic obstructive pulmonary disease with (acute) exacerbation (principal); J96.11 Chronic respiratory failure with hypoxia; F17.210 Nicotine dependence, cigarettes, uncomplicated; R26.89 Other abnormalities of gait and mobility; K27.9 Peptic ulcer, site unspecified, unspecified as acute or chronic, without hemorrhage or perforation; K21.9 Gastro-esophageal reflux disease without esophagitis; E78.5 Hyperlipidemia, unspecified; I10 Essential (primary) hypertension; F41.9 Anxiety disorder, unspecified; F32.A Depression, unspecified; E87.70 Fluid overload, unspecified; Z86.74 Personal history of sudden cardiac arrest; M85.88 Other specified disorders of bone density and structure, other site; Z99.81 Dependence on supplemental oxygen; Z85.118 Personal history of other malignant neoplasm of bronchus and lung; Z90.2 Acquired absence of lung [part of]; Z88.1 Allergy status to other antibiotic agents; Z88.0 Allergy status to penicillin; Z88.5 Allergy status to narcotic agent; Z88.6 Allergy status to analgesic agent; Z88.8 Allergy status to other drugs, medicaments and biological substances; Z90.79 Acquired absence of other genital organ(s); Z11.52 Encounter for screening for COVID-19

== ENCOUNTER → 2024-09-26 | Outpatient (CLI) | payer MEDICARE, MEDICAID ==
[~2024-09-26] MED LIST changes: +ALPR0.5T3 PO; +DOXY100T PO; +LEVA45AE INH; +NICO1DIS12 TOP; +NICO2GUM42 MT
== END ==
LOC: M PLAIMG 09:45
PROVIDERS: ATTEND Internal Medicine Pulmonary Disease
DX: R91.8 Other nonspecific abnormal finding of lung field (principal)

== ENCOUNTER 2025-02-02 11:00 | Inpatient (IN) | payer MEDICAID, MEDICARE, OTHER ==
[~2025-02-02] VITALS: Ht 157.5 cm; Wt 70.7 kg
[~2025-02-02 11:00] MED LIST changes: +AMLO-751 PO; -AMLO10TA PO
[2025-02-02] MEDS ORDERED: ISOVUE-370 76% 100 ML VIAL As Ordered ONE (11:36)
[2025-02-02] MEDS: NS (Normal Saline) 0.9% 1,000 ML IV SCH (11:40)
[2025-02-02] MEDS: MORPHINE 4 MG/ML 1 ML VIAL IV PRN ×2 (11:41→18:04)
[2025-02-02 11:42] LABS: BASO # 0.0 10^3/uL (0.0-0.2); BASO % 0.3 % (0.0-1.0); EOS # 0.0 10^3/uL (0.0-0.5); EOS % 0.1 % (0.0-3.0); LYMPH # 0.7 10^3/uL (1.5-5.0); LYMPH % 6.1 % (24.0-44.0); MONO # 1.1 10^3/uL (0.0-0.8); MONO % 9.5 % (2.0-8.0); NEUTROPHILS # 10.0 10^3/uL (1.5-8.5); NEUTROPHILS % 83.7 % (36.0-66.0); PLATELET COUNT, AUTOMATED 439 10^3/uL (150-450)
[2025-02-02 12:07] LABS: ALT/SGPT 10 U/L (7.0-40); AST/SGOT 22 U/L (<34); CALCIUM LEVEL 10.1 MG/DL (8.3-10.6); CARBON DIOXIDE LEVEL > 40.0 MMOL/L (20-31); CHLORIDE LEVEL 84 MMOL/L (98-107); CREATININE FOR GFR 1.41 MG/DL (0.55-1.30); GLOMERULAR FILTRATION RATE 40.9 (>45); POTASSIUM SERUM 3.5 MMOL/L (3.5-5.1); SODIUM LEVEL 135 MMOL/L (136-145)
[2025-02-02] MEDS ORDERED: TORS10TA3 PO (13:09)
[2025-02-02] MEDS ORDERED: MAGN400T2 PO (13:09)
[2025-02-02] MEDS ORDERED: PRED10TA2 PO (13:09)
[2025-02-02] MEDS ORDERED: MED REC IN PROGRESS XX SCH (13:10)
[2025-02-02] MEDS: MORPHINE 2 MG/ML 1 ML VIAL IV PRN (14:19)
[2025-02-02] MEDS: ONDANSETRON 4MG 2ML VIAL IV PRN (14:19)
[2025-02-02 14:24] LABS: MAGNESIUM LEVEL 1.5 MG/DL (1.8-2.4)
[2025-02-02] MEDS: MAG SULF 1GM/100ML (MAG RUN) 1 GM in IV 1 EA IV SCH (16:50)
[2025-02-02 20:10] VITALS: BP 160/88; TEMP 97.9; O2SAT 98
[2025-02-02] MEDS ORDERED: HOME MED LIST COMPLETE! XX SCH (21:10)
[2025-02-02] MEDS: HEPARIN SOD 5000 UNITS/ML 1 ML VIAL/SYRINGE SC SCH (21:46)
[2025-02-03 05:50] VITALS: BP 156/87; TEMP 98.1; O2SAT 92
[2025-02-03 06:31] LABS: PLATELET COUNT, AUTOMATED 377 10^3/uL (150-450)
[2025-02-03 07:02] LABS: ALT/SGPT 9 U/L (7.0-40); AST/SGOT 22 U/L (<34); CALCIUM LEVEL 8.7 MG/DL (8.3-10.6); CARBON DIOXIDE LEVEL > 40.0 MMOL/L (20-31); CHLORIDE LEVEL 88 MMOL/L (98-107); CREATININE FOR GFR 1.27 MG/DL (0.55-1.30); GLOMERULAR FILTRATION RATE 46.4 (>45); MAGNESIUM LEVEL 2.6 MG/DL (1.8-2.4); POTASSIUM SERUM 3.8 MMOL/L (3.5-5.1); SODIUM LEVEL 140 MMOL/L (136-145)
[2025-02-03] MEDS: PANTOPRAZOLE 40MG VIAL IV SCH (08:50)
[2025-02-03] MEDS: LIDOCAINE VISCOUS 2% SOLN 15 ML UDC MT ONE (11:30)
[2025-02-03 12:00] VITALS: BP 153/84; TEMP 98.4; O2SAT 50
[2025-02-03 12:05] VITALS: O2SAT 92
[2025-02-03 20:11] VITALS: BP 153/81; TEMP 97.7; O2SAT 86
[2025-02-04 04:18] VITALS: BP 151/84; TEMP 97.7; O2SAT 94
[2025-02-04] MEDS ORDERED: FLUTICASONE PROPIONATE 0.05% NASAL SPRAY 16 GM NARES PRN (10:20)
[2025-02-04] MEDS: D5W/0.9% SODIUM CHLORIDE 1,000 ML IV SCH (11:00)
[2025-02-04 11:16] LABS: PLATELET COUNT, AUTOMATED 397 10^3/uL (150-450)
[2025-02-04 11:40] LABS: CALCIUM LEVEL 8.2 MG/DL (8.3-10.6); CARBON DIOXIDE LEVEL > 40.0 MMOL/L (20-31); CHLORIDE LEVEL 88 MMOL/L (98-107); CREATININE FOR GFR 1.15 MG/DL (0.55-1.30); GLOMERULAR FILTRATION RATE 52.2 (>45); MAGNESIUM LEVEL 3.4 MG/DL (1.8-2.4); POTASSIUM SERUM 3.7 MMOL/L (3.5-5.1); SODIUM LEVEL 139 MMOL/L (136-145)
[2025-02-04 12:00] VITALS: BP 150/82; TEMP 97.7; O2SAT 95
[2025-02-04 20:00] VITALS: BP 153/81; TEMP 97.9; O2SAT 94
[2025-02-05 04:00] VITALS: BP 156/57; TEMP 97.9; O2SAT 94
[2025-02-05 04:14] VITALS: BP 156/5; TEMP 97.9; O2SAT 94
[2025-02-05] MEDS: TIOTROPIUM BROM 2.5MCG/ACTUATION 4GM INH INH SCH (08:00)
[2025-02-05] MEDS: SYMBICORT 160/4.5MCG INHALER 6GM INH SCH (08:00)
[2025-02-05 08:32] LABS: PLATELET COUNT, AUTOMATED 353 10^3/uL (150-450)
[2025-02-05 09:00] LABS: CALCIUM LEVEL 7.6 MG/DL (8.3-10.6); CARBON DIOXIDE LEVEL > 40.0 MMOL/L (20-31); CHLORIDE LEVEL 91 MMOL/L (98-107); CREATININE FOR GFR 0.82 MG/DL (0.55-1.30); GLOMERULAR FILTRATION RATE 78.4 (>45); MAGNESIUM LEVEL 3.0 MG/DL (1.8-2.4); POTASSIUM SERUM 3.3 MMOL/L (3.5-5.1); SODIUM LEVEL 139 MMOL/L (136-145)
[2025-02-05] MEDS: D5W/0.9% SODIUM CHLORIDE 1,000 ML IV SCH (10:41)
[2025-02-05] MEDS: KCL 40MEQ IN D5/NS 1000ML 1,000 ML IV SCH (11:50)
[2025-02-05 12:00] VITALS: BP 160/86; TEMP 97.9; O2SAT 94
[2025-02-05] MEDS: LIDOCAINE VISCOUS 2% SOLN 15 ML UDC SSP ONE (14:33)
[2025-02-05 20:05] VITALS: BP 154/84; TEMP 98.1; O2SAT 92
[2025-02-05 20:20] VITALS: O2SAT 84
[2025-02-05 20:24] VITALS: O2SAT 91
[2025-02-06 04:44] VITALS: BP 158/76; TEMP 97.9; O2SAT 90
[2025-02-06] MEDS ORDERED: GLUCAGON INJ 1 MG VIAL SC PRN (05:30)
[2025-02-06] MEDS ORDERED: GLUCOSE 4 GM CHEW PO PRN (05:30)
[2025-02-06] MEDS ORDERED: DEXTROSE 50% 50 ML SYRINGE IV PRN (05:30)
[2025-02-06 05:51] LABS: PLATELET COUNT, AUTOMATED 354 10^3/uL (150-450)
[2025-02-06 06:10] LABS: CALCIUM LEVEL 7.5 MG/DL (8.3-10.6); CARBON DIOXIDE LEVEL 38 MMOL/L (20-31); CHLORIDE LEVEL 98 MMOL/L (98-107); CREATININE FOR GFR 0.72 MG/DL (0.55-1.30); GLOMERULAR FILTRATION RATE > 90.0 (>45); MAGNESIUM LEVEL 2.7 MG/DL (1.8-2.4); POTASSIUM SERUM 3.2 MMOL/L (3.5-5.1); SODIUM LEVEL 144 MMOL/L (136-145)
[2025-02-06] MEDS: KCL 40MEQ IN D5/NS 1000ML 1,000 ML IV SCH (08:08)
[2025-02-06 12:00] VITALS: BP 130/82; TEMP 98.1; O2SAT 94
[2025-02-06] MEDS: MAGIC MOUTHWASH 5 ML ORAL SYRINGE SSP PRN (14:58)
[2025-02-06] MEDS: KCL 20MEQ IN D5/NS 1000ML 1,000 ML IV SCH (18:18)
[2025-02-06 22:02] VITALS: BP 156/94; TEMP 98.4; O2SAT 93
[2025-02-06] MEDS: ACETAMINOPHEN *IV* 1,000 MG in IV 1 EA IV ONE (23:59)
[2025-02-07 03:25] VITALS: BP 168/80; TEMP 97.3; O2SAT 96
[2025-02-07 06:26] LABS: PLATELET COUNT, AUTOMATED 350 10^3/uL (150-450)
[2025-02-07 06:57] LABS: ALT/SGPT 12 U/L (7.0-40); AST/SGOT 19 U/L (<34); CALCIUM LEVEL 8.2 MG/DL (8.3-10.6); CARBON DIOXIDE LEVEL 36 MMOL/L (20-31); CHLORIDE LEVEL 102 MMOL/L (98-107); CREATININE FOR GFR 0.60 MG/DL (0.55-1.30); GLOMERULAR FILTRATION RATE > 90.0 (>45); MAGNESIUM LEVEL 2.1 MG/DL (1.8-2.4); POTASSIUM SERUM 3.5 MMOL/L (3.5-5.1); SODIUM LEVEL 146 MMOL/L (136-145)
[2025-02-07] MEDS: NYSTATIN 100,000 UNITS/GM TOPICAL PWD 15 GM TOP SCH (09:00)
[2025-02-07 12:00] VITALS: BP 180/72; TEMP 98.2; O2SAT 97
[2025-02-07] MEDS: amLODIPine 10 MG TAB PO ONE (12:20)
[2025-02-07] MEDS: INSULIN LISPRO (NovoLOG) PER UNIT SC SCH (17:58)
[2025-02-07] MEDS: FAT EMULSION IV 250 ML IV ONE (18:01)
[2025-02-07] MEDS: AMINO AC/ELECTROLYTE/DEX/CALC 1,000 ML IV SCH (18:04)
[2025-02-07] MEDS: SODIUM PHOSPHATE INJ 20 MMOL in D5W 250 ML IV ONE (19:40)
[2025-02-07 20:01] VITALS: BP 162/74; TEMP 99; O2SAT 96
[2025-02-08 03:38] VITALS: BP 150/68; TEMP 98.2; O2SAT 92
[2025-02-08 06:34] LABS: PLATELET COUNT, AUTOMATED 378 10^3/uL (150-450)
[2025-02-08 07:21] LABS: ALT/SGPT 13 U/L (7.0-40); AST/SGOT 18 U/L (<34); CALCIUM LEVEL 8.7 MG/DL (8.3-10.6); CARBON DIOXIDE LEVEL 34 MMOL/L (20-31); CHLORIDE LEVEL 101 MMOL/L (98-107); CREATININE FOR GFR 0.62 MG/DL (0.55-1.30); GLOMERULAR FILTRATION RATE > 90.0 (>45); MAGNESIUM LEVEL 1.7 MG/DL (1.8-2.4); PHOSPHORUS LEVEL 3.6 MG/DL (2.4-5.1); POTASSIUM SERUM 3.5 MMOL/L (3.5-5.1); SODIUM LEVEL 146 MMOL/L (136-145)
[2025-02-08 09:05] VITALS: O2SAT 94
[2025-02-08 11:50] VITALS: BP 162/74; TEMP 98.2; O2SAT 95
[2025-02-08] MEDS: LORATADINE 10 MG TAB PO SCH (17:20)
[2025-02-08] MEDS: CYANOCOBALAMIN 500 MCG TAB PO SCH (17:23)
[2025-02-08] MEDS: MAGNESIUM OXIDE 400 MG TAB PO SCH (17:25)
[2025-02-08] MEDS: TORSEMIDE 10 MG TABLET PO SCH (17:34)
[2025-02-08] MEDS: amLODIPine 10 MG TAB PO SCH (17:34)
[2025-02-08] MEDS: INSULIN LISPRO (NovoLOG) PER UNIT SC SCH (18:00)
[2025-02-08] MEDS: AMINO AC/ELECTROLYTE/DEX/CALC 1,000 ML IV SCH (18:33)
[2025-02-08] MEDS: FAT EMULSION IV 250 ML IV ONE (18:33)
[2025-02-08 20:09] VITALS: BP 142/60; TEMP 97.5; O2SAT 95
[2025-02-08] MEDS: traZODone 100 MG TAB PO SCH (20:24)
[2025-02-08] MEDS: GABAPENTIN 300 MG CAP PO SCH (20:24)
[2025-02-09] MEDS ORDERED: CHLORASEPTIC SPRAY MT PRN (03:00)
[2025-02-09] MEDS: ALPRAZolam 0.5 MG TAB PO PRN (03:03)
[2025-02-09 05:36] VITALS: BP 108/72; TEMP 98.8; O2SAT 91
[2025-02-09] MEDS: CEPACOL LOZENGE PO PRN (06:08)
[2025-02-09 06:41] LABS: PLATELET COUNT, AUTOMATED 366 10^3/uL (150-450)
[2025-02-09 07:11] LABS: ALT/SGPT < 9 U/L (7.0-40); AST/SGOT 16 U/L (<34); CALCIUM LEVEL 8.4 MG/DL (8.3-10.6); CARBON DIOXIDE LEVEL 35 MMOL/L (20-31); CHLORIDE LEVEL 94 MMOL/L (98-107); CREATININE FOR GFR 0.76 MG/DL (0.55-1.30); GLOMERULAR FILTRATION RATE 85.8 (>45); MAGNESIUM LEVEL 1.5 MG/DL (1.8-2.4); PHOSPHORUS LEVEL 4.4 MG/DL (2.4-5.1); POTASSIUM SERUM 3.3 MMOL/L (3.5-5.1); SODIUM LEVEL 140 MMOL/L (136-145); TRIGLYCERIDES LEVEL 190 MG/DL (<150)
[2025-02-09] MEDS: MAG SULF 1GM/100ML (MAG RUN) 1 GM in IV 1 EA IV SCH (07:57)
[2025-02-09 11:52] VITALS: BP 154/90; TEMP 98.1; O2SAT 89
[2025-02-09] MEDS: KCL 40MEQ in NS 1000ML 1,000 ML IV SCH (12:05)
[2025-02-09] MEDS ORDERED: INSULIN LISPRO (NovoLOG) PER UNIT SC SCH (18:00)
[2025-02-09] MEDS: INSULIN LISPRO (NovoLOG) PER UNIT SC SCH (18:00)
[2025-02-09] MEDS: FAT EMULSION IV 250 ML IV ONE (18:51)
[2025-02-09 19:54] VITALS: BP 157/88; TEMP 98.6; O2SAT 91
[2025-02-09 22:14] LABS: PLATELET COUNT, AUTOMATED 339 10^3/uL (150-450)
[2025-02-09 22:43] LABS: CALCIUM LEVEL 7.6 MG/DL (8.3-10.6); CARBON DIOXIDE LEVEL 32 MMOL/L (20-31); CHLORIDE LEVEL 97 MMOL/L (98-107); CREATININE FOR GFR 0.71 MG/DL (0.55-1.30); GLOMERULAR FILTRATION RATE > 90.0 (>45); POTASSIUM SERUM 3.8 MMOL/L (3.5-5.1); SODIUM LEVEL 140 MMOL/L (136-145)
[2025-02-10] VITALS (27 sets, daily range): BP systolic 89–183; BP diastolic 67–112; TEMP 97.1–98.3; O2SAT 89–98
[2025-02-10] MEDS: MORPHINE 4 MG/ML 1 ML VIAL IV PRN (00:35)
[2025-02-10 00:38] LABS: VENOUS BASE EXCESS 5.7 (-2.0-2.0); VENOUS HCO3 30.7 MMOL/L (23.0-27.0); VENOUS O2 SATURATION 97.5 % (60.0-80.0); VENOUS PARTIAL PRESSURE CO2 46.3 mmHg (38.0-50.0); VENOUS PARTIAL PRESSURE O2 170.1 mmHg (30.0-50.0); VENOUS PH 7.440 UNITS (7.330-7.430); VENOUS STANDARD HCO3 29.7 MMOL/L; VENOUS TOTAL CO2 32.2 MMOL/L (24.0-28.0)
[2025-02-10] MEDS: PIPERACILLIN/TAZOBACTAM SOD 4.5 GM in DEXTROSE 5% (D5W) ADV/MINI-BAG 50 ML IV SCH (02:05)
[2025-02-10 06:02] LABS: PLATELET COUNT, AUTOMATED 340 10^3/uL (150-450)
[2025-02-10 06:33] LABS: ALT/SGPT < 9 U/L (7.0-40); AST/SGOT 13 U/L (<34); CALCIUM LEVEL 8.1 MG/DL (8.3-10.6); CARBON DIOXIDE LEVEL 33 MMOL/L (20-31); CHLORIDE LEVEL 98 MMOL/L (98-107); CREATININE FOR GFR 0.79 MG/DL (0.55-1.30); GLOMERULAR FILTRATION RATE 81.9 (>45); MAGNESIUM LEVEL 2.0 MG/DL (1.8-2.4); PHOSPHORUS LEVEL 4.2 MG/DL (2.4-5.1); POTASSIUM SERUM 3.7 MMOL/L (3.5-5.1); SODIUM LEVEL 142 MMOL/L (136-145)
[2025-02-10] MEDS ORDERED: HYDROmorphone HCL 2 MG/ML 1 ML VIAL As Ordered ONE (08:08)
[2025-02-10] MEDS ORDERED: MIDAZOLAM INJ 2 MG/2 ML VIAL As Ordered ONE (08:08)
[2025-02-10] MEDS ORDERED: SUCCINYLCHOLINE 100MG/5ML SYRINGE As Ordered ONE (08:09)
[2025-02-10] MEDS ORDERED: LIDOCAINE 2% 100 MG/5 ML SDV (FOR ANES.) As Ordered ONE (08:09)
[2025-02-10] MEDS ORDERED: ACETAMINOPHEN 1000MG/100ML IV BAG As Ordered ONE (08:09)
[2025-02-10] MEDS ORDERED: ROCURONIUM BROMIDE 50MG/5ML VIAL As Ordered ONE (08:09)
[2025-02-10] MEDS ORDERED: ONDANSETRON 4MG 2ML VIAL As Ordered ONE (08:09)
[2025-02-10] MEDS ORDERED: dexAMETHasone 4 MG/ML 1 ML VIAL As Ordered ONE (08:09)
[2025-02-10] MEDS ORDERED: SUGAMMADEX SODIUM 500 MG/5 ML VIAL As Ordered ONE (08:09)
[2025-02-10] MEDS ORDERED: KETOROLAC 30 MG/ML 1 ML VIAL As Ordered ONE (08:20)
[2025-02-10] MEDS ORDERED: dexmedeTOMIDine (4 MCG/ML) 200 MCG/50 ML BTL As Ordered ONE (08:21)
[2025-02-10] MEDS ORDERED: ETOMIDATE 20 MG/10 ML VIAL As Ordered ONE (10:14)
[2025-02-10] MEDS ORDERED: PHENYLephrine 500MCG 5ML (100MCG/ML) SYRINGE As Ordered ONE (10:46)
[2025-02-10] MEDS: GLUCAGON INJ 1 MG VIAL As Ordered ONE (11:26)
[2025-02-10] MEDS: ZOSYN 4.5GM VIAL As Ordered ONE (11:58)
[2025-02-10] MEDS ORDERED: ONDANSETRON 4MG 2ML VIAL IV PRN (12:45)
[2025-02-10] MEDS ORDERED: HYDROMORPHONE HCL 0.5 MG/0.5 ML SYRINGE IV PRN (12:45)
[2025-02-10] MEDS ORDERED: LR 1,000 ML IV SCH (12:45)
[2025-02-10] MEDS ORDERED: PROPOFOL 1,000 MG/100 ML VIAL As Ordered ONE (12:57)
[2025-02-10] MEDS ORDERED: LABETALOL 100 MG/20 ML VIAL IV PRN (17:15)
[2025-02-10] MEDS: IPRATROPIUM 0.5 MG/ALBUTEROL 2.5 MG INH SOL UD 3 ML NEB SCH (17:40)
[2025-02-10] MEDS: hydrALAZINE 20 MG/ML 1 ML VIAL IV PRN (17:49)
[2025-02-10 17:56] LABS: ALT/SGPT 10.0 U/L (7.0-40); AST/SGOT 19.0 U/L (<34); CALCIUM LEVEL 7.9 MG/DL (8.3-10.6); CARBON DIOXIDE LEVEL 29.0 MMOL/L (20-31); CHLORIDE LEVEL 98.0 MMOL/L (98-107); CREATININE FOR GFR 0.82 MG/DL (0.55-1.30); GLOMERULAR FILTRATION RATE 78.4 (>45); MAGNESIUM LEVEL 1.7 MG/DL (1.8-2.4); PHOSPHORUS LEVEL 5.0 MG/DL (2.4-5.1); POTASSIUM SERUM 3.4 MMOL/L (3.5-5.1); SODIUM LEVEL 140.0 MMOL/L (136-145)
[2025-02-10 18:13] LABS: BASO # 0.2 10^3/uL (0.0-0.2); BASO % 0.6 % (0.0-1.0); EOS # 0.0 10^3/uL (0.0-0.5); EOS % 0.0 % (0.0-3.0); LYMPH # 0.7 10^3/uL (1.5-5.0); LYMPH % 2.7 % (24.0-44.0); MONO # 1.0 10^3/uL (0.0-0.8); MONO % 3.9 % (2.0-8.0); NEUTROPHILS # 22.6 10^3/uL (1.5-8.5); NEUTROPHILS % 88.9 % (36.0-66.0); PLATELET COUNT, AUTOMATED 393 10^3/uL (150-450)
[2025-02-10] MEDS ORDERED: KCL 10MEQ/100ML SWI (KRUN) 10 MEQ in IV 1 EA IV SCH (18:25)
[2025-02-10] MEDS: MAG SULF 1GM/100ML (MAG RUN) 1 GM in IV 1 EA IV SCH (18:48)
[2025-02-10] MEDS: KCL 10MEQ/100ML SWI (KRUN) 10 MEQ in IV 1 EA IV SCH (20:18)
[2025-02-11] VITALS (68 sets, daily range): BP systolic 100–196; BP diastolic 65–109; TEMP 97.1–99.6; O2SAT 90–98
[2025-02-11] MEDS: fentaNYL CITRATE/NaCl 1,000 MCG in IV 1 EA IV SCH (01:15)
[2025-02-11 02:40] LABS: APPEARANCE, URINE HAZY (CLEAR); BACTERIA, URINE AUTO NEGATIVE (NEGATIVE); BILIRUBIN, URINE AUTO NEGATIVE (NEGATIVE); BLOOD, URINE BLOOD NEGATIVE (NEGATIVE); GLUCOSE, URINE (UA) AUTO NEGATIVE (NEGATIVE); KETONE, URINE AUTO NEGATIVE (NEGATIVE); LEUKOCYTE ESTERASE, URINE AUTO NEGATIVE (NEGATIVE); MUCUS, URINE SMALL (NEGATIVE); NITRITE, URINE AUTO NEGATIVE (NEGATIVE); PROTEIN, URINE AUTO NEGATIVE (NEGATIVE); RBC, URINE AUTO 6 /HPF (0-3); SPECIFIC GRAVITY URINE AUTO 1.031 (1.002-1.035); SQUAMOUS EPITHELIAL CELL UR AU 0 /HPF (0-6); UROBILINOGEN, URINE AUTO 0.2 mg/dL (0.0-2.0); WBC, URINE AUTO 2 /HPF (0-3)
[2025-02-11 05:52] LABS: PLATELET COUNT, AUTOMATED 446 10^3/uL (150-450)
[2025-02-11 06:06] LABS: ALT/SGPT 14.0 U/L (7.0-40); AST/SGOT 26.0 U/L (<34); CALCIUM LEVEL 7.5 MG/DL (8.3-10.6); CARBON DIOXIDE LEVEL 26.0 MMOL/L (20-31); CHLORIDE LEVEL 99.0 MMOL/L (98-107); CREATININE FOR GFR 1.17 MG/DL (0.55-1.30); GLOMERULAR FILTRATION RATE 51.1 (>45); MAGNESIUM LEVEL 2.2 MG/DL (1.8-2.4); PHOSPHORUS LEVEL 5.2 MG/DL (2.4-5.1); POTASSIUM SERUM 4.6 MMOL/L (3.5-5.1); SODIUM LEVEL 136.0 MMOL/L (136-145)
[2025-02-11] MEDS: LR 1,000 ML IV SCH (08:20)
[2025-02-11] MEDS: LACTATED RINGER'S 1000 ML IV ONE (14:07)
[2025-02-11] MEDS: MORPHINE 2 MG/ML 1 ML VIAL IV PRN (14:53)
[2025-02-11] MEDS ORDERED: SODIUM CHLORIDE 0.9% INJ 10 ML SYR IV PRN (17:10)
[2025-02-11] MEDS: MICAFUNGIN SODIUM 100 MG in DEXTROSE 5% (D5W) MINI-BAG PLU 100 ML IV SCH (19:37)
[2025-02-11] MEDS: SODIUM CHLORIDE 0.9% INJ 10 ML SYR IV SCH (19:37)
[2025-02-12] VITALS (26 sets, daily range): BP systolic 120–172; BP diastolic 64–89; TEMP 97–99.8; O2SAT 90–100
[2025-02-12 04:56] LABS: PLATELET COUNT, AUTOMATED 362 10^3/uL (150-450)
[2025-02-12 05:23] LABS: ALT/SGPT 15.0 U/L (7.0-40); AST/SGOT 20.0 U/L (<34); CALCIUM LEVEL 7.4 MG/DL (8.3-10.6); CARBON DIOXIDE LEVEL 29.0 MMOL/L (20-31); CHLORIDE LEVEL 99.0 MMOL/L (98-107); CREATININE FOR GFR 1.34 MG/DL (0.55-1.30); GLOMERULAR FILTRATION RATE 43.2 (>45); MAGNESIUM LEVEL 2.0 MG/DL (1.8-2.4); PHOSPHORUS LEVEL 5.4 MG/DL (2.4-5.1); POTASSIUM SERUM 3.6 MMOL/L (3.5-5.1); SODIUM LEVEL 139.0 MMOL/L (136-145)
[2025-02-12] MEDS: FAT EMULSION IV 250 ML IV ONE (17:23)
[2025-02-12] MEDS: MULTIVITAMIN -ADULT INJECTION 10 ML, ZINC/COPPER/MANGANESE/SELENIUM 1 ML in AMINO AC/EL... IV SCH (17:23)
[2025-02-12] MEDS: INSULIN LISPRO (NovoLOG) PER UNIT SC SCH (18:41)
[2025-02-12] MEDS: PIPERACILLIN/TAZOBACTAM SOD 3.375 GM in DEXTROSE 5% (D5W) ADV/MINI-BAG 50 ML IV SCH (20:19)
[2025-02-13] VITALS (24 sets, daily range): BP systolic 136–159; BP diastolic 76–96; TEMP 97–98.1; O2SAT 92–100
[2025-02-13 05:22] LABS: PLATELET COUNT, AUTOMATED 389 10^3/uL (150-450)
[2025-02-13 06:02] LABS: ALT/SGPT 18.0 U/L (7.0-40); AST/SGOT 29.0 U/L (<34); C REACTIVE PROTEIN QUANTITATIV 40.01 MG/DL (<1.0); CALCIUM LEVEL 7.2 MG/DL (8.3-10.6); CARBON DIOXIDE LEVEL 28.0 MMOL/L (20-31); CHLORIDE LEVEL 100.0 MMOL/L (98-107); CREATININE FOR GFR 1.12 MG/DL (0.55-1.30); GLOMERULAR FILTRATION RATE 53.6 (>45); MAGNESIUM LEVEL 1.9 MG/DL (1.8-2.4); PHOSPHORUS LEVEL 4.2 MG/DL (2.4-5.1); POTASSIUM SERUM 3.6 MMOL/L (3.5-5.1); SODIUM LEVEL 140.0 MMOL/L (136-145)
[2025-02-13] MEDS: FAT EMULSION IV 250 ML IV ONE (18:10)
[2025-02-13] MEDS: AMINO AC/ELECTROLYTE/DEX/CALC 1,000 ML IV SCH (18:10)
[2025-02-13] MEDS: INSULIN LISPRO (NovoLOG) PER UNIT SC SCH (18:24)
[2025-02-13] MEDS: FENTANYL REMOVAL DOCUMENTATION MISC XX SCH (18:56)
[2025-02-13] MEDS: MEROPENEM 2 GM in SODIUM CHLORIDE 0.9% INJ 100 ML IV SCH (20:36)
[2025-02-14] VITALS (20 sets, daily range): BP systolic 124–139; BP diastolic 57–85; TEMP 97.2–98.5; O2SAT 86–99
[2025-02-14 05:35] LABS: PLATELET COUNT, AUTOMATED 387 10^3/uL (150-450)
[2025-02-14 06:04] LABS: ALT/SGPT 17.0 U/L (7.0-40); AST/SGOT 26.0 U/L (<34); CALCIUM LEVEL 7.3 MG/DL (8.3-10.6); CARBON DIOXIDE LEVEL 29.0 MMOL/L (20-31); CHLORIDE LEVEL 101.0 MMOL/L (98-107); CREATININE FOR GFR 0.9 MG/DL (0.55-1.30); GLOMERULAR FILTRATION RATE 69.6 (>45); MAGNESIUM LEVEL 2.0 MG/DL (1.8-2.4); PHOSPHORUS LEVEL 4.0 MG/DL (2.4-5.1); POTASSIUM SERUM 3.3 MMOL/L (3.5-5.1); SODIUM LEVEL 140.0 MMOL/L (136-145)
[2025-02-14] MEDS ORDERED: CYANOCOBALAMIN 500 MCG TAB NG SCH (09:56)
[2025-02-14] MEDS ORDERED: amLODIPine 10 MG TAB NG SCH (09:56)
[2025-02-14] MEDS ORDERED: LORATADINE 10 MG TAB NG SCH (09:57)
[2025-02-14] MEDS ORDERED: GABAPENTIN 300 MG CAP NG SCH (09:58)
[2025-02-14] MEDS ORDERED: MAGNESIUM OXIDE 400 MG TAB NG SCH (09:59)
[2025-02-14] MEDS: GABAPENTIN 300 MG CAP NG SCH (10:17)
[2025-02-14] MEDS: LORATADINE 10 MG TAB NG SCH (10:18)
[2025-02-14] MEDS: CYANOCOBALAMIN 500 MCG TAB NG SCH (10:18)
[2025-02-14] MEDS: amLODIPine 10 MG TAB NG SCH (10:18)
[2025-02-14] MEDS: MAGNESIUM OXIDE 400 MG TAB NG SCH (10:19)
[2025-02-14] MEDS: TORSEMIDE 10 MG TABLET NG SCH (10:19)
[2025-02-14] MEDS: KCL 20MEQ IN 100ML SWI (KRUN) 20 MEQ in IV 1 EA IV SCH (10:21)
[2025-02-14] MEDS: INSULIN LISPRO (NovoLOG) PER UNIT SC SCH (18:19)
[2025-02-14] MEDS: FAT EMULSION IV 250 ML IV ONE (18:20)
[2025-02-14] MEDS: MULTIVITAMIN -ADULT INJECTION 10 ML, ZINC/COPPER/MANGANESE/SELENIUM 1 ML in AMINO AC/EL... IV SCH (18:20)
[2025-02-14] MEDS: traZODone 100 MG TAB NG SCH (21:00)
[2025-02-15] VITALS (23 sets, daily range): BP systolic 135–157; BP diastolic 66–91; TEMP 97.5–98.7; O2SAT 93–100
[2025-02-15] MEDS: ALPRAZolam 0.5 MG TAB NG PRN (01:53)
[2025-02-15] MEDS: BISACODYL 10 MG SUPP XX SCH (12:51)
[2025-02-15 14:23] LABS: PLATELET COUNT, AUTOMATED 403 10^3/uL (150-450)
[2025-02-15 14:46] LABS: ALT/SGPT 12.0 U/L (7.0-40); AST/SGOT 22.0 U/L (<34); CALCIUM LEVEL 7.3 MG/DL (8.3-10.6); CARBON DIOXIDE LEVEL 32.0 MMOL/L (20-31); CHLORIDE LEVEL 100.0 MMOL/L (98-107); CREATININE FOR GFR 0.82 MG/DL (0.55-1.30); GLOMERULAR FILTRATION RATE 77.9 (>45); POTASSIUM SERUM 3.4 MMOL/L (3.5-5.1); SODIUM LEVEL 141.0 MMOL/L (136-145)
[2025-02-15 14:55] LABS: C REACTIVE PROTEIN QUANTITATIV 14.75 MG/DL (<1.0)
[2025-02-15] MEDS ORDERED: KCL 20MEQ IN 100ML SWI (KRUN) 20 MEQ in IV 1 EA IV ONE (17:00)
[2025-02-15] MEDS: FAT EMULSION IV 250 ML IV ONE (17:58)
[2025-02-15] MEDS: AMINO AC/ELECTROLYTE/DEX/CALC 2,000 ML IV SCH (17:58)
[2025-02-15] MEDS: INSULIN LISPRO (NovoLOG) PER UNIT SC SCH (17:59)
[2025-02-15] MEDS: KCL 10MEQ/100ML SWI (KRUN) 10 MEQ in IV 1 EA IV SCH (22:20)
[2025-02-16] VITALS (25 sets, daily range): BP systolic 115–151; BP diastolic 59–91; TEMP 97.1–101; O2SAT 87–100
[2025-02-16] MEDS: ACETAMINOPHEN *IV* 1,000 MG in IV 1 EA IV ONE (00:42)
[2025-02-16 01:52] LABS: VENOUS BASE EXCESS 3.4 (-2.0-2.0); VENOUS HCO3 27.1 MMOL/L (23.0-27.0); VENOUS O2 SATURATION 97.4 % (60.0-80.0); VENOUS PARTIAL PRESSURE CO2 37.8 mmHg (38.0-50.0); VENOUS PARTIAL PRESSURE O2 194.9 mmHg (30.0-50.0); VENOUS PH 7.473 UNITS (7.330-7.430); VENOUS STANDARD HCO3 27.5 MMOL/L; VENOUS TOTAL CO2 28.2 MMOL/L (24.0-28.0)
[2025-02-16 01:58] LABS: PLATELET COUNT, AUTOMATED 397 10^3/uL (150-450)
[2025-02-16 02:32] LABS: ALT/SGPT 16 U/L (7.0-40); AST/SGOT 26 U/L (<34); CALCIUM LEVEL 7.3 MG/DL (8.3-10.6); CARBON DIOXIDE LEVEL 31 MMOL/L (20-31); CHLORIDE LEVEL 98 MMOL/L (98-107); CK-MB VALUE MASS < 1.0 NG/ML (<3.6); CPK CREATINE PHOSPHOKINASE 30 U/L (34-145); CREATININE FOR GFR 0.71 MG/DL (0.55-1.30); GLOMERULAR FILTRATION RATE > 90.0 (>45); MAGNESIUM LEVEL 1.5 MG/DL (1.8-2.4); POTASSIUM SERUM 3.9 MMOL/L (3.5-5.1); SODIUM LEVEL 136 MMOL/L (136-145)
[2025-02-16] MEDS ORDERED: MAG SULF 1GM/100ML (MAG RUN) 1 GM in IV 1 EA IV ONE (03:05)
[2025-02-16 03:10] LABS: ATYPICAL LYMPH 3 % (0-5); EOSINOPHILS 2 % (0-3); LYMPHOCYTES 25 % (16-44); METAMYELOCYTES 2 % (0-0); MONOCYTES 2 % (0-5); NEUTROPHILS 62 % (28-66); PLASMA CELL 1 % (0-0); PLATELET ESTIMATE NORMAL (NORMAL)
[2025-02-16 03:12] LABS: PLATELET CLUMPS SMALL AMT
[2025-02-16] MEDS: MAG SULF 1GM/100ML (MAG RUN) 1 GM in IV 1 EA IV SCH (03:15)
[2025-02-16] MEDS ORDERED: MAG SULF 1GM/100ML (MAG RUN) 1 GM in IV 1 EA IV SCH (04:00)
[2025-02-16] MEDS: CALCIUM GLUCONATE 1,000 MG in DEXTROSE 5% (D5W) MINI-BAG PLU 100 ML IV ONE (04:15)
[2025-02-16 04:19] LABS: IONIZED CALCIUM 4.5 MG/DL (4.5-5.3)
[2025-02-16 04:48] LABS: CK-MB VALUE MASS 1.1 NG/ML (<3.6)
[2025-02-16 04:50] LABS: CPK CREATINE PHOSPHOKINASE 33.0 U/L (34-145); MB/CK RELATIVE INDEX 3.33 (< OR =4)
[2025-02-16 05:31] LABS: PLATELET COUNT, AUTOMATED 407 10^3/uL (150-450)
[2025-02-16 05:54] LABS: ALT/SGPT 16 U/L (7.0-40); AST/SGOT 33 U/L (<34); CALCIUM LEVEL 7.7 MG/DL (8.3-10.6); CARBON DIOXIDE LEVEL 32 MMOL/L (20-31); CHLORIDE LEVEL 97 MMOL/L (98-107); CREATININE FOR GFR 0.67 MG/DL (0.55-1.30); GLOMERULAR FILTRATION RATE > 90.0 (>45); POTASSIUM SERUM 4.1 MMOL/L (3.5-5.1); SODIUM LEVEL 137 MMOL/L (136-145)
[2025-02-16] MEDS ORDERED: IPRATROPIUM 0.5 MG/ALBUTEROL 2.5 MG INH SOL UD 3 ML NEB PRN (14:25)
[2025-02-16] MEDS: INSULIN LISPRO (NovoLOG) PER UNIT SC SCH (18:00)
[2025-02-16] MEDS: AMINO AC/ELECTROLYTE/DEX/CALC 2,000 ML IV SCH (19:00)
[2025-02-16] MEDS: FAT EMULSION IV 250 ML IV ONE (19:00)
[2025-02-16 22:23] LABS: PLATELET COUNT, AUTOMATED 452 10^3/uL (150-450)
[2025-02-16 22:55] LABS: ALT/SGPT 13 U/L (7.0-40); AST/SGOT 24 U/L (<34); CALCIUM LEVEL 7.4 MG/DL (8.3-10.6); CARBON DIOXIDE LEVEL 33 MMOL/L (20-31); CHLORIDE LEVEL 98 MMOL/L (98-107); CREATININE FOR GFR 0.61 MG/DL (0.55-1.30); GLOMERULAR FILTRATION RATE > 90.0 (>45); POTASSIUM SERUM 4.3 MMOL/L (3.5-5.1); SODIUM LEVEL 139 MMOL/L (136-145)
[2025-02-17] VITALS (8 sets, daily range): BP systolic 117–147; BP diastolic 66–71; TEMP 97.6–98.4; O2SAT 93–99
[2025-02-17 02:11] LABS: MAGNESIUM LEVEL 1.8 MG/DL (1.8-2.4)
[2025-02-17] MEDS: FAT EMULSION IV 250 ML IV ONE (18:21)
[2025-02-17] MEDS: MULTIVITAMIN -ADULT INJECTION 10 ML, ZINC/COPPER/MANGANESE/SELENIUM 1 ML in AMINO AC/EL... IV SCH (18:21)
[2025-02-17] MEDS: INSULIN LISPRO (NovoLOG) PER UNIT SC SCH (18:58)
[2025-02-18] VITALS (10 sets, daily range): BP systolic 110–158; BP diastolic 58–87; TEMP 97–97.8; O2SAT 83–98
[2025-02-18 06:02] LABS: PLATELET COUNT, AUTOMATED 553 10^3/uL (150-450)
[2025-02-18 06:29] LABS: ALT/SGPT 13 U/L (7.0-40); AST/SGOT 25 U/L (<34); CALCIUM LEVEL 7.8 MG/DL (8.3-10.6); CARBON DIOXIDE LEVEL 34 MMOL/L (20-31); CHLORIDE LEVEL 96 MMOL/L (98-107); CREATININE FOR GFR 0.58 MG/DL (0.55-1.30); GLOMERULAR FILTRATION RATE > 90.0 (>45); MAGNESIUM LEVEL 1.7 MG/DL (1.8-2.4); POTASSIUM SERUM 4.5 MMOL/L (3.5-5.1); SODIUM LEVEL 138 MMOL/L (136-145)
[2025-02-18] MEDS ORDERED: MAG SULF 1GM/100ML (MAG RUN) 1 GM in IV 1 EA IV ONE (07:10)
[2025-02-18] MEDS ORDERED: GASTROGRAFIN SOLUTION 30 ML As Ordered ONE (07:22)
[2025-02-18] MEDS: MAG SULF 1GM/100ML (MAG RUN) 1 GM in IV 1 EA IV ONE (11:31)
[2025-02-18] MEDS: ACETAMINOPHEN *IV* 1,000 MG in IV 1 EA IV SCH (18:18)
[2025-02-19 03:23] VITALS: BP 143/91; TEMP 97.4; O2SAT 93
[2025-02-19 05:47] LABS: ALT/SGPT 14.0 U/L (7.0-40); AST/SGOT 26.0 U/L (<34); CALCIUM LEVEL 8.2 MG/DL (8.3-10.6); CARBON DIOXIDE LEVEL 31.0 MMOL/L (20-31); CHLORIDE LEVEL 97.0 MMOL/L (98-107); CREATININE FOR GFR 0.77 MG/DL (0.55-1.30); GLOMERULAR FILTRATION RATE 84.0 (>45); POTASSIUM SERUM 5.2 MMOL/L (3.5-5.1); SODIUM LEVEL 139.0 MMOL/L (136-145)
[2025-02-19 05:50] LABS: PLATELET COUNT, AUTOMATED 733 10^3/uL (150-450)
[2025-02-19 07:46] VITALS: BP 135/85; TEMP 97.3; O2SAT 93
[2025-02-19 08:11] VITALS: O2SAT 92
[2025-02-19 08:59] LABS: MAGNESIUM LEVEL 2.1 MG/DL (1.8-2.4)
[2025-02-19] MEDS ORDERED: FUROSEMIDE 100 MG/10 ML VIAL IV SCH (09:00)
[2025-02-19] MEDS: FUROSEMIDE 40 MG/4 ML VIAL IV ONE (11:18)
[2025-02-19 12:16] VITALS: BP 110/69; TEMP 97.2; O2SAT 100
[2025-02-19] MEDS: ACETAMINOPHEN 325 MG TAB PO ONE (15:27)
[2025-02-19 15:59] VITALS: BP 152/78; TEMP 97.3; O2SAT 96
[2025-02-19] MEDS: FUROSEMIDE 100 MG/10 ML VIAL IV SCH (17:27)
[2025-02-19] MEDS: MORPHINE 10 MG/0.5 ML ORAL CONCENTRATE SOLUTION U/D SL PRN (17:54)
[2025-02-19 20:37] VITALS: BP 134/67; TEMP 97; O2SAT 97
[2025-02-20] VITALS (25 sets, daily range): BP systolic 129–157; BP diastolic 63–74; TEMP 97.1–97.9; O2SAT 89–100
[2025-02-20] MEDS: ACETAMINOPHEN 325 MG TAB PO PRN (01:13)
[2025-02-20] MEDS: MORPHINE 10 MG/0.5 ML ORAL CONCENTRATE SOLUTION U/D SL PRN (05:02)
[2025-02-20 05:50] LABS: PLATELET COUNT, AUTOMATED 689 10^3/uL (150-450)
[2025-02-20 06:07] LABS: ALT/SGPT 16.0 U/L (7.0-40); AST/SGOT 23.0 U/L (<34); CALCIUM LEVEL 7.4 MG/DL (8.3-10.6); CARBON DIOXIDE LEVEL 33.0 MMOL/L (20-31); CHLORIDE LEVEL 94.0 MMOL/L (98-107); CREATININE FOR GFR 0.74 MG/DL (0.55-1.30); GLOMERULAR FILTRATION RATE 88.1 (>45); POTASSIUM SERUM 5.1 MMOL/L (3.5-5.1); SODIUM LEVEL 136.0 MMOL/L (136-145)
[2025-02-20 09:02] LABS: MAGNESIUM LEVEL 1.7 MG/DL (1.8-2.4)
[2025-02-20] MEDS: MAGNESIUM OXIDE 400 MG TAB PO SCH (09:45)
[2025-02-20] MEDS: MAG SULF 1GM/100ML (MAG RUN) 1 GM in IV 1 EA IV SCH (10:50)
[2025-02-21] VITALS (17 sets, daily range): BP systolic 107–129; BP diastolic 55–68; TEMP 96.6–97.4; O2SAT 93–98
[2025-02-21 04:58] LABS: PLATELET COUNT, AUTOMATED 677 10^3/uL (150-450)
[2025-02-21 05:24] LABS: CALCIUM LEVEL 7.0 MG/DL (8.3-10.6); CARBON DIOXIDE LEVEL 35 MMOL/L (20-31); CHLORIDE LEVEL 93 MMOL/L (98-107); CREATININE FOR GFR 0.70 MG/DL (0.55-1.30); GLOMERULAR FILTRATION RATE > 90.0 (>45); MAGNESIUM LEVEL 1.9 MG/DL (1.8-2.4); POTASSIUM SERUM 4.6 MMOL/L (3.5-5.1); SODIUM LEVEL 137 MMOL/L (136-145)
[2025-02-21 05:49] LABS: LYMPHOCYTES 22 % (16-44); MONOCYTES 10 % (0-5); NEUTROPHILS 68 % (28-66)
[2025-02-21 05:52] LABS: PLATELET ESTIMATE INCREASED (NORMAL)
[2025-02-21] MEDS: FUROSEMIDE 100 MG/10 ML VIAL IV SCH (08:54)
[2025-02-21] MEDS: predniSONE 20 MG TAB PO SCH (08:54)
[2025-02-21] MEDS: MORPHINE 2 MG/ML 1 ML VIAL IV ONE (21:48)
[2025-02-22] VITALS (22 sets, daily range): BP systolic 108–128; BP diastolic 65–79; TEMP 97–97.5; O2SAT 89–100
[2025-02-22 06:08] LABS: BASO # 0.0 10^3/uL (0.0-0.2); BASO % 0.2 % (0.0-1.0); EOS # 0.0 10^3/uL (0.0-0.5); EOS % 0.3 % (0.0-3.0); LYMPH # 2.0 10^3/uL (1.5-5.0); LYMPH % 17.5 % (24.0-44.0); MONO # 1.5 10^3/uL (0.0-0.8); MONO % 12.7 % (2.0-8.0); NEUTROPHILS # 7.0 10^3/uL (1.5-8.5); NEUTROPHILS % 60.8 % (36.0-66.0); PLATELET COUNT, AUTOMATED 675 10^3/uL (150-450)
[2025-02-22 06:21] LABS: CALCIUM LEVEL 7.4 MG/DL (8.3-10.6); CARBON DIOXIDE LEVEL 38 MMOL/L (20-31); CHLORIDE LEVEL 94 MMOL/L (98-107); CREATININE FOR GFR 0.59 MG/DL (0.55-1.30); GLOMERULAR FILTRATION RATE > 90.0 (>45); MAGNESIUM LEVEL 1.7 MG/DL (1.8-2.4); POTASSIUM SERUM 4.3 MMOL/L (3.5-5.1); SODIUM LEVEL 138 MMOL/L (136-145)
[2025-02-22] MEDS: predniSONE 20 MG TAB PO SCH (09:32)
[2025-02-22] MEDS: MAG SULF 1GM/100ML (MAG RUN) 1 GM in IV 1 EA IV SCH (09:38)
[2025-02-23 04:14] VITALS: BP 113/78; TEMP 97.2; O2SAT 95
[2025-02-23 06:53] LABS: BASO # 0.0 10^3/uL (0.0-0.2); BASO % 0.2 % (0.0-1.0); EOS # 0.0 10^3/uL (0.0-0.5); EOS % 0.2 % (0.0-3.0); LYMPH # 2.1 10^3/uL (1.5-5.0); LYMPH % 16.1 % (24.0-44.0); MONO # 1.3 10^3/uL (0.0-0.8); MONO % 10.3 % (2.0-8.0); NEUTROPHILS # 8.0 10^3/uL (1.5-8.5); NEUTROPHILS % 61.9 % (36.0-66.0); PLATELET COUNT, AUTOMATED 678 10^3/uL (150-450)
[2025-02-23 07:17] LABS: CALCIUM LEVEL 7.4 MG/DL (8.3-10.6); CARBON DIOXIDE LEVEL 38 MMOL/L (20-31); CHLORIDE LEVEL 95 MMOL/L (98-107); CREATININE FOR GFR 0.52 MG/DL (0.55-1.30); GLOMERULAR FILTRATION RATE > 90.0 (>45); MAGNESIUM LEVEL 1.9 MG/DL (1.8-2.4); POTASSIUM SERUM 4.1 MMOL/L (3.5-5.1); SODIUM LEVEL 136 MMOL/L (136-145)
[2025-02-23 08:10] LABS: ATYPICAL LYMPH 1 % (0-5); LYMPHOCYTES 15 % (16-44); METAMYELOCYTES 5 % (0-0); MONOCYTES 10 % (0-5); MYELOCYTES 5 % (0-0); NEUTROPHILS 54 % (28-66); PLASMA CELL 2 % (0-0); PLATELET CLUMPS SMALL AMT; PLATELET ESTIMATE INCREASED (NORMAL)
[2025-02-23] MEDS: PANTOPRAZOLE 40MG TAB PO SCH (08:19)
[2025-02-23] MEDS: MORPHINE 10 MG/0.5 ML ORAL CONCENTRATE SOLUTION U/D SL PRN (09:31)
[2025-02-23 10:08] LABS: IRON (FE) 64.0 UG/DL (50-170); PERCENT SATURATION 36.6 % (13.2-45.0)
[2025-02-23 10:11] LABS: VITAMIN B12 LEVEL 1946.0 PG/ML (211-911)
[2025-02-23 12:00] VITALS: BP 115/74; TEMP 97.5; O2SAT 91
[2025-02-23 19:50] VITALS: BP 114/73; TEMP 97.7; O2SAT 94
[2025-02-24 03:14] VITALS: BP 133/80; TEMP 97.2; O2SAT 95
[2025-02-24 06:32] LABS: PLATELET COUNT, AUTOMATED 657 10^3/uL (150-450)
[2025-02-24 06:59] LABS: ATYPICAL LYMPH 1 % (0-5); LYMPHOCYTES 14 % (16-44); METAMYELOCYTES 1 % (0-0); MONOCYTES 9 % (0-5); NEUTROPHILS 74 % (28-66)
[2025-02-24 07:01] LABS: PLATELET ESTIMATE INCREASED (NORMAL)
[2025-02-24 07:07] LABS: CALCIUM LEVEL 7.3 MG/DL (8.3-10.6); CARBON DIOXIDE LEVEL 38 MMOL/L (20-31); CHLORIDE LEVEL 95 MMOL/L (98-107); CREATININE FOR GFR 0.60 MG/DL (0.55-1.30); GLOMERULAR FILTRATION RATE > 90.0 (>45); MAGNESIUM LEVEL 1.9 MG/DL (1.8-2.4); POTASSIUM SERUM 4.4 MMOL/L (3.5-5.1); SODIUM LEVEL 137 MMOL/L (136-145)
[2025-02-24] MEDS ORDERED: predniSONE 10 MG TAB PO SCH (09:00)
[2025-02-24] MEDS: FOLIC ACID 1 MG TAB PO SCH (10:35)
[2025-02-24 13:00] VITALS: BP 131/81; TEMP 97.3; O2SAT 96
[2025-02-24 13:15] VITALS: BP 122/78; TEMP 97.4; O2SAT 97
[2025-02-24 14:00] VITALS: BP_SYST 123; BP_SYST 130; BP_DIAS 77; BP_DIAS 90; TEMP 97.2; TEMP 97.4; O2SAT 93; O2SAT 96
[2025-02-24 14:51] VITALS: BP 124/72; TEMP 97.4; O2SAT 96
[2025-02-24 20:00] VITALS: BP 115/70; TEMP 97.3; O2SAT 94
[2025-02-24 20:21] LABS: C REACTIVE PROTEIN QUANTITATIV 2.28 MG/DL (<1.0)
[2025-02-25] MEDS: KETOROLAC 30 MG/ML 1 ML VIAL IV ONE (00:15)
[2025-02-25 04:12] VITALS: BP 137/68; TEMP 97.2; O2SAT 96
[2025-02-25 05:52] LABS: BASO # 0.2 10^3/uL (0.0-0.2); BASO % 0.7 % (0.0-1.0); EOS # 0.4 10^3/uL (0.0-0.5); EOS % 1.4 % (0.0-3.0); LYMPH # 2.4 10^3/uL (1.5-5.0); LYMPH % 9.6 % (24.0-44.0); MONO # 1.7 10^3/uL (0.0-0.8); MONO % 6.7 % (2.0-8.0); NEUTROPHILS # 17.1 10^3/uL (1.5-8.5); NEUTROPHILS % 67.5 % (36.0-66.0); PLATELET COUNT, AUTOMATED 684 10^3/uL (150-450)
[2025-02-25 06:04] LABS: CALCIUM LEVEL 7.8 MG/DL (8.3-10.6); CARBON DIOXIDE LEVEL 36 MMOL/L (20-31); CHLORIDE LEVEL 96 MMOL/L (98-107); CREATININE FOR GFR 0.64 MG/DL (0.55-1.30); GLOMERULAR FILTRATION RATE > 90.0 (>45); MAGNESIUM LEVEL 1.6 MG/DL (1.8-2.4); POTASSIUM SERUM 4.9 MMOL/L (3.5-5.1); SODIUM LEVEL 139 MMOL/L (136-145)
[2025-02-25] MEDS: MAG SULF 1GM/100ML (MAG RUN) 1 GM in IV 1 EA IV SCH (09:22)
[2025-02-25 14:00] VITALS: BP 136/70; TEMP 97.5; O2SAT 99
[2025-02-25] MEDS: GASTROGRAFIN SOLUTION 30ML PO SCH (16:09)
[2025-02-25 20:13] VITALS: BP 133/71; TEMP 97.9; O2SAT 91
[2025-02-26 05:34] LABS: BASO # 0.2 10^3/uL (0.0-0.2); BASO % 0.8 % (0.0-1.0); EOS # 0.4 10^3/uL (0.0-0.5); EOS % 2.2 % (0.0-3.0); LYMPH # 2.6 10^3/uL (1.5-5.0); LYMPH % 13.9 % (24.0-44.0); MONO # 1.6 10^3/uL (0.0-0.8); MONO % 8.6 % (2.0-8.0); NEUTROPHILS # 11.1 10^3/uL (1.5-8.5); NEUTROPHILS % 58.8 % (36.0-66.0); PLATELET COUNT, AUTOMATED 607 10^3/uL (150-450)
[2025-02-26 06:06] LABS: CALCIUM LEVEL 8.2 MG/DL (8.3-10.6); CARBON DIOXIDE LEVEL 35 MMOL/L (20-31); CHLORIDE LEVEL 94 MMOL/L (98-107); CREATININE FOR GFR 0.56 MG/DL (0.55-1.30); GLOMERULAR FILTRATION RATE > 90.0 (>45); MAGNESIUM LEVEL 1.8 MG/DL (1.8-2.4); POTASSIUM SERUM 4.8 MMOL/L (3.5-5.1); SODIUM LEVEL 134 MMOL/L (136-145)
[2025-02-26 06:27] VITALS: BP 134/75; TEMP 97.5; O2SAT 92
[2025-02-26 14:00] VITALS: BP 126/76; TEMP 97.7; O2SAT 95
[2025-02-26] MEDS: predniSONE 10 MG TAB PO SCH (15:37)
[2025-02-26 22:00] VITALS: BP 127/68; TEMP 97.5; O2SAT 94
[2025-02-27 06:00] VITALS: BP 107/69; TEMP 97.5; O2SAT 94
[2025-02-27 06:39] LABS: PLATELET COUNT, AUTOMATED 506 10^3/uL (150-450)
[2025-02-27 07:11] LABS: CALCIUM LEVEL 7.9 MG/DL (8.3-10.6); CARBON DIOXIDE LEVEL 35 MMOL/L (20-31); CHLORIDE LEVEL 92 MMOL/L (98-107); CREATININE FOR GFR 0.63 MG/DL (0.55-1.30); GLOMERULAR FILTRATION RATE > 90.0 (>45); MAGNESIUM LEVEL 1.5 MG/DL (1.8-2.4); POTASSIUM SERUM 4.1 MMOL/L (3.5-5.1); SODIUM LEVEL 135 MMOL/L (136-145)
[2025-02-27 08:17] LABS: ATYPICAL LYMPH 6 % (0-5); EOSINOPHILS 2 % (0-3); LYMPHOCYTES 29 % (16-44); MONOCYTES 7 % (0-5); NEUTROPHILS 55 % (28-66); PLATELET ESTIMATE INCREASED (NORMAL)
[2025-02-27] MEDS: MAG SULF 1GM/100ML (MAG RUN) 1 GM in IV 1 EA IV SCH (08:42)
[2025-02-27] MEDS ORDERED: predniSONE 20 MG TAB PO SCH (09:00)
[2025-02-27 12:17] VITALS: BP 119/67; TEMP 97.7; O2SAT 96
[2025-02-27 20:00] VITALS: BP 123/68; TEMP 97.5; O2SAT 100
[2025-02-28 04:00] VITALS: BP 135/72; TEMP 97.7; O2SAT 97
[2025-02-28 09:13] VITALS: BP 135/72
[2025-02-28 09:34] LABS: PLATELET COUNT, AUTOMATED 461 10^3/uL (150-450)
[2025-02-28 10:03] LABS: CALCIUM LEVEL 7.5 MG/DL (8.3-10.6); CARBON DIOXIDE LEVEL 33 MMOL/L (20-31); CHLORIDE LEVEL 92 MMOL/L (98-107); CREATININE FOR GFR 0.62 MG/DL (0.55-1.30); GLOMERULAR FILTRATION RATE > 90.0 (>45); MAGNESIUM LEVEL 1.8 MG/DL (1.8-2.4); POTASSIUM SERUM 3.6 MMOL/L (3.5-5.1); SODIUM LEVEL 134 MMOL/L (136-145)
[2025-02-28 12:15] VITALS: BP 131/66; TEMP 97.7; O2SAT 96
[2025-02-28 14:00] VITALS: BP 130/67; TEMP 97; O2SAT 96
[2025-02-28] MEDS ORDERED: LEVO1TAB39 PO (15:21)
[2025-02-28] MEDS ORDERED: METR-265 PO (15:21)
[2025-02-28] MEDS ORDERED: FOLI1TAB11 PO (15:38)
[2025-02-28 15:50] VITALS: O2SAT 96
[2025-02-28] MEDS ORDERED: MAGN1TAB26 PO (15:55)
[2025-02-28] MEDS ORDERED: POTA-298 PO ×2 (15:55→17:13)
[2025-03-02] MEDS ORDERED: predniSONE 10 MG TAB PO SCH (09:00)
== END 2025-02-28 18:27 | disposition home health service (06) | DRG 335 ==
LOC: EDBD 11:00 → M ED 11:00 → M ED INP 13:42 → M MSPAV 20:00 → M ICU 02-10 10:50 → M PCU 02-12 19:18 → M MSPAV 02-15 18:13 → M PCU 02-16 04:52 → M MS5PR 02-22 21:31
PROVIDERS: ADMIT Internal Medicine; ATTEND Internal Medicine
PROC: 0WQFXZZ Repair Abdominal Wall, External Approach (ICD-10-PCS; 2025-02-10)
PROC: 0WQF0ZZ Repair Abdominal Wall, Open Approach (ICD-10-PCS; 2025-02-10)
PROC: 5A1935Z Respiratory Ventilation, Less than 24 Consecutive Hours (ICD-10-PCS; 2025-02-10)
PROC: 0DN80ZZ Release Small Intestine, Open Approach (ICD-10-PCS; principal; 2025-02-10 13:00)
PROC: 30233N1 Transfusion of Nonautologous Red Blood Cells into Peripheral Vein, Percutaneous Approach (ICD-10-PCS; 2025-02-24)
PROC: B246ZZZ Ultrasonography of Right and Left Heart (ICD-10-PCS; 2025-02-24)
DX: K43.3 Parastomal hernia with obstruction, without gangrene (principal); J96.21 Acute and chronic respiratory failure with hypoxia; I50.33 Acute on chronic diastolic (congestive) heart failure; E43 Unspecified severe protein-calorie malnutrition; N17.9 Acute kidney failure, unspecified; J95.89 Other postprocedural complications and disorders of respiratory system, not elsewhere classified; J44.1 Chronic obstructive pulmonary disease with (acute) exacerbation; N13.30 Unspecified hydronephrosis; I47.20 Ventricular tachycardia, unspecified; J98.11 Atelectasis; F19.20 Other psychoactive substance dependence, uncomplicated; Z66 Do not resuscitate; Z85.118 Personal history of other malignant neoplasm of bronchus and lung; Z90.2 Acquired absence of lung [part of]; Z99.81 Dependence on supplemental oxygen; Z90.49 Acquired absence of other specified parts of digestive tract; Z86.74 Personal history of sudden cardiac arrest; Z79.899 Other long term (current) drug therapy; Z88.0 Allergy status to penicillin; Z88.1 Allergy status to other antibiotic agents; Z88.6 Allergy status to analgesic agent; Z88.5 Allergy status to narcotic agent; Z88.7 Allergy status to serum and vaccine; Z88.8 Allergy status to other drugs, medicaments and biological substances; F41.9 Anxiety disorder, unspecified; E87.6 Hypokalemia; F39 Unspecified mood [affective] disorder; K66.0 Peritoneal adhesions (postprocedural) (postinfection); I11.0 Hypertensive heart disease with heart failure; I73.9 Peripheral vascular disease, unspecified; I25.10 Atherosclerotic heart disease of native coronary artery without angina pectoris; K21.9 Gastro-esophageal reflux disease without esophagitis; E83.42 Hypomagnesemia; G89.29 Other chronic pain; R60.1 Generalized edema; D53.9 Nutritional anemia, unspecified; R33.9 Retention of urine, unspecified; E88.09 Other disorders of plasma-protein metabolism, not elsewhere classified

== ENCOUNTER → 2025-04-28 | Outpatient (REF) | payer MEDICARE, MEDICAID ==
[~2025-04-28] MED LIST changes: +CHOL4PW PO; +CVS6.5DR3 OTIC; +DIPH1TAB80 PO; -EAR6.5DR10 OTIC; +FAMO20TA PO; -IBUP-1022 PO; +IBUP600T42 PO; +LEVO1TAB39 PO; +LINE1TAB PO; +LINE1TAB6 PO; +LOPE2CAP PO; +MAGN1TAB26 PO; +MAGN400T2 PO; +MAGN400T33 PO; +METR-265 PO; +MORP1SOL4 PO; +MORP1SOL5 PO; +POTA-298 PO; +TORS10TA3 PO
[2025-04-28 16:09] LABS: BASO # 0.0 10^3/uL (0.0-0.2); BASO % 0.3 % (0.0-1.0); EOS # 0.3 10^3/uL (0.0-0.5); EOS % 2.4 % (0.0-3.0); LYMPH # 0.7 10^3/uL (1.5-5.0); LYMPH % 6.3 % (24.0-44.0); MONO # 0.9 10^3/uL (0.0-0.8); MONO % 8.5 % (2.0-8.0); NEUTROPHILS # 8.7 10^3/uL (1.5-8.5); NEUTROPHILS % 81.0 % (36.0-66.0); PLATELET COUNT, AUTOMATED 299 10^3/uL (150-450)
[2025-04-28 16:34] LABS: ALT/SGPT 13 U/L (7.0-40); AST/SGOT 12 U/L (<34); CALCIUM LEVEL 8.3 MG/DL (8.3-10.6); CARBON DIOXIDE LEVEL 22 MMOL/L (20-31); CHLORIDE LEVEL 110 MMOL/L (98-107); CREATININE FOR GFR 0.57 MG/DL (0.55-1.30); GLOMERULAR FILTRATION RATE > 90.0 (>45); MAGNESIUM LEVEL 1.7 MG/DL (1.8-2.4); PHOSPHORUS LEVEL 3.5 MG/DL (2.4-5.1); POTASSIUM SERUM 4.5 MMOL/L (3.5-5.1); SODIUM LEVEL 140 MMOL/L (136-145)
[2025-04-28 16:37] LABS: THYROGLOBULIN ANTIBODY < 15.0 U/ML (<60.0)
== END ==
LOC: M SHH 15:02
PROVIDERS: ATTEND Internal Medicine Nephrology
DX: K55.8 Other vascular disorders of intestine (principal); Z93.2 Ileostomy status

== ENCOUNTER 2025-05-04 11:40 | Inpatient (IN) | payer MEDICARE, MEDICAID ==
[~2025-05-04] VITALS: Ht 157.5 cm; Wt 56.3 kg
[2025-05-04 12:37] LABS: PLATELET COUNT, AUTOMATED 347 10^3/uL (150-450)
[2025-05-04 13:12] LABS: ALT/SGPT 16 U/L (7.0-40); AST/SGOT 14 U/L (<34); CALCIUM LEVEL 8.8 MG/DL (8.3-10.6); CARBON DIOXIDE LEVEL 28 MMOL/L (20-31); CHLORIDE LEVEL 106 MMOL/L (98-107); CREATININE FOR GFR 0.55 MG/DL (0.55-1.30); GLOMERULAR FILTRATION RATE > 90.0 (>45); POTASSIUM SERUM 4.5 MMOL/L (3.5-5.1); SODIUM LEVEL 139 MMOL/L (136-145)
[2025-05-04 13:32] LABS: BASOPHILS 1 % (0-1); LYMPHOCYTES 15 % (16-44); MONOCYTES 13 % (0-5); MYELOCYTES 1 % (0-0); NEUTROPHILS 66 % (28-66)
[2025-05-04 13:33] LABS: CK-MB VALUE MASS 2.6 NG/ML (<3.6)
[2025-05-04 13:34] LABS: PLATELET ESTIMATE NORMAL (NORMAL)
[2025-05-04] MEDS: IPRATROPIUM 0.5 MG/ALBUTEROL 2.5 MG INH SOL UD 3 ML NEB PRN (13:36)
[2025-05-04 13:37] LABS: FREE T4 1.31 NG/DL (0.89-1.76)
[2025-05-04 13:38] LABS: ABG BASE EXCESS 3.4 (-2.0-2.0); ABG HCO3 30.6 MMOL/L (22.0-26.0); ABG O2 SATURATION 96.6 % (95.0-99.0); ABG PARTIAL PRESSURE O2 93.8 mmHg (75.0-100.0); ABG STANDARD HCO3 27.5 MMOL/L. (22.0-26.0); ABG TOTAL CO2 32.6 MMOL/L (23.0-31.0); ABG pH (ARTERIAL) 7.300 UNITS (7.350-7.450)
[2025-05-04 13:38] LABS: CPK CREATINE PHOSPHOKINASE 34 U/L (34-145); MB/CK RELATIVE INDEX 7.64 (< OR =4)
[2025-05-04 13:39] LABS: ABG PARTIAL PRESSURE CO2 63.7 mmHg (35.0-45.0)
[2025-05-04] MEDS: ONDANSETRON 4MG 2ML VIAL IV ONE (13:53)
[2025-05-04] MEDS ORDERED: ISOVUE-370 76% 100 ML VIAL As Ordered ONE (13:59)
[2025-05-04 14:25] LABS: CK-MB VALUE MASS 2.9 NG/ML (<3.6)
[2025-05-04 14:27] LABS: CPK CREATINE PHOSPHOKINASE 33.0 U/L (34-145); MB/CK RELATIVE INDEX 8.78 (< OR =4)
[2025-05-04] MEDS ORDERED: ONDANSETRON 4MG 2ML VIAL IV PRN (16:40)
[2025-05-04] MEDS: CEFEPIME HCL 2 GM in DEXTROSE 5% (D5W) ADV/MINI-BAG 50 ML IV ONE (16:55)
[2025-05-04] MEDS: DOXYCYCLINE HYCLATE 100 MG in DEXTROSE 5% (D5W) MINI-BAG PLU 100 ML IV SCH (17:46)
[2025-05-04 18:04] LABS: ABG BASE EXCESS -0.3 (-2.0-2.0); ABG HCO3 26.6 MMOL/L (22.0-26.0); ABG O2 SATURATION 94.8 % (95.0-99.0); ABG PARTIAL PRESSURE CO2 56.4 mmHg (35.0-45.0); ABG PARTIAL PRESSURE O2 77.2 mmHg (75.0-100.0); ABG STANDARD HCO3 24.2 MMOL/L. (22.0-26.0); ABG TOTAL CO2 28.4 MMOL/L (23.0-31.0); ABG pH (ARTERIAL) 7.292 UNITS (7.350-7.450)
[2025-05-04 18:39] LABS: LDH LACTATE DEHYDROGENASE 197.0 U/L (120-246)
[2025-05-04] MEDS ORDERED: FAMO20TA PO (18:40)
[2025-05-04] MEDS ORDERED: LIDO1ADH93 TD (18:40)
[2025-05-04] MEDS ORDERED: DULO30CA9 PO (18:40)
[2025-05-04] MEDS ORDERED: HOME MED LIST COMPLETE! XX SCH (18:40)
[2025-05-04] MEDS ORDERED: XANA0.5T PO (18:40)
[2025-05-04] MEDS: IPRATROPIUM 0.5 MG/ALBUTEROL 2.5 MG INH SOL UD 3 ML NEB SCH (19:00)
[2025-05-04 20:00] VITALS: BP 115/57; TEMP 98.7; O2SAT 97
[2025-05-04] MEDS: traZODone 100 MG TAB PO SCH (21:01)
[2025-05-04] MEDS: GABAPENTIN 400 MG CAP PO SCH (21:01)
[2025-05-04 22:00] VITALS: BP 89/54; O2SAT 97
[2025-05-04] MEDS ORDERED: CEFEPIME HCL 1 GM in DEXTROSE 5% (D5W) ADV/MINI-BAG 50 ML IV SCH (22:00)
[2025-05-04 22:15] VITALS: O2SAT 98
[2025-05-05] VITALS (18 sets, daily range): BP systolic 103–151; BP diastolic 58–71; TEMP 97.6–98.7; O2SAT 87–100
[2025-05-05] MEDS: CEFEPIME HCL 2 GM in DEXTROSE 5% (D5W) ADV/MINI-BAG 50 ML IV SCH (00:01)
[2025-05-05 05:41] LABS: BASO # 0.0 10^3/uL (0.0-0.2); BASO % 0.0 % (0.0-1.0); EOS # 0.0 10^3/uL (0.0-0.5); EOS % 0.0 % (0.0-3.0); LYMPH # 0.7 10^3/uL (1.5-5.0); LYMPH % 10.5 % (24.0-44.0); MONO # 0.4 10^3/uL (0.0-0.8); MONO % 5.4 % (2.0-8.0); NEUTROPHILS # 5.4 10^3/uL (1.5-8.5); NEUTROPHILS % 83.2 % (36.0-66.0); PLATELET COUNT, AUTOMATED 309 10^3/uL (150-450)
[2025-05-05 05:56] LABS: INR 0.95
[2025-05-05 05:59] LABS: ABG BASE EXCESS 2.5 (-2.0-2.0); ABG HCO3 28.8 MMOL/L (22.0-26.0); ABG O2 SATURATION 98.0 % (95.0-99.0); ABG PARTIAL PRESSURE CO2 54.7 mmHg (35.0-45.0); ABG PARTIAL PRESSURE O2 118.9 mmHg (75.0-100.0); ABG STANDARD HCO3 26.7 MMOL/L. (22.0-26.0); ABG TOTAL CO2 30.5 MMOL/L (23.0-31.0); ABG pH (ARTERIAL) 7.339 UNITS (7.350-7.450)
[2025-05-05 06:08] LABS: ALT/SGPT 19 U/L (7.0-40); AST/SGOT 15 U/L (<34); CALCIUM LEVEL 8.4 MG/DL (8.3-10.6); CARBON DIOXIDE LEVEL 29 MMOL/L (20-31); CHLORIDE LEVEL 104 MMOL/L (98-107); CREATININE FOR GFR 0.66 MG/DL (0.55-1.30); GLOMERULAR FILTRATION RATE > 90.0 (>45); MAGNESIUM LEVEL 1.5 MG/DL (1.8-2.4); PHOSPHORUS LEVEL 3.3 MG/DL (2.4-5.1); POTASSIUM SERUM 4.8 MMOL/L (3.5-5.1); SODIUM LEVEL 140 MMOL/L (136-145)
[2025-05-05] MEDS: MAG SULF 1GM/100ML (MAG RUN) 1 GM in IV 1 EA IV SCH (08:00)
[2025-05-05] MEDS: PANTOPRAZOLE 40MG VIAL IV SCH (09:11)
[2025-05-05] MEDS: ENOXAPARIN 40 MG/0.4 ML SYRINGE (J1650 PER 10MG) SC SCH (09:12)
[2025-05-05] MEDS: ALPRAZolam 0.5 MG TAB PO PRN (10:18)
[2025-05-05] MEDS: LIDOCAINE 5% PATCH TD SCH (11:43)
[2025-05-05] MEDS: amLODIPine 10 MG TAB PO SCH (11:44)
[2025-05-05] MEDS: FOLIC ACID 1 MG TAB PO SCH (11:44)
[2025-05-05] MEDS: GABAPENTIN 300 MG CAP PO SCH (11:44)
[2025-05-05] MEDS: SYMBICORT 160/4.5MCG INHALER 6GM INH SCH (11:54)
[2025-05-05] MEDS: TIOTROPIUM BROM 2.5MCG/ACTUATION 4GM INH INH SCH (11:54)
[2025-05-05 14:23] LABS: PLATELET COUNT, AUTOMATED 325 10^3/uL (150-450)
[2025-05-05] MEDS ORDERED: MORP1SOL4 PO (14:49)
[2025-05-05] MEDS: MULTIVITAMIN -ADULT INJECTION 10 ML, ZINC/COPPER/MANGANESE/SELENIUM 1 ML in AMINO AC/EL... IV SCH (17:54)
[2025-05-05] MEDS: FAT EMULSION IV 250 ML IV ONE (17:54)
[2025-05-05] MEDS: LORATADINE 10 MG TAB PO SCH (20:26)
[2025-05-05] MEDS: FENOFIBRATE 48 MG TABLET PO SCH (20:26)
[2025-05-05] MEDS: traZODone 100 MG TAB PO SCH (20:27)
[2025-05-06 00:21] VITALS: BP 121/69; TEMP 98.2; O2SAT 99
[2025-05-06] MEDS ORDERED: PILL CUTTER 1 EACH XX PRN (00:30)
[2025-05-06 02:18] VITALS: BP 139/79; TEMP 97.9; O2SAT 98
[2025-05-06 08:55] LABS: BASO # 0.0 10^3/uL (0.0-0.2); BASO % 0.0 % (0.0-1.0); EOS # 0.0 10^3/uL (0.0-0.5); EOS % 0.0 % (0.0-3.0); LYMPH # 1.4 10^3/uL (1.5-5.0); LYMPH % 26.7 % (24.0-44.0); MONO # 0.6 10^3/uL (0.0-0.8); MONO % 11.9 % (2.0-8.0); NEUTROPHILS # 3.2 10^3/uL (1.5-8.5); NEUTROPHILS % 60.6 % (36.0-66.0); PLATELET COUNT, AUTOMATED 323 10^3/uL (150-450)
[2025-05-06 09:27] LABS: CALCIUM LEVEL 8.7 MG/DL (8.3-10.6); CARBON DIOXIDE LEVEL 32 MMOL/L (20-31); CHLORIDE LEVEL 102 MMOL/L (98-107); CREATININE FOR GFR 0.69 MG/DL (0.55-1.30); GLOMERULAR FILTRATION RATE > 90.0 (>45); MAGNESIUM LEVEL 1.9 MG/DL (1.8-2.4); POTASSIUM SERUM 4.7 MMOL/L (3.5-5.1); SODIUM LEVEL 139 MMOL/L (136-145)
[2025-05-06] MEDS: LEVALBUTEROL 1.25 MG 0.5ML CONCENTRATE NEB INH SCH (11:41)
[2025-05-06 12:00] VITALS: BP 132/85; TEMP 97.9; O2SAT 97
[2025-05-06] MEDS: INSULIN LISPRO (NovoLOG) PER UNIT SC SCH (18:00)
[2025-05-06] MEDS: AMINO AC/ELECTROLYTE/DEX/CALC 2,000 ML IV SCH (18:30)
[2025-05-06] MEDS: FAT EMULSION IV 250 ML IV ONE (18:30)
[2025-05-06 20:45] VITALS: BP 139/75; TEMP 98.2; O2SAT 97
[2025-05-07 03:37] VITALS: BP 119/64; TEMP 98.2; O2SAT 99
[2025-05-07 06:50] LABS: BASO # 0.0 10^3/uL (0.0-0.2); BASO % 0.0 % (0.0-1.0); EOS # 0.0 10^3/uL (0.0-0.5); EOS % 0.0 % (0.0-3.0); LYMPH # 0.9 10^3/uL (1.5-5.0); LYMPH % 15.1 % (24.0-44.0); MONO # 0.8 10^3/uL (0.0-0.8); MONO % 13.6 % (2.0-8.0); NEUTROPHILS # 4.1 10^3/uL (1.5-8.5); NEUTROPHILS % 70.6 % (36.0-66.0); PLATELET COUNT, AUTOMATED 317 10^3/uL (150-450)
[2025-05-07 12:00] VITALS: BP 141/74; TEMP 97.7; O2SAT 99
[2025-05-07] MEDS: FAT EMULSION IV 250 ML IV ONE (17:36)
[2025-05-07] MEDS: INSULIN LISPRO (NovoLOG) PER UNIT SC SCH (17:36)
[2025-05-07] MEDS: MULTIVITAMIN -ADULT INJECTION 10 ML, ZINC/COPPER/MANGANESE/SELENIUM 1 ML in AMINO AC/EL... IV SCH (17:37)
[2025-05-07 19:52] VITALS: BP 137/74; TEMP 98.1; O2SAT 99
[2025-05-08 04:05] VITALS: BP 140/68; TEMP 98.1; O2SAT 96
[2025-05-08 09:14] VITALS: BP 146/76
[2025-05-08] MEDS ORDERED: LEVO1TAB40 PO (10:38)
[2025-05-08] MEDS ORDERED: MORP1SOL4 PO (10:38)
[2025-05-08] MEDS ORDERED: PRED10TA2 PO (10:38)
[2025-05-08] MEDS ORDERED: DULO30CA9 PO (12:30)
[2025-05-08] MEDS ORDERED: ONDA-83 PO (12:30)
[2025-05-08] MEDS ORDERED: LEVA45AE INH (12:30)
[2025-05-08] MEDS ORDERED: DULO1CAP6 PO (12:30)
[2025-05-08] MEDS ORDERED: FOLI1TAB11 PO (12:30)
[2025-05-08] MEDS ORDERED: XANA0.5T PO (12:30)
[2025-05-08 13:08] VITALS: BP 145/81; TEMP 98.4; O2SAT 100
[2025-05-08] MEDS ORDERED: HYDR-4571 PO (14:12)
== END 2025-05-08 13:44 | disposition home health service (06) | DRG 190 ==
LOC: M ED 11:40 → M ED INP 16:13 → M ICU 17:29 → M MS4PR 05-06 01:59 → M MSPAV 05-06 02:57
PROVIDERS: ADMIT Internal Medicine; ATTEND Internal Medicine
DX: J44.1 Chronic obstructive pulmonary disease with (acute) exacerbation (principal); J15.69 Pneumonia due to other Gram-negative bacteria; F11.20 Opioid dependence, uncomplicated; E46 Unspecified protein-calorie malnutrition; J96.10 Chronic respiratory failure, unspecified whether with hypoxia or hypercapnia; I10 Essential (primary) hypertension; Z93.2 Ileostomy status; R60.0 Localized edema; K21.9 Gastro-esophageal reflux disease without esophagitis; M19.90 Unspecified osteoarthritis, unspecified site; E78.5 Hyperlipidemia, unspecified; Z99.81 Dependence on supplemental oxygen; R33.9 Retention of urine, unspecified; G62.9 Polyneuropathy, unspecified; G89.4 Chronic pain syndrome; I73.9 Peripheral vascular disease, unspecified; F41.9 Anxiety disorder, unspecified; F32.A Depression, unspecified; Z79.899 Other long term (current) drug therapy; M54.59 Other low back pain; Z87.891 Personal history of nicotine dependence; Z85.118 Personal history of other malignant neoplasm of bronchus and lung; D63.8 Anemia in other chronic diseases classified elsewhere; Z86.711 Personal history of pulmonary embolism; Z88.6 Allergy status to analgesic agent; Z88.0 Allergy status to penicillin; Z88.5 Allergy status to narcotic agent; Z88.7 Allergy status to serum and vaccine; Z79.52 Long term (current) use of systemic steroids; Z66 Do not resuscitate

== ENCOUNTER → 2025-05-12 | Outpatient (REF) | payer MEDICARE, MEDICAID ==
[~2025-05-12] MED LIST changes: +FURO20TA2 PO; +HYDR-3713 PO; +LEVO1TAB40 PO; +LIDO1ADH20 TD; +LIDO1ADH93 TD; +XANA0.5T PO
[2025-05-12 15:54] LABS: BASO # 0.0 10^3/uL (0.0-0.2); BASO % 0.2 % (0.0-1.0); EOS # 0.0 10^3/uL (0.0-0.5); EOS % 0.1 % (0.0-3.0); LYMPH # 0.6 10^3/uL (1.5-5.0); LYMPH % 3.3 % (24.0-44.0); MONO # 1.8 10^3/uL (0.0-0.8); MONO % 9.7 % (2.0-8.0); NEUTROPHILS # 14.9 10^3/uL (1.5-8.5); NEUTROPHILS % 82.0 % (36.0-66.0); PLATELET COUNT, AUTOMATED 449 10^3/uL (150-450)
[2025-05-12 16:26] LABS: ALT/SGPT 13 U/L (7.0-40); AST/SGOT 14 U/L (<34); CALCIUM LEVEL 8.4 MG/DL (8.3-10.6); CARBON DIOXIDE LEVEL 28 MMOL/L (20-31); CHLORIDE LEVEL 106 MMOL/L (98-107); CREATININE FOR GFR 0.64 MG/DL (0.55-1.30); GLOMERULAR FILTRATION RATE > 90.0 (>45); MAGNESIUM LEVEL 1.7 MG/DL (1.8-2.4); PHOSPHORUS LEVEL 3.3 MG/DL (2.4-5.1); POTASSIUM SERUM 5.3 MMOL/L (3.5-5.1); SODIUM LEVEL 141 MMOL/L (136-145)
[2025-05-12 16:29] LABS: THYROGLOBULIN ANTIBODY < 15.0 U/ML (<60.0)
== END ==
LOC: M LAB REF 15:20
PROVIDERS: ATTEND Internal Medicine Nephrology
DX: Z02.89 Encounter for other administrative examinations (principal)

== ENCOUNTER 2025-05-14 19:59 | Inpatient (IN) | payer MEDICARE, MEDICAID ==
[~2025-05-14] VITALS: Ht 157.5 cm; Wt 67.9 kg
[~2025-05-14 19:59] MED LIST changes: -FURO20TA2 PO; -HYDR-3713 PO; -LIDO1ADH20 TD
[2025-05-14 21:01] LABS: BASO # 0.0 10^3/uL (0.0-0.2); BASO % 0.1 % (0.0-1.0); EOS # 0.0 10^3/uL (0.0-0.5); EOS % 0.1 % (0.0-3.0); LYMPH # 1.0 10^3/uL (1.5-5.0); LYMPH % 6.4 % (24.0-44.0); MONO # 1.4 10^3/uL (0.0-0.8); MONO % 9.0 % (2.0-8.0); NEUTROPHILS # 12.3 10^3/uL (1.5-8.5); NEUTROPHILS % 80.3 % (36.0-66.0); PLATELET COUNT, AUTOMATED 323 10^3/uL (150-450)
[2025-05-14 21:17] LABS: D-DIMER QUANT 0.59 ug/mL (<0.5); INR 0.9
[2025-05-14 21:26] LABS: CK-MB VALUE MASS 2.9 NG/ML (<3.6)
[2025-05-14 21:27] LABS: LDH LACTATE DEHYDROGENASE 208 U/L (120-246)
[2025-05-14 21:42] LABS: ALT/SGPT 12 U/L (7.0-40); AST/SGOT 17 U/L (<34); CALCIUM LEVEL 8.5 MG/DL (8.3-10.6); CARBON DIOXIDE LEVEL 30 MMOL/L (20-31); CHLORIDE LEVEL 106 MMOL/L (98-107); CPK CREATINE PHOSPHOKINASE 31 U/L (34-145); CREATININE FOR GFR 0.50 MG/DL (0.55-1.30); GLOMERULAR FILTRATION RATE > 90.0 (>45); MB/CK RELATIVE INDEX 9.35 (< OR =4); POTASSIUM SERUM 4.6 MMOL/L (3.5-5.1); SODIUM LEVEL 144 MMOL/L (136-145)
[2025-05-14 21:54] LABS: ABG BASE EXCESS 2.6 (-2.0-2.0); ABG HCO3 30.2 MMOL/L (22.0-26.0); ABG O2 SATURATION 98.7 % (95.0-99.0); ABG PARTIAL PRESSURE CO2 64.6 mmHg (35.0-45.0); ABG PARTIAL PRESSURE O2 143.8 mmHg (75.0-100.0); ABG STANDARD HCO3 26.9 MMOL/L. (22.0-26.0); ABG TOTAL CO2 32.2 MMOL/L (23.0-31.0); ABG pH (ARTERIAL) 7.288 UNITS (7.350-7.450)
[2025-05-14] MEDS: LevoFLOXacin IV 750 MG in IV 1 EA IV ONE (23:01)
[2025-05-15] VITALS (11 sets, daily range): BP systolic 145–182; BP diastolic 68–83; TEMP 97.9–98.5; O2SAT 94–100
[2025-05-15 00:17] LABS: MAGNESIUM LEVEL 1.5 MG/DL (1.8-2.4)
[2025-05-15] MEDS ORDERED: MAALOX 30 ML SUSP *UDC PO PRN (01:20)
[2025-05-15] MEDS ORDERED: MOM 30 ML SUSPENSION UDC PO PRN (01:20)
[2025-05-15] MEDS ORDERED: ACETAMINOPHEN 325 MG TAB PO PRN (01:20)
[2025-05-15] MEDS: LR 1,000 ML IV SCH (01:20)
[2025-05-15 01:42] LABS: KETONE, URINE AUTO RFX NEGATIVE (NEGATIVE); LEUKOCYTE ESTERASE UR AUTO RFX NEGATIVE (NEGATIVE); MUCUS, URINE RFX SMALL (NEGATIVE); NITRITE, URINE AUTO RFX NEGATIVE (NEGATIVE); RBC, URINE AUTO RFX 0 /HPF (0-3); SQUAM EPITHELIAL CELL UR AURFX 0 /HPF (0-6); WBC, URINE AUTO RFX 1 /HPF (0-3)
[2025-05-15] MEDS: LEVALBUTEROL 1.25 MG 0.5ML CONCENTRATE NEB NEB SCH ×2 (03:57→19:18)
[2025-05-15 07:05] LABS: PLATELET COUNT, AUTOMATED 303 10^3/uL (150-450)
[2025-05-15 07:31] LABS: CK-MB VALUE MASS 3.0 NG/ML (<3.6)
[2025-05-15 07:32] LABS: CALCIUM LEVEL 8.6 MG/DL (8.3-10.6); CARBON DIOXIDE LEVEL 32 MMOL/L (20-31); CHLORIDE LEVEL 109 MMOL/L (98-107); CPK CREATINE PHOSPHOKINASE 19 U/L (34-145); CREATININE FOR GFR 0.51 MG/DL (0.55-1.30); GLOMERULAR FILTRATION RATE > 90.0 (>45); MB/CK RELATIVE INDEX 15.78 (< OR =4); POTASSIUM SERUM 4.6 MMOL/L (3.5-5.1); SODIUM LEVEL 145 MMOL/L (136-145)
[2025-05-15] MEDS: DOCUSATE SODIUM 100 MG CAPSULE PO SCH (07:59)
[2025-05-15] MEDS: IPRATROPIUM 0.5 MG/ALBUTEROL 2.5 MG INH SOL UD 3 ML NEB SCH (08:57)
[2025-05-15] MEDS: HEPARIN SOD 5000 UNITS/ML 1 ML VIAL/SYRINGE SC SCH (09:03)
[2025-05-15] MEDS ORDERED: ALPR0.5T3 PO (09:09)
[2025-05-15] MEDS ORDERED: HYDR-3713 PO (09:15)
[2025-05-15] MEDS ORDERED: LIDO1ADH20 TD (09:18)
[2025-05-15] MEDS ORDERED: HOME MED LIST COMPLETE! XX SCH (09:25)
[2025-05-15] MEDS: ONDANSETRON 4MG 2ML VIAL IV PRN (11:39)
[2025-05-15] MEDS ORDERED: ONDANSETRON 4MG 2ML VIAL IV SCH (12:00)
[2025-05-15] MEDS: amLODIPine 10 MG TAB PO SCH (13:39)
[2025-05-15] MEDS: INSULIN LISPRO (NovoLOG) PER UNIT SC SCH (18:00)
[2025-05-15] MEDS: FAT EMULSION IV 250 ML IV ONE (18:04)
[2025-05-15] MEDS: AMINO AC/ELECTROLYTE/DEX/CALC 1,000 ML IV SCH (18:04)
[2025-05-15 20:05] LABS: PLATELET COUNT, AUTOMATED 305 10^3/uL (150-450)
[2025-05-15] MEDS: FAMOTIDINE 20 MG TAB PO SCH (20:11)
[2025-05-15] MEDS: LevoFLOXacin IV 750 MG in IV 1 EA IV SCH (20:11)
[2025-05-15] MEDS: ALPRAZolam 0.5 MG TAB PO PRN (20:12)
[2025-05-15 20:50] LABS: ALT/SGPT < 9 U/L (7.0-40); AST/SGOT 10 U/L (<34); CALCIUM LEVEL 8.8 MG/DL (8.3-10.6); CARBON DIOXIDE LEVEL 30 MMOL/L (20-31); CHLORIDE LEVEL 104 MMOL/L (98-107); CREATININE FOR GFR 0.50 MG/DL (0.55-1.30); GLOMERULAR FILTRATION RATE > 90.0 (>45); POTASSIUM SERUM 4.8 MMOL/L (3.5-5.1); SODIUM LEVEL 142 MMOL/L (136-145)
[2025-05-15] MEDS: traZODone 100 MG TAB PO SCH (23:46)
[2025-05-16] VITALS (13 sets, daily range): BP systolic 140–168; BP diastolic 66–88; TEMP 97.9–98.9; O2SAT 94–100
[2025-05-16] MEDS: GABAPENTIN 300 MG CAP PO SCH (11:52)
[2025-05-16] MEDS: SOLIFENACIN 5 MG TAB PO SCH (13:16)
[2025-05-16] MEDS ORDERED: MORPHINE 10 MG/0.5 ML ORAL CONCENTRATE SOLUTION U/D SL PRN (15:25)
[2025-05-16] MEDS: MORPHINE 10 MG/0.5 ML ORAL CONCENTRATE SOLUTION U/D SL PRN (16:44)
[2025-05-16] MEDS: INSULIN LISPRO (NovoLOG) PER UNIT SC SCH (18:00)
[2025-05-16] MEDS: MULTIVITAMIN -ADULT INJECTION 10 ML, ZINC/COPPER/MANGANESE/SELENIUM 1 ML in AMINO AC/EL... IV SCH (18:42)
[2025-05-16] MEDS: FAT EMULSION IV 250 ML IV ONE (18:42)
[2025-05-16] MEDS: LORATADINE 10 MG TAB PO SCH (21:30)
[2025-05-17 03:24] VITALS: BP 153/85; TEMP 97.9; O2SAT 98
[2025-05-17 05:57] LABS: PLATELET COUNT, AUTOMATED 281 10^3/uL (150-450)
[2025-05-17 06:16] LABS: CALCIUM LEVEL 8.6 MG/DL (8.3-10.6); CARBON DIOXIDE LEVEL 36 MMOL/L (20-31); CHLORIDE LEVEL 100 MMOL/L (98-107); CREATININE FOR GFR 0.59 MG/DL (0.55-1.30); GLOMERULAR FILTRATION RATE > 90.0 (>45); POTASSIUM SERUM 4.8 MMOL/L (3.5-5.1); SODIUM LEVEL 140 MMOL/L (136-145)
[2025-05-17] MEDS: CYANOCOBALAMIN 500 MCG TAB PO SCH (08:22)
[2025-05-17] MEDS: FOLIC ACID 1 MG TAB PO SCH (08:23)
[2025-05-17 10:56] VITALS: O2SAT 100
[2025-05-17 11:03] VITALS: O2SAT 99
[2025-05-17 11:45] VITALS: BP 166/90; TEMP 97.9; O2SAT 99
[2025-05-17] MEDS: INSULIN LISPRO (NovoLOG) PER UNIT SC SCH (17:54)
[2025-05-17] MEDS: FAT EMULSION IV 250 ML IV ONE (18:54)
[2025-05-17] MEDS: AMINO AC/ELECTROLYTE/DEX/CALC 2,000 ML IV SCH (18:54)
[2025-05-17 20:15] VITALS: BP 162/88; TEMP 97.9; O2SAT 97
[2025-05-18 04:09] VITALS: BP 160/89; TEMP 97.3; O2SAT 99
[2025-05-18 05:59] LABS: PLATELET COUNT, AUTOMATED 259 10^3/uL (150-450)
[2025-05-18 06:28] LABS: CALCIUM LEVEL 8.8 MG/DL (8.3-10.6); CARBON DIOXIDE LEVEL 36 MMOL/L (20-31); CHLORIDE LEVEL 98 MMOL/L (98-107); CREATININE FOR GFR 0.62 MG/DL (0.55-1.30); GLOMERULAR FILTRATION RATE > 90.0 (>45); POTASSIUM SERUM 4.9 MMOL/L (3.5-5.1); SODIUM LEVEL 140 MMOL/L (136-145)
[2025-05-18 12:00] VITALS: BP 162/85; TEMP 97.7; O2SAT 98
[2025-05-18] MEDS ORDERED: FURO20TA2 PO (13:16)
[2025-05-18] MEDS: INSULIN LISPRO (NovoLOG) PER UNIT SC SCH (18:00)
[2025-05-18] MEDS: FAT EMULSION IV 250 ML IV ONE (18:05)
[2025-05-18] MEDS: AMINO AC/ELECTROLYTE/DEX/CALC 2,000 ML IV SCH (18:05)
[2025-05-18 19:34] VITALS: BP 158/81; TEMP 98.1; O2SAT 96
[2025-05-18 21:00] VITALS: O2SAT 99
[2025-05-19 04:05] VITALS: BP 145/79; TEMP 97.7; O2SAT 98
[2025-05-19 05:57] LABS: PLATELET COUNT, AUTOMATED 247 10^3/uL (150-450)
[2025-05-19 06:27] LABS: CALCIUM LEVEL 8.8 MG/DL (8.3-10.6); CARBON DIOXIDE LEVEL 35 MMOL/L (20-31); CHLORIDE LEVEL 100 MMOL/L (98-107); CREATININE FOR GFR 0.70 MG/DL (0.55-1.30); GLOMERULAR FILTRATION RATE > 90.0 (>45); POTASSIUM SERUM 5.1 MMOL/L (3.5-5.1); SODIUM LEVEL 140 MMOL/L (136-145)
[2025-05-19 13:38] VITALS: BP 153/88; TEMP 97.7; O2SAT 100
[2025-05-19] MEDS: AMINO AC/ELECTROLYTE/DEX/CALC 2,000 ML IV SCH (17:54)
[2025-05-19] MEDS: FAT EMULSION IV 250 ML IV ONE (17:54)
[2025-05-19] MEDS: INSULIN LISPRO (NovoLOG) PER UNIT SC SCH (18:00)
[2025-05-19 21:09] VITALS: BP 153/87; TEMP 98.1; O2SAT 97
[2025-05-19 22:00] VITALS: O2SAT 98
[2025-05-20 04:15] VITALS: BP 146/82; TEMP 98.1; O2SAT 96
[2025-05-20 06:23] LABS: PLATELET COUNT, AUTOMATED 238 10^3/uL (150-450)
[2025-05-20 06:49] LABS: CALCIUM LEVEL 8.6 MG/DL (8.3-10.6); CARBON DIOXIDE LEVEL 35 MMOL/L (20-31); CHLORIDE LEVEL 99 MMOL/L (98-107); CREATININE FOR GFR 0.71 MG/DL (0.55-1.30); GLOMERULAR FILTRATION RATE > 90.0 (>45); POTASSIUM SERUM 5.4 MMOL/L (3.5-5.1); SODIUM LEVEL 139 MMOL/L (136-145)
[2025-05-20] MEDS: SODIUM CHLORIDE 0.9% 1000 ML IV ONE (11:53)
[2025-05-20 12:00] VITALS: BP 180/96; TEMP 97.5; O2SAT 97
[2025-05-20] MEDS: PATIROMER SORBITEX CALCIUM 8.4GM POWDER PACKET PO ONE (12:04)
[2025-05-20] MEDS: INSULIN LISPRO (NovoLOG) PER UNIT SC SCH (17:44)
[2025-05-20] MEDS: FAT EMULSION IV 250 ML IV ONE (17:58)
[2025-05-20] MEDS: AMINO AC/ELECTROLYTE/DEX/CALC 2,000 ML IV SCH (17:58)
[2025-05-20] MEDS: LEVALBUTEROL 1.25 MG 0.5ML CONCENTRATE NEB NEB PRN (19:07)
[2025-05-20] MEDS ORDERED: **hydrALAZINE HCL** 25 MG TAB PO PRN (19:50)
[2025-05-20 20:11] VITALS: BP 136/67; TEMP 97.9; O2SAT 97
[2025-05-20] MEDS: NS 500 ML IV ONE (20:16)
[2025-05-20 21:45] VITALS: O2SAT 99
[2025-05-21 05:46] VITALS: BP 133/79; TEMP 97.9; O2SAT 96
[2025-05-21 06:30] LABS: PLATELET COUNT, AUTOMATED 201 10^3/uL (150-450)
[2025-05-21 07:13] LABS: CALCIUM LEVEL 8.6 MG/DL (8.3-10.6); CARBON DIOXIDE LEVEL 33 MMOL/L (20-31); CHLORIDE LEVEL 100 MMOL/L (98-107); CREATININE FOR GFR 0.63 MG/DL (0.55-1.30); GLOMERULAR FILTRATION RATE > 90.0 (>45); MAGNESIUM LEVEL 1.7 MG/DL (1.8-2.4); POTASSIUM SERUM 4.6 MMOL/L (3.5-5.1); SODIUM LEVEL 140 MMOL/L (136-145)
[2025-05-21] MEDS: MAG SULF 1GM/100ML (MAG RUN) 1 GM in IV 1 EA IV SCH (08:02)
[2025-05-21] MEDS: predniSONE 20 MG TAB PO SCH (08:03)
[2025-05-21 08:05] VITALS: BP 132/72
[2025-05-21] MEDS: guaiFENesin ER TABLET 600 MG TAB PO SCH (09:15)
[2025-05-21 12:00] VITALS: BP 138/72; TEMP 98.2; O2SAT 98
[2025-05-21] MEDS ORDERED: MUCI1TAB16 PO (12:29)
[2025-05-22] MEDS ORDERED: FURO20TA2 PO (09:19)
== END 2025-05-21 16:47 | disposition home health service (06) | DRG 191 ==
LOC: M ED 19:59 → M ED INP 05-15 01:19 → M ICU 05-15 10:08 → M MSPAV 05-16 12:37
PROVIDERS: ADMIT Student in an Organized Health Care Education/Training Program; ATTEND Internal Medicine
DX: J44.1 Chronic obstructive pulmonary disease with (acute) exacerbation (principal); J96.11 Chronic respiratory failure with hypoxia; E87.20 Acidosis, unspecified; I50.32 Chronic diastolic (congestive) heart failure; Z66 Do not resuscitate; D53.9 Nutritional anemia, unspecified; E83.42 Hypomagnesemia; I27.20 Pulmonary hypertension, unspecified; G47.00 Insomnia, unspecified; M54.9 Dorsalgia, unspecified; G89.29 Other chronic pain; I11.0 Hypertensive heart disease with heart failure; Z86.711 Personal history of pulmonary embolism; M19.90 Unspecified osteoarthritis, unspecified site; G62.9 Polyneuropathy, unspecified; F41.9 Anxiety disorder, unspecified; E78.5 Hyperlipidemia, unspecified; F39 Unspecified mood [affective] disorder; G89.4 Chronic pain syndrome; E87.5 Hyperkalemia; K21.9 Gastro-esophageal reflux disease without esophagitis; Z79.52 Long term (current) use of systemic steroids; Z79.51 Long term (current) use of inhaled steroids; Z79.899 Other long term (current) drug therapy; Z88.0 Allergy status to penicillin; Z88.1 Allergy status to other antibiotic agents; Z88.5 Allergy status to narcotic agent; Z88.6 Allergy status to analgesic agent; Z88.7 Allergy status to serum and vaccine; Z88.8 Allergy status to other drugs, medicaments and biological substances; Z93.2 Ileostomy status; Z90.49 Acquired absence of other specified parts of digestive tract; Z99.81 Dependence on supplemental oxygen; Z85.118 Personal history of other malignant neoplasm of bronchus and lung; Z90.2 Acquired absence of lung [part of]; Z86.74 Personal history of sudden cardiac arrest; Z87.891 Personal history of nicotine dependence

== ENCOUNTER 2025-05-22 01:28 | Inpatient (IN) | payer MEDICARE, MEDICAID ==
[2025-05-22] VITALS (8 sets, daily range): BP systolic 92–190; BP diastolic 42–90; TEMP 97.5–104.8; O2SAT 85–100
[~2025-05-22] VITALS: Ht 157.5 cm; Wt 61.6 kg
[~2025-05-22 01:28] MED LIST changes: +FURO20TA2 PO; +HYDR-3713 PO; +LIDO1ADH20 TD; +MUCI1TAB16 PO
[2025-05-22 02:03] LABS: BASO # 0.0 10^3/uL (0.0-0.2); BASO % 0.3 % (0.0-1.0); EOS # 0.0 10^3/uL (0.0-0.5); EOS % 0.1 % (0.0-3.0); LYMPH # 0.3 10^3/uL (1.5-5.0); LYMPH % 1.9 % (24.0-44.0); MONO # 1.0 10^3/uL (0.0-0.8); MONO % 6.4 % (2.0-8.0); NEUTROPHILS # 13.5 10^3/uL (1.5-8.5); NEUTROPHILS % 86.5 % (36.0-66.0); PLATELET COUNT, AUTOMATED 185 10^3/uL (150-450)
[2025-05-22 02:45] LABS: ALT/SGPT 40 U/L (7.0-40); AST/SGOT 29 U/L (<34); CALCIUM LEVEL 8.0 MG/DL (8.3-10.6); CARBON DIOXIDE LEVEL 27 MMOL/L (20-31); CHLORIDE LEVEL 100 MMOL/L (98-107); CK-MB VALUE MASS < 1.0 NG/ML (<3.6); CPK CREATINE PHOSPHOKINASE 16 U/L (34-145); CREATININE FOR GFR 0.49 MG/DL (0.55-1.30); GLOMERULAR FILTRATION RATE > 90.0 (>45); POTASSIUM SERUM 6.9 MMOL/L (3.5-5.1); SODIUM LEVEL 134 MMOL/L (136-145)
[2025-05-22] MEDS: IPRATROPIUM 0.5 MG/ALBUTEROL 2.5 MG INH SOL UD 3 ML NEB ONE (03:05)
[2025-05-22 03:19] LABS: ABG BASE EXCESS 6.0 (-2.0-2.0); ABG HCO3 32.4 MMOL/L (22.0-26.0); ABG O2 SATURATION 98.3 % (95.0-99.0); ABG PARTIAL PRESSURE CO2 56.7 mmHg (35.0-45.0); ABG PARTIAL PRESSURE O2 116.0 mmHg (75.0-100.0); ABG STANDARD HCO3 30.0 MMOL/L. (22.0-26.0); ABG TOTAL CO2 34.2 MMOL/L (23.0-31.0); ABG pH (ARTERIAL) 7.375 UNITS (7.350-7.450)
[2025-05-22] MEDS: CALCIUM CHLORIDE 10% 1 GM/10 ML SYR IV ONE (03:55)
[2025-05-22] MEDS: PATIROMER SORBITEX CALCIUM 8.4GM POWDER PACKET PO ONE (03:55)
[2025-05-22] MEDS: ACETAMINOPHEN *IV* 1,000 MG in IV 1 EA IV ONE ×2 (03:55→22:11)
[2025-05-22] MEDS: HumuLIN R (REGULAR) INSULIN (NovoLIN R) **100 U/ML** PER UNIT IV ONE (03:56)
[2025-05-22] MEDS: MEROPENEM 1 GM in IV 1 EA IV ONE (04:38)
[2025-05-22] MEDS ORDERED: GLUCAGON INJ 1 MG VIAL SC PRN (04:55)
[2025-05-22] MEDS ORDERED: GLUCOSE 4 GM CHEW PO PRN (04:55)
[2025-05-22] MEDS: INSULIN LISPRO (NovoLOG) PER UNIT SC SCH ×2 (07:30→18:33)
[2025-05-22] MEDS: SYMBICORT 160/4.5MCG INHALER 6GM INH SCH (07:37)
[2025-05-22] MEDS: IPRATROPIUM 0.5 MG/ALBUTEROL 2.5 MG INH SOL UD 3 ML NEB SCH (07:37)
[2025-05-22 07:49] LABS: CALCIUM LEVEL 8.9 MG/DL (8.3-10.6); CARBON DIOXIDE LEVEL 33 MMOL/L (20-31); CHLORIDE LEVEL 100 MMOL/L (98-107); CREATININE FOR GFR 0.70 MG/DL (0.55-1.30); GLOMERULAR FILTRATION RATE > 90.0 (>45); POTASSIUM SERUM 5.1 MMOL/L (3.5-5.1); SODIUM LEVEL 138 MMOL/L (136-145)
[2025-05-22] MEDS ORDERED: FURO20TA2 PO (09:19)
[2025-05-22] MEDS ORDERED: HOME MED LIST COMPLETE! XX SCH (09:20)
[2025-05-22] MEDS: PANTOPRAZOLE 40MG VIAL IV SCH (09:21)
[2025-05-22] MEDS: HEPARIN SOD 5000 UNITS/ML 1 ML VIAL/SYRINGE SQ ONE (09:23)
[2025-05-22] MEDS: ALPRAZolam 0.5 MG TAB PO PRN (16:40)
[2025-05-22] MEDS ORDERED: ISOVUE-370 76% 100 ML VIAL As Ordered ONE (21:16)
[2025-05-22] MEDS: GASTROGRAFIN SOLUTION 30ML PO SCH (21:30)
[2025-05-22] MEDS ORDERED: **hydrALAZINE** 10 MG TAB PO PRN (21:35)
[2025-05-22] MEDS: DEXTROSE 50% 50 ML SYRINGE IV PRN (21:55)
[2025-05-22] MEDS: GABAPENTIN 300 MG CAP PO SCH (22:30)
[2025-05-22] MEDS: FAMOTIDINE 20 MG TAB PO SCH (22:31)
[2025-05-22] MEDS: traZODone 100 MG TAB PO SCH (22:32)
[2025-05-22] MEDS: LORATADINE 10 MG TAB PO SCH (22:32)
[2025-05-22] MEDS: DEXTROSE 50% 50 ML SYRINGE IV STA (22:45)
[2025-05-22] MEDS: AMINO AC/ELECTROLYTE/DEX/CALC 2,000 ML IV SCH (22:59)
[2025-05-22] MEDS: FAT EMULSION IV 250 ML IV ONE (22:59)
[2025-05-22] MEDS: predniSONE 20 MG TAB PO SCH (23:03)
[2025-05-22 23:44] LABS: BASO # 0.0 10^3/uL (0.0-0.2); BASO % 0.1 % (0.0-1.0); EOS # 0.0 10^3/uL (0.0-0.5); EOS % 0.2 % (0.0-3.0); LYMPH # 0.3 10^3/uL (1.5-5.0); LYMPH % 1.7 % (24.0-44.0); MONO # 1.1 10^3/uL (0.0-0.8); MONO % 6.5 % (2.0-8.0); NEUTROPHILS # 15.1 10^3/uL (1.5-8.5); NEUTROPHILS % 89.3 % (36.0-66.0); PLATELET COUNT, AUTOMATED 161 10^3/uL (150-450)
[2025-05-22] MEDS: MICAFUNGIN SODIUM 100 MG in DEXTROSE 5% (D5W) MINI-BAG PLU 100 ML IV SCH (23:44)
[2025-05-23] VITALS (17 sets, daily range): BP systolic 110–159; BP diastolic 58–70; TEMP 99.2–100.9; O2SAT 90–100
[2025-05-23 00:03] LABS: LDH LACTATE DEHYDROGENASE 148 U/L (120-246)
[2025-05-23 00:04] LABS: C REACTIVE PROTEIN QUANTITATIV 9.82 MG/DL (<1.0)
[2025-05-23 00:21] LABS: ALT/SGPT 28 U/L (7.0-40); AST/SGOT 16 U/L (<34); CALCIUM LEVEL 8.6 MG/DL (8.3-10.6); CARBON DIOXIDE LEVEL 31 MMOL/L (20-31); CHLORIDE LEVEL 94 MMOL/L (98-107); CREATININE FOR GFR 0.69 MG/DL (0.55-1.30); GLOMERULAR FILTRATION RATE > 90.0 (>45); POTASSIUM SERUM 3.7 MMOL/L (3.5-5.1); SODIUM LEVEL 134 MMOL/L (136-145)
[2025-05-23 05:57] LABS: BASO # 0.0 10^3/uL (0.0-0.2); BASO % 0.1 % (0.0-1.0); EOS # 0.0 10^3/uL (0.0-0.5); EOS % 0.0 % (0.0-3.0); LYMPH # 0.3 10^3/uL (1.5-5.0); LYMPH % 1.6 % (24.0-44.0); MONO # 1.0 10^3/uL (0.0-0.8); MONO % 4.8 % (2.0-8.0); NEUTROPHILS # 18.9 10^3/uL (1.5-8.5); NEUTROPHILS % 90.1 % (36.0-66.0); PLATELET COUNT, AUTOMATED 180 10^3/uL (150-450)
[2025-05-23 06:27] LABS: CALCIUM LEVEL 9.2 MG/DL (8.3-10.6); CARBON DIOXIDE LEVEL 32.0 MMOL/L (20-31); CHLORIDE LEVEL 96.0 MMOL/L (98-107); CREATININE FOR GFR 0.77 MG/DL (0.55-1.30); GLOMERULAR FILTRATION RATE 84.0 (>45); POTASSIUM SERUM 4.7 MMOL/L (3.5-5.1); SODIUM LEVEL 137.0 MMOL/L (136-145)
[2025-05-23] MEDS: SOLIFENACIN 5 MG TAB PO SCH (09:20)
[2025-05-23] MEDS: ONDANSETRON 4MG TAB PO SCH (09:21)
[2025-05-23] MEDS: CYANOCOBALAMIN 500 MCG TAB PO SCH (09:21)
[2025-05-23] MEDS: amLODIPine 10 MG TAB PO SCH (09:21)
[2025-05-23] MEDS: FUROSEMIDE 20 MG TAB PO SCH (09:22)
[2025-05-23] MEDS: FOLIC ACID 1 MG TAB PO SCH (09:22)
[2025-05-23] MEDS: NEOSPORIN OINT 0.9 GM PKT TOP ONE (10:45)
[2025-05-23] MEDS: D5W/LR 1,000 ML IV SCH (11:52)
[2025-05-23] MEDS: ACETAMINOPHEN 325 MG TAB PO PRN (16:57)
[2025-05-23] MEDS: guaiFENesin ER TABLET 600 MG TAB PO ONE (17:00)
[2025-05-23] MEDS: AMINO AC/ELECTROLYTE/DEX/CALC 1,000 ML IV SCH (18:00)
[2025-05-23] MEDS: INSULIN LISPRO (NovoLOG) PER UNIT SC SCH (18:00)
[2025-05-23] MEDS: FAT EMULSION IV 250 ML IV ONE (18:57)
[2025-05-24] VITALS (20 sets, daily range): BP systolic 119–131; BP diastolic 55–66; TEMP 97.2–98.9; O2SAT 88–100
[2025-05-24 05:32] LABS: Estimated Ave Glu(eAG) 5.2 mmol/L
[2025-05-24 06:28] LABS: BASO # 0.0 10^3/uL (0.0-0.2); BASO % 0.1 % (0.0-1.0); EOS # 0.2 10^3/uL (0.0-0.5); EOS % 1.1 % (0.0-3.0); LYMPH # 1.1 10^3/uL (1.5-5.0); LYMPH % 6.2 % (24.0-44.0); MONO # 1.2 10^3/uL (0.0-0.8); MONO % 6.8 % (2.0-8.0); NEUTROPHILS # 14.3 10^3/uL (1.5-8.5); NEUTROPHILS % 83.5 % (36.0-66.0); PLATELET COUNT, AUTOMATED 147 10^3/uL (150-450)
[2025-05-24 07:06] LABS: ALT/SGPT 25 U/L (7.0-40); AST/SGOT 15 U/L (<34); CALCIUM LEVEL 8.7 MG/DL (8.3-10.6); CARBON DIOXIDE LEVEL 32 MMOL/L (20-31); CHLORIDE LEVEL 94 MMOL/L (98-107); CREATININE FOR GFR 0.78 MG/DL (0.55-1.30); GLOMERULAR FILTRATION RATE 82.7 (>45); POTASSIUM SERUM 4.3 MMOL/L (3.5-5.1); SODIUM LEVEL 134 MMOL/L (136-145)
[2025-05-24] MEDS: ENOXAPARIN 40 MG/0.4 ML SYRINGE (J1650 PER 10MG) SC SCH (10:16)
[2025-05-24] MEDS: guaiFENesin ER TABLET 600 MG TAB PO SCH (10:18)
[2025-05-24 11:38] LABS: MAGNESIUM LEVEL 1.4 MG/DL (1.8-2.4)
[2025-05-24] MEDS: LEVALBUTEROL 1.25 MG 0.5ML CONCENTRATE NEB INH SCH (15:54)
[2025-05-24] MEDS: IPRATROPIUM 0.5 MG/2.5 ML (0.02%) SOLN NEB INH SCH (15:54)
[2025-05-24] MEDS: FAT EMULSION IV 250 ML IV ONE (17:44)
[2025-05-24] MEDS: INSULIN LISPRO (NovoLOG) PER UNIT SC SCH (17:56)
[2025-05-24] MEDS: MAG SULF 1GM/100ML (MAG RUN) 1 GM in IV 1 EA IV SCH (20:05)
[2025-05-24] MEDS: MAGNESIUM OXIDE 400 MG TAB PO SCH (21:40)
[2025-05-25] VITALS (22 sets, daily range): BP systolic 106–133; BP diastolic 56–69; TEMP 97.1–101.5; O2SAT 86–98
[2025-05-25 06:19] LABS: PLATELET COUNT, AUTOMATED 166 10^3/uL (150-450)
[2025-05-25 06:45] LABS: CALCIUM LEVEL 8.7 MG/DL (8.3-10.6); CARBON DIOXIDE LEVEL 32.0 MMOL/L (20-31); CHLORIDE LEVEL 98.0 MMOL/L (98-107); CREATININE FOR GFR 0.88 MG/DL (0.55-1.30); GLOMERULAR FILTRATION RATE 71.5 (>45); MAGNESIUM LEVEL 1.6 MG/DL (1.8-2.4); POTASSIUM SERUM 4.6 MMOL/L (3.5-5.1); SODIUM LEVEL 138.0 MMOL/L (136-145)
[2025-05-25] MEDS ORDERED: SYMBICORT 160/4.5MCG INHALER 6GM INH PRN (09:30)
[2025-05-25] MEDS: SYMBICORT 160/4.5MCG INHALER 6GM INH SCH (09:47)
[2025-05-25] MEDS ORDERED: PILL CUTTER 1 EACH XX ONE (09:56)
[2025-05-25] MEDS: MAG SULF 1GM/100ML (MAG RUN) 1 GM in IV 1 EA IV SCH (13:26)
[2025-05-25] MEDS: IPRATROPIUM 0.5 MG/2.5 ML (0.02%) SOLN NEB INH PRN (17:52)
[2025-05-25] MEDS: LEVALBUTEROL 1.25 MG 0.5ML CONCENTRATE NEB INH PRN (17:52)
[2025-05-25] MEDS: INSULIN LISPRO (NovoLOG) PER UNIT SC SCH (18:00)
[2025-05-25] MEDS: FAT EMULSION IV 250 ML IV ONE (18:51)
[2025-05-25] MEDS: VANCOMYCIN HCL 1,250 MG, VIAL MATE ADAPTER 1 EACH in NS 250 ML IV ONE (19:59)
[2025-05-25] MEDS: LR 1,000 ML IV SCH (19:59)
[2025-05-25] MEDS: CEFEPIME HCL 2 GM in DEXTROSE 5% (D5W) ADV/MINI-BAG 50 ML IV SCH (22:42)
[2025-05-26] VITALS (32 sets, daily range): BP systolic 93–170; BP diastolic 51–74; TEMP 97.6–103; O2SAT 90–98
[2025-05-26 05:52] LABS: PLATELET COUNT, AUTOMATED 211 10^3/uL (150-450)
[2025-05-26 06:22] LABS: CALCIUM LEVEL 8.4 MG/DL (8.3-10.6); CARBON DIOXIDE LEVEL 32.0 MMOL/L (20-31); CHLORIDE LEVEL 94.0 MMOL/L (98-107); CREATININE FOR GFR 1.13 MG/DL (0.55-1.30); GLOMERULAR FILTRATION RATE 53.0 (>45); MAGNESIUM LEVEL 2.1 MG/DL (1.8-2.4); PHOSPHORUS LEVEL 7.4 MG/DL (2.4-5.1); POTASSIUM SERUM 5.1 MMOL/L (3.5-5.1); SODIUM LEVEL 133.0 MMOL/L (136-145)
[2025-05-26] MEDS: VANCOMYCIN HCL 750 MG, VIAL MATE ADAPTER 1 EACH in NS 250 ML IV SCH (09:20)
[2025-05-26] MEDS ORDERED: MORPHINE 10 MG/0.5 ML ORAL CONCENTRATE SOLUTION U/D SL PRN (14:00)
[2025-05-26] MEDS: MORPHINE 10 MG/0.5 ML ORAL CONCENTRATE SOLUTION U/D SL PRN (14:08)
[2025-05-26 15:24] LABS: C REACTIVE PROTEIN QUANTITATIV 32.02 MG/DL (<1.0)
[2025-05-26] MEDS: FAT EMULSION IV 250 ML IV ONE (17:54)
[2025-05-26] MEDS: ACETAMINOPHEN *IV* 1,000 MG in IV 1 EA IV ONE (17:56)
[2025-05-26 19:59] LABS: APPEARANCE, BODY FLUID CLEAR (CLEAR); PLEURAL FL COLOR COLORLESS (COLORLESS); SOURCE, BODY FLUID PLEURAL
[2025-05-26] MEDS: MEROPENEM 1 GM in IV 1 EA IV SCH (20:10)
[2025-05-27] VITALS (61 sets, daily range): BP systolic 66–132; BP diastolic 38–77; TEMP 97.2–100.9; O2SAT 83–100
[2025-05-27] MEDS: INSULIN LISPRO (NovoLOG) PER UNIT SC SCH (00:02)
[2025-05-27] MEDS ORDERED: CEFEPIME HCL 2 GM in DEXTROSE 5% (D5W) ADV/MINI-BAG 50 ML IV SCH (02:00)
[2025-05-27 06:30] LABS: ABG BASE EXCESS 5.1 (-2.0-2.0); ABG HCO3 30.7 MMOL/L (22.0-26.0); ABG O2 SATURATION 91.6 % (95.0-99.0); ABG PARTIAL PRESSURE CO2 50.1 mmHg (35.0-45.0); ABG PARTIAL PRESSURE O2 63.5 mmHg (75.0-100.0); ABG STANDARD HCO3 29.0 MMOL/L. (22.0-26.0); ABG TOTAL CO2 32.2 MMOL/L (23.0-31.0); ABG pH (ARTERIAL) 7.405 UNITS (7.350-7.450)
[2025-05-27 07:14] LABS: BASO # 0.0 10^3/uL (0.0-0.2); BASO % 0.1 % (0.0-1.0); EOS # 0.1 10^3/uL (0.0-0.5); EOS % 0.2 % (0.0-3.0); LYMPH # 0.7 10^3/uL (1.5-5.0); LYMPH % 3.6 % (24.0-44.0); MONO # 1.4 10^3/uL (0.0-0.8); MONO % 7.0 % (2.0-8.0); NEUTROPHILS # 17.6 10^3/uL (1.5-8.5); NEUTROPHILS % 87.4 % (36.0-66.0); PLATELET COUNT, AUTOMATED 292 10^3/uL (150-450)
[2025-05-27 07:57] LABS: CALCIUM LEVEL 10.2 MG/DL (8.3-10.6); CARBON DIOXIDE LEVEL 31.0 MMOL/L (20-31); CHLORIDE LEVEL 92.0 MMOL/L (98-107); CREATININE FOR GFR 1.07 MG/DL (0.55-1.30); GLOMERULAR FILTRATION RATE 56.6 (>45); POTASSIUM SERUM 4.5 MMOL/L (3.5-5.1); SODIUM LEVEL 133.0 MMOL/L (136-145)
[2025-05-27] MEDS: VANCOMYCIN HCL 750 MG, VIAL MATE ADAPTER 1 EACH in NS 250 ML IV SCH (10:56)
[2025-05-27] MEDS: KETOROLAC 30 MG/ML 1 ML VIAL IV PRN (11:36)
[2025-05-27] MEDS: NS 50 ML SYRINGE INTRAPLEU ONE (11:36)
[2025-05-27] MEDS: ALTEPLASE 10MG IN NS 60ML SYRINGE INTRAPLEU ONE (11:37)
[2025-05-27] MEDS: PULMOZYME 5MG IN NS 55ML SYRINGE INTRAPLEU ONE (11:37)
[2025-05-27] MEDS: SODIUM CHLORIDE HYPERTONIC 3% 4ML NEB SOL INH SCH (11:46)
[2025-05-27] MEDS ORDERED: NOREPINEPHRINE 4 MG IN D5W 250 ML IVBAG (16 MCG/ML) As Ordered ONE (15:44)
[2025-05-27 16:22] LABS: VENOUS BASE EXCESS -0.1 (-2.0-2.0); VENOUS HCO3 27.3 MMOL/L (23.0-27.0); VENOUS O2 SATURATION 96.3 % (60.0-80.0); VENOUS PARTIAL PRESSURE CO2 60.7 mmHg (38.0-50.0); VENOUS PARTIAL PRESSURE O2 97.9 mmHg (30.0-50.0); VENOUS PH 7.271 UNITS (7.330-7.430); VENOUS STANDARD HCO3 24.4 MMOL/L; VENOUS TOTAL CO2 29.2 MMOL/L (24.0-28.0)
[2025-05-27 16:52] LABS: MAGNESIUM LEVEL 1.5 MG/DL (1.8-2.4); PHOSPHORUS LEVEL 9.0 MG/DL (2.4-5.1)
[2025-05-27] MEDS: FAT EMULSION IV 250 ML IV ONE (17:19)
[2025-05-27] MEDS: MAG SULF 1GM/100ML (MAG RUN) 1 GM in IV 1 EA IV ONE (18:50)
[2025-05-27] MEDS: LINEZOLID 600 MG in IV 1 EA IV SCH (19:28)
[2025-05-27] MEDS: NOREPINEPHRINE 4MG IN D5 250ML 4 MG in IV 1 EA IV SCH (20:51)
[2025-05-27] MEDS ORDERED: LINEZOLID 600 MG in IV 1 EA IV SCH (21:00)
[2025-05-27 21:25] LABS: ABG BASE EXCESS 2.0 (-2.0-2.0); ABG HCO3 28.5 MMOL/L (22.0-26.0); ABG O2 SATURATION 99.4 % (95.0-99.0); ABG PARTIAL PRESSURE CO2 56.4 mmHg (35.0-45.0); ABG PARTIAL PRESSURE O2 198.7 mmHg (75.0-100.0); ABG STANDARD HCO3 26.3 MMOL/L. (22.0-26.0); ABG TOTAL CO2 30.3 MMOL/L (23.0-31.0); ABG pH (ARTERIAL) 7.322 UNITS (7.350-7.450)
[2025-05-28] VITALS (48 sets, daily range): BP systolic 95–247; BP diastolic 50–118; TEMP 97.3–99; O2SAT 84–100
[2025-05-28 04:53] LABS: PLATELET COUNT, AUTOMATED 297 10^3/uL (150-450)
[2025-05-28 10:13] LABS: ALT/SGPT 11 U/L (7.0-40); AST/SGOT 17 U/L (<34); CALCIUM LEVEL 8.8 MG/DL (8.3-10.6); CARBON DIOXIDE LEVEL 25 MMOL/L (20-31); CHLORIDE LEVEL 97 MMOL/L (98-107); CREATININE FOR GFR 1.10 MG/DL (0.55-1.30); GLOMERULAR FILTRATION RATE 54.7 (>45); MAGNESIUM LEVEL 2.2 MG/DL (1.8-2.4); PHOSPHORUS LEVEL 10.5 MG/DL (2.4-5.1); POTASSIUM SERUM 5.5 MMOL/L (3.5-5.1); SODIUM LEVEL 134 MMOL/L (136-145)
[2025-05-28] MEDS: CALCIUM GLUCONATE 1,000 MG in DEXTROSE 5% (D5W) MINI-BAG PLU 100 ML IV ONE (11:39)
[2025-05-28] MEDS: DEXTROSE 50% 50 ML SYRINGE IV STA (11:40)
[2025-05-28] MEDS: HumuLIN R (REGULAR) INSULIN (NovoLIN R) **100 U/ML** PER UNIT IV STA (11:40)
[2025-05-28] MEDS: FUROSEMIDE 20 MG/2 ML VIAL IV ONE (11:42)
[2025-05-28 16:46] LABS: ALT/SGPT 13 U/L (7.0-40); AST/SGOT 17 U/L (<34); CALCIUM LEVEL 9.2 MG/DL (8.3-10.6); CARBON DIOXIDE LEVEL 29 MMOL/L (20-31); CHLORIDE LEVEL 92 MMOL/L (98-107); CREATININE FOR GFR 1.12 MG/DL (0.55-1.30); GLOMERULAR FILTRATION RATE 53.6 (>45); POTASSIUM SERUM 5.2 MMOL/L (3.5-5.1); SODIUM LEVEL 133 MMOL/L (136-145)
[2025-05-28] MEDS: FAT EMULSION IV 250 ML IV ONE (17:32)
[2025-05-28] MEDS: SOD POLYSTYRENE SULFONATE SUSP 15GM 60ML UD PO ONE (18:04)
[2025-05-28 22:44] LABS: ALT/SGPT 14 U/L (7.0-40); AST/SGOT 21 U/L (<34); CALCIUM LEVEL 8.7 MG/DL (8.3-10.6); CARBON DIOXIDE LEVEL 32 MMOL/L (20-31); CHLORIDE LEVEL 91 MMOL/L (98-107); CREATININE FOR GFR 1.16 MG/DL (0.55-1.30); GLOMERULAR FILTRATION RATE 51.4 (>45); POTASSIUM SERUM 4.9 MMOL/L (3.5-5.1); SODIUM LEVEL 130 MMOL/L (136-145)
[2025-05-29] VITALS (11 sets, daily range): BP systolic 147–169; BP diastolic 65–79; TEMP 97.1–99.1; O2SAT 93–100
[2025-05-29] MEDS: ONDANSETRON 4MG TAB PO ONE (02:43)
[2025-05-29] MEDS: ONDANSETRON 4MG/2ML VIAL IV ONE (05:44)
[2025-05-29 07:23] LABS: PLATELET COUNT, AUTOMATED 365 10^3/uL (150-450)
[2025-05-29 07:49] LABS: ALT/SGPT 17 U/L (7.0-40); AST/SGOT 19 U/L (<34); CALCIUM LEVEL 9.0 MG/DL (8.3-10.6); CARBON DIOXIDE LEVEL 32 MMOL/L (20-31); CHLORIDE LEVEL 91 MMOL/L (98-107); CREATININE FOR GFR 1.03 MG/DL (0.55-1.30); GLOMERULAR FILTRATION RATE 59.2 (>45); PHOSPHORUS LEVEL 8.2 MG/DL (2.4-5.1); POTASSIUM SERUM 5.2 MMOL/L (3.5-5.1); SODIUM LEVEL 132 MMOL/L (136-145)
[2025-05-29] MEDS: FAMOTIDINE 20 MG/2 ML VIAL IVP ONE (07:55)
[2025-05-29] MEDS ORDERED: HYOSCYAMINE SULFATE 0.125 MG SUBL TABLET PO PRN (14:35)
[2025-05-29] MEDS ORDERED: ONDANSETRON 4MG/2ML VIAL IV PRN (14:35)
[2025-05-29] MEDS ORDERED: ACETAMINOPHEN 325 MG TAB PO PRN (14:35)
[2025-05-29] MEDS ORDERED: SCOPOLAMINE 1MG TRANSDERMAL PATCH TOP PRN (14:35)
[2025-05-29] MEDS ORDERED: ATROPINE SULFATE 1% OPHTH SOLN 2 ML BTL SL PRN (14:35)
[2025-05-29 15:09] LABS: C REACTIVE PROTEIN QUANTITATIV 27.49 MG/DL (<1.0)
[2025-05-29] MEDS: LORazepam 1 MG TAB PO PRN (17:48)
[2025-05-29] MEDS: MORPHINE 10 MG/0.5 ML ORAL CONCENTRATE SOLUTION U/D SL PRN (17:49)
[2025-05-29] MEDS ORDERED: FAT EMULSION IV 250 ML IV ONE (18:00)
[2025-05-29] MEDS ORDERED: INSULIN LISPRO (NovoLOG) PER UNIT SC SCH (18:00)
[2025-05-30] MEDS ORDERED: SALIVA SUBSTITUTE BTL MT PRN (12:35)
[2025-05-30] MEDS ORDERED: POLYVINYL ALCOHOL OPHTH SOLN 15ML (LIQUITEARS) OU PRN (12:35)
[2025-05-30] MEDS ORDERED: SENNA 8.6 MG TAB PO PRN (12:35)
[2025-05-30] MEDS ORDERED: MIRALAX *UNIT DOSE* 17 GM PACKET PO PRN (12:35)
[2025-05-30] MEDS: ONDANSETRON 4MG ORAL DISINTEGRATING TAB PO PRN (12:45)
[2025-05-30] MEDS: LORazepam 1 MG TAB PO SCH (12:46)
[2025-05-30] MEDS: MORPHINE 10 MG/0.5 ML ORAL CONCENTRATE SOLUTION U/D SL SCH (12:46)
[2025-05-31] MEDS: FAMOTIDINE 20 MG TAB PO SCH (09:23)
[2025-05-31] MEDS: LORazepam 1 MG TAB PO PRN (13:03)
[2025-06-01] MEDS: HYOSCYAMINE SULFATE 0.125 MG SUBL TABLET SL PRN (10:44)
[2025-06-01] MEDS: ATROPINE SULFATE 1% OPHTH SOLN 2 ML BTL SL PRN (12:15)
[2025-06-01] MEDS: MORPHINE 10 MG/0.5 ML ORAL CONCENTRATE SOLUTION U/D SL PRN (12:16)
[2025-06-01] MEDS: OLANZapine ORAL DISINTEGRATING TAB 5MG PO SCH (14:32)
[2025-06-01] MEDS: MORPHINE 10 MG/0.5 ML ORAL CONCENTRATE SOLUTION U/D SL SCH (18:00)
[2025-06-02] MEDS: MORPHINE 10 MG/0.5 ML ORAL CONCENTRATE SOLUTION U/D SL SCH (09:35)
[2025-06-02] MEDS: MORPHINE 10 MG/0.5 ML ORAL CONCENTRATE SOLUTION U/D SL PRN (12:12)
[2025-06-02] MEDS: OLANZapine ORAL DISINTEGRATING TAB 5MG PO SCH (16:06)
== END 2025-06-04 01:07 | disposition expired | DRG 867 ==
LOC: M ED 01:28 → EDBD 01:28 → M ED INP 01:29 → M MS4PR 14:56 → M MSPAV 16:56 → OBSVTOIN 19:55 → M PCU 21:28 → M ICU 05-26 18:13 → M MS5PR 05-29 17:30
PROVIDERS: ADMIT Student in an Organized Health Care Education/Training Program; ATTEND Internal Medicine Nephrology
PROC: 0W993ZZ Drainage of Right Pleural Cavity, Percutaneous Approach (ICD-10-PCS; principal; 2025-05-26)
DX: T80.29XA Infection following other infusion, transfusion and therapeutic injection, initial encounter (principal); B37.7 Candidal sepsis; J96.21 Acute and chronic respiratory failure with hypoxia; J18.9 Pneumonia, unspecified organism; R65.21 Severe sepsis with septic shock; J44.1 Chronic obstructive pulmonary disease with (acute) exacerbation; J90 Pleural effusion, not elsewhere classified; J98.11 Atelectasis; J44.0 Chronic obstructive pulmonary disease with (acute) lower respiratory infection; E87.1 Hypo-osmolality and hyponatremia; R64 Cachexia; F11.20 Opioid dependence, uncomplicated; F17.210 Nicotine dependence, cigarettes, uncomplicated; F39 Unspecified mood [affective] disorder; Z99.81 Dependence on supplemental oxygen; E78.5 Hyperlipidemia, unspecified; M19.90 Unspecified osteoarthritis, unspecified site; L89.151 Pressure ulcer of sacral region, stage 1; G89.29 Other chronic pain; I10 Essential (primary) hypertension; R73.9 Hyperglycemia, unspecified; K21.9 Gastro-esophageal reflux disease without esophagitis; F41.9 Anxiety disorder, unspecified; M85.80 Other specified disorders of bone density and structure, unspecified site; E87.5 Hyperkalemia; R53.1 Weakness; E83.39 Other disorders of phosphorus metabolism; Z86.711 Personal history of pulmonary embolism; Z85.118 Personal history of other malignant neoplasm of bronchus and lung; Z51.5 Encounter for palliative care; Z93.2 Ileostomy status; Z79.899 Other long term (current) drug therapy; Z79.52 Long term (current) use of systemic steroids; Z88.6 Allergy status to analgesic agent; Z88.7 Allergy status to serum and vaccine; Z88.8 Allergy status to other drugs, medicaments and biological substances; Z66 Do not resuscitate; Y84.8 Other medical procedures as the cause of abnormal reaction of the patient, or of later complication, without mention of misadventure at the time of the procedure